=== PATIENT | male | born 1950 | race Caucasian/White ===

== ENCOUNTER → 2019-05-04 | Outpatient (CLI) | payer MEDICARE ==
[2019-05-04 15:09] LABS: ABG BASE EXCESS 3.2 MMOL/L (-2.5-2.5); ABG OXYGEN SATURATION 97 % (94-100); ABG PCO2 47 MMHG (35-45); ABG PH 7.39 (7.37-7.43); ABG PO2 85 MMHG (79-93); ABG TCO2 29.1 MMOL/L (21.0-31.0); ALLENS TEST POSITIVE; INSPIRED O2 2 L; VENTILATOR NO
[2019-05-04 15:10] LABS: PATIENT TEMP 37.3
--- NOTE | 2019-05-04 15:55 | Diagnostic Imaging Report ---
INDICATION: Shortness of breath, bronchitis, rhinitis, and hypoxemia. COMPARISON: Comparison made with prior examination from 01/11/2015. FINDINGS: Heart size is normal. Mediastinum is unremarkable. There is mild venous congestion. There is no pleural effusion or pneumothorax. IMPRESSION: Mild central pulmonary venous congestion. Dictated by: Dictated on workstation # [id number]
== END ==
LOC: RAD 14:28
PROVIDERS: ATTEND Internal Medicine Critical Care Medicine
DX: I87.8 Other specified disorders of veins (principal); J40 Bronchitis, not specified as acute or chronic; J31.0 Chronic rhinitis
CPT/HCPCS: 36600; 71045; 82805

== ENCOUNTER 2019-06-28 20:28 | Inpatient (IN) | payer MEDICARE, OTHER ==
[~2019-06-28] VITALS: Ht 173 cm; Wt 115.5 kg
[2019-06-28] VITALS (11 sets, daily range): BP systolic 110–142; BP diastolic 63–89
--- OUTSIDE RECORDS SUMMARY | 2019-06-28 20:37 | XMS REPORT | Encounter Summary ---
Author Author [facility] Address Unknown Phone Unavailable Care Team Providers Care Photoengraving Photographer Name Role Phone PCP Unavailable Encounter Details Care Team Description Date Type Department Ramo Forbes MD [address] [place] [address] [phone] 12/17/2004 [facility] [address] [place] [address] [id number] Social History Date Tobacco Use Types Packs/Day Years Used Never Assessed Sex Assigned at Date Recorded Not on file Industry Job Start Date Occupation Not on file Not on file Not on file Travel End Travel History Travel Start No recent travel history available. documented as of this encounter Plan of Treatment Not on filedocumented as of this encounter Visit Diagnoses Not on filedocumented in this encounter
--- OUTSIDE RECORDS SUMMARY | 2019-06-28 20:37 | XMS REPORT | Encounter Summary ---
Author Author [facility] Organization [facility] Address Unknown Phone Unavailable Care Team Providers Care Manager Council Name Role Phone PCP Unavailable Encounter Details Care Team Description Date Type Department Jimmie Barriga MD [address] [place] [address] [phone] 03/03/1999 [facility] Social History Date Tobacco Use Types Packs/Day Years Used Never Assessed Sex Assigned at Date Recorded Not on file Industry Job Start Date Occupation Not on file Not on file Not on file Travel End Travel History Travel Start No recent travel history available. documented as of this encounter Plan of Treatment Not on filedocumented as of this encounter Procedures Comments Procedure Name Priority Date/Time Associated Diag nosis CT THORACIC SPINE WO Routine 03/03/1999 CONTRAST 2:30 PM POULTRY PINNER documented in this encounter Results * CT Thoracic Spine wo contrast (03/03/1999 2:30 PM POULTRY PINNER) Specimen Narrative Performed At Report [facility] RAD/[id number] [facility] Name: JO ANN DEL REAL Date of : 1950 Age: 48Y Room-Bed/Loca tion/Type: -//RB Check-In #: [id number] Attending Physician: JIMMIE Coates Procedure: CT SPINE THORACIC W/O Reason for Exam: ;BACK PAIN Requested by: JIMMIE BARRIGA Film Jacket #: [id number] Exam Date: 03/03/1999 14:32 Exam: CT THORACIC SPINE EXAMINATION Reason for Exam: Patient with back p ain. Axial images were obtained from T1 thro ugh L1. No acute fracture abnormality is seen. Pronounced degenerative changes with sclerosis in the posterior element s and some facet arthropathy are present, particularly at the T7-8, T8-9 , and T9-10 levels. Degenerative sclerosis and hypertrophic spurring are noted. IMPRESSION: 1. No evidence of an acute fracture i s seen. Degenerative changes are noted, particularly at the T7-8, T8-9, and T9-10 levels. Degenerative sclerosis and hypertrophic spurring are present. 2. A minimal wedging deformity may no t be well seen on CT examination due to the axial imaging sequences. If t here is clinical concern of an acute fracture, a whole-body bone scan or MRI scan of the thoracic spine would be of benefit to exclude a subtle acute pr ocess. Dalia Clement M.D. T: 000 09:46:43 cc: Name: JO ANN DEL REAL Room-Bed /Loc/Type: -//RB Admit D ate: 03/03/1999 MEDICAL IMAGING CONSULTATION 1 OF Name: JO ANN DEL REAL Room-Bed /Loc/Type: -/ /RB Admit Date: 03/03/1999 MEDICAL IMAGING CONSULTATION OF 1 Procedure Note Interface, Rad Conversion - 04/24/2013 5:31 AM POULTRY PINNER Report RAD/nr/[id number] [facility] Name: JO ANN DEL REAL Date of : 1950 Age: 48Y Room-Bed/Location/Type: -//RB Check-In #: [id number] Attending Physician: JIMMIE BARRIGA MD Procedure: CT SPINE THORACIC W/O Reason for Exam: ;BACK PAIN Requested by: JIMMIE BARRIGA Film Jacket #: [id number] Exam Date: 03/03/1999 14:32 Exam: CT THORACIC SPINE EXAMINATION Reason for Exam: Patient with back pain. Axial images were obtained from T1 through L1. No acute fracture abnormality is seen. Pronounced degenerative changes with sclerosis in the posterior elements and some facet arthropathy are present, particularly at the T7-8, T8-9, and T9-10 levels. Degenerative sclerosis and hypertrophic spurring are noted. IMPRESSION: 1. No evidence of an acute fracture is seen. Degenerative changes are noted, particularly at the T7-8, T8-9, and T9-10 levels. Degenerative sclerosis and hypertrophic spurring are present. 2. A minimal wedging deformity may not be well seen on CT examination due to the axial imaging sequences. If there is clinical concern of an acute fracture, a whole-body bone scan or MRI scan of the thoracic spine would be of benefit to exclude a subtle acute process. Dalia Clement M.D. cc: Name: JO ANN DEL REAL A Room-Bed/Loc/Type: -//RB Admit Date: 03/03/1999 MEDICAL IMAGING CONSULTATION Name: VIKASJO ANN RAWLS [place] Room-Bed/Loc/Type: -/ /RB Admit Date: 03/03/1999 MEDICAL IMAGING CONSULTATION 1 Performing Organization Address City/State/Zipcode Ph one Number [facility] documented in this encounter Visit Diagnoses Not on filedocumented in this encounter
--- OUTSIDE RECORDS SUMMARY | 2019-06-28 20:37 | XMS REPORT | Encounter Summary ---
Author Author [facility] Organization [facility] Address Unknown Phone Unavailable Care Team Providers Care Second Ride Fare Collector Name Role Phone PCP Unavailable Encounter Details Care Team Description Date Type Department Ramo Forbes MD [address] [place] [address] [phone] OBSTRUCTIVE SLEEP APNEA, ADULT & PED 02/10/2005 [facility] [address] [place], [place] [id number] Social History Date Tobacco Use Types Packs/Day [...] Procedure Name Priority Date/Time Associated Diag nosis COOXIMETRY ARTERIAL Routine 02/10/2005 10:35 PM DIVEMASTER ARTERIAL BLOOD GAS Routine 02/10/2005 10:35 PM DIVEMASTER documented in this encounter Results * Arterial Blood Gas (02/10/2005 10:35 PM DIVEMASTER) pH Arterial 7.36 (L) 7.38 - 7.44 UNITS SUNQUEST pCO2 Arterial 48 (H) 35 - 45 MMHG SUNQUEST PO2 Arterial 74 >73 MMHG SUNQUEST Base Excess 1.1 -3.0 - 3.0 MEQ/L SUNQUEST Bicarbonate 26.5 21.0 - 28.0 MEQ/L SUNQUEST Patient Temp 37.0 C SUNQUEST Celsius Sample Site ARTERIAL SUNQUEST Fraction of 21 % SUNQUEST Inspired Oxygen Specimen Performing Organization Address City/State/Zipcode Ph one Number [facility] [address] [place], [place] [address] SUNQUEST * Cooximetry Arterial (02/10/2005 10:35 PM DIVEMASTER) Hemoglobin 12.9 (L) 13.0 - 17.0 G/DL SUNQUEST Whole Blood Oxyhemoglobin 91.9 (L) 95.0 - 100.0 %THB SUNQUEST Carboxyhemoglob 1.2 0.0 - 1.5 %THB SUNQUEST in Methemoglobin 1.0 0.0 - 1.5 %THB SUNQUEST O2 Content 16.7 (L) >17.0 ML/DL SUNQUEST Arterial Specimen Performing Organization Address City/State/Zipcode Ph one Number [facility] [address] [place], [place] [address] SUNQUEST documented in this encounter Visit Diagnoses Diagnosis Obstructive sleep apnea (adult) (pediat niki) documented in this encounter
--- OUTSIDE RECORDS SUMMARY | 2019-06-28 20:37 | XMS REPORT ---
Author Author Whatever. [facility] [place] [facility]. 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 Name Role Phone JESSICA GUILLEN Unavailable Unavailable HUERTER, JESSICA Unavailable HUERTER, JESSICA Unavailable HUERTER, JESSICA Unavailable HUERTER, JESSICA Unavailable MICHI SANTOS Unavailable HUERTER, JESSICA Unavailable HUERTER, JESSICA Unavailable HUERTER, JESSICA Unavailable HUERTER, JESSICA Unavailable HUERTER, JESSICA Unavailable HUERTER, JESSICA Unavailable HUERTER, JESSICA Unavailable HUERTER, JESSICA Unavailable HUERTER, JESSICA Unavailable HUERTER, JESSICA Unavailable HUERTER, JESSICA Unavailable HUERTER, JESSICA Unavailable HUERTER, JESSICA Unavailable HUERTER, JESSICA Unavailable HUERTER, JESSICA Unavailable HUERTER, JESSICA Unavailable HUERTER, JESSICA Unavailable HUERTER, JESSICA Unavailable HUERTER, JESSICA Unavailable HUERTER, JESSICA Unavailable BETSY MCKEON Unavailable HUERTER, JESSICA Unavailable HUERTER, JESSICA Unavailable HUERTER, JESSICA Unavailable HUERTER, JESSICA Unavailable HUERTER, JESSICA Unavailable ANIRUDH CALE Unavailable YUNIORRAVENTA Unavailable HUERTER, JESSICA Unavailable HUERTER, EJSSICA Unavailable HUERTER, JESSICA Unavailable HUERTER, JESSICA Unavailable HUERTER, JESSICA Unavailable LISA DAVILA Unavailable HUERTER, JESSICA Unavailable HUERTER, JESSICA Unavailable HUERTER, JESSICA Unavailable HUERTER, JESSICA Unavailable HUERTER, JESSICA Unavailable HUERTER, JESSICA Unavailable HUERTER, JESSICA F Unavailable Unavailable ELENO REYES Unavailable HUERTER, JESSICA Unavailable HUERTER, JESSICA Unavailable HENRY PEÑA DO Unavailable Unavailable LULA MCLAUGHLIN DO Unavailable Unavailable SIRENA CHAUHAN APRN Unavailable Unavailable HUERTER, JESSICA Unavailable Unavailable Unavailable Unavailable Unavailable Unavailable Unavailable Allergies The data below is from unstructured sourcesNo Known Allergies No Known Allergies No Known Allergies No Known Allergies No Known Allergies Unknown Allergies Unknown Allergies Unknown Allergies Unknown Allergies Unknown Allergies Unknown Allergies No Information No Information No Information No Information No Information No Information No Information No Information No Information No Information No Information No Information No Information No Information No Information No Information No Information No Information No Information No Information No Information No Information No Information No Information No Information No Information No Information No Information No Information No Information No Information No Information No Information No Information No Information No Information No Information No Information No Information No Information No Information No Information No Information No Information No Information No Information No Information No Information No Information No Information No Information No Information No Information No Information No Information No Information No Information No Information No Information No Information No Information No Information No Information No Information No Information No Information No Information No Information No Information No Information No Information No Information Medications Medication Ingredient Drug Dose Dates Status Sig Sig Care Class(es) (Normalized) (Original) Provid er doxycycline Doxycycline Tetracyclin 100 mg 05-20-19 Active take 1 Doxycycline no hyclate 100 Translation e-class 19 capsule by Hyclate 100 name mg oral s: [ Drug mouth twice MG Orally 2 capsule (1 Doxycycline daily times a day source.) Hyclate 100 1 capsule MG] 12h 28 Apr, 2018 10 day(s) Active hydroCHLORO hydroCHLORO Thiazide 12.5 Active no Hydrochloro t no thiazide thiazide Diuretic mg information hiazide 12.5 na me 12.5 mg Translation MG Orally oral s: [ Once a day 1 capsule (5 Hydrochloro capsule in sources.) thiazide the morning 12.5 MG, 24h Active Hydrochloro thiazide 12.5 MG] predniSONE predniSONE no 40 mg 05-04-19 Active take 2 Predn iSONE no 20 mg oral Translation information 19 tablets by 20 MG Or ally name tablet (1 s: [ mouth once Once a day 2 source.) PredniSONE daily tablet 24h 20 MG] Apr, 5 days Active zolpidem zolpidem gamma-Amino 10 mg 09-07-19 Active take 1 Ambi en 10 mg no tartrate 10 Translation butyric 18 tablet by Orally Once name mg oral s: [ Ambien Acid-ergic mouth once a day 1 tablet (6 10 mg, Agonist daily at tablet at sources.) Ambien 10 bedtime as bedtime as mg] needed needed 24h Aug, 30 days Active Problems Problem Normalized Date Last Normalized Normalized Provider Fa cility Classification Problem(s) Recorded Problem Problem Sta tus Duration Other upper Acute upper Episodic Active [facility] respiratory [facility] infections (4 infection, of [facility] sources.) unspecified [place] ([address]) Translations: [ - Acute URI J06.9] Unclassified Body mass Chronic Active JESSICA contreras (19 sources.) index (BMI) [facility] 45.0-49.9, of [facility] adult [place] ([address]19) Translations: [ - BMI 45.0-49.9, adult Z68.42, - BMI 45.0-49.9, adult Z68.42] Other upper Chronic Chronic Active HENRY PEÑA [facility] Vi a respiratory rhinitis DO Veronica disease (1 Hospital - source.) [place] ([address]) Other lower Cough Episodic Active LULA MCLAUGHLIN [facility] Via respiratory , DO Veronica disease (1 Hospital - source.) [place] ([address]) Congestive Heart failure Chronic Active [facility] [place] [facility] heart failure; Translations: [address] nonhypertensiv [ Heart of [facility] e (6 sources.) failure, [place] ([address]) unspecified HF chronicity, unspecified heart failure type, - Heart failure, unspecified HF chronicity, unspecified heart failure type I50.9] Other Morbid Chronic Active [facility] [place] [facility] nutritional; (severe) [address] endocrine; and obesity due to of [facility] metabolic excess [place] ([address]) disorders (6 calories sources.) Translations: [ - Morbid (severe) obesity due to excess calories E66.01] Other Morbid obesity Chronic Active [facility] [place] [facility] nutritional; Translations: [address] endocrine; and [ Morbid of [facility] metabolic (severe) [place] () disorders (4 obesity due to sources.) excess calories] Residual Obstructive Chronic Active [facility] Via codes; sleep apnea ASH CH[facility]HAN unclassified (adult) Hospital - (1 source.) (pediatric) [place] ([address]) Other diseases Other Episodic Active HENRY PEÑA [facility] Via of veins and specified DO [facility] lymphatics (1 disorders of Hospital - source.) veins [place] ([address]) Other nervous Polyneuropathy Chronic Active [facility] system , unspecified [address] [place] [address] disorders (20 Translations: of [facility] sources.) [ - Neuropathy [place] ([address]) G62.9, - Neuropathy G62.9] Esophageal Stricture of Chronic Active [facility] disorders ([address] [place] [address] sources.) Translations: of [facility] [ Esophageal [place] ([address]) stricture, - Esophageal stricture K22.2] Other lower Wheezing Episodic Active [facility] [place] [facility] respiratory Translations: [address] disease (4 [ - Wheezing of [facility] sources.) R06.2] [place] ([address]) Procedures Procedure Normalized Procedure Procedure Result Performer Facility Date 08-09-2017 Avulsion nail plate no information no name [facility] partial/complete Center [facility] simple 1 [place] ([address]) 08-16-2017 Fall risk assessment no information no name [facility] (79084) 05-19-2018 [facility] visit, estab pt no information no name Co [facility] (99406) 2018 [facility] visit, estab pt no information no name Co [facility] (44057) 12-31-2017 [facility] visit, estab pt no information no name Co [facility] (22661) 09-06-2017 [facility] visit, estab pt no information no name [facility] (76599) 08-09-2017 [facility] visit, estab pt no information no name [facility] (41591) 08-16-2017 [facility] visit, IPPE or no information no name [facility] AWV [facility] (63657) 08-16-2017 Pt tobacco screen rcvd no information no name [facility] tlk [facility] (04553) 08-09-2017 Trimming nondystrophic no information no name [facility] nails any number [facility] (70955) Immunizations Normalized Immunization Date Notes Care Provider Facili ty Immunization influenza, high dose 12-31-2017 - no information JESSICA GUILLEN [address]4786 [facility] seasonal, 12-31-2017 [facility]84105[facility] Translations: [ ADMN FLU VAC NO FEE SCHED SAME DAY, FLUZONE HIGH DOSE (65 & UP) 2018, SINGLE IMMUNIZATION ADMIN] pneumococcal 12-18-2016 no information no name Not Availa ble conjugate vaccine, (38105) 13 valent Results Test Name Value Interpretation Reference Range Date Time Fa cility (Normalized) (Normalized) (Medline Reference) not yet categorized on 2018-10-31 COMMENT no information (no code) [facility] (74484) Prescribed Drug Oxycodone (no code) [facility] (04959) laboratory on 2018-10-31 Amphetamines Ql Negative (N) [facility] (U) [facility] (84649) Barbiturates Ql Negative (N) [facility] (U) [facility] (69010) Benzodiazepines Negative (N) [facility] Ql (U) [facility] (06828) Benzoylecgonine Negative (N) [facility] Ql (U) [facility] (27211) Codeine (U) Negative (N) [facility] [Mass/Vol] [facility] (86711) Creatinine (U) 277.2 mg/dL (N) [facility] [Mass/Vol] [facility] (80415) Drug screen CONSISTENT (N) [facility] comment (U) [facility] [Interp] [facility] (43728) Hydrocodone (U) Negative (N) [facility] [Mass/Vol] [facility] (49875) Hydromorphone Negative (N) [facility] (U) [Mass/Vol] [facility] (70903) Methadone Ql (U) Negative (N) Community [facility] (05559) Morphine (U) Negative (N) [facility] [Mass/Vol] [facility] (16376) Norhydrocodone Negative (N) [facility] Confirm (U) [facility] [Mass/Vol] [facility] (32294) Noroxycodone >85269 (H) [facility] Confirm (U) [facility] [Mass/Vol] [facility] (33432) Opiates Ql (U) Negative (N) [facility] (64104) Oxidants Ql (U) Negative (N) [facility] (08288) Oxycodone (U) >39951 (H) [facility] [Mass/Vol] [facility] (70732) Oxycodone Ql (U) Positive (A) Community [facility] (62102) Oxymorphone (U) 89 (H) [facility] [Mass/Vol] [facility] (29209) pH (U) 5.4 [pH] (N) 4.6 - 8 [pH] [facility] (68010) Phencyclidine Ql Negative (N) [facility]th (U) [facility] (24681) Tetrahydrocannab Negative (N) Community [facility] lt inol Ql (U) [facility] (39758) laboratory on 2018-08-18 Prostate 0.9 ng/mL (N) 0 - 4 ng/mL Community a lt specific Ag [facility] [Mass/Vol] [facility] (13816) urinalysis on 2017-09-06 Benzoylecgonine Negative (no code) [facility] presence [facility] (55616) Urine, Negative (no code) [facility] (97668) Urine, Negative (no code) [facility] benzodiazep[facility] (34625) Urine, 246.0 mg/dL (no code) [facility] creatinine [facility] (65133) Urine, methadone Negative (no code) Community [facility] presence [facility] (26334) Urine, opiates Positive (A) [facility] presence [facility] (51468) Urine, Negative (no code) [facility] phencyclidine [facility] (24202) Urine, Negative (no code) [facility] tetrahydrocannab [facility] (97779) other on 2017-09-06 Alphahydroxyalpr Negative (no code) Community a lt azolam [facility] (37444) Alphahydroxymida Negative (no code) Community a lt zolam [facility] (66187) Alphahydroxytria Negative (no code) Community [facility] zolam [facility] (75552) Aminoclonazepam Negative (no code) [facility] (78972) Codeine Negative (no code) [facility] (28900) Hydrocodone Negative (no code) [facility] (35727) Hydromorphone Negative (no code) [facility] (58524) Hydroxyethylflur Negative (no code) [facility] azepam [facility] (11496) Lorazepam Negative (no code) [facility] (50910) Morphine 248 (H) [facility] (95565) Nordiazepam Negative (no code) [facility] (63350) Norhydrocodone Negative (no code) [facility] (67502) Noroxycodone 8013 (H) [facility] (03661) Oxazepam Negative (no code) [facility] (75135) Oxycodone 05806 (H) [facility] (72399) Oxymorphone 3337 (H) [facility] (93109) Temazepam Negative (no code) [facility] (62179) Albumin/Globulin 1.5 (N) Not Available mass ratio (71173) Barbiturates Negative (no code) [facility] (26727) Cholesterol in 83 (N) Not Available LDL mass conc (58386) Cholesterol non 114 (N) Not Available HDL mass conc (71357) Cholesterol.tota 3.5 (N) Not Available l/Cholesterol in (09780) HDL mass ratio COMMENT no information (no code) [facility] (73650) Globulin 2.6 (N) Not Available Calculated mass (88252) conc (S) medMATCH CONSISTENT (no code) [facility] Aminoclonazepam [facility] (03153) medMATCH CONSISTENT (no code) [facility] Amphetamines [facility] (63531) medMATCH aOH CONSISTENT (no code) [facility] alprazolam [facility] (06724) medMATCH aOH CONSISTENT (no code) [facility] midazolam [facility] (37486) medMATCH aOH CONSISTENT (no code) [facility] triazolam [facility] (90771) medMATCH CONSISTENT (no code) [facility] Barbiturates [facility] (38813) medMATCH Cocaine CONSISTENT (no code) [facility] Metab [facility] (12375) medMATCH Codeine CONSISTENT (no code) [facility] (49831) medMATCH CONSISTENT (no code) [facility] Hydrocodone [facility] (77333) medMATCH CONSISTENT (no code) [facility] Hydromorphone [facility] (47683) medMATCH CONSISTENT (no code) [facility] Lorazepam [facility] (41223) medMATCH CONSISTENT (no code) [facility] Marijuana Metab [facility] (88191) medMATCH CONSISTENT (no code) [facility] Methadone Metab [facility] (07065) medMATCH INCONSISTENT (no code) [facility] Morphine [facility] (27257) medMATCH CONSISTENT (no code) [facility] Nordiazepam [facility] (46737) medMATCH CONSISTENT (no code) [facility] Norhydrocodone [facility] (89415) medMATCH CONSISTENT (no code) [facility] Noroxycodone [facility] (99233) medMATCH [place],Et CONSISTENT (no code) [facility] flurazepam Center [facility] (06531) medMATCH CONSISTENT (no code) [facility] Oxazepam [facility] (21449) medMATCH CONSISTENT (no code) [facility] Oxycodone [facility] (27927) medMATCH CONSISTENT (no code) [facility] Oxymorphone [facility] (58183) medMATCH CONSISTENT (no code) [facility] Phencyclidine [facility] (37666) medMATCH CONSISTENT (no code) [facility] Temazepam [facility] (67500) Oxidant Negative (no code) [facility] (79035) Oxycodone Positive (A) [facility] (95467) Prescribed Drug Oxycodone (no code) [facility] 1 [facility] (19544) metabolic panel on 2017-09-06 Albumin mass 4.0 g/dL (N) 3.4 - 5.4 g/dL Not Avail able conc (11673) ALP enzyme 137 U/L (H) 44 - 147 U/L Not Availabl e act/vol (13674) ALT enzyme 19 U/L (N) 4 - 40 U/L Not Available act/vol (01153) AST enzyme 16 U/L (N) 10 - 34 U/L Not Available act/vol (04449) Bilirubin mass 0.3 mg/dL (N) 0.1 - 1.2 mg/dL Not Av ailable conc (01466) Calcium mass 9.0 mg/dL (N) 8.5 - 10.2 mg/dL Not Marilee ilable conc (48596) Chloride molar 105 mmol/L (N) 95 - 106 mmol/L Not Av ailable conc (71403) CO2 molar conc 27 mmol/L (N) 23 - 29 mmol/L Not Marilee ilable (06718) Creatinine mass 1.04 mg/dL (N) Not Available conc (39428) GFR/1.73 sq M 86 (N) 90 - 120 Not Availabl e predicted among mL/min/{1.73_m2} mL/min/{1.73_m2} (64712) blacks MDRD vol rate/area (S/P/Bld) GFR/1.73 sq 74 (N) 90 - 120 Not Available M.predicted MDRD mL/min/{1.73_m2} mL/min/{1.73_m2} (65175) vol rate/area Glucose mass 99 mg/dL (N) 60 - 125 mg/dL Not Avail able conc (02756) Potassium molar 4.0 mmol/L (N) 3.7 - 5.2 mmol/L Not Available conc (48793) Protein mass 6.6 g/dL (N) 6.4 - 8.3 g/dL Not Avail able conc (87070) Sodium molar 142 mmol/L (N) 135 - 145 mmol/L Not Marilee ilable conc (07417) Urea nitrogen 15 mg/dL (N) 7 - 20 mg/dL Not Availa ble mass conc (20176) Urea NOT APPLICABLE (no code) Not Available nitrogen/Creatin (98535) ine mass ratio hematology on 2017-09-06 pH of blood 5.15 [pH] (no code) 7.38 - 7.42 [pH] [facility] (31506) cardiac on 2017-09-06 Cholesterol in 45 mg/dL (N) Not Available HDL mass conc (05373) Cholesterol mass 159 mg/dL (N) 180 - 200 mg/dL Not Available conc (35083) Triglyceride 224 mg/dL (H) 0 - 150 mg/dL Not Availa ble mass conc (58102) other on 2016-10-02 25-Hydroxyvitami 25.0 (L) 10-02-2016 Not Avail able n 13:27-0400 (96273) D2+25-Hydroxyvit garcía D3 mass conc Albumin/Globulin 1.4 {ratio} (no code) 1 - 2.5 {ratio} 7 Not Available mass ratio 08:57-0400 (94023) Cholesterol in 18 mg/dL (no code) 10-02-2016 Not Availab le VLDL mass conc 10:06-0400 (23760) Globulin 3.0 g/dL (no code) 2 - 3.5 g/dL 10-02-2016 Not Avail able Calculated mass 08:57-0400 (46678) conc (S) metabolic panel on 2016-10-02 Albumin mass 4.3 g/dL (no code) 3.4 - 5.4 g/dL 10-02-2016 Not Available conc 08:57-0400 (89526) ALP enzyme 141 U/L (H) 44 - 147 U/L 10-02-2016 Not Avai lable act/vol 10:06-0400 (56677) ALT enzyme 18 U/L (no code) 4 - 40 U/L 10-02-2016 Not Availa ble act/vol 10:06-0400 (32926) AST enzyme 16 U/L (no code) 10 - 34 U/L 10-02-2016 Not Avail able act/vol 08:57-0400 (12359) Bilirubin mass 0.4 mg/dL (no code) 0.1 - 1.2 mg/dL 10-02-2016 N ot Available conc 08:570400 (29289) Calcium mass 9.5 mg/dL (no code) 8.5 - 10.2 mg/dL 10-02-2016 No t Available conc 08:470400 (09240) Chloride molar 98 mmol/L (no code) 95 - 106 mmol/L 10-02-2016 N ot Available conc 08:470400 (08385) CO2 molar conc 22 mmol/L (no code) 23 - 29 mmol/L 10-02-2016 No t Available 08:570400 (23041) Creatinine mass 1.14 mg/dL (no code) 10-02-2016 Not Availa ble conc 10:060400 (93340) GFR/1.73 sq M 78 (no code) 120 10-02-2016 Not Avai lable predicted among mL/min/{1.73_m2} mL/min/{1.73_m2} 10:060400 (13524) blacks MDRD vol rate/area (S/P/Bld) GFR/1.73 sq M 67 (no code) 120 10-02-2016 Not Avai lable predicted among mL/min/{1.73_m2} mL/min/{1.73_m2} 10:060400 (29599) non-blacks MDRD vol rate/area (S/P/Bld) Glucose mass 97 mg/dL (no code) 60 - 125 mg/dL 10-02-2016 Not Available conc 08:570400 (78398) Potassium molar 4.4 mmol/L (no code) 3.7 - 5.2 mmol/L 10-02-2016 Not Available conc 08:470400 (73125) Protein mass 7.3 g/dL (no code) 6.4 - 8.3 g/dL 10-02-2016 Not Available conc 08:570400 (10231) Sodium molar 139 mmol/L (no code) 135 - 145 mmol/L 10-02-2016 N ot Available conc 08:470400 (22120) Urea nitrogen 15 mg/dL (no code) 7 - 20 mg/dL 10-02-2016 Not A vailable mass conc 08:57-0400 (10830) Urea 13 mg/mg (no code) 6 - 22 mg/mg 10-02-2016 Not Avail able nitrogen/Creatin 10:06-0400 (79982) ine mass ratio imm/path on 2016-10-02 Prostate 4.1 ng/mL (H) 0 - 4 ng/mL 10-02-2016 Not Availa ble specific Ag mass 10:44-0400 (79919) conc cardiac on 2016-10-02 Cholesterol in 52 mg/dL (no code) 10-02-2016 Not Availab le HDL mass conc 10:060400 (86274) Cholesterol in 68 mg/dL (no code) 0 - 100 mg/dL 10-02-2016 Not Available LDL mass conc 10:060400 (88352) Cholesterol mass 138 mg/dL (no code) 180 - 200 mg/dL 10-02-2016 Not Available conc 10:060400 (33654) Triglyceride 89 mg/dL (no code) 0 - 150 mg/dL 10-02-2016 Not A vailable mass conc 10:060400 (30501) Vital Signs Vital Sign Value Interpretation Reference Date Time Care Prov ider Facility (Normalized) (Normalized) Range BMI (Body Mass 34.36 kg/m2 (no code) 15 - 25 kg/m2 2018 [facility] Community Index) 17:45-[address] [place] [address] (85781) BMI (Body Mass 37.99 kg/m2 (no code) 15 - 25 kg/m2 12-31-2017 D AVID [facility] Community Index) 16:20-[address] [place] [address] (59866) BMI (Body Mass 36.5 kg/m2 (no code) 15 - 25 kg/m2 09-06-2017 [facility] Community Index) 16:00-[id number] [place] [address] (21969) BMI (Body Mass 36.59 kg/m2 (no code) 15 - 25 kg/m2 08-16-2017 ANDREWS MOJICA Community Index) 13:20-0400 63737 [facility] (79978) BMI (Body Mass 36.4 kg/m2 (no code) 15 - 25 kg/m2 08-09-2017 LEE OLEARY Community Index) 19:00-0400 76959 [facility] (50553) Body height 172.72 cm (no code) cm 05-19-2018 JESSICA [facility] 16:40-0400 69530 [facility] (37652) Body mass 35.26 kg/m2 (no code) 15 - 25 kg/m2 05-19-2018 JESSICA FINN Community index (BMI) 16:40-0400 46356 [facility] [Ratio] [facility] (78667) Body 97.8 [degF] (no code) 97.8 - 99.0 05-19-2018 JESSICA DUMONT [facility] temperature [degF] 16:40-0400 16285 [facility] (67073) Body 97.5 [degF] (no code) 97.8 - 99.0 2018 [facility] [place] [facility] Temperature [degF] 17:45-0400 [facility] [address] [facility] (94249) Body 98.2 [degF] (no code) 97.8 - 99.0 12-31-2017 JESSICA MOREKIM JULIA [facility] Temperature [degF] 16:20-0500 07743 [facility] (23963) Body 98.1 [degF] (no code) 97.8 - 99.0 09-06-[address] [facility] Temperature [degF] 16:00-0400 07296 [facility] (40455) Body 97.5 [degF] (no code) 97.8 - 99.0 08-16-2017 MAICO KIN G Community Temperature [degF] 13:20-0400 85781 [facility] (42519) Body 98.5 [degF] (no code) 97.8 - 99.0 08-09-2017 CALE MICAH LANDIS [facility] Temperature [degF] 19:00-0400 57699 [facility] (29608) Body weight 105.19 kg (no code) kg 05-19-2018 JESSICA [facility] 16:40-[address] [place] [address] (73085) Body weight 102.51 kg (no code) kg 2018 ELENO Co mmunity 17:45-[address] [place] [address] ([id number]) Height 172.72 cm (no code) cm 2018 ELENO Christiansonu nity 17:45-[address] ([id number]) Height 172.72 cm (no code) cm 12-31-2017 [facility] [id number] [address] [place] [address] ([id number]) Height 172.72 cm (no code) cm 09-06-2017 [facility] 16:00-[address] [place] [address] ([id number]) Height 172.72 cm (no code) cm 08-16-2017 MAICO YUNIOR [facility] [id number]:200400 [address] [place] [address] ([id number]) Height 172.72 cm (no code) cm 08-09-2017 [facility] 19:00-[address] [place] [address] ([id number]) Oxygen 96 % (no code) 95 - 100 % 05-19-2018 [facility] saturation in 16:40-[address] [place] [address] Arterial blood [facility] [place] ([id number]) oximetry Pulse Oximetry 0 % (no code) 95 - 100 % 09-06-2017 [facility] 16:00-[address] [place] [address] ([id number]) Pulse Oximetry 96 % (no code) 95 - 100 % 08-16-2017 [facility] [id number]:200400 [address] [place] [address] ([id number]) Weight 113.35 kg (no code) kg 12-31-2017 [facility] [id number] [address] [place] [address] ([id number]) Weight 108.91 kg (no code) kg 09-06-2017 [facility] 16:000400 [address] [place] [address] ([id number]) Weight 109.18 kg (no code) kg 08-16-2017 MAICO Castro mmunity 13:20-0400 [address] [facility] ([id number]) Weight 108.59 kg (no code) kg 08-09-2017 [facility] 19:00-[address] [place] [address] ([id number]) Interventions No Information Plan of Treatment Normalized Care Care Detail Care Activity Date Care Provider F acility Activity (M) [facility] 12-31-2017 JESSICA GUILLEN [id number] [facility] ([id number]) ([facility]) [facility] 10-04-2018 ELENO HAINES [address] ([id number]) [facility] 10-31-2018 JESSICA GUILLEN [phone] [facility] ([id number]) [facility] 06-20-2019 JESSICA GUILLEN [phone] [facility] ([id number]) Patient encounter [facility] 12-24-2017 JESSICA GUILLEN [phone] [facility] ([id number]) Patient encounter [facility] 12-09-2018 ELENO REYES [address] ([id number]) Patient encounter no information 05-23-2019 SIRENA CHAUHAN VC [facility] ([id number]) no information no information no information [facility] 76 2 [facility] ([id number]) Goals No Information Social History No Information Functional Status No Information Mental Status No Information Encounters Encounter Normalized Encounter Encounter Diagnosis Care Provi genevieve Organization Date Type 05-19-2018 ([facility]) Chronic Health Low back pain JESSICA GUILLEN (n o [facility] - Maintenance phone) (no phone) 05-19-2018 - 05-19-2018 12-31-2017 (M) Chronic Health Low back pain JESSICA GUILLEN (n o [facility] - Maintenance phone) (no phone) 12-31-2017 - 12-31-2017 2018 (WALK-IN) Walk-In Care Acute upper ELENO REYES (no [facility] - respiratory infection, phone) CARE (n o phone) 2018 unspecified - 2018 06-01-2019 [facility] Chronic obstructive JESSICA RICKETTS RTER (no [facility] 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, phone) (no phone) unspecified 03-21-2019 [facility] Chronic obstructive JESSICA MOREChuy RTER (no [facility] 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, phone) (no phone) unspecified 11-02-2018 [facility] no information JESSICA CAITIEKIM (no [facility] phone) (no phone) 10-31-2018 [facility] Low back pain JESSICA CAITIEKIM ( no [facility] phone) (no phone) 09-29-2017 [facility] Low back pain JESSICA BLOODKIM ( no [facility] - phone) (no phone) 09-29-2017 - 09-29-2017 12-24-2017 Patient encounter no information PAULINE RODRÍGUEZ (no ph one) [facility] (no phone) 09-07-2017 Patient encounter no information no name no or ganization name 09-06-2017 Patient encounter no information no name no or ganization name 08-16-2017 Patient encounter no information no name no or ganization name NEGATED Patient encounter no information no name no or ganization name 08-09-2017 05-11-2017 Patient encounter no information no name no or ganization name 05-06-2017 Patient encounter no information no name no or ganization name 03-31-2017 Patient encounter no information no name no or ganization name Patient encounter no information no name no organizat ion name 05-04-2019 Patient encounter no information HENRY PEÑA DO (no [facility] [address] procedure phone) [facility] (no phone) 12-09-2018 Patient encounter no information no name no or ganization name procedure 12-09-2018 Patient encounter Polyneuropathy, PAULINE RODRÍGUEZ (no p steven) [facility] - procedure unspecified (no phone) 12-09-2018 10-31-2018 Patient encounter no information no name no or ganization name procedure 08-18-2018 Patient encounter Encounter for general [facility]ESSICA ALVAREZ [facility] phone) (no phone) 08-18-2018 examination without - abnormal findings 08-18-2018 2018 Patient encounter no information no name no or ganization name procedure 01-11-2015 Patient encounter no information LULA MCLAUGHLIN DO (no [facility] [address] procedure phone) [facility] (no phone) 08-16-2017 [facility], initial visit no information no name no organization name 08-16-2017 [facility], subseq visit no information no name no o rganization name 05-25-2019 Telephone encounter no information [facility]ESS[facility] GUILLEN [facility] phone) (no phone) 05-22-2019 Telephone encounter Low back pain JESSICA GUILLEN (no [facility] [place] phone) (no phone) 05-16-2019 Telephone encounter no information [facility]ESS[facility] GUILLEN [facility] phone[facility] (no phone) 05-15-2019 Telephone encounter no information [facility] GUILLEN [facility] phone) (no phone) 04-28-2019 Telephone encounter no information JESSICA GUILLEN (n o [facility] phone) (no phone) 04-27-2019 Telephone encounter no information JESSICA GUILLEN (n o [facility] phone) (no phone) 04-21-2019 Telephone encounter Low back pain JESSICA GUILLEN (no [facility] [facility] phone) (no phone) 03-28-2019 Telephone encounter Low back pain JESSICA GUILLEN (no [facility]) (no phone) 03-21-2019 Telephone encounter no information JESSICA GUILLEN ([facility] phone) (no phone) 03-09-2019 Telephone encounter no information JESSICA GUILLEN ([facility] [place] phone) (no phone) 03-06-2019 Telephone encounter no information JESSICA GUILLEN (n [facility]) (no phone) 02-24-2019 Telephone encounter Low back pain JESSICA GUILLEN (no [facility]) (no phone) 02-02-2019 Telephone encounter Low back pain JESSICA GUILLEN (no [facility] phone) (no phone) 01-27-2019 Telephone encounter no information JESSICA GUILLEN (n o [facility] phone) (no phone) 01-06-2019 Telephone encounter Low back pain JESSICA GUILLEN (no [facility] [place] phone) (no phone) 01-04-2019 Telephone encounter Polyneuropathy, JESSICA GUILLEN ( no [facility] unspecified phone) (no phone) 12-29-2018 Telephone encounter Polyneuropathy, JESSICA GUILLEN ( no [facility] [place] unspecified phone) (no phone) 12-07-2018 Telephone encounter Low back pain JESSICA GUILLEN (no [facility] phone) (no phone) 11-09-2018 Telephone encounter Low back pain JESSICA GUILLEN (no [facility] phone) (no phone) 10-07-2018 Telephone encounter Low back pain JESSICA GUILLEN ([facility] - phone) (no phone) 10-07-2018 - 10-07-2018 09-10-2018 Telephone encounter no information JESSICA GUILLEN (n o [facility] - phone) (no phone) 09-10-2018 - 09-10-2018 09-06-2018 Telephone encounter Low back pain JESSICA GUILLEN (no [facility] - phone) (no phone) 09-06-2018 - 09-06-2018 08-18-2018 Telephone encounter Corns and callosities JESSICA REYNA (no [facility] - phone) (no phone) 08-18-2018 - 08-18-2018 08-10-2018 Telephone encounter Low back pain JESSICA GUILLEN (no [facility] - phone) (no phone) 08-10-2018 - 08-10-2018 07-13-2018 Telephone encounter Low back pain JESSICA GUILLEN (no [facility] - phone) (no phone) 07-13-2018 - 07-13-2018 06-15-2018 Telephone encounter Low back pain BETSY MCKEON (no [facility] - phone) (no phone) 06-15-2018 - 06-15-2018 05-23-2018 Telephone encounter no information JESSICA GUILLEN (n o [facility] - phone) (no phone) 05-23-2018 - 05-23-2018 05-18-2018 Telephone encounter Low back pain JESSICA GUILLEN (no [facility] - phone) (no phone) 05-18-2018 - 05-18-2018 05-11-2018 Telephone encounter no information JESSICA GUILLEN (n o [facility] - phone) (no phone) 05-11-2018 - 05-11-2018 04-21-2018 Telephone encounter Low back pain JESSICA GUILLEN (no [facility] - phone) (no phone) 04-21-2018 - 04-21-2018 03-29-2018 Telephone encounter no information JESS[facility] GUILLEN [facility] ([facility]) 03-29-2018 - 03-29-2018 03-24-2018 Telephone encounter Low back pain JESSICA GUILLEN ([facility] (no phone) 03-24-2018 - 03-24-2018 03-10-2018 Telephone encounter no information JESSICA GUILLEN (n o [facility] - phone) (no phone) 03-10-2018 - 03-10-2018 02-23-2018 Telephone encounter Low back pain JESSICA GUILLEN (no [facility] - phone) (no phone) 02-23-2018 - 02-23-2018 01-31-2018 Telephone encounter no information JESSICA GUILLNE [facility] (no phone) 01-31-2018 - 01-31-2018 01-25-2018 Telephone encounter Low back pain JESSICA GUILLEN (no [facility] - phone) (no phone) 01-25-2018 - 01-25-2018 01-18-2018 Telephone encounter Major depressive JESSICA GUILLEN (no [facility] disorder, single phone) (no phone) 01-18-2018 episode, unspecified - 01-18-2018 12-30-2017 Telephone encounter no information JESSICA GUILLEN ([facility] (no phone) 12-30-2017 - 12-30-2017 12-22-2017 Telephone encounter Low back pain JESSICA GUILLEN (no [facility] [place] - phone) (no phone) 12-22-2017 - 12-22-2017 11-29-2017 Telephone encounter Low back pain LISA DAVILA (n o [facility] [place] - phone) LISA (no phone) 11-29-2017 PAUL (no phone) - 11-29-2017 11-25-2017 Telephone encounter Low back pain JESSICA GUILLEN (no [facility] [place] - phone) (no phone) 11-25-2017 - 11-25-2017 10-27-2017 Telephone encounter Low back pain JESSICA GUILLEN (no [facility] [place] - phone) (no phone) 10-27-2017 - 10-27-2017 no information Encounter for general no name no organ ization name adult medical examination without abnormal findings Medical Equipment No Information Payers No Information History general Narrative - Reported Note Type Note Facility History general Narrative - Reported Type Medical hyperlipidemia History Medical hypertension History Medical carpal tunnel both hands History Medical Barretts esophagus History Medical cerebral palsy, premature b irth. tilted pelvis, one leg shorter than the other History Medical spinal stenosis History Medical curvature of spine History Medical COPD History Surgical cholecystectomy 2006 History Surgical duodenal ulcer surg 1973 History Surgical retina detatchment, lens im plant History [facility] ([id number]) Summary Purpose eClinicalWorks SubmissioneClinicalWorks SubmissioneClinicalWorks SubmissioneClinicalWorks Submission Additional Source Comments This clinical document has been generated using [employer] software that has been certified by the Office of the National Coordinator for Health Information Technology (ONC 15.99.04.3023.Diam.31.00.0.619716) and the National Committee for Teleservices Representative (NCQA, as an eMeasure certified technology). FOR RECORDS PERTAINING TO PATIENTS WHO ARE OR HAVE BEEN ENROLLED IN A CHEMICAL D EPENDENCY/SUBSTANCE ABUSE PROGRAM, SOME INFORMATION MAY BE OMITTED. This clinica l summary was aggregated from multiple sources. Caution should be exercised in using it in the provision of clinical care. This summary normalizes information from multiple sources, and as a consequence, information in this document may ma terially change the coding, format and clinical context of patient data. In prieto tion, data may be omitted in some cases. CLINICAL DECISIONS SHOULD BE BASED ON T HE PRIMARY CLINICAL RECORDS. [employer]. provides no warranty or guara ntee of the accuracy or completeness of information in this document.The followi ng information is based on time limited clinical information UNRECOGNIZED CONTENT PROVIDED BELOW FOR UNRECOGNIZED SECTION MEDICAL (GENERAL) HISTORY Type Description Date Medical History hyperlipidemia Medical History hypertension Medical History carpal tunnel both hands Medical History Barretts esophagus Medical History cerebral palsy, kerrie ature . tilted pelvis, one leg shorter than the other Medical History spinal stenosis Medical History curvature of spine Medical History COPD Surgical History cholecystectomy 2005 Surgical History duodenal ulcer surg 1973 Surgical History retina detatchment, lens implant UNRECOGNIZED CONTENT PROVIDED BELOW FOR UNRECOGNIZED SECTION REASON FOR VISIT Medicare AWV-AHarrymanRNOxycodone ain management (chronic)-Jonathan GONZALES, PDM, Updated contractmedication questionControlled Med Refill 09/30Controlled Med Re fill 10/28Medication questionControlled Med RefillControlled Med Refill 12/23payesi elkins management JjournotRN, pt states that since taking cymbalta when he wakes his arm will flail wildly and is uncontrollable., Needs to have his throat dilated, he is aspirating and having difficulty swallowing. , Wants a flu shotMedication QuestionControlled Med Refill 01/27medication correctionCongestion, cough, and a low grade fever. Started about three days. Pt has been taking Musinex to help w ith congestion. -Anatoliy Sharmaefillcontrolled 05/19Pain management (chronic)- sisi calle ma, having hip problems and has custom shoes and needs new shoes- gave names of podiatrists but would like ref if poss - dawood gonzales, has upper resp trouble- co ngestion/ dry cough/ ears hurt /shortness of breath - dawood gonzales
--- OUTSIDE RECORDS SUMMARY | 2019-06-28 20:37 | XMS REPORT | Encounter Summary ---
Author Author [facility] Address Unknown Phone Unavailable Care Team Providers Care Food Inspector Name Role Phone PCP Unavailable Encounter Details Care Team Description Date Type Department Ramo Forbes MD [address] [place] [address] [phone] 12/06/2004 [facility] [address] [place] [address] [id number] Social History Date Tobacco Use Types Packs/Day [...]
--- OUTSIDE RECORDS SUMMARY | 2019-06-28 20:37 | XMS REPORT | Encounter Summary ---
Author Author [facility] Organization [facility] Address Unknown Phone Unavailable Care Team Providers Care Instrument Repairer Name Role Phone PCP Unavailable Encounter Details Care Team Description Date Type Department Ramo Celis MD [address] [place] [address] [phone] 11/15/1997 [facility] Encounter [address] [place] [address] Social History Date Tobacco Use Types Packs/Day [...] Procedure Name Priority Date/Time Associated Diag nosis PSA DIAGNOSTIC Routine 11/15/1997 10:04 PM CDT DIFFERENTIAL Routine 11/15/1997 10:04 PM CDT URIC ACID Routine 11/15/1997 10:04 PM CDT THYROID CASCADE Routine 11/15/1997 10:04 PM CDT PROTEIN TOTAL SERUM Routine 11/15/1997 10:04 PM CDT PHOSPHORUS Routine 11/15/1997 10:04 PM CDT LIPID PANEL Routine 11/15/1997 10:04 PM CDT LACTATE DEHYDROGENASE Routine 11/15/1997 10:04 PM CDT CBC AND DIFF (MANUAL DIFF Routine 11/15/1997 IF NECESSARY) 10:04 PM CDT CHOLESTEROL Routine 11/15/1997 10:04 PM CDT CALCIUM Routine 11/15/1997 10:04 PM CDT BILIRUBIN TOTAL Routine 11/15/1997 10:04 PM CDT BASIC METABOLIC PANEL Routine 11/15/1997 10:04 PM CDT ASPARTATE Routine 11/15/1997 AMINOTRANSFERASE 10:04 PM CDT ALKALINE PHOSPHATASE Routine 11/15/1997 10:04 PM CDT ALBUMIN Routine 11/15/1997 10:04 PM CDT documented in this encounter Results * Basic Metabolic Panel (11/15/1997 10:04 PM CDT) Sodium 140 134 - 144 MEQ/L SUNQUEST Potassium 4.0 3.6 - 5.0 MEQ/L SUNQUEST Chloride 102 98 - 107 MEQ/L SUNQUEST Carbon Dioxide 25 23 - 32 MEQ/L SUNQUEST Anion Gap 13 3 - 15 SUNQUEST Creatinine 0.9 0.5 - 1.5 MG/DL SUNQUEST Blood Urea 18 5 - 20 MG/DL SUNQUEST Nitrogen Glucose 94 65 - 110 MG/DL SUNQUEST Specimen Blood Performing Organization Address [facility] Ph one Number [id number] [place] [phone] 11 SUNQUEST * Alkaline Phosphatase (11/15/1997 10:04 PM CDT) Alkaline 94 40 - 125 IU/L SUNQUEST Phosphatase Specimen Blood Performing Organization Address [facility] Ph one Number [id number] [place] [phone] 11 SUNQUEST * Calcium (11/15/1997 10:04 PM CDT) Calcium 10.4 8.8 - 10.5 MG/DL SUNQUEST Specimen Blood Performing Organization [facility] Ph one Number [id number] [place] [phone] 11 SUNQUEST * Phosphorus (11/15/1997 10:04 PM CDT) Phosphorus 4.8 (H) 2.5 - 4.5 MG/DL SUNQUEST Specimen Blood Performing Organization Address [facility] one Number [id number] [place], [place] [address] 11 SUNQUEST * Cholesterol (11/15/1997 10:04 PM CDT) Cholesterol 217 (H) <200 MG/DL SUNQUEST Specimen Blood Performing Organization [facility] one Number [id number] [place] [phone] 11 SUNQUEST * Uric Acid (11/15/1997 10:04 PM CDT) Uric Acid 4.0 2.5 - 7.8 MG/DL SUNQUEST Specimen Blood Performing Organization [facility] one Number [id number] [place] [phone] 11 SUNQUEST * Protein Total Serum (11/15/1997 10:04 PM CDT) Protein Total 7.3 6.5 - 8.2 G/DL SUNQUEST Serum Specimen Blood Performing Organization [facility] one Number [id number] [place] [phone] 11 SUNQUEST * Aspartate Aminotransferase (11/15/1997 10:04 PM CDT) Aspartate 26 20 - 50 IU/L SUNQUEST Aminotransferas e Specimen Blood Performing [facility] one Number [id number] [place] [phone] 11 SUNQUEST * Albumin (11/15/1997 10:04 PM CDT) Albumin 4.1 3.6 - 4.6 G/DL SUNQUEST Specimen Blood Performing Organization [facility] one Number [id number] [place] [phone] 11 SUNQUEST * Lipid Panel (11/15/1997 10:04 PM CDT) Cholesterol 217 (H) <200 MG/DL SUNQUEST Triglycerides 94 <200 MG/DL SUNQUEST HDL Cholesterol 53 >35 MG/DL SUNQUEST LDL Cholesterol 145 (H) 0 - 130 MG/DL SUNQUEST Cholesterol/HDL 4.1 <4.5 SUNQUEST Ratio Specimen Blood Performing Organization [facility] one Number [id number] [place] [phone] 11 SUNQUEST * Bilirubin Total (11/15/1997 10:04 PM CDT) Bilirubin Total 0.7 0.2 - 1.2 MG/DL SUNQUEST Specimen Blood Performing Organization Address [facility] one Number RL [id number] [place] [phone] 11 SUNQUEST * Lactate Dehydrogenase (11/15/1997 10:04 PM CDT) Pathologist [facility] Lactate 426 300 - 600 IU/L SUNQUEST Dehydrogenase Specimen Blood Performing Organization Address [facility] one Number RL [id number] [place] [phone] 11 SUNQUEST * Thyroid [place] (11/15/1997 10:04 PM CDT) Pathologist [facility] Thyroid 2.41 0.60 - 6.00 UIU/ML SUNQUEST Stimulating Hormone Specimen Blood Performing Organization Address [facility] one Number RL [id number] [place] [phone] 11 SUNQUEST * DIFFERENTIAL (11/15/1997 10:04 PM CDT) % Neutrophils 65 45 - 78 % SUNQUEST %Lymphocytes 23 15 - 47 % SUNQUEST %Monocytes 8 0 - 12 % SUNQUEST %Eosinophils 3 0 - 7 % SUNQUEST %Basophils 1 0 - 2 % SUNQUEST # Granulocytes 5.3 1.7 - 6.8 TH/UL SUNQUEST # Lymphocytes 1.9 1.0 - 3.3 TH/UL SUNQUEST # Monocytes 0.6 0.2 - 0.9 TH/UL SUNQUEST # Eosinophils 0.2 0.0 - 0.4 TH/UL SUNQUEST # Basophils 0.1 0.0 - 0.2 TH/UL SUNQUEST RBC Morphology NORMAL SUNQUEST Specimen Blood Performing Organization Address [facility] one Number [id number] [place] [phone] 11 SUNQUEST * CBC and Diff (manual diff if necessary) (11/15/1997 10:04 PM CDT) WBC 8.1 4.0 - 11.0 TH/UL SUNQUEST RBC 5.27 4.31 - 5.84 MIL/UL SUNQUEST Hemoglobin 16.2 13.0 - 17.0 G/DL SUNQUEST Hematocrit 47 40 - 50 % SUNQUEST MCV 90 80 - 99 FL SUNQUEST MCH 31 27 - 34 PG SUNQUEST MCHC 34 32 - 36 % SUNQUEST RDW 12.0 <14.5 % SUNQUEST Platelet Count 225 140 - 400 TH/UL SUNQUEST Specimen Blood Performing Organization Address [facility] Ph one Number [id number] [place] [phone] 11 SUNQUEST * PSA DIAGNOSTIC (11/15/1997 10:04 PM CDT) PSA Diagnostic 1.0 0.0 - 4.0 NG/ML SUNQUEST Specimen Blood Performing Organization Address [facility] Ph one Number [id number] [place], [place] [address] SUNQUEST documented in this encounter Visit Diagnoses Not on filedocumented in this encounter
--- OUTSIDE RECORDS SUMMARY | 2019-06-28 20:37 | XMS REPORT | Encounter Summary ---
Author Author [facility] Address Unknown Phone Unavailable Care Team Providers Care Instructional Services Librarian Name Role Phone PCP Unavailable Encounter Details Care Team Description Date Type [facility] [address], [place] [id number] Social History Date Tobacco Use Types Packs/Day [...] Procedure Name Priority Date/Time Associated Diag nosis ARTHRITIS PANEL Routine 07/31/1998 9:04 PM CDT DIFFERENTIAL Routine 07/31/1998 9:04 PM CDT CBC AND DIFF (MANUAL DIFF Routine 07/31/1998 IF NECESSARY) 9:04 PM CDT documented in this encounter Results * Arthritis Panel (07/31/1998 9:04 PM CDT) JORGE Qualitative NEGATIVE NEGATIVE SUNQUEST Rheumatoid <20 0 - 19 IU/ML SUNQUEST Factor Uric Acid 3.2 2.5 - 7.8 MG/DL SUNQUEST Sed Rate 1 0 - 15 MM/HR SUNQUEST Specimen Blood Performing Organization Address City/State/Zipcode Ph one Number SLRL [address] [place], [place] [address] SUN[place] * DIFFERENTIAL (07/31/1998 9:04 PM CDT) % Neutrophils 55 45 - 78 % SUNQUEST %Lymphocytes 35 15 - 47 % SUNQUEST %Monocytes 7 0 - 12 % SUNQUEST %Eosinophils 3 0 - 7 % SUNQUEST %Basophils 0 0 - 2 % SUNQUEST # Granulocytes 4.5 1.7 - 6.8 TH/UL SUNQUEST # Lymphocytes 2.9 1.0 - 3.3 TH/UL SUNQUEST # Monocytes 0.6 0.2 - 0.9 TH/UL SUNQUEST # Eosinophils 0.2 0.0 - 0.4 TH/UL SUNQUEST # Basophils 0.0 0.0 - 0.2 TH/UL SUNQUEST Specimen Blood Performing Organization Address [facility] one Number RL [address] [place], [place] [address] SUN[place] * CBC and Diff (manual diff if necessary) (07/31/1998 9:04 PM CDT) WBC 8.2 4.0 - 11.0 TH/UL SUNQUEST RBC 4.93 4.31 - 5.84 MIL/UL SUNQUEST Hemoglobin 14.8 13.0 - 17.0 G/DL SUNQUEST Hematocrit 43 40 - 50 % SUNQUEST MCV 88 80 - 99 [place] SUNQUEST MCH 30 27 - 34 PG SUNQUEST MCHC 34 32 - 36 % SUNQUEST RDW 11.8 <14.5 % SUNQUEST Platelet Count 227 140 - 400 TH/UL SUNQUEST Specimen Blood Performing Organization Address [facility] one Number [facility] [address] [place], [place] [address] SUNQUEST documented in this encounter Visit Diagnoses Not on filedocumented in this encounter
--- OUTSIDE RECORDS SUMMARY | 2019-06-28 20:37 | XMS REPORT | Encounter Summary ---
Author Author [facility] Address Unknown Phone Unavailable Care Team Providers Care Vocational Counselor Name Role Phone PCP Unavailable Encounter Details Care Team Description Date Type Department Ramo Celis MD [address] [address] [phone] 08/08/1998 [facility] 09/24/1998 Social History Date Tobacco Use Types Packs/Day [...]
--- OUTSIDE RECORDS SUMMARY | 2019-06-28 20:37 | XMS REPORT | Clinical Summary ---
Author Author [facility] Organization [facility] Address Unknown Phone Unavailable Care Team Providers Care Bottle Feeder Name Role Phone PCP Unavailable Allergies Not on File Medications Not on file Active Problems Not on file Social History Date Tobacco Use Types Packs/Day Years Used Never Assessed Sex Assigned at Date Recorded Not on file Industry Job Start Date Occupation Not on file Not on file Not on file Travel End Travel History Travel Start No recent travel history available. Last Filed Vital Signs Not on file Plan of Treatment Not on file Results Not on filefrom Last 3 Months
--- OUTSIDE RECORDS SUMMARY | 2019-06-28 20:38 | XMS REPORT ---
Author Author Mario GUILLEN Organization [facility] Address [address] [place] [address] Care Team Providers Care Photographic Editor Name Role Phone JESSICA GUILLEN Unavailable PROBLEMS Type Condition ICD9-CM Code QOQ14-UE Code Onset Dates Condition S tatus SNOMED Code Problem Chronic obstructive 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, unspecified COPD ty pe J44.9 Active 86273703 Problem Vitamin D deficiency E55.9 Active 63428085 Problem Neuropathy G62.9 Active 533085522 Problem Low back pain M54.5 Active 746724 009 Problem Mixed hyperlipidemia E78.2 Active 303104397 Problem Essential hypertension I10 Active 97610377 Problem Esophageal stricture K22.2 Active 44934014 Problem BMI 45.0-49.9, adult Z68.42 Active 020599217 Problem BPH loc w urin obs/LUTS N40.1 Active 101696352 Problem Prostatism N40.0 Active 46204998 Problem Bronchitis J40 Active 41505115 Problem Reactive depression F32.9 Active 77598540 ALLERGIES No Information ENCOUNTERS Encounter Location Date Diagnosis [place] [address] [facility] [id number] [address] [place] [phone] Jan, [facility] [address] [facility] [id number] [address] [place] [phone] Jan, Low back pain M54.5 [facility] [address] [facility] [id number] [address] [place] [phone] Dec, Reactive depression F32.9 [place] [address] [address] [facility] [id number] [address] [place] [phone] 09 Dec, 2017 Low back pain M54.5 ; Essent ial hypertension I10 ; Reactive depression F32.9 ; Chronic obstructive 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, 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 ; Encounter for immunization Z23 and Esophageal stricture K22.2 [facility] [address] [id number] [address] [place] [address] Dec, [facility] [address] [id number] [address] [place] [phone] Nov, Low back pain M54.5 [facility] [address] [id number] [address] [place] [phone] Nov, Low back pain M54.5 [facility] [address] [id number] [address] [place] [phone] Nov, Low back pain M54.5 [facility] [address] [id number] [address] [place] [phone] Oct, Low back pain M54.5 [facility] [address] [id number] [address] [place] [phone] Sep, Low back pain M54.5 [facility] [address] [id number] [address] [place] [address] Sep, [facility] [address] [id number] [address] [place] [phone] Aug, Essential hypertension I10 ; Low back pain M54.5 ; retirement (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 of opiate analgesic Z79.891 ; Chronic obstructive 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, 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 and Mixed hyperlipidemia E78.2 [facility] [address] [id number] [address] [place] [id number] Aug, Low back pain M54.5 ; 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 ; Essential hypertension I10 ; Chronic obstructive 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, 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 and Mixed hyperlipidemia E78.2 [facility] [address] [id number] [address] [place] [phone] Aug, Low back pain M54.5 [facility] [address] [id number] [address] [place] [address] Jul, Medicare annual wellness vis it, initial Z00.00 ; Mixed hyperlipidemia E78.2 ; Essential hypertension I10 ; Chronic obstructive 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, 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 ; Neuropathy G62.9 ; BPH loc w urin obs/LUTS N40.1 and Reactive depression F32.9 [place] [id number] [place] [id number] [address] [place] [phone] Jul, Onychomycosis B35.1 [place] [address] [phone] Jul, Low back pain M54.5 [place] [address] [place] [id number] [place] [phone] June, Low back pain M54.5 [place] [address] [place] [id number] [place] [phone] May, [place] [address] [address] May, Bronchitis J40 and BMI 45.0- 49.9, adult Z68.42 [place] [address] [phone] May, Low back pain M54.5 [place] [address] [place] [id number] [place] [phone] Apr, [place] [address] [place] [id number] [place] [phone] Apr, Low back pain M54.5 ; Essent ial hypertension I10 ; Chronic obstructive 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, 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 and Dyspnea on exertion R06.09 [place] [address] [place] [id number] [address] [place] [phone] 15 Apr, 2017 Onychomycosis B35.1 and Call us of foot L84 [place] [address] [place] [id number] [address] [place] [address] Apr, Low back pain M54.5 [place] [address] [place] [id number] [place] [phone] Mar, Low back pain M54.5 [facility] [address] [id number] [address] [place] [phone] Mar, [facility] [address] [id number] [address] [place] [phone] Feb, [facility] [address] [id number] [address] [place] [phone] Feb, [facility] [address] [id number] [address] [place] [phone] Feb, [facility] [address] [id number] [address] [place] [phone] Feb, Low back pain M54.5 [facility] [address] [id number] [address] [place] [phone] Jan, [facility] [address] [id number] [address] [place] [address] Jan, Low back pain M54.5 [facility] [address] [id number] [address] [place] [address] Dec, Low back pain M54.5 [facility] [address] [id number] [address] [place] [address] Dec, [facility] [address] [id number] [address] [place] [phone] Nov, Low back pain M54.5 ; Encoun ter for immunization Z23 ; Essential hypertension I10 ; Reactive depression F32.9 ; Neuropathy G62.9 and Chronic obstructive 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, 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 [facility] [address] [id number] [address] [place] [phone] Nov, Low back pain M54.5 [facility] [address] [id number] [address] [place] [phone] Oct, Low back pain M54.5 [facility] [address] [id number] [address] [place] [phone] Oct, Low back pain M54.5 [facility] [address] [facility] [id number] [address] [place] [phone] Oct, [facility] [address] [facility] [id number] [address] [place] [address] Sep, [facility] [address] [facility] [id number] [address] [place] [phone] Sep, Low back pain M54.5 [facility] [address] [facility] [id number] [address] [place] [phone] Sep, BPH loc w urin obs/LUTS N40. 1 [facility] [address] [facility] [id number] [address] [place] [phone] Sep, [facility] [address] [facility] [id number] [address] [place] [address] Sep, Low back pain M54.5 ; Essent ial hypertension I10 ; Mixed hyperlipidemia E78.2 ; Vitamin D deficiency E55.9 ; Prostatism N40.0 and Neuropathy G62.9 [facility] [address] [facility] [id number] [address] [place] [phone] Aug, Neuropathy G62.9 [facility] [address] [facility] [id number] [address] [place] [address] Aug, Low back pain M54.5 [facility] [address] [facility] [id number] [address] [place] [phone] Aug, Low back pain M54.5 [facility] [address] [facility] [id number] [address] [place] [phone] Jul, [facility] [address] [facility] [id number] [address] [place] [phone] Jul, [facility] [address] [facility] [id number] [address] [place] [phone] Jul, [facility] [address] [id number] [address] [place] [phone] Jul, [facility] [address] [id number] [address] [place] [phone] Jul, Neuropathy G62.9 [facility] [address] [id number] [address] [place] [address] Jul, Mixed hyperlipidemia E78.2 [facility] [address] [id number] [address] [place] [phone] Jul, Low back pain M54.5 [facility] [address] [id number] [address] [place] [phone] Jul, [facility] [address] [id number] [address] [place] [address] June, Low back pain M54.5 [facility] [address] [id number] [address] [place] [address] May, Low back pain M54.5 [facility] [address] [id number] [address] [place] [phone] May, Chronic obstructive pulmonar y disease, 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 [facility] [address] [id number] [address] [place] [phone] Apr, [facility] [address] [id number] [address] [place] [address] Apr, [facility] [address] [id number] [address] [place] [phone] Apr, Low back pain M54.5 [facility] [address] [id number] [address] [place] [phone] Apr, Low back pain M54.5 [facility] [address] [id number] [address] [place] [phone] Mar, Low back pain M54.5 [facility] [address] [id number] [address] [place] [phone] Mar, Low back pain M54.5 [facility] [address] [id number] [address] [place] [address] Mar, [facility] [address] [id number] [address] [place] [address] Feb, Low back pain M54.5 [facility] [address] [id number] [address] [place] [phone] Jan, Low back pain M54.5 and 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, 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 [facility] [address] [id number] [address] [place] [phone] Jan, Low back pain M54.5 [facility] [address] [id number] [address] [place] [phone] Jan, [facility] [address] [id number] [address] [place] [phone] Dec, Low back pain M54.5 [facility] [address] [id number] [address] [place] [phone] Dec, [facility] [address] [id number] [address] [place] [phone] Oct, [facility] [address] [id number] [address] [place] [phone] Oct, Low back pain M54.5 ; Essent ial hypertension I10 and Neuropathy G62.9 [facility] [address] [id number] [address] [place] [phone] Oct, [facility] [address] [id number] [address] [place] [phone] Sep, [facility] [address] [id number] [address] [place] [phone] Sep, [facility] [address] [id number] [address] [place] [phone] Aug, Mixed hyperlipidemia E78.2 ; Essential hypertension I10 and Chronic obstructive 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, 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 [facility] [address] [facility] [id number] [address] [place] [phone] Aug, Low back pain M54.5 ; Mixed hyperlipidemia E78.2 ; Essential hypertension I10 and Chronic obstructive 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, 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 [facility] [address] [facility] [id number] [address] [place] [address] Jul, Low back pain M54.5 ; Essent ial hypertension I10 and Mixed hyperlipidemia E78.2 [facility] [address] [facility] [id number] [address] [place] [phone] Jul, IMMUNIZATIONS No Known Immunizations SOCIAL HISTORY Never Assessed REASON FOR VISIT medication correction PLAN OF CARE VITAL SIGNS MEDICATIONS Medication Instructions Dosage Frequency Start Date End Date Duration S tatus Fluoxetine HCl 40 mg Orally 2 times a day 1 capsule 12h 30 Active RESULTS No Results PROCEDURES No Known procedures INSTRUCTIONS MEDICATIONS ADMINISTERED No Known Medications MEDICAL (GENERAL) HISTORY Type Description Date Medical History hyperlipidemia Medical History hypertension Medical History carpal tunnel both hands Medical History Barretts esophagus Medical History cerebral palsy, premature bi rth. tilted pelvis, one leg shorter than the other Medical History spinal stenosis Medical History curvature of spine Medical History COPD Surgical History cholecystectomy 2006 Surgical History duodenal ulcer surg 1973 Surgical History retina detatchment, lens implant
--- OUTSIDE RECORDS SUMMARY | 2019-06-28 20:38 | XMS REPORT ---
Author Author Mario GUILLEN Organization [facility] Address [address] [place] [address] Care Team Providers Care Controller Mechanic Name Role Phone JESSICA GUILLEN Unavailable PROBLEMS Type Condition ICD9-CM Code ESQ67-AR Code Onset Dates Condition S tatus SNOMED Code Problem Low back pain M54.5 Active 597015 009 Problem Essential hypertension I10 Active 67640669 Problem Mixed hyperlipidemia E78.2 Active 313449074 Problem Vitamin D deficiency E55.9 Active 81757191 Problem Prostatism N40.0 Active 92424271 Problem BPH loc w urin obs/LUTS N40.1 Active 815374962 Problem Heart failure, unspecified H F chronicity, unspecified heart failure type I50.9 Active 25380905 Problem Neuropathy G62.9 Active 946618014 Problem Morbid (severe) obesity due to excess calories E66 .01 Active 263357793 Problem Chronic obstructive 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, unspecified COPD ty pe J44.9 Active 78514098 Problem Reactive depression F32.9 Active 30746011 Problem Bronchitis J40 Active 08702098 Problem BMI 45.0-49.9, adult Z68.42 Active 366476062 Problem Esophageal stricture K22.2 Active 45113323 ALLERGIES No Information ENCOUNTERS Encounter Location Date Diagnosis [facility] [address] [facility] [id number] [address] [place] [address] Nov, [facility] [address] [facility] [id number] [address] [place] [address] Oct, [address] [address] Sep, Low back pain M54.5 [facility] [address] [facility] [id number] [address] [place] [address] Aug, [facility] [address] [facility] [id number] [address] [place] [address] Aug, Low back pain M54.5 [facility] [address] [id number] [address] [place] [address] Jul, Pre-ulcerative calluses L84 [facility] [address] [id number] [address] [place] [address] Jul, Encounter for Medicare annua wellness exam Z00.00 ; Chronic obstructive 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, 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 ; Essential hypertension I10 ; Mixed hyperlipidemia E78.2 ; Morbid (severe) obesity due to excess calories E66.01 ; Neuropathy G62.9 ; Vitamin D deficiency E55.9 ; Reactive depression F32.9 and Heart failure, unspecified HF chronicity, unspecified heart failure type I50.9 [facility] [address] [id number] [address] [place] [address] Jul, Low back pain M54.5 [facility] [address] [id number] [address] [place] [address] June, Low back pain M54.5 [facility] [address] [id number] [address] [place] [address] May, Low back pain M54.5 [facility] [address] [id number] [address] [place] [address] May, [facility] [address] [facility] [id number] [address] [place] [address] Apr, Low back pain M54.5 and Bron chitis J40 [facility] [address] [id number] [address] [place] [address] Apr, Low back pain M54.5 [facility] [address] [id number] [address] [place] [address] Apr, [facility] [address] [id number] [address] [place] [address] Apr, Acute URI J06.9 and Wheezing R06.2 [facility] [address] [id number] [address] [place] [address] Mar, Low back pain M54.5 [facility] [address] [id number] [address] [place] [phone] Mar, [facility] [address] [id number] [address] [place] [address] Feb, Low back pain M54.5 [facility] [address] [id number] [address] [place] [address] Feb, [facility] [address] [id number] [address] [place] [phone] Feb, [facility] [address] [facility] [id number] [address] [place] [address] Feb, Low back pain M54.5 [facility] [address] [facility] [id number] [address] [place] [address] Jan, [facility] [address] [id number] [address] [place] [address] Jan, Low back pain M54.5 [facility] [address] [id number] [address] [place] [address] Dec, Reactive depression F32.9 [facility] [address] [facility] [id number] [address] [place] [address] Dec, Low back pain M54.5 ; Essent ial hypertension I10 ; Reactive depression F32.9 ; Chronic obstructive 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, 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 ; Encounter for immunization Z23 and Esophageal stricture K22.2 [facility] [address] [id number] [address] [place] [address] Dec, [facility] [address] [facility] [id number] [address] [place] [address] Nov, Low back pain M54.5 [facility] [address] [facility] [id number] [address] [place] [address] Nov, Low back pain M54.5 [facility] [address] [facility] [id number] [address] [place] [address] Nov, Low back pain M54.5 [facility] [address] [facility] [id number] [address] [place] [address] Oct, Low back pain M54.5 [facility] [address] [facility] [id number] [address] [place] [address] Sep, Low back pain M54.5 [facility] [address] [facility] [id number] [address] [place] [address] Sep, [facility] [address] [facility] [id number] [address] [place] [address] Aug, Essential hypertension I10 ; Low back pain M54.5 ; MCC (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 of opiate analgesic Z79.891 ; Chronic obstructive 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, 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 and Mixed hyperlipidemia E78.2 [place] [id number] [facility] [id number] [address] [place] [address] Aug, Low back pain M54.5 ; 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 ; Essential hypertension I10 ; Chronic obstructive 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, 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 and Mixed hyperlipidemia E78.2 [place] [address] [facility] [id number] [address] [place] [address] Aug, Low back pain M54.5 [place] [address] [facility] [id number] [address] [place] [address] Jul, Medicare annual wellness vis it, initial Z00.00 ; Mixed hyperlipidemia E78.2 ; Essential hypertension I10 ; Chronic obstructive 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, 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 ; Neuropathy G62.9 ; BPH loc w urin obs/LUTS N40.1 and Reactive depression F32.9 [place] [address] [facility] [id number] [address] [place] [address] Jul, Onychomycosis B35.1 [place] [address] [facility] [id number] [address] [place] [address] 14 Jul, 2017 Low back pain M54.5 [facility] [address] [facility] [id number] [address] [place] [address] June, Low back pain M54.5 [facility] [address] [facility] [id number] [address] [place] [address] May, [facility] [address] [facility] [id number] [address] [place] [address] May, Bronchitis J40 and BMI 45.0- 49.9, adult Z68.42 [place] [address] [facility] [id number] [place] [address] May, Low back pain M54.5 [facility] [address] [place] [id number] [address] [place] [address] Apr, [facility] [address] [place] [id number] [place] [address] Apr, Low back pain M54.5 ; Essent ial hypertension I10 ; Chronic obstructive 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, 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 and Dyspnea on exertion R06.09 [facility] [address] [place] [id number] [address] [place] [address] 15 Apr, 2017 Onychomycosis B35.1 and Call us of foot L84 [facility] [address] [facility] [id number] [address] [place] [address] Apr, Low back pain M54.5 [facility] [address] [facility] [id number] [address] [place] [address] Mar, Low back pain M54.5 [facility] [address] [facility] [id number] [address] [place] [address] Mar, [facility] [address] [place] [id number] [address] [place] [address] Feb, [facility] [address] [place] [id number] [address] [place] [phone] Feb, [facility] [address] [id number] [address] [place] [phone] Feb, [facility] [address] [id number] [address] [place] [address] Feb, Low back pain M54.5 [facility] [address] [id number] [address] [place] [address] Jan, [facility] [address] [id number] [address] [place] [address] Jan, Low back pain M54.5 [facility] [address] [id number] [address] [place] [address] Dec, Low back pain M54.5 [facility] [address] [id number] [address] [place] [address] Dec, [facility] [address] [facility] [id number] [address] [place] [address] Nov, Low back pain M54.5 ; Encoun ter for immunization Z23 ; Essential hypertension I10 ; Reactive depression F32.9 ; Neuropathy G62.9 and Chronic obstructive 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, 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 [facility] [address] [id number] [address] [place] [address] Nov, Low back pain M54.5 [facility] [address] [id number] [address] [place] [address] Oct, Low back pain M54.5 [facility] [address] [id number] [address] [place] [address] 21 Oct, 2016 Low back pain M54.5 [facility] [address] [id number] [address] [place] [address] 13 Oct, 2016 [facility] [address] [id number] [address] [place] [address] Sep, [facility] [address] [facility] [id number] [address] [place] [address] Sep, Low back pain M54.5 [facility] [address] [facility] [id number] [address] [place] [address] Sep, BPH loc w urin obs/LUTS N40. 1 [facility] [address] [facility] [id number] [address] [place] [address] Sep, [facility] [address] [facility] [id number] [address] [place] [address] Sep, Low back pain M54.5 ; Essent ial hypertension I10 ; Mixed hyperlipidemia E78.2 ; Vitamin D deficiency E55.9 ; Prostatism N40.0 and Neuropathy G62.9 [facility] [address] [facility] [id number] [address] [place] [address] Aug, Neuropathy G62.9 [facility] [address] [facility] [id number] [address] [place] [address] Aug, Low back pain M54.5 [facility] [address] [facility] [id number] [address] [place] [address] Aug, Low back pain M54.5 [facility] [address] [facility] [id number] [address] [place] [address] Jul, [facility] [address] [facility] [id number] [address] [place] [address] Jul, [facility] [address] [facility] [id number] [address] [place] [address] Jul, [facility] [address] [facility] [id number] [address] [place] [address] Jul, [facility] [address] [facility] [id number] [address] [place] [address] Jul, Neuropathy G62.9 [facility] [address] [facility] [id number] [address] [place] [address] Jul, Mixed hyperlipidemia E78.2 [facility] [address] [id number] [address] [place] [id number] Jul, Low back pain M54.5 [facility] [address] [id number] [address] [place] [address] Jul, [facility] [address] [id number] [address] [place] [address] June, Low back pain M54.5 [facility] [address] [id number] [address] [place] [address] May, Low back pain M54.5 [facility] [address] [id number] [address] [place] [address] May, Chronic obstructive pulmonar y disease, 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 [facility] [address] [id number] [address] [place] [address] Apr, [facility] [address] [id number] [address] [place] [address] Apr, [facility] [address] [id number] [address] [place] [address] Apr, Low back pain M54.5 [facility] [address] [id number] [address] [place] [address] Apr, Low back pain M54.5 [facility] [address] [id number] [address] [place] [address] 16 Mar, 2016 Low back pain M54.5 [facility] [address] [id number] [address] [place] [address] Mar, Low back pain M54.5 [facility] [address] [id number] [address] [place] [phone] 09 Mar, 2016 [facility] [address] [id number] [address] [place] [address] Feb, Low back pain M54.5 [facility] [address] [id number] [address] [place] [address] Jan, Low back pain M54.5 and 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, 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 [facility] [address] [id number] [address] [place] [address] Jan, Low back pain M54.5 [facility] [address] [id number] [address] [place] [address] Jan, [facility] [address] [id number] [address] [place] [address] Dec, Low back pain M54.5 [facility] [address] [id number] [address] [place] [address] Dec, [facility] [address] [id number] [address] [place] [address] Oct, [facility] [address] [facility] [id number] [address] [place] [address] Oct, Low back pain M54.5 ; Essent ial hypertension I10 and Neuropathy G62.9 [facility] [address] [id number] [address] [place] [address] 09 Oct, 2015 [facility] [address] [id number] [address] [place] [address] Sep, [facility] [address] [facility] [id number] [address] [place] [address] Sep, [facility] [address] [id number] [address] [place] [address] Aug, Mixed hyperlipidemia E78.2 ; Essential hypertension I10 and Chronic obstructive 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, 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 [facility] [address] [id number] [address] [place] [phone] 08 Aug, 2015 Low back pain M54.5 ; Mixed hyperlipidemia E78.2 ; Essential hypertension I10 and Chronic obstructive 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, 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 [facility] [address] [facility] [id number] [address] [address] Jul, Low back pain M54.5 ; Essent ial hypertension I10 and Mixed hyperlipidemia E78.2 [facility] [address] [facility] [id number] [address] [place] [address] Jul, IMMUNIZATIONS No Known Immunizations SOCIAL HISTORY Never Assessed REASON FOR VISIT refill PLAN OF CARE VITAL SIGNS MEDICATIONS Unknown Medications RESULTS No Results PROCEDURES No Known procedures [...]
--- OUTSIDE RECORDS SUMMARY | 2019-06-28 20:38 | XMS REPORT ---
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 Name Role Phone JESSICA GUILLEN Unavailable PROBLEMS Type Condition ICD9-CM Code XOX86-FP Code Onset Dates Condition S tatus SNOMED Code Problem Chronic obstructive 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, unspecified COPD ty pe J44.9 Active 19850721 Problem Vitamin D deficiency E55.9 Active 53833049 Problem Neuropathy G62.9 Active 318797971 Problem Low back pain M54.5 Active 063104 009 Problem Mixed hyperlipidemia E78.2 Active 470463906 Problem Essential hypertension I10 Active 30379092 Problem Esophageal stricture K22.2 Active 54395391 Problem BMI 45.0-49.9, adult Z68.42 Active 634759316 Problem BPH loc w urin obs/LUTS N40.1 Active 094474010 Problem Prostatism N40.0 Active 22848751 Problem Bronchitis J40 Active 30167073 Problem Reactive depression F32.9 Active 92388991 ALLERGIES No Information ENCOUNTERS Encounter Location Date Diagnosis [facility] [address] [facility] [id number] [address] [place] [id number] Dec, Reactive depression F32.9 [facility] [address] [facility] [id number] [address] [place] [id number] Dec, Low back pain M54.5 ; Essent ial hypertension I10 ; Reactive depression F32.9 ; Chronic obstructive 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, 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 ; Encounter for immunization Z23 and Esophageal stricture K22.2 [facility] [address] [facility] [id number] [address] [place] [id number] Dec, [facility] [address] [facility] [id number] [address] [place] [id number] Nov, Low back pain M54.5 [facility] [address] [id number] [address] [place] [id number] Nov, Low back pain M54.5 [facility] [address] [facility] [id number] [address] [place] [id number] Nov, Low back pain M54.5 [facility] [address] [facility] [id number] [address] [place] [phone] Oct, Low back pain M54.5 [facility] [address] [facility] [id number] [address] [place] [id number] Sep, Low back pain M54.5 [facility] [address] [facility] [id number] [address] [place] [id number] Sep, [facility] [address] [facility] [id number] [address] [place] [id number] Aug, Essential hypertension I10 ; Low back pain M54.5 ; 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 ; Chronic obstructive 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, 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 and Mixed hyperlipidemia E78.2 [place] [address] [facility] [id number] [address] [place] [id number] Aug, Low back pain M54.5 ; 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 ; Essential hypertension I10 ; Chronic obstructive 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, 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 and Mixed hyperlipidemia E78.2 [facility] [address] [facility] [id number] [address] [place] [id number] Aug, Low back pain M54.5 [place] [address] [facility] [id number] [address] [place] [id number] Jul, Medicare annual wellness vis it, initial Z00.00 ; Mixed hyperlipidemia E78.2 ; Essential hypertension I10 ; Chronic obstructive 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, 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 ; Neuropathy G62.9 ; BPH loc w urin obs/LUTS N40.1 and Reactive depression F32.9 [facility] [address] [facility] [id number] [address] [place] [id number] 18 Jul, 2017 Onychomycosis B35.1 [place] [address] [place] [id number] [place] [phone] 14 Jul, 2017 Low back pain M54.5 [facility] [address] [facility] [id number] [address] [place] [id number] June, Low back pain M54.5 [facility] [address] [place] [id number] [address] [place] [id number] May, [facility] [address] [place] [id number] [place] [phone] May, Bronchitis J40 and BMI 45.0- 49.9, adult Z68.42 [place] [address] [place] [id number] [place] [phone] May, Low back pain M54.5 [place] [address] [place] [id number] [address] [place] [id number] Apr, [place] [address] [id number] Apr, Low back pain M54.5 ; Essent ial hypertension I10 ; Chronic obstructive 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, 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 and Dyspnea on exertion R06.09 [place] [address] [place] [id number] [address] [place] [id number] 15 Apr, 2017 Onychomycosis B35.1 and Call us of foot L84 [facility] [address] [facility] [id number] [address] [place] [id number] 13 Apr, 2017 Low back pain M54.5 [place] [address] [place] [id number] [place] [id number] 12 Mar, 2017 Low back pain M54.5 [facility] [address] [place] [id number] [address] [place] [id number] 07 Mar, 2017 [facility] [address] [place] [id number] [place] [address] [place] [address] Feb, [facility] [address] [id number] [address] [place] [phone] Feb, [facility] [address] [id number] [address] [place] [id number] Feb, [facility] [address] [id number] [address] [place] [id number] Feb, Low back pain M54.5 [facility] [address] [id number] [address] [place] [id number] Jan, [facility] [address] [id number] [address] [place] [id number] Jan, Low back pain M54.5 [facility] [address] [id number] [address] [place] [id number] Dec, Low back pain M54.5 [facility] [address] [id number] [address] [place] [id number] Dec, [facility] [address] [id number] [address] [place] [id number] Nov, Low back pain M54.5 ; Encoun ter for immunization Z23 ; Essential hypertension I10 ; Reactive depression F32.9 ; Neuropathy G62.9 and Chronic obstructive 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, 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 [facility] [address] [id number] [address] [place] [phone] Nov, Low back pain M54.5 [facility] [address] [id number] [address] [place] [id number] 22 Oct, 2016 Low back pain M54.5 [facility] [address] [id number] [address] [place] [id number] 21 Oct, 2016 Low back pain M54.5 [facility] [address] [id number] [address] [place] [id number] 13 Oct, 2016 [facility] [address] [id number] [address] [place] [phone] Sep, [facility] [address] [id number] [address] [place] [phone] Sep, Low back pain M54.5 [facility] [address] [facility] [id number] [address] [place] [phone] Sep, BPH loc w urin obs/LUTS N40. 1 [facility] [address] [facility] [id number] [address] [place] [id number] Sep, [facility] [address] [facility] [id number] [address] [place] [id number] Sep, Low back pain M54.5 ; Essent ial hypertension I10 ; Mixed hyperlipidemia E78.2 ; Vitamin D deficiency E55.9 ; Prostatism N40.0 and Neuropathy G62.9 [facility] [address] [facility] [id number] [address] [place] [id number] Aug, Neuropathy G62.9 [facility] [address] [facility] [id number] [address] [place] [id number] Aug, Low back pain M54.5 [facility] [address] [facility] [id number] [address] [place] [id number] Aug, Low back pain M54.5 [facility] [address] [facility] [id number] [address] [place] [id number] Jul, [facility] [address] [facility] [id number] [address] [place] [id number] Jul, [facility] [address] [facility] [id number] [address] [place] [phone] Jul, [facility] [address] [facility] [id number] [address] [place] [id number] Jul, [facility] [address] [facility] [id number] [address] [place] [phone] Jul, Neuropathy G62.9 [facility] [address] [id number] [address] [place] [id number] 09 Jul, 2016 Mixed hyperlipidemia E78.2 [facility] [address] [id number] [address] [place] [id number] Jul, Low back pain M54.5 [facility] [address] [id number] [address] [place] [phone] Jul, [facility] [address] [id number] [address] [place] [id number] June, Low back pain M54.5 [facility] [address] [id number] [address] [place] [id number] May, Low back pain M54.5 [facility] [address] [id number] [address] [place] [phone] May, Chronic obstructive pulmonar y disease, 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 [facility] [address] [id number] [address] [place] [phone] Apr, [facility] [address] [id number] [address] [place] [id number] Apr, [facility] [address] [id number] [address] [place] [phone] Apr, Low back pain M54.5 [facility] [address] [id number] [address] [place] [id number] Apr, Low back pain M54.5 [facility] [address] [id number] [address] [place] [id number] 16 Mar, 2016 Low back pain M54.5 [facility] [address] [id number] [address] [place] [id number] Mar, Low back pain M54.5 [facility] [address] [id number] [address] [place] [id number] Mar, [facility] [address] [id number] [address] [place] [id number] Feb, Low back pain M54.5 [facility] [address] [id number] [address] [place] [id number] Jan, Low back pain M54.5 and 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, 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 [facility] [address] [id number] [address] [place] [id number] Jan, Low back pain M54.5 [facility] [address] [id number] [address] [place] [id number] Jan, [facility] [address] [id number] [address] [place] [id number] Dec, Low back pain M54.5 [facility] [address] [id number] [address] [place] [id number] Dec, [facility] [address] [id number] [address] [place] [id number] Oct, [facility] [address] [id number] [address] [place] [phone] Oct, Low back pain M54.5 ; Essent ial hypertension I10 and Neuropathy G62.9 [facility] [address] [id number] [address] [place] [id number] 09 Oct, 2015 [facility] [address] [id number] [address] [place] [id number] Sep, [facility] [address] [id number] [address] [place] [id number] Sep, [facility] [address] [id number] [address] [place] [id number] Aug, Mixed hyperlipidemia E78.2 ; Essential hypertension I10 and Chronic obstructive 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, 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 [facility] [address] [id number] [address] [place] [id number] Aug, Low back pain M54.5 ; Mixed hyperlipidemia E78.2 ; Essential hypertension I10 and Chronic obstructive 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, 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 [facility] [address] [facility] [id number] [address] [place] [id number] Jul, Low back pain M54.5 ; Essent ial hypertension I10 and Mixed hyperlipidemia E78.2 [facility] [address] [facility] [id number] [address] [address] Jul, IMMUNIZATIONS No Known Immunizations SOCIAL HISTORY Never Assessed REASON FOR VISIT Medication Question PLAN OF CARE VITAL SIGNS MEDICATIONS Medication Instructions Dosage Frequency Start Date End Date Duration S tatus Fluoxetine HCl 40 mg Orally 2 times a day 1 capsule 12h Dec, 30 day(s) Active RESULTS No Results PROCEDURES No Known [...]
--- OUTSIDE RECORDS SUMMARY | 2019-06-28 20:38 | XMS REPORT ---
Author Author Mario GUILLEN Organization 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 Name Role Phone JESSICA GUILLEN Unavailable PROBLEMS Type Condition ICD9-CM Code PPX26-RE Code Onset Dates Condition S tatus SNOMED Code Problem Low back pain M54.5 Active 160931 009 Problem Mixed hyperlipidemia E78.2 Active 175268340 Problem Chronic obstructive 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, unspecified COPD ty pe J44.9 Active 84023305 Problem Bronchitis J40 Active 99690054 Problem Essential hypertension I10 Active 81664756 Problem Morbid (severe) obesity due to excess calories E66 .01 Active 011609215 Problem Neuropathy G62.9 Active 484464248 Problem Vitamin D deficiency E55.9 Active 27800104 Problem BPH loc w urin obs/LUTS N40.1 Active 287980114 Problem Reactive depression F32.9 Active 79213611 ALLERGIES Substance Reaction Event Type Date Status Lyrica swelling Drug Allergy Apr, Active Lisinopril cough Drug Allergy Apr, Active ENCOUNTERS Encounter Location Date Diagnosis [place] [address] [address] [place] [id number] [address] [place] [phone] May, [facility] [address] [facility] [id number] [address] [place] [phone] May, Chronic obstructive pulmonar y disease, 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 and Low back pain M54.5 [facility] [address] [facility] [id number] [address] [place] [phone] May, [place] [address] [address] [facility] [id number] [address] [place] [phone] Apr, Low back pain M54.5 [address] Ne[address] opathy G62.9 [facility] [address] [facility] [id number] [address] [place] [phone] Apr, [facility] [address] [id number] [address] [place] [phone] Apr, [facility] [address] [id number] [address] [place] [phone] Apr, [facility] [address] [id number] [address] [place] [phone] Apr, [facility] [address] [id number] [address] [place] [phone] Mar, Low back pain M54.5 [facility] [address] [id number] [address] [place] [phone] Mar, 2019 [facility] [address] [id number] [address] [place] [phone] Mar, 2019 [facility] [id number] [place] [id number] Mar, [facility] [address] [id number] [address] [place] [phone] Mar, Low back pain M54.5 [facility] [address] [id number] [address] [place] [phone] Mar, [facility] [address] [id number] [address] [place] [phone] Feb, [facility] [address] [id number] [address] [place] [phone] Feb, Chronic obstructive pulmonar y disease, 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 ; Essential hypertension I10 ; Morbid (severe) obesity due to excess calories E66.01 and Low back pain M54.5 [facility] [address] [id number] [address] [place] [phone] Feb, [facility] [address] [id number] [address] [place] [phone] Feb, [facility] [address] [facility] [id number] [address] [place] [phone] Feb, Low back pain M54.5 [facility] [address] [facility] [id number] [address] [place] [phone] Feb, [facility] [address] [facility] [id number] [address] [place] [phone] Jan, Low back pain M54.5 [facility] [address] [facility] [id number] [address] [place] [phone] Jan, [facility] [address] [facility] [id number] [address] [place] [phone] Dec, Low back pain M54.5 [facility] [address] [facility] [id number] [address] [place] [phone] Dec, Neuropathy G62.9 [facility] [address] [facility] [id number] [address] [place] [phone] Dec, Neuropathy G62.9 [facility] [address] [facility] [id number] [address] [place] [phone] Nov, Neuropathy G62.9 ; Onychomyc osis B35.1 and Callus of foot L84 [facility] [address] [facility] [id number] [address] [place] [phone] Nov, Low back pain M54.5 [facility] [address] [facility] [id number] [address] [place] [phone] 18 Oct, 2018 Low back pain M54.5 [facility] [address] [facility] [id number] [address] [place] [phone] Oct, [facility] [address] [facility] [id number] [address] [place] [phone] 09 Oct, 2018 Low back pain M54.5 ; BPH lo c w urin obs/LUTS N40.1 ; Chronic obstructive 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, 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 and Neuropathy G62.9 [place] [id number] [place] [phone] Sep, Low back pain M54.5 [facility] [address] [id number] [address] [place] [phone] Aug, [facility] [address] [id number] [address] [place] [phone] Aug, Low back pain M54.5 [facility] [address] [facility] [id number] [address] [place] [phone] Jul, Pre-ulcerative calluses L84 [facility] [address] [facility] [id number] [address] [place] [phone] Jul, [facility] ; Chronic obstructive 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, 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 ; Essential hypertension I10 ; Mixed hyperlipidemia E78.2 ; Morbid (severe) obesity due to excess calories E66.01 ; Neuropathy G62.9 ; Vitamin D deficiency E55.9 ; Reactive depression F32.9 and Heart failure, unspecified HF chronicity, unspecified heart failure type I50.9 [facility] [address] [facility] [id number] [address] [place] [phone] Jul, Low back pain M54.5 [facility] [address] [facility] [id number] [address] [place] [phone] June, Low back pain M54.5 [facility] [address] [facility] [id number] [address] [place] [phone] May, Low back pain M54.5 [facility] [address] [id number] [address] [place] [phone] May, [facility] [address] [facility] [id number] [address] [place] [phone] Apr, Low back pain M54.5 and Bron chitis J40 [facility] [address] [id number] [address] [place] [phone] Apr, Low back pain M54.5 [facility] [address] [facility] [id number] [address] [place] [phone] Apr, [facility] [address] [facility] [id number] [address] [place] [phone] Apr, Acute URI J06.[address] [facility] [address] [id number] [address] [place] [phone] Mar, Low back pain M54.5 [facility] [address] [facility] [id number] [address] [place] [address] Mar, [facility] [address] [facility] [id number] [address] [place] [phone] Feb, Low back pain M54.5 [facility] [address] [facility] [id number] [address] [place] [phone] Feb, [facility] [address] [facility] [id number] [address] [place] [phone] Feb, [facility] [address] [facility] [id number] [address] [place] [phone] Feb, Low back pain M54.5 [facility] [address] [facility] [id number] [address] [place] [address] Jan, [facility] [address] [facility] [id number] [address] [place] [phone] Jan, Low back pain M54.5 [facility] [address] [facility] [id number] [address] [place] [phone] Dec, Reactive depression F32.9 [facility] [address] [facility] [id number] [address] [place] [phone] Dec, Low back pain M54.5 ; Essent ial hypertension I10 ; Reactive depression F32.9 ; Chronic obstructive 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, 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 ; Encounter for immunization Z23 and Esophageal stricture K22.2 [facility] [address] [facility] [id number] [address] [place] [phone] Dec, [facility] [address] [id number] [address] [place] [phone] Nov, Low back pain M54.5 [facility] [address] [id number] [address] [place] [phone] Nov, Low back pain M54.5 [facility] [address] [id number] [address] [place] [phone] Nov, Low back pain M54.5 [facility] [address] [id number] [address] [place] [phone] Oct, Low back pain M54.5 [facility] [address] [id number] [address] [place] [address] Sep, Low back pain M54.5 [facility] [address] [id number] [address] [place] [phone] Sep, [facility] [address] [facility] [id number] [address] [place] [phone] Aug, Essential hypertension I10 ; Low back pain M54.5 ; MCFP (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 of opiate analgesic Z79.891 ; Chronic obstructive 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, 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 and Mixed hyperlipidemia E78.2 [facility] [address] [facility] [id number] [address] [place] [address] Aug, Low back pain M54.5 ; 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 ; Essential hypertension I10 ; Chronic obstructive 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, 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 and Mixed hyperlipidemia E78.2 [facility] [address] [id number] [address] [place] [phone] Aug, Low back pain M54.5 [facility] [address] [facility] [id number] [address] [place] [address] Jul, Medicare annual wellness vis it, initial Z00.00 ; Mixed hyperlipidemia E78.2 ; Essential hypertension I10 ; Chronic obstructive 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, 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 ; Neuropathy G62.9 ; BPH loc w urin obs/LUTS N40.1 and Reactive depression F32.9 [place] [address] [address] 18 Jul, 2017 Onychomycosis B35.1 [place] [address] [address] 14 Jul, 2017 Low back pain M54.5 [place] [address] [address] June, Low back pain M54.5 [place] [address] [address] May, [place] [address] [address] May, Bronchitis J40 and BMI 45.0- 49.9, adult Z68.42 [place] [address] [address] May, Low back pain M54.5 [place] [address] [address] Apr, [place] [address] [address] Apr, Low back pain M54.5 ; Essent ial hypertension I10 ; Chronic obstructive 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, 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 and Dyspnea on exertion R06.09 [place] [address] [address] Apr, Onychomycosis B35.1 and Call us of foot L84 [place] [address] [address] Apr, Low back pain M54.5 [place] [address] [address] Mar, Low back pain M54.5 [place] [address] [id number] [address] [place] [phone] Mar, [facility] [address] [id number] [address] [place] [phone] Feb, [facility] [address] [id number] [address] [place] [phone] Feb, [facility] [address] [id number] [address] [place] [phone] Feb, [facility] [address] [id number] [address] [place] [phone] Feb, Low back pain M54.5 [facility] [address] [id number] [address] [place] [phone] Jan, [facility] [address] [id number] [address] [place] [phone] Jan, Low back pain M54.5 [facility] [address] [id number] [address] [place] [phone] Dec, Low back pain M54.5 [facility] [address] [id number] [address] [place] [phone] Dec, [facility] [address] [id number] [address] [place] [phone] Nov, Low back pain M54.5 ; Encoun ter for immunization Z23 ; Essential hypertension I10 ; Reactive depression F32.9 ; Neuropathy G62.9 and Chronic obstructive 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, 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 [facility] [address] [id number] [address] [place] [phone] Nov, Low back pain M54.5 [facility] [address] [id number] [address] [place] [phone] Oct, Low back pain M54.5 [facility] [address] [id number] [address] [place] [phone] Oct, Low back pain M54.5 [facility] [address] [id number] [address] [place] [phone] Oct, [facility] [address] [id number] [address] [place] [phone] Sep, [facility] [address] [facility] [id number] [address] [place] [phone] Sep, Low back pain M54.5 [facility] [address] [facility] [id number] [address] [place] [phone] Sep, BPH loc w urin obs/LUTS N40. [address] [facility] [address] [facility] [id number] [address] [place] [phone] Sep, [facility] [address] [facility] [id number] [address] [place] [phone] Sep, Low back pain M54.5 ; Essent ial hypertension I10 ; Mixed hyperlipidemia E78.2 ; Vitamin D deficiency E55.9 ; Prostatism N40.[address] [facility] [address] [id number] [address] [place] [phone] Aug, Neuropathy G62.9 [facility] [address] [facility] [id number] [address] [place] [phone] Aug, Low back pain M54.5 [facility] [address] [facility] [id number] [address] [place] [phone] Aug, Low back pain M54.5 [facility] [address] [id number] [address] [place] [phone] Jul, [facility] [address] [facility] [id number] [address] [place] [address] Jul, [facility] [address] [facility] [id number] [address] [place] [address] Jul, [facility] [address] [facility] [id number] [address] [place] [address] Jul, [facility] [address] [id number] [address] [place] [id number] Jul, Neuropathy G62.9 [facility] [address] [id number] [address] [place] [phone] Jul, Mixed hyperlipidemia E78.2 [facility] [address] [id number] [address] [place] [id number] Jul, Low back pain M54.5 [facility] [address] [id number] [address] [place] [phone] Jul, [facility] [address] [id number] [address] [place] [phone] June, Low back pain M54.5 [facility] [address] [id number] [address] [place] [phone] May, Low back pain M54.5 [facility] [address] [id number] [address] [place] [id number] May, Chronic obstructive pulmonar y disease, 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 [facility] [address] [id number] [address] [place] [id number] Apr, [facility] [address] [id number] [address] [place] [phone] Apr, [facility] [address] [id number] [address] [place] [id number] Apr, Low back pain M54.5 [facility] [address] [id number] [address] [place] [phone] Apr, Low back pain M54.5 [facility] [address] [id number] [address] [place] [id number] 16 Mar, 2016 Low back pain M54.5 [facility] [address] [id number] [address] [place] [id number] 10 Mar, 2016 Low back pain M54.5 [facility] [address] [id number] [address] [place] [phone] Mar, [facility] [address] [id number] [address] [place] [phone] Feb, Low back pain M54.5 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 [address] [id number] [address] [place] [phone] Jan, Low back pain M54.5 [facility] [address] [id number] [address] [place] [phone] Jan, [facility] [address] [facility] [id number] [address] [place] [phone] Dec, Low back pain M54.5 [facility] [address] [id number] [address] [place] [phone] Dec, [facility] [address] [id number] [address] [place] [id number] Oct, [facility] [address] [id number] [address] [place] [phone] Oct, Low back pain M54.5 ; Essent ial hypertension I10 and Neuropathy G62.9 [facility] [address] [id number] [address] [place] [phone] Oct, [facility] [address] [id number] [address] [place] [id number] Sep, [facility] [address] [id number] [address] [place] [phone] Sep, [facility] [address] [facility] [id number] [address] [place] [phone] Aug, Mixed hyperlipidemia E78.2 ; Essential hypertension I10 and Chronic obstructive 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, 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 [place] [id number] [facility] [id number] [address] [place] [phone] Aug, Low back pain M54.5 ; Mixed hyperlipidemia E78.2 ; Essential hypertension I10 and Chronic obstructive 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, 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 [facility] [address] [facility] [id number] [address] [place] [phone] Jul, Low back pain M54.5 ; Essent ial hypertension I10 and Mixed hyperlipidemia E78.2 [facility] [address] [facility] [id number] [address] [place] [phone] Jul, IMMUNIZATIONS No Known Immunizations SOCIAL HISTORY Never Assessed REASON FOR VISIT Pain management (chronic)- dawood gonzales, having hip problems and has custom shoes an d needs new shoes- gave names of podiatrists but would like ref if poss - priyanka butler ma, has upper resp trouble- congestion/ dry cough/ ears hurt /shortness of bry ath - dawood gonzales PLAN OF CARE Activity Details Follow Up 3 Months Reason: VITAL SIGNS Height 68 in 2018-05-19 Weight 231.9 lbs 2018-05-19 Temperature 97.8 degrees Fahrenheit 2018-05-19 Heart Rate 101 bpm 2018-05-19 Respiratory Rate 20 2018-05-19 Oximetry 96 % 2018-05-19 BMI 35.26 kg/m2 2018-05-19 Blood pressure systolic 138 mmHg 2018-05-19 Blood pressure diastolic 76 mmHg 2018-05-19 MEDICATIONS Medication Instructions Dosage Frequency Start Date End Date Duration S tatus Oxycodone HCl 10 mg Orally every 6 hrs 1 tablet as needed 6h Apr, 28 days Active Ranitidine HCl 300 MG TAKE ONE TABLET BY MOUTH AT BEDTIME 30 Active ProAir HFA 108 (90 Base) MCG/ACT Inhalation every 4 hrs 2 puffs as needed 4h Jan, Active Doxycycline Hyclate 100 MG Orally 2 times a day 1 capsule 12h Apr, 10 day(s) Active Fluoxetine HCl 40 mg Orally 2 times a day 1 capsule 12h 30 Active Amlodipine Besylate 5 MG Orally Once a day 1 tablet 24h Active Ambien 10 mg Orally Once a day 1 tablet at bedtime as needed 24h 16 Aug, 2017 30 days Active Flomax 0.4 MG Orally Once a day 2 capsules 24h Active Cymbalta 30 MG Orally Once a day 2 capsules 24h Nov, Active Crestor 20 MG TAKE ONE TABLET BY MOUTH ONCE DAILY 90 Active Nexium 40 MG TAKE ONE CAPSULE BY MOUTH ONCE DAILY 30 Active Amlodipine Besylate 10 MG TAKE ONE TABLET BY MOUTH ONCE DAILY 30 Active Finasteride 5 MG TAKE ONE TABLET BY MOUTH ONCE DAILY IN THE MORN ING 30 Active RESULTS No Results PROCEDURES Procedure Date Ordered Result Body Site [facility] VISIT ESTABLISHED PATIENT May 19, 2018 INSTRUCTIONS MEDICATIONS ADMINISTERED No Known Medications MEDICAL [...]
--- OUTSIDE RECORDS SUMMARY | 2019-06-28 20:38 | XMS REPORT ---
Author Author Mario GUILLEN Organization [facility] Address [address] [place] [address] Care Team Providers Care Surgical Consultant Name Role Phone JESSICA GUILLEN Unavailable PROBLEMS Type Condition ICD9-CM Code ZBT95-[id number] Code Onset Dates Condition S tatus SNOMED Code Problem Low back pain M54.5 Active 967327 009 Problem Mixed hyperlipidemia E78.2 Active 561705746 Problem Chronic obstructive 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, unspecified COPD ty pe J44.9 Active 79447392 Problem Bronchitis J40 Active 15928919 Problem Essential hypertension I10 Active 08819796 Problem Morbid (severe) obesity due to excess calories E66 .01 Active 881903831 Problem Neuropathy G62.9 Active 896694931 Problem Vitamin D deficiency E55.9 Active 31821279 Problem BPH loc w urin obs/LUTS N40.1 Active 695059843 Problem Reactive depression F32.9 Active 91013121 ALLERGIES No Information ENCOUNTERS Encounter Location Date Diagnosis [place] [address] [address] Mar, [facility] [address] [address] Mar, [facility] [id number] [place] [id number] Mar, [facility] [address] [address] Mar, Low back pain M54.5 [facility] [address] [address] Mar, [facility] [address] [address] Feb, [facility] [address] [address] Feb, Chronic obstructive 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, u nspecified COPD type J44.9 ; Essential hypertension I10 ; Morbid (severe) obesity due to excess calories E66.01 and Low back pain M54.5 [facility] [address] [address] Feb, [facility] [address] [address] Feb, [facility] [address] [address] Feb, Low back pain M54.5 [facility] [address] [address] Feb, [facility] [address] [address] Jan, Low back pain M54.5 [facility] [address] [address] Jan, [facility] [address] [address] Dec, Low back pain M54.5 [place] [address] [address] Dec, Neuropathy G62.9 [place] [address] [address] Dec, Neuropathy G62.9 [place] [address] [address] Nov, Neuropathy G62.9 ; Onychomycosis B35.1 a nd Callus of foot L84 [place] [address] [address] Nov, Low back pain M54.5 [place] [address] [address] 18 Oct, 2018 Low back pain M54.5 [facility] [address] [address] Oct, [facility] [address] [place] [id number] [place] [address] Oct, Low back pain M54.5 ; BPH loc w urin obs /LUTS N40.1 ; Chronic obstructive 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, 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 and Neuropathy G62.9 [address] [place] [address] Sep, Low back pain M54.5 [facility] [address] [address] Aug, [place] [address] [address] Aug, Low back pain M54.5 [place] [address] [address] Jul, Pre-ulcerative calluses L84 [place] [address] [address] Jul, Encounter for Medicare annual wellness e xam Z00.00 ; Chronic obstructive 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, 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 ; Essential hypertension I10 ; Mixed hyperlipidemia E78.2 ; Morbid (severe) obesity due to excess calories E66.01 ; Neuropathy G62.9 ; Vitamin D deficiency E55.9 ; Reactive depression F32.9 and Heart failure, unspecified HF chronicity, unspecified heart failure type I50.9 [place] [address] [place] [id number] [place] [address] Jul, Low back pain M54.5 [place] [address] [address] June, Low back pain M54.5 [place] [address] [address] May, Low back pain M54.5 [place] [address] [address] May, [place] [address] [address] Apr, Low back pain M54.5 and Bronchitis J40 [facility] [address] [address] Apr, Low back pain M54.5 [facility] [address] [address] Apr, [facility] [address] [facility] [id number] [place] [address] Apr, Acute URI J06.9 and Wheezing R06.2 [facility] [address] [address] Mar, Low back pain M54.5 [facility] [address] [address] Mar, [facility] [address] [address] Feb, Low back pain M54.5 [facility] [address] [address] Feb, [facility] [address] [address] Feb, [facility] [address] [address] Feb, Low back pain M54.5 [facility] [address] [address] Jan, [facility] [address] [address] Jan, Low back pain M54.5 [facility] [address] [address] Dec, Reactive depression F32.9 [facility] [address] [address] Dec, Low back pain M54.5 ; Essential hyperten radha I10 ; Reactive depression F32.9 ; Chronic obstructive 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, 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 ; Encounter for immunization Z23 and Esophageal stricture K22.2 [facility] [address] [address] Dec, [facility] [address] [address] Nov, Low back pain M54.5 [facility] [address] [address] Nov, Low back pain M54.5 [facility] [address] [address] Nov, Low back pain M54.5 [place] [address] [address] Oct, Low back pain M54.5 [facility] [address] [address] Sep, Low back pain M54.5 [facility] [address] [address] Sep, [facility] [address] [address] Aug, Essential hypertension I10 ; Low back pa in M54.5 ; 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 ; Chronic obstructive 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, 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 and Mixed hyperlipidemia E78.2 [facility] [address] [address] Aug, Low back pain M54.5 ; 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 ; Essential hypertension I10 ; Chronic obstructive 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, 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 and Mixed hyperlipidemia E78.2 [facility] [address] [address] Aug, Low back pain M54.5 [facility] [address] [address] Jul, Medicare annual wellness visit, initial Z00.00 ; Mixed hyperlipidemia E78.2 ; Essential hypertension I10 ; Chronic obstructive 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, 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 ; Neuropathy G62.9 ; BPH loc w urin obs/LUTS N40.1 and Reactive depression F32.9 [place] [address] [address] 18 Jul, 2017 Onychomycosis B35.1 [place] [address] [address] 14 Jul, 2017 Low back pain M54.5 [place] [address] [address] June, Low back pain M54.5 [place] [address] [address] May, [address] [address] May, Bronchitis J40 and BMI 45.0-49.9, adult Z68.[address] [address] May, Low back pain M54.[address] [address] Apr, [address] [address] Apr, Low back pain M54.5 ; Essential hyperten radha I10 ; Chronic obstructive 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, 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 and Dyspnea on exertion R06.09 [place] [address] [address] 15 Apr, 2017 Onychomycosis B35.1 and Callus of foot L [address] [address] Apr, Low back pain M54.5 [place] [address] [address] Mar, Low back pain M54.5 [facility] [address] [place] [id number] [place] [address] Mar, [facility] [address] [address] Feb, [facility] [address] [address] Feb, [facility] [address] [address] Feb, [facility] [address] [address] Feb, Low back pain M54.5 [facility] [address] [address] Jan, [facility] [address] [address] Jan, Low back pain M54.5 [facility] [address] [address] Dec, Low back pain M54.5 [facility] [address] [address] Dec, [facility] [address] [address] Nov, Low back pain M54.5 ; Encounter for immu nization Z23 ; Essential hypertension I10 ; Reactive depression F32.9 ; Neuropathy G62.9 and Chronic obstructive 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, 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 [facility] [address] [address] Nov, Low back pain M54.5 [facility] [address] [address] Oct, Low back pain M54.5 [facility] [address] [address] Oct, Low back pain M54.5 [facility] [address] [address] Oct, [facility] [address] [address] Sep, [facility] [address] [address] Sep, Low back pain M54.5 [facility] [address] [address] Sep, BPH loc w urin obs/LUTS N40.1 [facility] [address] [address] Sep, [facility] [address] [address] Sep, Low back pain M54.5 ; Essential hyperten radha I10 ; Mixed hyperlipidemia E78.2 ; Vitamin D deficiency E55.9 ; Prostatism N40.0 and Neuropathy G62.9 [facility] [address] [address] Aug, Neuropathy G62.9 [facility] [address] [address] Aug, Low back pain M54.5 [facility] [address] [address] Aug, Low back pain M54.5 [facility] [address] [address] Jul, [facility] [address] [address] Jul, [facility] [address] [address] Jul, [facility] [address] [address] Jul, [facility] [address] [address] Jul, Neuropathy G62.9 [facility] [address] [place] [address] 09 Jul, 2016 Mixed hyperlipidemia E78.2 [facility] [address] [address] Jul, Low back pain M54.5 [facility] [address] [place] [id number] [place] [address] Jul, [facility] [address] [address] June, Low back pain M54.5 [facility] [address] [address] May, Low back pain M54.5 [facility] [address] [address] May, Chronic obstructive 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, u nspecified COPD type J44.9 [facility] [address] [address] Apr, [facility] [address] [address] Apr, [facility] [address] [address] Apr, Low back pain M54.5 [facility] [address] [address] Apr, Low back pain M54.5 [facility] [address] [address] 16 Mar, 2016 Low back pain M54.5 [facility] [address] [address] Mar, Low back pain M54.5 [facility] [address] [address] 09 Mar, 2016 [facility] [address] [address] Feb, Low back pain M54.5 [facility] [address] [address] Jan, Low back pain M54.5 and Chronic obstruct chon 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, 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 [facility] [address] [address] Jan, Low back pain M54.5 [facility] [address] [address] Jan, [facility] [address] [address] Dec, Low back pain M54.5 [facility] [address] [address] Dec, [facility] [address] [address] Oct, [facility] [address] [address] Oct, Low back pain M54.5 ; Essential hyperten radha I10 and Neuropathy G62.9 [facility] [address] [address] Oct, [facility] [address] [address] Sep, [facility] [address] [address] Sep, [facility] [address] [address] Aug, Mixed hyperlipidemia E78.2 ; Essential h ypertension I10 and Chronic obstructive 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, 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 [facility] [address] [address] Aug, Low back pain M54.5 ; Mixed hyperlipidem ia E78.2 ; Essential hypertension I10 and Chronic obstructive 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, 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 [facility] [address] [address] Jul, Low back pain M54.5 ; Essential hyperten radha I10 and Mixed hyperlipidemia E78.2 [facility] [address] [facility] [id number] [place] [address] Jul, IMMUNIZATIONS No Known Immunizations SOCIAL HISTORY Never Assessed REASON FOR VISIT controlled 05/19 PLAN OF CARE VITAL SIGNS MEDICATIONS Medication Instructions Dosage Frequency Start Date End Date Duration S tatus Oxycodone HCl 10 mg Orally every 6 hrs 1 tablet as needed 6h Apr, 28 days Active RESULTS No Results PROCEDURES No Known [...]
--- OUTSIDE RECORDS SUMMARY | 2019-06-28 20:38 | XMS REPORT ---
Author Author Mario GUILLEN Organization [facility] Address [address] [place] [address] Care Team Providers Care Information Services Consultant Name Role Phone JESSICA GUILLEN Unavailable PROBLEMS Type Condition ICD9-CM Code [id number] Code Onset Dates Condition S tatus SNOMED Code Problem Chronic obstructive 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, unspecified COPD ty pe J44.9 Active 13845695 Problem Vitamin D deficiency E55.9 Active 24118488 Problem Neuropathy G62.9 Active 397174605 Problem Low back pain M54.5 Active 352031 009 Problem Mixed hyperlipidemia E78.2 Active 906721950 Problem Essential hypertension I10 Active 00995413 Problem Esophageal stricture K22.2 Active 64894142 Problem BMI 45.0-49.9, adult Z68.42 Active 729603566 Problem BPH loc w urin obs/LUTS N40.1 Active 530709361 Problem Prostatism N40.0 Active 75762997 Problem Bronchitis J40 Active 63895817 Problem Reactive depression F32.9 Active 57417340 ALLERGIES No Information ENCOUNTERS Encounter Location Date Diagnosis [place] [id number] [facility] [place] [id number] [address] [place] [phone] Jan, Low back pain M54.5 [facility] [address] [facility] [place] [id number] [address] [place] [phone] Dec, Reactive depression F32.9 [facility] [address] [facility] [place] [id number] [address] [place] [phone] Dec, Low back pain M54.5 ; Essent ial hypertension I10 ; Reactive depression F32.9 ; Chronic obstructive 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, 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 ; Encounter for immunization Z23 and Esophageal stricture K22.2 [facility] [address] [facility] [place] [id number] [address] [place] [phone] Dec, [facility] [address] [id number] [address] [place] [phone] Nov, Low back pain M54.5 [facility] [address] [id number] [address] [place] [phone] Nov, Low back pain M54.5 [facility] [address] [id number] [address] [place] [phone] Nov, Low back pain M54.5 [facility] [address] [id number] [address] [place] [phone] Oct, Low back pain M54.5 [facility] [address] [id number] [address] [place] [phone] Sep, Low back pain M54.5 [facility] [address] [facility] [place] [id number] [address] [place] [phone] Sep, [facility] [address] [facility] [place] [id number] [address] [place] [phone] Aug, Essential hypertension I10 ; Low back pain M54.5 ; 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 ; Chronic obstructive 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, 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 and Mixed hyperlipidemia E78.2 [facility] [address] [facility] [place] [id number] [address] [place] [phone] Aug, Low back pain M54.5 ; 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 ; Essential hypertension I10 ; Chronic obstructive 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, 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 and Mixed hyperlipidemia E78.2 [facility] [address] [facility] [place] [id number] [address] [place] [phone] Aug, Low back pain M54.5 [facility] [address] [facility] [place] [id number] [address] [place] [id number] Jul, Medicare annual wellness vis it, initial Z00.00 ; Mixed hyperlipidemia E78.2 ; Essential hypertension I10 ; Chronic obstructive 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, 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 ; Neuropathy G62.9 ; BPH loc w urin obs/LUTS N40.1 and Reactive depression F32.9 [place] [address] [phone] 18 Jul, 2017 Onychomycosis B35.1 [place] [address] [id number] 14 Jul, 2017 Low back pain M54.5 [place] [address] [id number] June, Low back pain M54.5 [place] [address] [address] May, [place] [address] [id number] May, Bronchitis J40 and BMI 45.0- 49.9, adult Z68.42 [place] [address] [id number] May, Low back pain M54.5 [place] [address] [address] Apr, [place] [address] [address] Apr, Low back pain M54.5 ; Essent ial hypertension I10 ; Chronic obstructive 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, 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 and Dyspnea on exertion R06.09 [place] [address] [id number] 15 Apr, 2017 Onychomycosis B35.1 and Call us of foot L84 [place] [address] [id number] Apr, Low back pain M54.5 [place] [address] [id number] Mar, Low back pain M54.5 [place] [address] [place] [id number] [address] [place] [phone] Mar, [facility] [address] [id number] [address] [place] [phone] Feb, [facility] [address] [id number] [address] [place] [id number] Feb, [facility] [address] [id number] [address] [place] [phone] Feb, [facility] [address] [id number] [address] [place] [phone] Feb, Low back pain M54.5 [facility] [address] [id number] [address] [place] [phone] Jan, [facility] [address] [id number] [address] [place] [phone] Jan, Low back pain M54.5 [facility] [address] [id number] [address] [place] [phone] Dec, Low back pain M54.5 [facility] [address] [id number] [address] [place] [phone] Dec, [facility] [address] [id number] [address] [place] [phone] Nov, Low back pain M54.5 ; Encoun ter for immunization Z23 ; Essential hypertension I10 ; Reactive depression F32.9 ; Neuropathy G62.9 and Chronic obstructive 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, 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 [facility] [address] [id number] [address] [place] [phone] Nov, Low back pain M54.5 [facility] [address] [id number] [address] [place] [phone] Oct, Low back pain M54.5 [facility] [address] [facility] [place] [id number] [address] [place] [phone] Oct, Low back pain M54.5 [facility] [address] [id number] [address] [place] [phone] Oct, [facility] [address] [facility] [place] [id number] [address] [place] [phone] Sep, [facility] [address] [facility] [place] [id number] [address] [place] [phone] Sep, Low back pain M54.5 [facility] [address] [facility] [place] [id number] [address] [place] [phone] Sep, BPH loc w urin obs/LUTS N40. 1 [facility] [address] [facility] [place] [id number] [address] [place] [phone] Sep, [facility] [address] [facility] [place] [id number] [address] [place] [phone] Sep, Low back pain M54.5 ; Essent ial hypertension I10 ; Mixed hyperlipidemia E78.2 ; Vitamin D deficiency E55.9 ; Prostatism N40.0 and Neuropathy G62.9 [facility] [address] [facility] [place] [id number] [address] [place] [phone] Aug, Neuropathy G62.9 [facility] [address] [facility] [place] [id number] [address] [place] [phone] Aug, Low back pain M54.5 [facility] [address] [facility] [place] [id number] [address] [place] [id number] Aug, Low back pain M54.5 [facility] [address] [facility] [place] [id number] [address] [place] [phone] Jul, [facility] [address] [facility] [place] [id number] [address] [place] [phone] Jul, [facility] [address] [facility] [place] [id number] [address] [place] [id number] Jul, [facility] [address] [facility] [place] [id number] [address] [place] [phone] Jul, [facility] [address] [id number] [address] [place] [phone] 12 Jul, 2016 Neuropathy G62.9 [facility] [address] [id number] [address] [place] [phone] Jul, Mixed hyperlipidemia E78.2 [facility] [address] [id number] [address] [place] [phone] Jul, Low back pain M54.5 [facility] [address] [id number] [address] [place] [phone] Jul, [facility] [address] [id number] [address] [place] [phone] June, Low back pain M54.5 [facility] [address] [id number] [address] [place] [phone] May, Low back pain M54.5 [facility] [address] [id number] [address] [place] [phone] May, Chronic obstructive pulmonar y disease, 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 [facility] [address] [id number] [address] [place] [phone] Apr, [facility] [address] [id number] [address] [place] [phone] Apr, [facility] [address] [id number] [address] [place] [phone] Apr, Low back pain M54.5 [facility] [address] [id number] [address] [place] [phone] Apr, Low back pain M54.5 [facility] [address] [id number] [address] [place] [id number] 16 Mar, 2016 Low back pain M54.5 [facility] [address] [id number] [address] [place] [phone] Mar, Low back pain M54.5 [facility] [address] [id number] [address] [place] [phone] Mar, [facility] [address] [id number] [address] [place] [phone] Feb, Low back pain M54.5 [facility] [address] [id number] [address] [place] [phone] Jan, Low back pain M54.5 and 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, 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 [facility] [address] [id number] [address] [place] [phone] Jan, Low back pain M54.5 [facility] [address] [id number] [address] [place] [phone] Jan, [facility] [address] [facility] [place] [id number] [address] [place] [phone] Dec, Low back pain M54.5 [facility] [address] [id number] [address] [place] [id number] Dec, [facility] [address] [id number] [address] [place] [phone] Oct, [facility] [address] [facility] [place] [id number] [address] [place] [phone] Oct, Low back pain M54.5 ; Essent ial hypertension I10 and Neuropathy G62.9 [facility] [address] [facility] [place] [id number] [address] [place] [phone] Oct, [facility] [address] [id number] [address] [place] [phone] Sep, [facility] [address] [facility] [place] [id number] [address] [place] [phone] Sep, [facility] [address] [facility] [place] [id number] [address] [place] [phone] Aug, Mixed hyperlipidemia E78.2 ; Essential hypertension I10 and Chronic obstructive 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, 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 [facility] [address] [facility] [place] [id number] [address] [address] Aug, Low back pain M54.5 ; Mixed hyperlipidemia E78.2 ; Essential hypertension I10 and Chronic obstructive 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, 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 [facility] [address] [facility] [place] [id number] [address] [place] [phone] Jul, Low back pain M54.5 ; Essent ial hypertension I10 and Mixed hyperlipidemia E78.2 [facility] [address] [facility] [place] [id number] [address] [place] [phone] Jul, IMMUNIZATIONS No Known Immunizations SOCIAL HISTORY Never Assessed REASON FOR VISIT Controlled Med Refill 01/27 PLAN OF CARE VITAL SIGNS MEDICATIONS Medication Instructions Dosage Frequency Start Date End Date Duration S tatus Ambien 10 mg Orally Once a day 1 tablet at bedtime as needed 24h Aug, 30 days Active Oxycodone HCl 10 mg Orally every 6 hrs 1 tablet as needed 6h Jan, 28 days Active RESULTS No Results PROCEDURES [...]
--- OUTSIDE RECORDS SUMMARY | 2019-06-28 20:38 | XMS REPORT ---
Author Author Mario REYES [facility] IN [facility] Address [address] [place] [address] Care Team Providers Care Knuckler Name Role Phone ERIC ELENO Unavailable PROBLEMS Type Condition ICD9-CM Code [id number] Code Onset Dates Condition S tatus SNOMED Code Problem Low back pain M54.5 Active 276647 009 Problem Essential hypertension I10 Active 49201404 Problem Mixed hyperlipidemia E78.2 Active 391894983 Problem Vitamin D deficiency E55.9 Active 46930325 Problem Prostatism N40.0 Active 27203253 Problem BPH loc w urin obs/LUTS N40.1 Active 114138752 Problem Heart failure, unspecified H F chronicity, unspecified heart failure type I50.9 Active 76489254 Problem Neuropathy G62.9 Active 262090032 Problem Morbid (severe) obesity due to excess calories E66 .01 Active 175057385 Problem Chronic obstructive 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, unspecified COPD ty pe J44.9 Active 25659429 Problem Reactive depression F32.9 Active 55275386 Problem Bronchitis J40 Active 34983317 Problem BMI 45.0-49.9, adult Z68.42 Active 796718892 Problem Esophageal stricture K22.2 Active 84558459 ALLERGIES Substance Reaction Event Type Date Status Lyrica swelling Drug Allergy Apr, Active Lisinopril cough Drug Allergy Apr, Active ENCOUNTERS Encounter Location Date Diagnosis [facility] [address] [facility] [id number] [address] [place] [phone] Nov, [facility] [address] [facility] [id number] [address] [place] [phone] Sep, [facility] [address] [facility] [id number] [address] [place] [phone] Aug, [facility] [address] [facility] [id number] [address] [place] [phone] Aug, Low back pain M54.5 [facility] [address] [id number] [address] [place] [phone] Jul, Pre-ulcerative calluses L84 [facility] [address] [id number] [address] [place] [phone] Jul, Encounter for Medicare annua l wellness exam Z00.00 ; Chronic obstructive 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, 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 ; Essential hypertension I10 ; Mixed hyperlipidemia E78.2 ; Morbid (severe) obesity due to excess calories E66.01 ; Neuropathy G62.9 ; Vitamin D deficiency E55.9 ; Reactive depression F32.9 and Heart failure, unspecified HF chronicity, unspecified heart failure type I50.9 [facility] [address] [id number] [address] [place] [phone] Jul, Low back pain M54.5 [facility] [address] [facility] [id number] [address] [place] [phone] June, Low back pain M54.5 [facility] [address] [facility] [id number] [address] [place] [phone] May, Low back pain M54.5 [facility] [address] [id number] [address] [place] [phone] May, [facility] [address] [facility] [id number] [address] [place] [phone] Apr, Low back pain M54.5 and Bron chitis J40 [facility] [address] [id number] [address] [place] [phone] Apr, Low back pain M54.5 [facility] [address] [facility] [id number] [address] [place] [phone] Apr, [facility] [address] [facility] [id number] [address] [place] [phone] Apr, Acute URI J06.9 and Wheezing R06.2 [facility] [address] [id number] [address] [place] [phone] Mar, Low back pain M54.5 [facility] [address] [id number] [address] [place] [phone] Mar, [facility] [address] [id number] [address] [place] [phone] Feb, Low back pain M54.5 [facility] [address] [id number] [address] [place] [phone] Feb, [facility] [address] [id number] [address] [place] [phone] Feb, [facility] [address] [id number] [address] [place] [phone] Feb, Low back pain M54.5 [facility] [address] [id number] [address] [place] [phone] Jan, [facility] [address] [id number] [address] [place] [phone] Jan, Low back pain M54.5 [facility] [address] [id number] [address] [place] [phone] Dec, Reactive depression F32.9 [facility] [address] [facility] [id number] [address] [place] [phone] Dec, Low back pain M54.5 ; Essent ial hypertension I10 ; Reactive depression F32.9 ; Chronic obstructive 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, 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 ; Encounter for immunization Z23 and Esophageal stricture K22.2 [facility] [address] [id number] [address] [place] [phone] Dec, [facility] [address] [facility] [id number] [address] [place] [phone] Nov, Low back pain M54.5 [facility] [address] [facility] [id number] [address] [place] [phone] Nov, Low back pain M54.5 [facility] [address] [facility] [id number] [address] [place] [phone] Nov, Low back pain M54.5 [facility] [address] [facility] [id number] [address] [place] [phone] Oct, Low back pain M54.5 [facility] [address] [facility] [id number] [address] [place] [phone] Sep, Low back pain M54.5 [facility] [address] [facility] [id number] [address] [place] [phone] Sep, [place] [address] [facility] [id number] [place] [phone] Aug, Essential hypertension I10 ; Low back pain M54.5 ; correction (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 of opiate analgesic Z79.891 ; Chronic obstructive 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, 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 and Mixed hyperlipidemia E78.2 [place] [address] [place] [id number] [address] [place] [phone] Aug, Low back pain M54.5 ; 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 ; Essential hypertension I10 ; Chronic obstructive 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, 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 and Mixed hyperlipidemia E78.2 [place] [address] [place] [id number] [address] [place] [phone] Aug, Low back pain M54.5 [place] [address] [place] [id number] [address] [place] [phone] Jul, Medicare annual wellness vis it, initial Z00.00 ; Mixed hyperlipidemia E78.2 ; Essential hypertension I10 ; Chronic obstructive 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, 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 ; Neuropathy G62.9 ; BPH loc w urin obs/LUTS N40.1 and Reactive depression F32.9 [place] [address] [place] [id number] [address] [place] [phone] Jul, Onychomycosis B35.1 [place] [address] [facility] [id number] [address] [place] [phone] 14 Jul, 2017 Low back pain M54.5 [facility] [address] [facility] [id number] [address] [place] [phone] June, Low back pain M54.5 [facility] [address] [facility] [id number] [address] [place] [phone] May, [facility] [address] [place] [id number] [address] [place] [phone] May, Bronchitis J40 and BMI 45.0- 49.9, adult Z68.42 [place] [address] [place] [id number] [place] [phone] May, Low back pain M54.5 [facility] [address] [place] [id number] [address] [place] [phone] Apr, [facility] [address] [phone] Apr, Low back pain M54.5 ; Essent ial hypertension I10 ; Chronic obstructive 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, 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 and Dyspnea on exertion R06.09 [facility] [address] [place] [id number] [address] [place] [phone] 15 Apr, 2017 Onychomycosis B35.1 and Call us of foot L84 [facility] [address] [place] [id number] [address] [place] [phone] Apr, Low back pain M54.5 [facility] [address] [facility] [id number] [address] [place] [phone] Mar, Low back pain M54.5 [facility] [address] [facility] [id number] [address] [place] [phone] Mar, [facility] [address] [place] [id number] [address] [place] [phone] Feb, [facility] [address] [place] [id number] [address] [place] [phone] Feb, [facility] [address] [id number] [address] [place] [phone] Feb, [facility] [address] [id number] [address] [place] [phone] Feb, Low back pain M54.5 [facility] [address] [id number] [address] [place] [phone] Jan, [facility] [address] [id number] [address] [place] [phone] Jan, Low back pain M54.5 [facility] [address] [id number] [address] [place] [phone] Dec, Low back pain M54.5 [facility] [address] [id number] [address] [place] [phone] Dec, [facility] [address] [id number] [address] [place] [phone] Nov, Low back pain M54.5 ; Encoun ter for immunization Z23 ; Essential hypertension I10 ; Reactive depression F32.9 ; Neuropathy G62.9 and Chronic obstructive 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, 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 [facility] [address] [id number] [address] [place] [phone] Nov, Low back pain M54.5 [facility] [address] [id number] [address] [place] [phone] Oct, Low back pain M54.5 [facility] [address] [id number] [address] [place] [phone] Oct, Low back pain M54.5 [facility] [address] [id number] [address] [place] [phone] Oct, [facility] [address] [id number] [address] [place] [phone] Sep, [facility] [address] [id number] [address] [place] [phone] Sep, Low back pain M54.5 [facility] [address] [facility] [id number] [address] [place] [phone] Sep, BPH loc w urin obs/LUTS N40. 1 [facility] [address] [facility] [id number] [address] [place] [phone] Sep, [facility] [address] [facility] [id number] [address] [place] [phone] Sep, Low back pain M54.5 ; Essent ial hypertension I10 ; Mixed hyperlipidemia E78.2 ; Vitamin D deficiency E55.9 ; Prostatism N40.0 and Neuropathy G62.9 [facility] [address] [facility] [id number] [address] [place] [phone] Aug, Neuropathy G62.9 [facility] [address] [facility] [id number] [address] [place] [phone] Aug, Low back pain M54.5 [facility] [address] [facility] [id number] [address] [place] [phone] Aug, Low back pain M54.5 [facility] [address] [facility] [id number] [address] [place] [phone] Jul, [facility] [address] [facility] [id number] [address] [place] [phone] Jul, [facility] [address] [facility] [id number] [address] [place] [phone] Jul, [facility] [address] [facility] [id number] [address] [place] [phone] Jul, [facility] [address] [facility] [id number] [address] [place] [phone] Jul, Neuropathy G62.9 [facility] [address] [facility] [id number] [address] [place] [phone] Jul, Mixed hyperlipidemia E78.2 [facility] [address] [id number] [address] [place] [phone] Jul, Low back pain M54.5 [facility] [address] [id number] [address] [place] [phone] Jul, [facility] [address] [id number] [address] [place] [phone] June, Low back pain M54.5 [facility] [address] [id number] [address] [place] [phone] May, Low back pain M54.5 [facility] [address] [id number] [address] [place] [phone] May, Chronic obstructive pulmonar y disease, 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 [facility] [address] [id number] [address] [place] [phone] Apr, [facility] [address] [id number] [address] [place] [phone] Apr, [facility] [address] [id number] [address] [place] [phone] Apr, Low back pain M54.5 [facility] [address] [id number] [address] [place] [phone] Apr, Low back pain M54.5 [facility] [address] [id number] [address] [place] [phone] 16 Mar, 2016 Low back pain M54.5 [facility] [address] [id number] [address] [place] [phone] Mar, Low back pain M54.5 [facility] [address] [id number] [address] [place] [phone] 09 Mar, 2016 [facility] [address] [id number] [address] [place] [phone] Feb, Low back pain M54.5 [facility] [address] [id number] [address] [place] [phone] Jan, Low back pain M54.5 and [employer]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, 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 [facility] [address] [id number] [address] [place] [phone] Jan, Low back pain M54.5 [facility] [address] [id number] [address] [place] [phone] Jan, [facility] [address] [id number] [address] [place] [phone] Dec, Low back pain M54.5 [facility] [address] [id number] [address] [place] [phone] Dec, [facility] [address] [id number] [address] [place] [phone] Oct, [facility] [address] [facility] [id number] [address] [place] [phone] Oct, Low back pain M54.5 ; Essent ial hypertension I10 and Neuropathy G62.9 [facility] [address] [facility] [id number] [address] [place] [phone] Oct, [facility] [address] [facility] [id number] [address] [place] [phone] Sep, [facility] [address] [facility] [id number] [address] [place] [phone] Sep, [facility] [address] [facility] [id number] [address] [place] [phone] Aug, Mixed hyperlipidemia E78.2 ; Essential hypertension I10 and Chronic obstructive 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, 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 [facility] [address] [facility] [id number] [address] [place] [phone] Aug, Low back pain M54.5 ; Mixed hyperlipidemia E78.2 ; Essential hypertension I10 and Chronic obstructive 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, 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 [facility] [address] [id number] [address] [address] 07 Jul, 2015 Low back pain M54.5 ; Essent ial hypertension I10 and Mixed hyperlipidemia E78.2 [facility] [address] [facility] [id number] [place] [address] Jul, IMMUNIZATIONS No Known Immunizations SOCIAL HISTORY Never Assessed REASON FOR VISIT Congestion, cough, and a low grade fever. Started about three days. Pt has been taking Musinex to help with congestion. -Anatoliy LANDEROS PLAN OF CARE Activity Details Follow Up as needed or reg fu with pc p Reason: VITAL SIGNS Height 68 in 2018 Weight 226 lbs 2018 Temperature 97.5 degrees Fahrenheit 2018 Heart Rate 88 bpm 2018 Respiratory Rate 20 2018 BMI 34.36 kg/m2 2018 Blood pressure systolic 110 mmHg 2018 Blood pressure diastolic 70 mmHg 2018 MEDICATIONS Medication Instructions Dosage Frequency Start Date End Date Duration S tatus Ranitidine HCl 300 MG TAKE ONE TABLET BY MOUTH AT BEDTIME 30 Active Crestor 20 MG TAKE ONE TABLET BY MOUTH ONCE DAILY 90 Active Fluoxetine HCl 40 mg Orally 2 times a day 1 capsule 12h 30 Active Amlodipine Besylate 5 MG Orally Once a day 1 tablet 24h Active Oxycodone HCl 10 mg Orally every 6 hrs 1 tablet as needed 6h 28 Mar, 2018 28 days Active Amlodipine Besylate 10 MG TAKE ONE TABLET BY MOUTH ONCE DAILY 30 Active Ambien 10 mg Orally Once a day 1 tablet at bedtime as needed 24h Aug, 30 days Active Finasteride 5 MG TAKE ONE TABLET BY MOUTH ONCE DAILY IN THE MORN ING 30 Active Azithromycin 250 MG Orally Once a day 2 tablets on the fi rst day, then 1 tablet daily for 4 days 24h Apr, 5 day(s) Active PredniSONE 20 MG Orally Once a day 2 tablet 24h Apr, 5 days Active ProAir HFA 108 (90 Base) MCG/ACT Inhalation every 4 hrs 2 puffs as needed 4h Jan, Active Nexium 40 MG TAKE ONE CAPSULE BY MOUTH ONCE DAILY 30 Active Flomax 0.4 MG Orally Once a day 2 capsules 24h Active Cymbalta 30 MG Orally Once a day 2 capsules 24h Nov, Active RESULTS No Results PROCEDURES Procedure Date Ordered Result Body Site REPLACED BY [facility] VISIT ESTABLISHED PATIENT 2018 INSTRUCTIONS MEDICATIONS ADMINISTERED No Known Medications [...]
--- OUTSIDE RECORDS SUMMARY | 2019-06-28 20:39 | XMS REPORT ---
Author Author Mario GUILLEN Organization [facility] Address [address] [place] [address] Care Team Providers Care Wind Site Manager Name Role Phone JESSICA GUILLEN Unavailable PROBLEMS Type Condition ICD9-CM Code QLC03-UV Code Onset Dates Condition S tatus SNOMED Code Problem Mixed hyperlipidemia E78.2 Active 867908399 Problem Neuropathy G62.9 Active 703014995 Problem Chronic obstructive 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, unspecified COPD ty pe J44.9 Active 35862093 Problem Essential hypertension I10 Active 55624213 Problem Low back pain M54.5 Active 881220 009 Problem Bronchitis J40 Active 19309420 Problem BMI 45.0-49.9, adult Z68.42 Active 091823977 Problem Prostatism N40.0 Active 08327671 Problem Vitamin D deficiency E55.9 Active 28172944 Problem Reactive depression F32.9 Active 34434994 Problem BPH loc w urin obs/LUTS N40.1 Active 237036423 ALLERGIES No Information ENCOUNTERS Encounter Location Date Diagnosis [facility] [address] [facility] [id number] [address] [place] [id number] Dec, [facility] [address] [facility] [id number] [address] [place] [phone] Oct, Low back pain M54.5 [facility] [address] [facility] [id number] [address] [place] [phone] Sep, Low back pain M54.5 [facility] [address] [facility] [id number] [address] [place] [phone] Sep, [facility] [address] [facility] [id number] [address] [place] [phone] Aug, Essential hypertension I10 ; Low back pain M54.5 ; 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 ; Chronic obstructive 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, 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 and Mixed hyperlipidemia E78.2 [place] [id number] [facility] [id number] [address] [place] [phone] 16 Aug, 2017 Low back pain M54.5 ; 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 ; Essential hypertension I10 ; Chronic obstructive 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, 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 and Mixed hyperlipidemia E78.2 [place] [address] [facility] [id number] [address] [place] [phone] 12 Aug, 2017 Low back pain M54.5 [place] [address] [facility] [id number] [address] [place] [phone] Jul, Medicare annual wellness vis it, initial Z00.00 ; Mixed hyperlipidemia E78.2 ; Essential hypertension I10 ; Chronic obstructive 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, 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 ; Neuropathy G62.9 ; BPH loc w urin obs/LUTS N40.1 and Reactive depression F32.9 [place] [address] [place] [id number] [address] [place] [phone] Jul, Onychomycosis B35.1 [place] [address] [place] [id number] [place] [phone] Jul, Low back pain M54.5 [place] [address] [place] [id number] [address] [place] [phone] June, Low back pain M54.5 [place] [address] [facility] [id number] [address] [place] [phone] May, [place] [address] [facility] [id number] [address] [place] [phone] May, Bronchitis J40 and BMI 45.0- 49.9, adult Z68.42 [place] [address] [facility] [id number] [address] [place] [phone] May, Low back pain M54.5 [place] [address] [place] [id number] [address] [place] [phone] Apr, [facility] [address] [id number] [address] [place] [phone] Apr, Low back pain M54.5 ; Essent ial hypertension I10 ; Chronic obstructive 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, 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 and Dyspnea on exertion R06.09 [facility] [address] [id number] [address] [place] [phone] 15 Apr, 2017 Onychomycosis B35.1 and Call us of foot L84 [facility] [address] [id number] [address] [place] [phone] 13 Apr, 2017 Low back pain M54.5 [facility] [address] [id number] [address] [place] [phone] 12 Mar, 2017 Low back pain M54.5 [facility] [address] [id number] [address] [place] [phone] Mar, [facility] [address] [id number] [address] [place] [phone] Feb, [facility] [address] [id number] [address] [place] [phone] Feb, [facility] [address] [id number] [address] [place] [phone] Feb, [facility] [address] [id number] [address] [place] [phone] Feb, Low back pain M54.5 [facility] [address] [id number] [address] [place] [phone] 18 Jan, 2017 [facility] [address] [id number] [address] [place] [phone] 14 Jan, 2017 Low back pain M54.5 [facility] [address] [id number] [address] [place] [phone] Dec, Low back pain M54.5 [facility] [address] [id number] [address] [place] [phone] Dec, [facility] [address] [place] [id number] [address] [place] [phone] Nov, Low back pain M54.5 ; Encoun ter for immunization Z23 ; Essential hypertension I10 ; Reactive depression F32.9 ; Neuropathy G62.9 and Chronic obstructive 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, 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 [facility] [address] [place] [id number] [address] [place] [phone] Nov, Low back pain M54.5 [facility] [address] [place] [id number] [address] [place] [phone] Oct, Low back pain M54.5 [facility] [address] [place] [id number] [place] [phone] Oct, Low back pain M54.5 [facility] [address] [phone] Oct, [facility] [address] [place] [id number] [address] [place] [phone] Sep, [facility] [address] [address] Sep, Low back pain M54.5 [facility] [address] [place] [id number] [address] [place] [phone] Sep, BPH loc w urin obs/LUTS N40. 1 [facility] [address] [place] [id number] [address] [place] [phone] Sep, [facility] [address] [place] [id number] [address] [place] [phone] Sep, Low back pain M54.5 ; Essent ial hypertension I10 ; Mixed hyperlipidemia E78.2 ; Vitamin D deficiency E55.9 ; Prostatism N40.0 and Neuropathy G62.9 [facility] [address] [facility] [id number] [address] [place] [phone] Aug, Neuropathy G62.9 [facility] [address] [id number] [address] [place] [phone] Aug, Low back pain M54.5 [facility] [address] [id number] [address] [place] [phone] Aug, Low back pain M54.5 [facility] [address] [id number] [address] [place] [phone] Jul, [facility] [address] [id number] [address] [place] [phone] Jul, [facility] [address] [id number] [address] [place] [phone] Jul, [facility] [address] [id number] [address] [place] [phone] Jul, [facility] [address] [id number] [address] [place] [phone] Jul, Neuropathy G62.9 [facility] [address] [id number] [address] [place] [phone] Jul, Mixed hyperlipidemia E78.2 [facility] [address] [id number] [address] [place] [phone] Jul, Low back pain M54.5 [facility] [address] [id number] [address] [place] [phone] Jul, [facility] [address] [id number] [address] [place] [id number] June, Low back pain M54.5 [facility] [address] [id number] [address] [place] [phone] May, Low back pain M54.5 [facility] [address] [id number] [address] [place] [phone] May, Chronic obstructive pulmonar y disease, 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 [facility] [address] [id number] [address] [place] [phone] Apr, [facility] [address] [id number] [address] [place] [phone] Apr, [facility] [address] [id number] [address] [place] [phone] Apr, Low back pain M54.5 [facility] [address] [id number] [address] [place] [address] Apr, Low back pain M54.5 [facility] [address] [id number] [address] [place] [phone] Mar, Low back pain M54.5 [facility] [address] [id number] [address] [place] [phone] Mar, Low back pain M54.5 [facility] [address] [id number] [address] [place] [phone] Mar, [facility] [address] [id number] [address] [place] [phone] Feb, Low back pain M54.5 [facility] [address] [id number] [address] [place] [phone] Jan, Low back pain M54.5 and 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, 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 [facility] [address] [id number] [address] [place] [phone] Jan, Low back pain M54.5 [facility] [address] [id number] [address] [place] [phone] Jan, [facility] [address] [id number] [address] [place] [phone] Dec, Low back pain M54.5 [facility] [address] [id number] [address] [place] [phone] Dec, [facility] [address] [id number] [address] [place] [phone] Oct, [facility] [address] [facility] [id number] [address] [place] [phone] Oct, Low back pain M54.5 ; Essent ial hypertension I10 and Neuropathy G62.9 [facility] [address] [facility] [id number] [address] [place] [phone] Oct, [facility] [address] [facility] [id number] [address] [place] [phone] Sep, [facility] [address] [facility] [id number] [place] [phone] Sep, [facility] [address] [place] [id number] [place] [phone] Aug, Mixed hyperlipidemia E78.2 ; Essential hypertension I10 and Chronic obstructive 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, 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 [facility] [address] [facility] [id number] [address] [place] [phone] Aug, Low back pain M54.5 ; Mixed hyperlipidemia E78.2 ; Essential hypertension I10 and Chronic obstructive 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, 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 [facility] [address] [place] [id number] [address] [place] [phone] Jul, Low back pain M54.5 ; Essent ial hypertension I10 and Mixed hyperlipidemia E78.2 [place] [address] [place] [id number] [address] [place] [phone] Jul, IMMUNIZATIONS No Known Immunizations SOCIAL HISTORY Never Assessed REASON FOR VISIT Controlled Med Refill 09/30 PLAN OF CARE VITAL SIGNS MEDICATIONS Medication Instructions Dosage Frequency Start Date End Date Duration S vitorus Oxycodone HCl 10 mg Orally every 6 hrs 1 tablet as needed 6h Sep, 28 days Active RESULTS No Results PROCEDURES [...]
--- OUTSIDE RECORDS SUMMARY | 2019-06-28 20:39 | XMS REPORT ---
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 Name Role Phone JESSICA GUILLEN Unavailable PROBLEMS Type Condition ICD9-CM Code [id number] Code Onset Dates Condition S tatus SNOMED Code Problem Mixed hyperlipidemia E78.2 Active 675529279 Problem Neuropathy G62.9 Active 134215792 Problem Chronic obstructive 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, unspecified COPD ty pe J44.9 Active 82869729 Problem Essential hypertension I10 Active 27198479 Problem Low back pain M54.5 Active 727636 009 Problem Bronchitis J40 Active 99267358 Problem BMI 45.0-49.9, adult Z68.42 Active 947684900 Problem Prostatism N40.0 Active 18275298 Problem Vitamin D deficiency E55.9 Active 23636357 Problem Reactive depression F32.9 Active 75456362 Problem BPH loc w urin obs/LUTS N40.1 Active 552058537 ALLERGIES No Information ENCOUNTERS Encounter Location Date Diagnosis [facility] [address] [facility] [id number] [address] [place] [phone] Dec, [facility] [address] [facility] [id number] [address] [place] [phone] Dec, [facility] [address] [facility] [id number] [address] [place] [phone] Nov, Low back pain M54.5 [facility] [address] [facility] [id number] [address] [place] [phone] Nov, Low back pain M54.5 [facility] [address] [facility] [id number] [address] [place] [address] Nov, Low back pain M54.5 [facility] [address] [facility] [id number] [address] [place] [phone] Oct, Low back pain M54.5 [facility] [address] [facility] [id number] [address] [place] [phone] Sep, Low back pain M54.5 [facility] [address] [facility] [id number] [address] [place] [phone] Sep, [facility] [address] [facility] [id number] [address] [place] [phone] Aug, Essential hypertension I10 ; Low back pain M54.5 ; halfway (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 of opiate analgesic Z79.891 ; Chronic obstructive 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, 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 and Mixed hyperlipidemia E78.2 [place] [address] [facility] [id number] [address] [place] [address] Aug, Low back pain M54.5 ; 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 ; Essential hypertension I10 ; Chronic obstructive 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, 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 and Mixed hyperlipidemia E78.2 [place] [id number] [facility] [id number] [address] [place] [phone] Aug, Low back pain M54.5 [place] [address] [facility] [id number] [address] [place] [address] Jul, Medicare annual wellness vis it, initial Z00.00 ; Mixed hyperlipidemia E78.2 ; Essential hypertension I10 ; Chronic obstructive 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, 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 ; Neuropathy G62.9 ; BPH loc w urin obs/LUTS N40.1 and Reactive depression F32.9 [place] [id number] [facility] [id number] [address] [place] [phone] Jul, Onychomycosis B35.1 [place] [address] [facility] [id number] [address] [place] [phone] Jul, Low back pain M54.5 [place] [address] [facility] [id number] [address] [place] [address] June, Low back pain M54.5 [facility] [address] [facility] [id number] [address] [place] [address] May, [facility] [address] [facility] [id number] [address] [place] [address] May, Bronchitis J40 and BMI 45.0- 49.9, adult Z68.42 [place] [address] [place] [id number] [address] [place] [phone] May, Low back pain M54.5 [facility] [address] [facility] [id number] [address] [place] [phone] Apr, [facility] [address] [place] [id number] [address] [place] [phone] Apr, Low back pain M54.5 ; Essent ial hypertension I10 ; Chronic obstructive 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, 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 and Dyspnea on exertion R06.09 [place] [address] [place] [id number] [address] [place] [phone] Apr, Onychomycosis B35.1 and Call us of foot L84 [place] [address] [place] [id number] [address] [place] [phone] Apr, Low back pain M54.5 [facility] [address] [place] [id number] [address] [place] [phone] Mar, Low back pain M54.5 [facility] [address] [facility] [id number] [address] [place] [phone] Mar, [facility] [address] [facility] [id number] [address] [place] [phone] Feb, [facility] [address] [facility] [id number] [address] [place] [phone] Feb, [facility] [address] [place] [id number] [address] [place] [phone] Feb, [facility] [address] [place] [id number] [address] [place] [phone] Feb, Low back pain M54.5 [facility] [address] [id number] [address] [place] [phone] Jan, [facility] [address] [facility] [id number] [address] [place] [phone] Jan, Low back pain M54.5 [facility] [address] [facility] [id number] [address] [place] [address] Dec, Low back pain M54.5 [facility] [address] [id number] [address] [place] [phone] Dec, [facility] [address] [facility] [id number] [address] [place] [address] Nov, Low back pain M54.5 ; Encoun ter for immunization Z23 ; Essential hypertension I10 ; Reactive depression F32.9 ; Neuropathy G62.9 and Chronic obstructive 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, 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 [facility] [address] [id number] [address] [place] [phone] Nov, Low back pain M54.5 [facility] [address] [id number] [address] [place] [phone] 22 Oct, 2016 Low back pain M54.5 [facility] [address] [facility] [id number] [address] [place] [phone] Oct, Low back pain M54.5 [facility] [address] [facility] [id number] [address] [place] [phone] Oct, [facility] [address] [id number] [address] [place] [phone] Sep, [facility] [address] [facility] [id number] [address] [place] [phone] Sep, Low back pain M54.5 [facility] [address] [facility] [id number] [address] [place] [address] Sep, BPH loc w urin obs/LUTS N40. 1 [facility] [address] [id number] [address] [place] [phone] Sep, [facility] [address] [facility] [id number] [address] [place] [address] Sep, Low back pain M54.5 ; Essent ial hypertension I10 ; Mixed hyperlipidemia E78.2 ; Vitamin D deficiency E55.9 ; Prostatism N40.0 and Neuropathy G62.9 [facility] [address] [id number] [address] [place] [phone] Aug, Neuropathy G62.9 [facility] [address] [facility] [id number] [address] [place] [phone] Aug, Low back pain M54.5 [facility] [address] [facility] [id number] [address] [place] [phone] Aug, Low back pain M54.5 [facility] [address] [facility] [id number] [address] [place] [phone] Jul, [facility] [address] [id number] [address] [place] [phone] Jul, [facility] [address] [facility] [id number] [address] [place] [phone] Jul, [facility] [address] [id number] [address] [place] [phone] Jul, [facility] [address] [facility] [id number] [address] [place] [phone] Jul, Neuropathy G62.9 [facility] [address] [id number] [address] [place] [phone] Jul, Mixed hyperlipidemia E78.2 [facility] [address] [facility] [id number] [address] [place] [phone] 08 Jul, 2016 Low back pain M54.5 [facility] [address] [facility] [id number] [address] [place] [phone] Jul, [facility] [address] [id number] [address] [place] [phone] June, Low back pain M54.5 [facility] [address] [id number] [address] [place] [phone] May, Low back pain M54.5 [facility] [address] [id number] [address] [place] [phone] May, Chronic obstructive pulmonar y disease, 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 [facility] [address] [id number] [address] [place] [address] Apr, [facility] [address] [id number] [address] [place] [phone] Apr, [facility] [address] [id number] [address] [place] [phone] Apr, Low back pain M54.5 [facility] [address] [id number] [address] [place] [phone] Apr, Low back pain M54.5 [facility] [address] [id number] [address] [place] [phone] 16 Mar, 2016 Low back pain M54.5 [facility] [address] [id number] [address] [place] [phone] Mar, Low back pain M54.5 [facility] [address] [id number] [address] [place] [phone] Mar, [facility] [address] [id number] [address] [place] [phone] Feb, Low back pain M54.5 [facility] [address] [id number] [address] [place] [phone] Jan, Low back pain M54.5 and [employer]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, 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 [facility] [address] [id number] [address] [place] [phone] Jan, Low back pain M54.5 [facility] [address] [id number] [address] [place] [phone] Jan, [facility] [address] [facility] [id number] [address] [place] [phone] Dec, Low back pain M54.5 [facility] [address] [facility] [id number] [address] [place] [phone] Dec, [facility] [address] [id number] [address] [place] [phone] Oct, [facility] [address] [id number] [address] [place] [phone] Oct, Low back pain M54.5 ; Essent ial hypertension I10 and Neuropathy G62.9 [facility] [address] [facility] [id number] [address] [place] [phone] Oct, [facility] [address] [facility] [id number] [address] [place] [phone] Sep, [facility] [address] [id number] [address] [place] [phone] Sep, [facility] [address] [facility] [id number] [address] [place] [phone] 15 Aug, 2015 Mixed hyperlipidemia E78.2 ; Essential hypertension I10 and Chronic obstructive 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, 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 [facility] [address] [id number] [address] [place] [phone] 08 Aug, 2015 Low back pain M54.5 ; Mixed hyperlipidemia E78.2 ; Essential hypertension I10 and Chronic obstructive 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, 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 [facility] [address] [facility] [id number] [address] [place] [phone] 07 Jul, 2015 Low back pain M54.5 ; Essent ial hypertension I10 and Mixed hyperlipidemia E78.2 [facility] [address] [facility] [id number] [address] [place] [phone] Jul, IMMUNIZATIONS No Known Immunizations SOCIAL HISTORY Never Assessed REASON FOR VISIT Controlled Med Refill 12/23 PLAN OF CARE VITAL SIGNS MEDICATIONS Medication Instructions Dosage Frequency Start Date End Date Duration S link Oxycodone HCl 10 mg Orally every 6 hrs 1 tablet as needed 6h Dec, 28 days Active RESULTS No Results PROCEDURES [...]
--- OUTSIDE RECORDS SUMMARY | 2019-06-28 20:39 | XMS REPORT ---
Author Author Mario DAVILA Organization [facility] Address [address] [place] [address] Care Team Providers Care Marine Equipment Research Engineer Name Role Phone DAVILALISA Unavailable PROBLEMS Type Condition ICD9-CM Code BUA07-NM Code Onset Dates Condition S tatus SNOMED Code Problem Mixed hyperlipidemia E78.2 Active 933001695 Problem Neuropathy G62.9 Active 336462023 Problem Chronic obstructive 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, unspecified COPD ty pe J44.9 Active 63393438 Problem Essential hypertension I10 Active 65567676 Problem Low back pain M54.5 Active 153527 009 Problem Bronchitis J40 Active 15487538 Problem BMI 45.0-49.9, adult Z68.42 Active 822458155 Problem Prostatism N40.0 Active 75476044 Problem Vitamin D deficiency E55.9 Active 70720925 Problem Reactive depression F32.9 Active 56791513 Problem BPH loc w urin obs/LUTS N40.1 Active 990623257 ALLERGIES No Information ENCOUNTERS Encounter Location Date Diagnosis [facility] [address] [facility] [id number] [address] [place] [id number] Dec, [facility] [address] [facility] [id number] [address] [place] [phone] Nov, Low back pain M54.5 [facility] [address] [facility] [id number] [address] [place] [phone] Nov, Low back pain M54.5 [facility] [address] [facility] [id number] [address] [place] [phone] Oct, Low back pain M54.5 [facility] [address] [facility] [id number] [address] [place] [phone] Sep, Low back pain M54.5 [facility] [address] [place] [id number] [address] [place] [address] Sep, [place] [address] [place] [id number] [place] [phone] Aug, Essential hypertension I10 ; Low back pain M54.5 ; 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 ; Chronic obstructive 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, 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 and Mixed hyperlipidemia E78.2 [place] [address] [place] [id number] [place] [address] Aug, Low back pain M54.5 ; 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 ; Essential hypertension I10 ; Chronic obstructive 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, 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 and Mixed hyperlipidemia E78.2 [place] [address] [place] [id number] [place] [phone] Aug, Low back pain M54.5 [place] [address] [address] Jul, Medicare annual wellness vis it, initial Z00.00 ; Mixed hyperlipidemia E78.2 ; Essential hypertension I10 ; Chronic obstructive 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, 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 ; Neuropathy G62.9 ; BPH loc w urin obs/LUTS N40.1 and Reactive depression F32.9 [place] [address] [address] Jul, Onychomycosis B35.1 [place] [address] [address] Jul, Low back pain M54.5 [place] [address] [address] June, Low back pain M54.5 [place] [address] [place] [id number] [place] [phone] May, [place] [address] [phone] 23 Apr, 2018 Bronchitis J40 and BMI 45.0- 49.9, adult Z68.42 [facility] [address] [id number] [address] [place] [phone] May, Low back pain M54.5 [facility] [address] [id number] [address] [place] [phone] Apr, [facility] [address] [id number] [address] [place] [phone] Apr, Low back pain M54.5 ; Essent ial hypertension I10 ; Chronic obstructive 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, 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 and Dyspnea on exertion R06.09 [facility] [address] [id number] [address] [place] [phone] 15 Apr, 2017 Onychomycosis B35.1 and Call us of foot L84 [facility] [address] [id number] [address] [place] [id number] Apr, Low back pain M54.5 [facility] [address] [id number] [address] [place] [phone] Mar, Low back pain M54.5 [facility] [address] [id number] [address] [place] [phone] Mar, [facility] [address] [id number] [address] [place] [phone] Feb, [facility] [address] [id number] [address] [place] [phone] Feb, [facility] [address] [id number] [address] [place] [phone] Feb, [facility] [address] [id number] [address] [place] [phone] Feb, Low back pain M54.5 [facility] [address] [id number] [address] [place] [phone] Jan, [facility] [address] [id number] [address] [place] [address] Jan, Low back pain M54.5 [facility] [address] [id number] [address] [place] [phone] Dec, Low back pain M54.5 [facility] [address] [id number] [address] [place] [phone] Dec, [facility] [address] [facility] [id number] [address] [place] [phone] Nov, Low back pain M54.5 ; Encoun ter for immunization Z23 ; Essential hypertension I10 ; Reactive depression F32.9 ; Neuropathy G62.9 and Chronic obstructive 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, 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 [facility] [address] [id number] [address] [place] [phone] Nov, Low back pain M54.5 [facility] [address] [id number] [address] [place] [phone] Oct, Low back pain M54.5 [facility] [address] [id number] [address] [place] [phone] Oct, Low back pain M54.5 [facility] [address] [id number] [address] [place] [phone] Oct, [facility] [address] [id number] [address] [place] [id number] Sep, [facility] [address] [id number] [address] [place] [phone] Sep, Low back pain M54.5 [facility] [address] [id number] [address] [place] [phone] Sep, BPH loc w urin obs/LUTS N40. 1 [facility] [address] [id number] [address] [place] [phone] Sep, [facility] [address] [id number] [address] [place] [phone] Sep, Low back pain M54.5 ; Essent ial hypertension I10 ; Mixed hyperlipidemia E78.2 ; Vitamin D deficiency E55.9 ; Prostatism N40.0 and Neuropathy G62.9 [facility] [address] [id number] [address] [place] [phone] Aug, Neuropathy G62.9 [facility] [address] [id number] [address] [place] [phone] Aug, Low back pain M54.5 [facility] [address] [id number] [address] [place] [phone] Aug, Low back pain M54.5 [facility] [address] [id number] [address] [place] [phone] Jul, [facility] [address] [id number] [address] [place] [phone] Jul, [facility] [address] [id number] [address] [place] [phone] Jul, [facility] [address] [id number] [address] [place] [phone] Jul, [facility] [address] [id number] [address] [place] [phone] Jul, Neuropathy G62.9 [facility] [address] [id number] [address] [place] [phone] Jul, Mixed hyperlipidemia E78.2 [facility] [address] [id number] [address] [place] [phone] Jul, Low back pain M54.5 [facility] [address] [id number] [address] [place] [id number] Jul, [facility] [address] [id number] [address] [place] [phone] June, Low back pain M54.5 [facility] [address] [id number] [address] [place] [phone] May, Low back pain M54.5 [facility] [address] [id number] [address] [place] [phone] May, Chronic obstructive pulmonar y disease, 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 [facility] [address] [id number] [address] [place] [phone] Apr, [facility] [address] [id number] [address] [place] [phone] Apr, [facility] [address] [id number] [address] [place] [phone] Apr, Low back pain M54.5 [facility] [address] [id number] [address] [place] [phone] Apr, Low back pain M54.5 [facility] [address] [id number] [address] [place] [id number] Mar, Low back pain M54.5 [facility] [address] [id number] [address] [place] [phone] Mar, Low back pain M54.5 [facility] [address] [id number] [address] [place] [phone] Mar, [facility] [address] [id number] [address] [place] [phone] Feb, Low back pain M54.5 [facility] [address] [id number] [address] [place] [phone] Jan, Low back pain M54.5 and 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, 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 [facility] [address] [id number] [address] [place] [phone] Jan, Low back pain M54.5 [facility] [address] [id number] [address] [place] [phone] Jan, [facility] [address] [id number] [address] [place] [phone] Dec, Low back pain M54.5 [facility] [address] [id number] [address] [place] [phone] Dec, [facility] [address] [id number] [address] [place] [phone] Oct, [facility] [address] [id number] [address] [place] [phone] Oct, Low back pain M54.5 ; Essent ial hypertension I10 and Neuropathy G62.9 [facility] [address] [id number] [address] [place] [phone] Oct, [place] [address] [id number] [address] [place] [phone] Sep, [place] [address] [facility] [id number] [address] [place] [phone] Sep, [place] [address] [facility] [id number] [address] [place] [phone] Aug, Mixed hyperlipidemia E78.2 ; Essential hypertension I10 and Chronic obstructive 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, 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 [place] [address] [facility] [id number] [address] [place] [phone] Aug, Low back pain M54.5 ; Mixed hyperlipidemia E78.2 ; Essential hypertension I10 and Chronic obstructive 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, 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 [place] [address] [facility] [id number] [address] [place] [phone] Jul, Low back pain M54.5 ; Essent ial hypertension I10 and Mixed hyperlipidemia E78.2 [place] [address] [facility] [id number] [address] [place] [phone] Jul, IMMUNIZATIONS No Known Immunizations SOCIAL HISTORY Never Assessed REASON FOR VISIT Medication question PLAN OF CARE VITAL SIGNS MEDICATIONS Medication Instructions Dosage Frequency Start Date End Date Duration S link Ambien 10 mg Orally Once a day 1 tablet at bedtime as needed 24h Aug, 30 days Active RESULTS No Results PROCEDURES No [...]
--- OUTSIDE RECORDS SUMMARY | 2019-06-28 20:39 | XMS REPORT ---
Author Author Mario GUILLEN Organization [facility] Address [address] [place] [address] Care Team Providers Care Bindery Assistant Name Role Phone JESSICA GUILLEN Unavailable PROBLEMS Type Condition ICD9-CM Code FMW19-RE Code Onset Dates Condition S tatus SNOMED Code Problem Mixed hyperlipidemia E78.2 Active 773638305 Problem Neuropathy G62.9 Active 380402045 Problem Chronic obstructive 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, unspecified COPD ty pe J44.9 Active 29530784 Problem Essential hypertension I10 Active 13397277 Problem Low back pain M54.5 Active 400029 009 Problem Bronchitis J40 Active 43811870 Problem BMI 45.0-49.9, adult Z68.42 Active 610796293 Problem Prostatism N40.0 Active 24883735 Problem Vitamin D deficiency E55.9 Active 68602821 Problem Reactive depression F32.9 Active 28729257 Problem BPH loc w urin obs/LUTS N40.1 Active 132250613 ALLERGIES No Information ENCOUNTERS Encounter Location Date Diagnosis [facility] [address] [facility] [id number] [address] [place] [phone] Dec, [facility] [address] [facility] [id number] [address] [place] [phone] Dec, [facility] [address] [facility] [id number] [address] [place] [phone] Nov, Low back pain M54.5 [facility] [address] [facility] [id number] [address] [place] [phone] Nov, Low back pain M54.5 [facility] [address] [facility] [id number] [address] [place] [phone] Nov, Low back pain M54.5 [facility] [address] [facility] [id number] [address] [place] [phone] Oct, Low back pain M54.5 [facility] [address] [facility] [id number] [address] [place] [phone] Sep, Low back pain M54.5 [facility] [address] [facility] [id number] [address] [place] [phone] Sep, [facility] [address] [facility] [id number] [address] [place] [phone] Aug, Essential hypertension I10 ; Low back pain M54.5 ; detention (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 of opiate analgesic Z79.891 ; Chronic obstructive 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, 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 and Mixed hyperlipidemia E78.2 [place] [address] [facility] [id number] [address] [place] [phone] Aug, Low back pain M54.5 ; 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 ; Essential hypertension I10 ; Chronic obstructive 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, 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 and Mixed hyperlipidemia E78.2 [place] [address] [facility] [id number] [address] [place] [phone] Aug, Low back pain M54.5 [place] [address] [facility] [id number] [address] [place] [phone] Jul, Medicare annual wellness vis it, initial Z00.00 ; Mixed hyperlipidemia E78.2 ; Essential hypertension I10 ; Chronic obstructive 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, 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 ; Neuropathy G62.9 ; BPH loc w urin obs/LUTS N40.1 and Reactive depression F32.9 [place] [address] [facility] [id number] [address] [place] [phone] Jul, Onychomycosis B35.1 [place] [address] [facility] [id number] [address] [place] [phone] Jul, Low back pain M54.5 [place] [address] [facility] [id number] [address] [place] [phone] June, Low back pain M54.5 [facility] [address] [facility] [id number] [address] [place] [phone] May, [facility] [address] [facility] [id number] [address] [place] [phone] May, Bronchitis J40 and BMI 45.0- 49.9, adult Z68.42 [place] [address] [place] [id number] [address] [place] [phone] May, Low back pain M54.5 [facility] [address] [facility] [id number] [address] [place] [phone] Apr, [facility] [address] [place] [id number] [address] [place] [phone] Apr, Low back pain M54.5 ; Essent ial hypertension I10 ; Chronic obstructive 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, 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 and Dyspnea on exertion R06.09 [place] [address] [place] [id number] [address] [place] [phone] Apr, Onychomycosis B35.1 and Call us of foot L84 [place] [address] [place] [id number] [address] [place] [phone] Apr, Low back pain M54.5 [facility] [address] [place] [id number] [address] [place] [phone] Mar, Low back pain M54.5 [facility] [address] [facility] [id number] [address] [place] [phone] Mar, [facility] [address] [facility] [id number] [address] [place] [phone] Feb, [facility] [address] [facility] [id number] [address] [place] [phone] Feb, [facility] [address] [place] [id number] [address] [place] [phone] Feb, [facility] [address] [place] [id number] [address] [place] [phone] Feb, Low back pain M54.5 [facility] [address] [id number] [address] [place] [phone] Jan, [facility] [address] [facility] [id number] [address] [place] [phone] Jan, Low back pain M54.5 [facility] [address] [facility] [id number] [address] [place] [phone] Dec, Low back pain M54.5 [facility] [address] [id number] [address] [place] [phone] Dec, [facility] [address] [facility] [id number] [address] [place] [phone] Nov, Low back pain M54.5 ; Encoun ter for immunization Z23 ; Essential hypertension I10 ; Reactive depression F32.9 ; Neuropathy G62.9 and Chronic obstructive 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, 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 [facility] [address] [id number] [address] [place] [phone] Nov, Low back pain M54.5 [facility] [address] [id number] [address] [place] [phone] 22 Oct, 2016 Low back pain M54.5 [facility] [address] [facility] [id number] [address] [place] [phone] Oct, Low back pain M54.5 [facility] [address] [facility] [id number] [address] [place] [phone] Oct, [facility] [address] [id number] [address] [place] [phone] Sep, [facility] [address] [facility] [id number] [address] [place] [phone] Sep, Low back pain M54.5 [facility] [address] [facility] [id number] [address] [place] [phone] Sep, BPH loc w urin obs/LUTS N40. [address] [facility] [address] [id number] [address] [place] [phone] Sep, [facility] [address] [facility] [id number] [address] [place] [phone] Sep, Low back pain M54.5 ; Essent ial hypertension I10 ; Mixed hyperlipidemia E78.2 ; Vitamin D deficiency E55.9 ; Prostatism N40.[address] [facility] [address] [id number] [address] [place] [phone] Aug, Neuropathy G62.9 [facility] [address] [facility] [id number] [address] [place] [phone] Aug, Low back pain M54.5 [facility] [address] [facility] [id number] [address] [place] [phone] Aug, Low back pain M54.5 [facility] [address] [facility] [id number] [address] [place] [phone] Jul, [facility] [address] [id number] [address] [place] [phone] Jul, [facility] [address] [facility] [id number] [address] [place] [phone] Jul, [facility] [address] [id number] [address] [place] [phone] Jul, [facility] [address] [facility] [id number] [address] [place] [phone] Jul, Neuropathy G62.9 [facility] [address] [id number] [address] [place] [id number] Jul, Mixed hyperlipidemia E78.2 [facility] [address] [facility] [id number] [address] [place] [phone] 08 Jul, 2016 Low back pain M54.5 [facility] [address] [facility] [id number] [address] [place] [phone] Jul, [facility] [address] [id number] [address] [place] [phone] June, Low back pain M54.5 [facility] [address] [id number] [address] [place] [phone] May, Low back pain M54.5 [facility] [address] [id number] [address] [place] [phone] May, Chronic obstructive pulmonar y disease, 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 [facility] [address] [id number] [address] [place] [phone] Apr, [facility] [address] [id number] [address] [place] [phone] Apr, [facility] [address] [id number] [address] [place] [phone] Apr, Low back pain M54.5 [facility] [address] [id number] [address] [place] [phone] Apr, Low back pain M54.5 [facility] [address] [id number] [address] [place] [id number] 16 Mar, 2016 Low back pain M54.5 [facility] [address] [id number] [address] [place] [phone] Mar, Low back pain M54.5 [facility] [address] [id number] [address] [place] [phone] Mar, [facility] [address] [id number] [address] [place] [phone] Feb, Low back pain M54.5 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 [address] [id number] [address] [place] [phone] Jan, Low back pain M54.5 [facility] [address] [id number] [address] [place] [phone] Jan, [facility] [address] [facility] [id number] [address] [place] [phone] Dec, Low back pain M54.5 [facility] [address] [facility] [id number] [address] [place] [phone] Dec, [facility] [address] [id number] [address] [place] [phone] Oct, [facility] [address] [id number] [address] [place] [phone] Oct, Low back pain M54.5 ; Essent ial hypertension I10 [address] G62[address]9 [facility] [address] [facility] [id number] [address] [place] [phone] Oct, [facility] [address] [facility] [id number] [address] [place] [phone] Sep, [facility] [address] [id number] [address] [place] [phone] Sep, [facility] [address] [facility] [id number] [address] [place] [phone] 15 Aug, 2015 Mixed hyperlipidemia E78.2 ; Essential hypertension I10 and Chronic obstructive 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, 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 [facility] [address] [id number] [address] [place] [phone] 08 Aug, 2015 Low back pain M54.5 ; Mixed hyperlipidemia E78.2 ; Essential hypertension I10 and Chronic obstructive 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, 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 [facility] [address] [facility] [id number] [address] [place] [phone] 07 Jul, 2015 Low back pain M54.5 ; Essent ial hypertension I10 and Mixed hyperlipidemia E78.2 [facility] [address] [facility] [id number] [address] [place] [phone] Jul, IMMUNIZATIONS No Known Immunizations SOCIAL HISTORY Never Assessed REASON FOR VISIT Concerned Medication Schedule PLAN OF CARE VITAL SIGNS MEDICATIONS Unknown [...]
--- OUTSIDE RECORDS SUMMARY | 2019-06-28 20:39 | XMS REPORT ---
Author Author Mario GUILLEN Organization [facility] Address [address] [place] [address] Care Team Providers Care Camera Maker Name Role Phone JESSICA GUILLEN Unavailable PROBLEMS Type Condition ICD9-CM Code UZW62-GV Code Onset Dates Condition S tatus SNOMED Code Problem Mixed hyperlipidemia E78.2 Active 547571037 Problem Neuropathy G62.9 Active 551539841 Problem Chronic obstructive 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, unspecified COPD ty pe J44.9 Active 06286923 Problem Essential hypertension I10 Active 35541891 Problem Low back pain M54.5 Active 607154 009 Problem Bronchitis J40 Active 51649320 Problem BMI 45.0-49.9, adult Z68.42 Active 535220575 Problem Prostatism N40.0 Active 12552980 Problem Vitamin D deficiency E55.9 Active 67290287 Problem Reactive depression F32.9 Active 66088561 Problem BPH loc w urin obs/LUTS N40.1 Active [id number] ALLERGIES No Information ENCOUNTERS Encounter Location Date Diagnosis [facility] [address] [facility] [id number] [address] [place] [phone] Dec, [facility] [address] [facility] [id number] [address] [place] [phone] Nov, Low back pain M54.5 [facility] [address] [id number] [address] [place] [phone] Nov, Low back pain M54.5 [facility] [address] [facility] [id number] [address] [place] [phone] Oct, Low back pain M54.5 [facility] [address] [facility] [id number] [address] [place] [phone] Sep, Low back pain M54.5 [facility] [address] [place] [id number] [address] [place] [phone] Sep, [place] [address] [phone] Aug, Essential hypertension I10 ; Low back pain M54.5 ; correction (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 of opiate analgesic Z79.891 ; Chronic obstructive 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, 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 and Mixed hyperlipidemia E78.2 [place] [address] [place] [id number] [place] [phone] Aug, Low back pain M54.5 ; 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 ; Essential hypertension I10 ; Chronic obstructive 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, 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 and Mixed hyperlipidemia E78.2 [place] [address] [place] [id number] [place] [phone] Aug, Low back pain M54.5 [place] [address] [id number] Jul, Medicare annual wellness vis it, initial Z00.00 ; Mixed hyperlipidemia E78.2 ; Essential hypertension I10 ; Chronic obstructive 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, 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 ; Neuropathy G62.9 ; BPH loc w urin obs/LUTS N40.1 and Reactive depression F32.9 [place] [address] [phone] Jul, Onychomycosis B35.1 [place] [address] [phone] Jul, Low back pain M54.5 [place] [address] [phone] June, Low back pain M54.5 [place] [address] [phone] May, [place] [address] [phone] May, Bronchitis J40 and BMI 45.0- 49.9, adult Z68.42 [facility] [address] [id number] [address] [place] [phone] May, Low back pain M54.5 [facility] [address] [id number] [address] [place] [phone] Apr, [facility] [address] [id number] [address] [place] [phone] Apr, Low back pain M54.5 ; Essent ial hypertension I10 ; Chronic obstructive 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, 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 and Dyspnea on exertion R06.09 [facility] [address] [id number] [address] [place] [phone] 15 Apr, 2017 Onychomycosis B35.1 and Call us of foot L84 [facility] [address] [id number] [address] [place] [phone] Apr, Low back pain M54.5 [facility] [address] [id number] [address] [place] [phone] 12 Mar, 2017 Low back pain M54.5 [facility] [address] [id number] [address] [place] [phone] Mar, [facility] [address] [id number] [address] [place] [phone] Feb, [facility] [address] [id number] [address] [place] [phone] Feb, [facility] [address] [id number] [address] [place] [phone] Feb, [facility] [address] [id number] [address] [place] [phone] Feb, Low back pain M54.5 [facility] [address] [id number] [address] [place] [phone] Jan, [facility] [address] [id number] [address] [place] [phone] Jan, Low back pain M54.5 [facility] [address] [id number] [address] [place] [phone] Dec, Low back pain M54.5 [facility] [address] [id number] [address] [place] [id number] Dec, [facility] [address] [facility] [id number] [address] [place] [phone] Nov, Low back pain M54.5 ; Encoun ter for immunization Z23 ; Essential hypertension I10 ; Reactive depression F32.9 ; Neuropathy G62.9 and Chronic obstructive 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, 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 [facility] [address] [id number] [address] [place] [phone] Nov, Low back pain M54.5 [facility] [address] [id number] [address] [place] [phone] Oct, Low back pain M54.5 [facility] [address] [id number] [address] [place] [phone] Oct, Low back pain M54.5 [facility] [address] [id number] [address] [place] [phone] Oct, [facility] [address] [id number] [address] [place] [phone] Sep, [facility] [address] [id number] [address] [place] [phone] Sep, Low back pain M54.5 [facility] [address] [id number] [address] [place] [phone] Sep, BPH loc w urin obs/LUTS N40. 1 [facility] [address] [id number] [address] [place] [phone] Sep, [facility] [address] [id number] [address] [place] [phone] Sep, Low back pain M54.5 ; Essent ial hypertension I10 ; Mixed hyperlipidemia E78.2 ; Vitamin D deficiency E55.9 ; Prostatism N40.0 and Neuropathy G62.9 [facility] [address] [id number] [address] [place] [phone] Aug, Neuropathy G62.9 [facility] [address] [id number] [address] [place] [phone] Aug, Low back pain M54.5 [facility] [address] [id number] [address] [place] [phone] Aug, Low back pain M54.5 [facility] [address] [id number] [address] [place] [phone] Jul, [facility] [address] [id number] [address] [place] [phone] Jul, [facility] [address] [id number] [address] [place] [phone] Jul, [facility] [address] [id number] [address] [place] [phone] Jul, [facility] [address] [id number] [address] [place] [phone] Jul, Neuropathy G62.9 [facility] [address] [id number] [address] [place] [id number] Jul, Mixed hyperlipidemia E78.2 [facility] [address] [id number] [address] [place] [phone] Jul, Low back pain M54.5 [facility] [address] [id number] [address] [place] [phone] Jul, [facility] [address] [id number] [address] [place] [phone] June, Low back pain M54.5 [facility] [address] [id number] [address] [place] [phone] May, Low back pain M54.5 [facility] [address] [id number] [address] [place] [phone] May, Chronic obstructive pulmonar y disease, 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 [facility] [address] [id number] [address] [place] [phone] Apr, [facility] [address] [id number] [address] [place] [phone] Apr, [facility] [address] [id number] [address] [place] [phone] Apr, Low back pain M54.5 [facility] [address] [id number] [address] [place] [phone] Apr, Low back pain M54.5 [facility] [address] [id number] [address] [place] [phone] Mar, Low back pain M54.5 [facility] [address] [id number] [address] [place] [phone] Mar, Low back pain M54.5 [facility] [address] [id number] [address] [place] [phone] Mar, [facility] [address] [id number] [address] [place] [phone] Feb, Low back pain M54.5 [facility] [address] [id number] [address] [place] [phone] Jan, Low back pain M54.5 and Carpenter Mold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, 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 [facility] [address] [id number] [address] [place] [phone] Jan, Low back pain M54.5 [facility] [address] [id number] [address] [place] [id number] Jan, [facility] [address] [id number] [address] [place] [phone] Dec, Low back pain M54.5 [facility] [address] [facility] [id number] [address] [place] [phone] Dec, [facility] [address] [facility] [id number] [address] [place] [phone] Oct, [facility] [address] [facility] [id number] [address] [place] [phone] Oct, Low back pain M54.5 ; Essent ial hypertension I10 and Neuropathy G62.9 [facility] [address] [facility] [id number] [address] [place] [phone] Oct, [place] [address] [facility] [id number] [address] [place] [phone] Sep, [place] [address] [facility] [id number] [address] [place] [phone] Sep, [facility] [address] [facility] [id number] [address] [place] [phone] Aug, Mixed hyperlipidemia E78.2 ; Essential hypertension I10 and Chronic obstructive 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, 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 [place] [address] [facility] [id number] [address] [place] [phone] Aug, Low back pain M54.5 ; Mixed hyperlipidemia E78.2 ; Essential hypertension I10 and Chronic obstructive 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, 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 [place] [address] [facility] [id number] [address] [place] [phone] Jul, Low back pain M54.5 ; Essent ial hypertension I10 and Mixed hyperlipidemia E78.2 [place] [address] [facility] [id number] [address] [place] [phone] Jul, IMMUNIZATIONS No Known Immunizations SOCIAL HISTORY Never Assessed REASON FOR VISIT Controlled Med Refill PLAN OF CARE VITAL SIGNS MEDICATIONS Medication Instructions Dosage Frequency Start Date End Date Duration S link Oxycodone HCl 10 mg Orally every 6 hrs 1 tablet as needed 6h Nov, 28 days Active RESULTS No Results PROCEDURES [...]
--- OUTSIDE RECORDS SUMMARY | 2019-06-28 20:39 | XMS REPORT ---
Author Author Mario GUILLEN Organization [facility] Address [address] [place] [address] Care Team Providers Care Fan Balancer Name Role Phone JESSICA GUILLEN Unavailable PROBLEMS Type Condition ICD9-CM Code DHG36-KO Code Onset Dates Condition S tatus SNOMED Code Problem Chronic obstructive 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, unspecified COPD ty pe J44.9 Active 23941179 Problem Vitamin D deficiency E55.9 Active 29653158 Problem Neuropathy G62.9 Active 955228837 Problem Low back pain M54.5 Active 326981 009 Problem Mixed hyperlipidemia E78.2 Active 208246994 Problem Essential hypertension I10 Active 25083490 Problem Esophageal stricture K22.2 Active 18099448 Problem BMI 45.0-49.9, adult Z68.42 Active 661143333 Problem BPH loc w urin obs/LUTS N40.1 Active 930602902 Problem Prostatism N40.0 Active 91083295 Problem Bronchitis J40 Active 15335877 Problem Reactive depression F32.9 Active 80691382 ALLERGIES Substance Reaction Event Type Date Status Lyrica swelling Drug Allergy Dec, Active Lisinopril cough Drug Allergy Dec, Active ENCOUNTERS Encounter Location Date Diagnosis [facility] [address] [id number] [address] [place] [id number] Dec, Low back pain M54.5 ; Essent ial hypertension I10 ; Reactive depression F32.9 ; Chronic obstructive 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, 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 ; Encounter for immunization Z23 and Esophageal stricture K22.2 [facility] [address] [id number] [address] [place] [phone] Dec, [facility] [address] [id number] [address] [place] [phone] Nov, Low back pain M54.5 [facility] [id number] [address] [place] [phone] Nov, Low back pain M54.5 [facility] [address] [facility] [id number] [address] [place] [id number] Nov, Low back pain M54.5 [facility] [address] [facility] [id number] [address] [place] [phone] Oct, Low back pain M54.5 [facility] [address] [facility] [id number] [address] [place] [phone] Sep, Low back pain M54.5 [facility] [address] [facility] [id number] [address] [place] [id number] Sep, [facility] [address] [facility] [id number] [address] [place] [phone] Aug, Essential hypertension I10 ; Low back pain M54.5 ; 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 ; Chronic obstructive 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, 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 and Mixed hyperlipidemia E78.2 [facility] [address] [facility] [id number] [address] [place] [phone] Aug, Low back pain M54.5 ; 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 ; Essential hypertension I10 ; Chronic obstructive 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, 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 and Mixed hyperlipidemia E78.2 [facility] [address] [facility] [id number] [address] [place] [phone] Aug, Low back pain M54.5 [facility] [address] [facility] [id number] [address] [place] [phone] Jul, Medicare annual wellness vis it, initial Z00.00 ; Mixed hyperlipidemia E78.2 ; Essential hypertension I10 ; Chronic obstructive 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, 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 ; Neuropathy G62.9 ; BPH loc w urin obs/LUTS N40.1 and Reactive depression F32.9 [facility] [address] [facility] [id number] [address] [place] [phone] Jul, Onychomycosis B35.1 [facility] [address] [facility] [id number] [address] [place] [phone] Jul, Low back pain M54.5 [facility] [address] [facility] [id number] [address] [place] [phone] June, Low back pain M54.5 [facility] [address] [facility] [id number] [address] [place] [phone] May, [facility] [address] [facility] [id number] [address] [place] [phone] May, Bronchitis J40 and BMI 45.0- 49.9, adult Z68.42 [place] [address] [id number] [address] [place] [phone] May, Low back pain M54.5 [place] [address] [id number] [address] [place] [phone] Apr, [place] [address] [facility] [id number] [address] [place] [phone] Apr, Low back pain M54.5 ; Essent ial hypertension I10 ; Chronic obstructive 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, 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 and Dyspnea on exertion R06.09 [place] [address] [id number] [address] [place] [phone] 15 Apr, 2017 Onychomycosis B35.1 and Call us of foot L84 [place] [address] [facility] [id number] [address] [place] [phone] Apr, Low back pain M54.5 [place] [address] [facility] [id number] [address] [place] [phone] Mar, Low back pain M54.5 [place] [address] [facility] [id number] [address] [place] [id number] Mar, [place] [address] [id number] [address] [place] [phone] Feb, [facility] [address] [id number] [address] [place] [phone] Feb, [facility] [address] [id number] [address] [place] [phone] Feb, [facility] [address] [id number] [address] [place] [phone] Feb, Low back pain M54.5 [facility] [address] [id number] [address] [place] [id number] Jan, [facility] [address] [id number] [address] [place] [phone] Jan, Low back pain M54.5 [facility] [address] [id number] [address] [place] [id number] Dec, Low back pain M54.5 [facility] [address] [id number] [address] [place] [phone] Dec, [facility] [address] [id number] [address] [place] [phone] Nov, Low back pain M54.5 ; Encoun ter for immunization Z23 ; Essential hypertension I10 ; Reactive depression F32.9 ; Neuropathy G62.9 and Chronic obstructive 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, 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 [facility] [address] [id number] [address] [place] [phone] Nov, Low back pain M54.5 [facility] [address] [id number] [address] [place] [id number] 22 Oct, 2016 Low back pain M54.5 [facility] [address] [id number] [address] [place] [phone] 21 Oct, 2016 Low back pain M54.5 [facility] [address] [id number] [address] [place] [id number] 13 Oct, 2016 [facility] [address] [id number] [address] [place] [phone] Sep, [facility] [address] [facility] [id number] [address] [place] [phone] Sep, Low back pain M54.5 [facility] [address] [facility] [id number] [address] [place] [phone] Sep, BPH loc w urin obs/LUTS N40. 1 [facility] [address] [facility] [id number] [address] [place] [id number] Sep, [facility] [address] [id number] [address] [place] [id number] Sep, Low back pain M54.5 ; Essent ial hypertension I10 ; Mixed hyperlipidemia E78.2 ; Vitamin D deficiency E55.9 ; Prostatism N40.0 and Neuropathy G62.9 [facility] [address] [id number] [address] [place] [phone] Aug, Neuropathy G62.9 [facility] [address] [id number] [address] [place] [id number] Aug, Low back pain M54.5 [facility] [address] [facility] [id number] [address] [place] [phone] Aug, Low back pain M54.5 [facility] [address] [facility] [id number] [address] [place] [phone] Jul, [facility] [address] [id number] [address] [place] [phone] Jul, [facility] [address] [facility] [id number] [address] [place] [phone] Jul, [facility] [address] [facility] [id number] [address] [place] [id number] Jul, [facility] [address] [facility] [id number] [address] [place] [id number] Jul, Neuropathy G62.9 [facility] [address] [facility] [id number] [address] [place] [phone] Jul, Mixed hyperlipidemia E78.2 [facility] [address] [id number] [address] [place] [phone] Jul, Low back pain M54.5 [facility] [address] [id number] [address] [place] [phone] Jul, [facility] [address] [id number] [address] [place] [phone] June, Low back pain M54.5 [facility] [address] [id number] [address] [place] [phone] May, Low back pain M54.5 [facility] [address] [id number] [address] [place] [phone] May, Chronic obstructive pulmonar y disease, 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 [facility] [address] [id number] [address] [place] [phone] Apr, [facility] [address] [id number] [address] [place] [phone] Apr, [facility] [address] [id number] [address] [place] [phone] Apr, Low back pain M54.5 [facility] [address] [id number] [address] [place] [id number] Apr, Low back pain M54.5 [facility] [address] [id number] [address] [place] [id number] Mar, Low back pain M54.5 [facility] [address] [id number] [address] [place] [phone] Mar, Low back pain M54.5 [facility] [address] [id number] [address] [place] [phone] Mar, [facility] [address] [id number] [address] [place] [id number] Feb, Low back pain M54.5 [facility] [address] [id number] [address] [place] [phone] Jan, Low back pain M54.5 and [employer]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, 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 [facility] [address] [id number] [address] [place] [id number] Jan, Low back pain M54.5 [facility] [address] [id number] [address] [place] [id number] Jan, [facility] [address] [id number] [address] [place] [phone] Dec, Low back pain M54.5 [facility] [address] [id number] [address] [place] [phone] Dec, [facility] [address] [id number] [address] [place] [phone] Oct, [facility] [address] [id number] [address] [place] [id number] Oct, Low back pain M54.5 ; Essent ial hypertension I10 and Neuropathy G62.9 [facility] [address] [id number] [address] [place] [phone] 09 Oct, 2015 [facility] [address] [id number] [address] [place] [phone] Sep, [facility] [address] [id number] [address] [place] [phone] Sep, [facility] [address] [id number] [address] [place] [phone] Aug, Mixed hyperlipidemia E78.2 ; Essential hypertension I10 and Chronic obstructive 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, 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 [facility] [address] [id number] [address] [place] [phone] Aug, Low back pain M54.5 ; Mixed hyperlipidemia E78.2 ; Essential hypertension I10 and Chronic obstructive 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, 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 [facility] [address] [facility] [id number] [address] [place] [address] Jul, Low back pain M54.5 ; Essent ial hypertension I10 and Mixed hyperlipidemia E78.2 [facility] [address] [facility] [id number] [address] [address] Jul, IMMUNIZATIONS Vaccine Route Administration Date Status FLUZONE HIGH DOSE 0.5ML (65 & UP) 2018 IM Intramuscular Dec 31, 2017 Administered SOCIAL HISTORY Never Assessed REASON FOR VISIT pain management [place], pt states that since taking cymbalta when he wakes h is arm will flail wildly and is uncontrollable., Needs to have his throat dilate d, he is aspirating and having difficulty swallowing. , Wants a flu shot PLAN OF CARE Activity Details Follow Up 3 Months Reason: VITAL SIGNS Height 68 in 2017-12-31 Weight 249.9 lbs 2017-12-31 Temperature 98.2 degrees Fahrenheit 2017-12-31 Heart Rate 92 bpm 2017-12-31 Respiratory Rate 20 2017-12-31 BMI 37.99 kg/m2 2017-12-31 Blood pressure systolic 128 mmHg 2017-12-31 Blood pressure diastolic 76 mmHg 2017-12-31 MEDICATIONS Medication Instructions Dosage Frequency Start Date End Date Duration S link Amlodipine Besylate 5 MG Orally Once a day 1 tablet 24h Active Finasteride 5 MG TAKE ONE TABLET BY MOUTH ONCE DAILY IN THE MORN ING 30 Active Crestor 20 MG TAKE ONE TABLET BY MOUTH ONCE DAILY 90 Active Fluoxetine HCl 40 mg Orally Once a day 1 capsule 24h Dec, 30 day(s) Active Oxycodone HCl 10 mg Orally every 6 hrs 1 tablet as needed 6h Dec, 28 days Active Flomax 0.4 MG Orally Once a day 2 capsules 24h Active Hydrochlorothiazide 12.5 MG Orally Once a day 1 capsule in the morning 24h Active Cymbalta 30 MG Orally Once a day 2 capsules 24h Nov, Active Nexium 40 MG TAKE ONE CAPSULE BY MOUTH ONCE DAILY 30 Active ProAir HFA 108 (90 Base) MCG/ACT Inhalation every 4 hrs 2 puffs as needed 4h Jan, Active Ranitidine HCl 300 MG TAKE ONE TABLET BY MOUTH AT BEDTIME 30 Active Ambien 10 mg Orally Once a day 1 tablet at bedtime as needed 24h Aug, 30 days Active RESULTS No Results PROCEDURES Procedure Date Ordered Result Body Site [facility] VISIT ESTABLISHED PATIENT Dec 31, 2017 ADMN FLU VAC NO FEE SCHED SAME DAY Dec 31, 2017 FLUZONE HIGH DOSE (65 & UP) 2017Dec 31, 2017 SINGLE IMMUNIZATION ADMIN Dec 31, 2017 INSTRUCTIONS MEDICATIONS ADMINISTERED No Known Medications MEDICAL [...] cholecystectomy 2005 Surgical History duodenal ulcer surg 1972 Surgical History retina detatchment, lens implant
--- OUTSIDE RECORDS SUMMARY | 2019-06-28 20:39 | XMS REPORT ---
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 Name Role Phone JESSICA GUILLEN Unavailable PROBLEMS Type Condition ICD9-CM Code LWT17-VK Code Onset Dates Condition S tatus SNOMED Code Problem Mixed hyperlipidemia E78.2 Active 930607764 Problem Neuropathy G62.9 Active 042697136 Problem Chronic obstructive 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, unspecified COPD ty pe J44.9 Active 94461960 Problem Essential hypertension I10 Active 54927788 Problem Low back pain M54.5 Active 548747 009 Problem Bronchitis J40 Active 93327228 Problem BMI 45.0-49.9, adult Z68.42 Active 697679560 Problem Prostatism N40.0 Active 70250045 Problem Vitamin D deficiency E55.9 Active 14138187 Problem Reactive depression F32.9 Active 41265632 Problem BPH loc w urin obs/LUTS N40.1 Active 675514880 ALLERGIES No Information ENCOUNTERS Encounter Location Date Diagnosis [facility] [address] [facility] [id number] [address] [place] [id number] Dec, [facility] [address] [facility] [id number] [address] [place] [phone] Oct, Low back pain M54.5 [facility] [address] [facility] [id number] [address] [place] [phone] Sep, Low back pain M54.5 [facility] [address] [facility] [id number] [address] [place] [phone] Sep, [facility] [address] [facility] [id number] [address] [place] [address] Aug, Essential hypertension I10 ; Low back pain M54.5 ; 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 Z79.891 ; Chronic obstructive 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, 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 and Mixed hyperlipidemia E78.2 [place] [id number] [facility] [id number] [address] [place] [id number] 16 Aug, 2017 Low back pain M54.5 ; 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 ; Essential hypertension I10 ; Chronic obstructive 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, 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 and Mixed hyperlipidemia E78.2 [place] [address] [facility] [id number] [address] [place] [phone] 12 Aug, 2017 Low back pain M54.5 [place] [address] [facility] [id number] [address] [place] [id number] Jul, Medicare annual wellness vis it, initial Z00.00 ; Mixed hyperlipidemia E78.2 ; Essential hypertension I10 ; Chronic obstructive 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, 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 ; Neuropathy G62.9 ; BPH loc w urin obs/LUTS N40.1 and Reactive depression F32.9 [place] [address] [place] [id number] [address] [place] [id number] Jul, Onychomycosis B35.1 [place] [address] [place] [id number] [place] [phone] Jul, Low back pain M54.5 [place] [address] [place] [id number] [address] [place] [id number] June, Low back pain M54.5 [place] [address] [facility] [id number] [address] [place] [id number] May, [place] [address] [facility] [id number] [address] [place] [id number] May, Bronchitis J40 and BMI 45.0- 49.9, adult Z68.42 [place] [address] [facility] [id number] [address] [place] [phone] May, Low back pain M54.5 [place] [address] [place] [id number] [address] [place] [phone] Apr, [facility] [address] [id number] [address] [place] [id number] Apr, Low back pain M54.5 ; Essent ial hypertension I10 ; Chronic obstructive 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, 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 and Dyspnea on exertion R06.09 [facility] [address] [id number] [address] [place] [id number] 15 Apr, 2017 Onychomycosis B35.1 and Call us of foot L84 [facility] [address] [id number] [address] [place] [phone] 13 Apr, 2017 Low back pain M54.5 [facility] [address] [id number] [address] [place] [id number] 12 Mar, 2017 Low back pain M54.5 [facility] [address] [id number] [address] [place] [phone] Mar, [facility] [address] [id number] [address] [place] [phone] Feb, [facility] [address] [id number] [address] [place] [phone] Feb, [facility] [address] [id number] [address] [place] [phone] Feb, [facility] [address] [id number] [address] [place] [phone] Feb, Low back pain M54.5 [facility] [address] [id number] [address] [place] [id number] 18 Jan, 2017 [facility] [address] [id number] [address] [place] [id number] 14 Jan, 2017 Low back pain M54.5 [facility] [address] [id number] [address] [place] [id number] Dec, Low back pain M54.5 [facility] [address] [id number] [address] [place] [phone] Dec, [facility] [address] [place] [id number] [address] [place] [id number] Nov, Low back pain M54.5 ; Encoun ter for immunization Z23 ; Essential hypertension I10 ; Reactive depression F32.9 ; Neuropathy G62.9 and Chronic obstructive 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, 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 [facility] [address] [place] [id number] [address] [place] [phone] Nov, Low back pain M54.5 [facility] [address] [place] [id number] [address] [place] [id number] Oct, Low back pain M54.5 [facility] [address] [place] [id number] [place] [phone] Oct, Low back pain M54.5 [facility] [address] [id number] Oct, [facility] [address] [place] [id number] [address] [place] [id number] Sep, [facility] [address] [phone] Sep, Low back pain M54.5 [facility] [address] [place] [id number] [address] [place] [phone] Sep, BPH loc w urin obs/LUTS N40. 1 [facility] [address] [place] [id number] [address] [place] [id number] Sep, [facility] [address] [place] [id number] [address] [place] [id number] Sep, Low back pain M54.5 ; Essent ial hypertension I10 ; Mixed hyperlipidemia E78.2 ; Vitamin D deficiency E55.9 ; Prostatism N40.0 and Neuropathy G62.9 [facility] [address] [facility] [id number] [address] [place] [phone] Aug, Neuropathy G62.9 [facility] [address] [id number] [address] [place] [id number] Aug, Low back pain M54.5 [facility] [address] [id number] [address] [place] [id number] Aug, Low back pain M54.5 [facility] [address] [id number] [address] [place] [phone] Jul, [facility] [address] [id number] [address] [place] [id number] Jul, [facility] [address] [id number] [address] [place] [id number] Jul, [facility] [address] [id number] [address] [place] [id number] Jul, [facility] [address] [id number] [address] [place] [id number] Jul, Neuropathy G62.9 [facility] [address] [id number] [address] [place] [id number] Jul, Mixed hyperlipidemia E78.2 [facility] [address] [id number] [address] [place] [id number] Jul, Low back pain M54.5 [facility] [address] [id number] [address] [place] [phone] Jul, [facility] [address] [id number] [address] [place] [id number] June, Low back pain M54.5 [facility] [address] [id number] [address] [place] [id number] May, Low back pain M54.5 [facility] [address] [id number] [address] [place] [id number] May, Chronic obstructive pulmonar y disease, 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 [facility] [address] [id number] [address] [place] [phone] Apr, [facility] [address] [id number] [address] [place] [phone] Apr, [facility] [address] [id number] [address] [place] [id number] Apr, Low back pain M54.5 [facility] [address] [id number] [address] [place] [id number] Apr, Low back pain M54.5 [facility] [address] [id number] [address] [place] [phone] Mar, Low back pain M54.5 [facility] [address] [id number] [address] [place] [id number] Mar, Low back pain M54.5 [facility] [address] [id number] [address] [place] [phone] Mar, [facility] [address] [id number] [address] [place] [id number] Feb, Low back pain M54.5 [facility] [address] [id number] [address] [place] [id number] Jan, Low back pain M54.5 and 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, 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 [facility] [address] [id number] [address] [place] [id number] Jan, Low back pain M54.5 [facility] [address] [id number] [address] [place] [phone] Jan, [facility] [address] [id number] [address] [place] [id number] Dec, Low back pain M54.5 [facility] [address] [id number] [address] [place] [phone] Dec, [facility] [address] [id number] [address] [place] [phone] Oct, [facility] [address] [facility] [id number] [address] [place] [phone] Oct, Low back pain M54.5 ; Essent ial hypertension I10 and Neuropathy G62.9 [facility] [address] [facility] [id number] [address] [place] [phone] Oct, [facility] [address] [facility] [id number] [address] [place] [id number] Sep, [facility] [address] [facility] [id number] [place] [phone] Sep, [facility] [address] [place] [id number] [place] [phone] Aug, Mixed hyperlipidemia E78.2 ; Essential hypertension I10 and Chronic obstructive 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, 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 [facility] [address] [place] [id number] [place] [phone] Aug, Low back pain M54.5 ; Mixed hyperlipidemia E78.2 ; Essential hypertension I10 and Chronic obstructive 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, 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 [facility] [address] [place] [id number] [place] [phone] Jul, Low back pain M54.5 ; Essent ial hypertension I10 and Mixed hyperlipidemia E78.2 [place] [address] [place] [id number] [address] [place] [phone] Jul, IMMUNIZATIONS No Known Immunizations SOCIAL HISTORY Never Assessed REASON FOR VISIT Controlled Med Refill 10/28 PLAN OF CARE VITAL SIGNS MEDICATIONS Medication Instructions Dosage Frequency Start Date End Date Duration S vitorus Oxycodone HCl 10 mg Orally every 6 hrs 1 tablet as needed 6h Oct, 28 days Active RESULTS No Results PROCEDURES [...]
--- OUTSIDE RECORDS SUMMARY | 2019-06-28 20:40 | XMS REPORT ---
Author Author ANIRUDHMario Organization [facility] Address [address] [place] [address] Care Team Providers Care Appeals Coordinator Name Role Phone [facility] Unavailable PROBLEMS Type Condition ICD9-CM Code DEK72-SL Code Onset Dates Condition S tatus SNOMED Code Problem Mixed hyperlipidemia E78.2 Active 817644642 Problem Neuropathy G62.9 Active 904623951 Problem Chronic obstructive 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, unspecified COPD ty pe J44.9 Active 65917178 Problem Essential hypertension I10 Active 04398581 Problem Low back pain M54.5 Active 733000 009 Problem Bronchitis J40 Active 20223937 Problem BMI 45.0-49.9, adult Z68.42 Active 514273763 Problem Prostatism N40.0 Active 96616828 Problem Vitamin D deficiency E55.9 Active 26050354 Problem Reactive depression F32.9 Active 62952408 Problem BPH loc w urin obs/LUTS N40.1 Active 622104223 ALLERGIES Substance Reaction Event Type Date Status Lyrica swelling Drug Allergy Jul, Active Lisinopril cough Drug Allergy Jul, Active ENCOUNTERS Encounter Location Date Diagnosis [facility] [id number] [place] [phone] Sep, Low back pain M54.5 [facility] [address] [facility] [id number] [address] [place] [address] Sep, [facility] [id number] [address] [place] [address] Aug, Essential hypertension I10 ; Low back pain M54.5 ; senior living (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 of opiate analgesic Z79.891 ; Chronic obstructive 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, 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 and Mixed hyperlipidemia E78.2 [facility] [address] [facility] [id number] [address] [place] [address] Aug, Low back pain M54.5 ; 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 ; Essential hypertension I10 ; Chronic obstructive 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, 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 and Mixed hyperlipidemia E78.2 [place] [address] [id number] [address] [place] [phone] Aug, Low back pain M54.5 [place] [address] [facility] [id number] [address] [place] [address] Jul, Medicare annual wellness vis it, initial Z00.00 ; Mixed hyperlipidemia E78.2 ; Essential hypertension I10 ; Chronic obstructive 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, 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 ; Neuropathy G62.9 ; BPH loc w urin obs/LUTS N40.1 and Reactive depression F32.9 [place] [id number] [place] [address] Jul, Onychomycosis B35.1 [place] [id number] [place] [address] Jul, Low back pain M54.5 [place] [id number] [place] [phone] June, Low back pain M54.5 [place] [id number] [place] [address] May, [place] [id number] [place] [address] May, Bronchitis J40 and BMI 45.0- 49.9, adult Z68.42 [place] [address] [facility] [id number] [address] [place] [phone] May, Low back pain M54.5 [place] [address] [facility] [id number] [address] [place] [phone] Apr, [place] [address] [facility] [id number] [address] [place] [address] Apr, Low back pain M54.5 ; Essent ial hypertension I10 ; Chronic obstructive 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, 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 and Dyspnea on exertion R06.09 [facility] [address] [id number] [address] [place] [phone] 15 Apr, 2017 Onychomycosis B35.1 and Call us of foot L84 [facility] [address] [id number] [address] [place] [phone] 13 Apr, 2017 Low back pain M54.5 [facility] [address] [id number] [address] [place] [phone] 12 Mar, 2017 Low back pain M54.5 [facility] [address] [id number] [address] [place] [id number] Mar, [facility] [address] [id number] [address] [place] [phone] Feb, [facility] [address] [id number] [address] [place] [phone] Feb, [facility] [address] [id number] [address] [place] [phone] Feb, [facility] [address] [id number] [address] [place] [phone] Feb, Low back pain M54.5 [facility] [address] [id number] [address] [place] [phone] 18 Jan, 2017 [facility] [address] [id number] [address] [place] [address] 14 Jan, 2017 Low back pain M54.5 [facility] [address] [id number] [address] [place] [phone] 20 Dec, 2016 Low back pain M54.5 [facility] [address] [id number] [address] [place] [address] Dec, [facility] [address] [id number] [address] [place] [address] Nov, Low back pain M54.5 ; Encoun ter for immunization Z23 ; Essential hypertension I10 ; Reactive depression F32.9 ; Neuropathy G62.9 and Chronic obstructive 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, 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 [facility] [address] [id number] Nov, Low back pain M54.5 [facility] [address] [id number] Oct, Low back pain M54.5 [facility] [address] [address] Oct, Low back pain M54.5 [place] [address] [address] Oct, [place] [address] [address] Sep, [place] [address] [address] Sep, Low back pain M54.5 [place] [address] [id number] Sep, BPH loc w urin obs/LUTS N40. 1 [place] [address] [address] Sep, [facility] [address] [address] Sep, Low back pain M54.5 ; Essent ial hypertension I10 ; Mixed hyperlipidemia E78.2 ; Vitamin D deficiency E55.9 ; Prostatism N40.0 and Neuropathy G62.9 [place] [address] [place] [id number] [place] [address] Aug, Neuropathy G62.9 [facility] [address] [address] Aug, Low back pain M54.5 [place] [address] [id number] [address] [place] [address] Aug, Low back pain M54.5 [facility] [address] [id number] [address] [place] [phone] Jul, [facility] [address] [id number] [address] [place] [phone] Jul, [facility] [address] [id number] [address] [place] [address] Jul, [facility] [address] [id number] [address] [place] [phone] Jul, [facility] [address] [id number] [address] [place] [address] Jul, Neuropathy G62.9 [facility] [address] [id number] [address] [place] [address] Jul, Mixed hyperlipidemia E78.2 [facility] [address] [id number] [address] [place] [address] Jul, Low back pain M54.5 [facility] [address] [id number] [address] [place] [phone] Jul, [facility] [address] [id number] [address] [place] [address] June, Low back pain M54.5 [facility] [address] [id number] [address] [place] [address] May, Low back pain M54.5 [facility] [address] [id number] [address] [place] [address] May, Chronic obstructive pulmonar y disease, 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 [facility] [address] [id number] [address] [place] [address] Apr, [facility] [address] [id number] [address] [place] [address] Apr, [facility] [address] [id number] [address] [place] [phone] Apr, Low back pain M54.5 [facility] [address] [id number] [address] [place] [address] Apr, Low back pain M54.5 [facility] [address] [id number] [address] [place] [address] Mar, Low back pain M54.5 [facility] [address] [id number] [address] [place] [address] Mar, Low back pain M54.5 [facility] [address] [id number] [address] [place] [phone] Mar, [facility] [address] [id number] [address] [place] [address] Feb, Low back pain M54.5 [facility] [address] [id number] [address] [place] [phone] Jan, Low back pain M54.5 and 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, 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 [facility] [address] [id number] [address] [place] [address] Jan, Low back pain M54.5 [facility] [address] [id number] [address] [place] [phone] Jan, [facility] [address] [id number] [address] [place] [phone] 16 Dec, 2015 Low back pain M54.5 [facility] [address] [id number] [address] [place] [phone] Dec, [facility] [address] [id number] [address] [place] [phone] 27 Oct, 2015 [facility] [address] [id number] [address] [place] [phone] 26 Oct, 2015 Low back pain M54.5 ; Essent ial hypertension I10 and Neuropathy G62.9 [place] [address] [place] [id number] [place] [phone] Oct, [facility] [id number] [place] [phone] Sep, [facility] [id number] [place] [phone] Sep, [place] [address] [address] Aug, Mixed hyperlipidemia E78.2 ; Essential hypertension I10 and Chronic obstructive 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, 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 [place] [address] [id number] 08 Aug, 2015 Low back pain M54.5 ; Mixed hyperlipidemia E78.2 ; Essential hypertension I10 and Chronic obstructive 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, 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 [place] [address] [address] Jul, Low back pain M54.5 ; Essent ial hypertension I10 and Mixed hyperlipidemia E78.2 [place] [address] [phone] 02 Jul, 2015 IMMUNIZATIONS No Known Immunizations SOCIAL HISTORY Never Assessed REASON FOR VISIT Toenail and Callus Removal, right great toenail removal and maybe the left great toenail. OLSEYA Phelps, Callus is on outside of great toe bilaterally. PLAN OF CARE Activity Details Follow Up prn Reason: Future/Pending Procedure NAIL REMOVAL SINGLE (COMPLET E OR PARTIAL) Future/Pending Procedure TRIM NAIL(S) VITAL SIGNS Height 68 in 2017-08-09 Weight 239.4 lbs 2017-08-09 Temperature 98.5 degrees Fahrenheit 2017-08-09 Heart Rate 100 bpm 2017-08-09 Respiratory Rate 20 2017-08-09 BMI 36.40 kg/m2 2017-08-09 Blood pressure systolic 120 mmHg 2017-08-09 Blood pressure diastolic 78 mmHg 2017-08-09 MEDICATIONS Medication Instructions Dosage Frequency Start Date End Date Duration S tatus Amlodipine Besylate 5 MG Orally Once a day 1 tablet 24h Active Ranitidine HCl 300 MG Orally Once a day 1 tablet at bedtime 24h 30 Active ProAir HFA 108 (90 Base) MCG/ACT Inhalation every 4 hrs 2 puffs as needed 4h Jan, Active Hydrochlorothiazide 12.5 MG Orally Once a day 1 capsule in the morning 24h Active Flomax 0.4 MG Orally at bedtime 2 capsules Active Nexium 40 MG TAKE ONE CAPSULE BY MOUTH ONCE DAILY 30 Active Finasteride 5 MG TAKE ONE TABLET BY MOUTH ONCE DAILY IN THE MORN ING 30 Active Cymbalta 30 MG Orally Once a day 2 capsules 24h Nov, Active Oxycodone HCl 10 mg Orally every 6 hrs 1 tablet as needed 6h 14 Jul, 2017 28 days Active Crestor 20 MG TAKE ONE TABLET BY MOUTH ONCE DAILY 90 Active RESULTS No Results PROCEDURES Procedure Date Ordered Result Body Site TRIM NAIL(S) August 09, 2017 REMOVAL OF NAIL PLATE August 09, 2017 [facility] VISIT ESTABLISHED PATIENT August 09, 2017 INSTRUCTIONS MEDICATIONS ADMINISTERED No Known Medications [...]
--- OUTSIDE RECORDS SUMMARY | 2019-06-28 20:40 | XMS REPORT ---
Author Author Mario GUILLEN Organization [facility] Address [address] [place] [address] Care Team Providers Care Blind Eyeletter Name Role Phone JESSICA GUILLEN Unavailable PROBLEMS Type Condition ICD9-CM Code UEK37-LX Code Onset Dates Condition S tatus SNOMED Code Problem Mixed hyperlipidemia E78.2 Active 157355438 Problem Neuropathy G62.9 Active 230987087 Problem Chronic obstructive 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, unspecified COPD ty pe J44.9 Active 26025784 Problem Essential hypertension I10 Active 81744006 Problem Low back pain M54.5 Active 379101 009 Problem Bronchitis J40 Active 29952616 Problem BMI 45.0-49.9, adult Z68.42 Active 724879595 Problem Prostatism N40.0 Active 16973872 Problem Vitamin D deficiency E55.9 Active 39560114 Problem Reactive depression F32.9 Active 02328462 Problem BPH loc w urin obs/LUTS N40.1 Active [id number] ALLERGIES No Information ENCOUNTERS Encounter Location Date Diagnosis [place] [id number] [facility] [id number] [address] [place] [phone] Sep, Low back pain M54.5 [place] [address] [facility] [id number] [address] [place] [phone] Sep, [place] [address] [facility] [id number] [address] [place] [phone] Aug, Essential hypertension I10 ; Low back pain M54.5 ; 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 ; Chronic obstructive 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, 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 and Mixed hyperlipidemia E78.2 [place] [address] [facility] [id number] [address] [place] [phone] Aug, Low back pain M54.5 ; 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 ; Essential hypertension I10 ; Chronic obstructive 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, 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 and Mixed hyperlipidemia E78.2 [place] [address] [place] [id number] [place] [phone] Aug, Low back pain M54.5 [place] [address] [place] [id number] [place] [phone] Jul, Medicare annual wellness vis it, initial Z00.00 ; Mixed hyperlipidemia E78.2 ; Essential hypertension I10 ; Chronic obstructive 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, 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 ; Neuropathy G62.9 ; BPH loc w urin obs/LUTS N40.1 and Reactive depression F32.9 [place] [address] [place] [id number] [place] [phone] Jul, Onychomycosis B35.1 [place] [address] [phone] Jul, Low back pain M54.5 [place] [address] [place] [id number] [place] [phone] June, Low back pain M54.5 [place] [address] [place] [id number] [place] [phone] May, [place] [address] [phone] May, Bronchitis J40 and BMI 45.0- 49.9, adult Z68.42 [place] [address] [place] [id number] [address] [place] [phone] May, Low back pain M54.5 [place] [address] [place] [id number] [place] [phone] Apr, [place] [address] [place] [id number] [address] [place] [id number] Apr, Low back pain M54.5 ; Essent ial hypertension I10 ; Chronic obstructive 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, 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 and Dyspnea on exertion R06.09 [facility] [address] [id number] [address] [place] [phone] 15 Apr, 2017 Onychomycosis B35.1 and Call us of foot L84 [facility] [address] [id number] [address] [place] [phone] 13 Apr, 2017 Low back pain M54.5 [facility] [address] [id number] [address] [place] [phone] 12 Mar, 2017 Low back pain M54.5 [facility] [address] [id number] [address] [place] [phone] Mar, [facility] [address] [id number] [address] [place] [phone] Feb, [facility] [address] [id number] [address] [place] [phone] Feb, [facility] [address] [id number] [address] [place] [phone] Feb, [facility] [address] [id number] [address] [place] [phone] Feb, Low back pain M54.5 [facility] [address] [id number] [address] [place] [phone] 18 Jan, 2017 [facility] [address] [id number] [address] [place] [id number] 14 Jan, 2017 Low back pain M54.5 [facility] [address] [id number] [address] [place] [phone] Dec, Low back pain M54.5 [facility] [address] [id number] [address] [place] [id number] 10 Dec, 2016 [facility] [address] [facility] [id number] [address] [place] [id number] 27 Nov, 2016 Low back pain M54.5 ; Encoun ter for immunization Z23 ; Essential hypertension I10 ; Reactive depression F32.9 ; Neuropathy G62.9 and Chronic obstructive 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, 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 [facility] [address] [id number] [address] [place] [id number] Nov, Low back pain M54.5 [facility] [address] [id number] [address] [place] [phone] Oct, Low back pain M54.5 [facility] [address] [facility] [id number] [address] [place] [phone] Oct, Low back pain M54.5 [facility] [address] [id number] [address] [place] [phone] Oct, [facility] [address] [facility] [id number] [address] [place] [phone] Sep, [facility] [address] [facility] [id number] [address] [place] [phone] Sep, Low back pain M54.5 [facility] [address] [facility] [id number] [address] [place] [phone] Sep, BPH loc w urin obs/LUTS N40. 1 [facility] [address] [facility] [id number] [address] [place] [phone] Sep, [facility] [address] [facility] [id number] [address] [place] [phone] Sep, Low back pain M54.5 ; Essent ial hypertension I10 ; Mixed hyperlipidemia E78.2 ; Vitamin D deficiency E55.9 ; Prostatism N40.0 and Neuropathy G62.9 [facility] [address] [id number] [address] [place] [phone] Aug, Neuropathy G62.9 [facility] [address] [facility] [id number] [address] [place] [phone] Aug, Low back pain M54.5 [facility] [address] [facility] [id number] [address] [place] [phone] Aug, Low back pain M54.5 [facility] [address] [id number] [address] [place] [phone] Jul, [facility] [address] [id number] [address] [place] [phone] Jul, [facility] [address] [id number] [address] [place] [phone] Jul, [facility] [address] [id number] [address] [place] [phone] Jul, [facility] [address] [id number] [address] [place] [phone] Jul, Neuropathy G62.9 [facility] [address] [id number] [address] [place] [id number] Jul, Mixed hyperlipidemia E78.2 [facility] [address] [id number] [address] [place] [phone] Jul, Low back pain M54.5 [facility] [address] [id number] [address] [place] [id number] Jul, [facility] [address] [id number] [address] [place] [phone] June, Low back pain M54.5 [facility] [address] [id number] [address] [place] [phone] May, Low back pain M54.5 [facility] [address] [id number] [address] [place] [phone] May, Chronic obstructive pulmonar y disease, 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 [facility] [address] [id number] [address] [place] [phone] Apr, [facility] [address] [id number] [address] [place] [phone] Apr, [facility] [address] [id number] [address] [place] [phone] Apr, Low back pain M54.5 [facility] [address] [id number] [address] [place] [id number] Apr, Low back pain M54.5 [facility] [address] [id number] [address] [place] [phone] Mar, Low back pain M54.5 [facility] [address] [id number] [address] [place] [phone] Mar, Low back pain M54.5 [facility] [address] [id number] [address] [place] [phone] Mar, [facility] [address] [id number] [address] [place] [phone] Feb, Low back pain M54.5 [facility] [address] [id number] [address] [place] [phone] Jan, Low back pain M54.5 and 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, 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 [facility] [address] [id number] [address] [place] [phone] Jan, Low back pain M54.5 [facility] [address] [id number] [address] [place] [phone] Jan, [facility] [address] [id number] [address] [place] [phone] Dec, Low back pain M54.5 [facility] [address] [id number] [address] [place] [phone] Dec, [facility] [address] [id number] [address] [place] [phone] Oct, [facility] [address] [id number] [address] [place] [id number] Oct, Low back pain M54.5 ; Essent ial hypertension I10 and Neuropathy G62.9 [facility] [address] [id number] [address] [place] [phone] 09 Oct, 2015 [facility] [address] [facility] [id number] [address] [place] [phone] Sep, [facility] [address] [facility] [id number] [address] [place] [phone] Sep, [facility] [address] [facility] [id number] [address] [place] [id number] Aug, Mixed hyperlipidemia E78.2 ; Essential hypertension I10 and Chronic obstructive 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, 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 [facility] [address] [facility] [id number] [address] [place] [phone] Aug, Low back pain M54.5 ; Mixed hyperlipidemia E78.2 ; Essential hypertension I10 and Chronic obstructive 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, 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 [facility] [address] [facility] [id number] [address] [place] [phone] Jul, Low back pain M54.5 ; Essent ial hypertension I10 and Mixed hyperlipidemia E78.2 [facility] [address] [facility] [id number] [address] [place] [phone] Jul, IMMUNIZATIONS No Known Immunizations SOCIAL HISTORY Never Assessed REASON FOR VISIT Oxycodone 08/05 PLAN OF CARE VITAL SIGNS MEDICATIONS Medication Instructions Dosage Frequency Start Date End Date Duration S tatus Oxycodone HCl 10 mg Orally every 6 hrs 1 tablet as needed 6h Jul, 28 days Active RESULTS No Results PROCEDURES [...]
--- OUTSIDE RECORDS SUMMARY | 2019-06-28 20:40 | XMS REPORT ---
Author Author Mario GUILLEN Organization [facility] Address [address] [place] [address] Care Team Providers Care Building Specialist Name Role Phone JESSICA GUILLEN Unavailable PROBLEMS Type Condition ICD9-CM Code [id number] Code Onset Dates Condition S tatus SNOMED Code Problem Mixed hyperlipidemia E78.2 Active 358343447 Problem Neuropathy G62.9 Active 384558417 Problem Chronic obstructive 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, unspecified COPD ty pe J44.9 Active 86586295 Problem Essential hypertension I10 Active 49533516 Problem Low back pain M54.5 Active 073051 009 Problem Bronchitis J40 Active 33927919 Problem BMI 45.0-49.9, adult Z68.42 Active 204582198 Problem Prostatism N40.0 Active 54331207 Problem Vitamin D deficiency E55.9 Active 20745423 Problem Reactive depression F32.9 Active 44238962 Problem BPH loc w urin obs/LUTS N40.1 Active 216382471 ALLERGIES Substance Reaction Event Type Date Status Lyrica swelling Drug Allergy Aug, Active Lisinopril cough Drug Allergy Aug, Active ENCOUNTERS Encounter Location Date Diagnosis [facility] [address] [facility] [id number] [address] [place] [phone] Dec, [facility] [address] [facility] [id number] [address] [place] [phone] Oct, Low back pain M54.5 [facility] [address] [facility] [id number] [address] [place] [id number] Sep, Low back pain M54.5 [facility] [address] [facility] [id number] [address] [place] [phone] Sep, [facility] [address] [facility] [id number] [address] [place] [id number] Aug, Essential hypertension I10 ; Low back pain M54.5 ; senior living (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 of opiate analgesic Z79.891 ; Chronic obstructive 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, 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 and Mixed hyperlipidemia E78.2 [facility] [address] [facility] [id number] [address] [place] [phone] Aug, Low back pain M54.5 ; 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 ; Essential hypertension I10 ; Chronic obstructive 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, 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 and Mixed hyperlipidemia E78.2 [place] [address] [facility] [id number] [address] [place] [phone] Aug, Low back pain M54.5 [place] [address] [place] [id number] [address] [place] [phone] Jul, Medicare annual wellness vis it, initial Z00.00 ; Mixed hyperlipidemia E78.2 ; Essential hypertension I10 ; Chronic obstructive 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, 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 ; Neuropathy G62.9 ; BPH loc w urin obs/LUTS N40.1 and Reactive depression F32.9 [place] [address] [facility] [id number] [address] [place] [phone] Jul, Onychomycosis B35.1 [place] [address] [facility] [id number] [address] [place] [phone] Jul, Low back pain M54.5 [place] [address] [place] [id number] [address] [place] [id number] June, Low back pain M54.5 [place] [address] [place] [id number] [address] [place] [phone] May, [place] [address] [place] [id number] [address] [place] [id number] May, Bronchitis J40 and BMI 45.0- 49.9, adult Z68.42 [place] [address] [place] [id number] [address] [place] [id number] May, Low back pain M54.5 [facility] [address] [id number] [address] [place] [phone] Apr, [facility] [address] [id number] [address] [place] [phone] Apr, Low back pain M54.5 ; Essent ial hypertension I10 ; Chronic obstructive 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, 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 and Dyspnea on exertion R06.09 [facility] [address] [id number] [address] [place] [id number] 15 Apr, 2017 Onychomycosis B35.1 and Call us of foot L84 [facility] [address] [id number] [address] [place] [phone] Apr, Low back pain M54.5 [facility] [address] [id number] [address] [place] [id number] 12 Mar, 2017 Low back pain M54.5 [facility] [address] [id number] [address] [place] [phone] Mar, [facility] [address] [id number] [address] [place] [phone] Feb, [facility] [address] [id number] [address] [place] [phone] Feb, [facility] [address] [id number] [address] [place] [phone] Feb, [facility] [address] [id number] [address] [place] [phone] Feb, Low back pain M54.5 [facility] [address] [id number] [address] [place] [phone] 18 Jan, 2017 [facility] [address] [id number] [address] [place] [phone] 14 Jan, 2017 Low back pain M54.5 [facility] [address] [id number] [address] [place] [phone] Dec, Low back pain M54.5 [facility] [address] [place] [id number] [address] [place] [phone] Dec, [facility] [address] [id number] Nov, Low back pain M54.5 ; Encoun ter for immunization Z23 ; Essential hypertension I10 ; Reactive depression F32.9 ; Neuropathy G62.9 and Chronic obstructive 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, 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 [facility] [address] [id number] Nov, Low back pain M54.5 [facility] [address] [phone] Oct, Low back pain M54.5 [place] [address] [id number] Oct, Low back pain M54.5 [facility] [address] [id number] Oct, [facility] [address] [phone] Sep, [facility] [address] [id number] Sep, Low back pain M54.5 [place] [address] [id number] Sep, BPH loc w urin obs/LUTS N40. 1 [facility] [address] [place] [id number] [address] [place] [phone] Sep, [place] [address] [id number] Sep, Low back pain M54.5 ; Essent ial hypertension I10 ; Mixed hyperlipidemia E78.2 ; Vitamin D deficiency E55.9 ; Prostatism N40.0 and Neuropathy G62.9 [facility] [address] [id number] [address] [place] [id number] 18 Aug, 2016 Neuropathy G62.9 [facility] [address] [id number] [address] [place] [phone] 10 Aug, 2016 Low back pain M54.5 [facility] [address] [id number] [address] [place] [phone] 07 Aug, 2016 Low back pain M54.5 [facility] [address] [id number] [address] [place] [phone] Jul, [facility] [address] [id number] [address] [place] [phone] Jul, [facility] [address] [id number] [address] [place] [phone] Jul, [facility] [address] [id number] [address] [place] [phone] Jul, [facility] [address] [id number] [address] [place] [id number] Jul, Neuropathy G62.9 [facility] [address] [id number] [address] [place] [phone] Jul, Mixed hyperlipidemia E78.2 [facility] [address] [id number] [address] [place] [id number] 08 Jul, 2016 Low back pain M54.5 [facility] [address] [id number] [address] [place] [phone] Jul, [facility] [address] [id number] [address] [place] [phone] June, Low back pain M54.5 [facility] [address] [id number] [address] [place] [phone] May, Low back pain M54.5 [facility] [address] [id number] [address] [place] [phone] May, Chronic obstructive pulmonar y disease, 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 [facility] [address] [id number] [address] [place] [id number] Apr, [facility] [address] [id number] [address] [place] [phone] Apr, [facility] [address] [id number] [address] [place] [phone] Apr, Low back pain M54.5 [facility] [address] [id number] [address] [place] [phone] Apr, Low back pain M54.5 [facility] [address] [id number] [address] [place] [phone] Mar, Low back pain M54.5 [facility] [address] [id number] [address] [place] [id number] Mar, Low back pain M54.5 [facility] [address] [id number] [address] [place] [phone] Mar, [facility] [address] [id number] [address] [place] [phone] Feb, Low back pain M54.5 [facility] [address] [id number] [address] [place] [id number] Jan, Low back pain M54.5 and Window [employer]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, 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 [facility] [address] [id number] [address] [place] [phone] 15 Jan, 2016 Low back pain M54.5 [facility] [address] [id number] [address] [place] [phone] Jan, [facility] [address] [id number] [address] [place] [phone] Dec, Low back pain M54.5 [facility] [address] [id number] [address] [place] [phone] Dec, [facility] [address] [facility] [id number] [address] [place] [phone] Oct, [facility] [address] [facility] [id number] [address] [place] [phone] Oct, Low back pain M54.5 ; Essent ial hypertension I10 and Neuropathy G62.9 [facility] [address] [facility] [id number] [address] [place] [phone] Oct, [facility] [address] [facility] [id number] [address] [place] [phone] Sep, [facility] [address] [facility] [id number] [address] [place] [phone] Sep, [facility] [address] [facility] [id number] [address] [place] [phone] Aug, Mixed hyperlipidemia E78.2 ; Essential hypertension I10 and Chronic obstructive 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, 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 [facility] [address] [facility] [id number] [address] [place] [id number] 08 Aug, 2015 Low back pain M54.5 ; Mixed hyperlipidemia E78.2 ; Essential hypertension I10 and Chronic obstructive 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, 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 [facility] [address] [facility] [id number] [address] [place] [phone] 07 Jul, 2015 Low back pain M54.5 ; Essent ial hypertension I10 and Mixed hyperlipidemia E78.2 [place] [address] [facility] [id number] [address] [place] [phone] Jul, IMMUNIZATIONS No Known Immunizations SOCIAL HISTORY Never Assessed REASON FOR VISIT Pain management (chronic)-Jonathan LANDEROS, [place], Updated contract PLAN OF CARE Activity Details Follow Up 3 Months Reason: VITAL SIGNS Height 68 in 2017-09-06 Weight 240.1 lbs 2017-09-06 Temperature 98.1 degrees Fahrenheit 2017-09-06 Heart Rate 106 bpm 2017-09-06 Respiratory Rate 20 2017-09-06 Oximetry on room air:96 % 2017-09-06 BMI 36.50 kg/m2 2017-09-06 Blood pressure systolic 138 mmHg 2017-09-06 Blood pressure diastolic 72 mmHg 2017-09-06 MEDICATIONS Medication Instructions Dosage Frequency Start Date End Date Duration S link Cymbalta 30 MG Orally Once a day 2 capsules 24h Nov, Active Flomax 0.4 MG Orally twice a day 1 capsules 12h Active Finasteride 5 MG TAKE ONE TABLET BY MOUTH ONCE DAILY IN THE MORN ING 30 Active Ambien 10 mg Orally Once a day 1 tablet at bedtime as needed 24h Aug, Active Ranitidine HCl 300 MG Orally Once a day 1 tablet at bedtime 24h 30 Active Nexium 40 MG TAKE ONE CAPSULE BY MOUTH ONCE DAILY 30 Active Amlodipine Besylate 5 MG Orally Once a day 1 tablet 24h Active Crestor 20 MG TAKE ONE TABLET BY MOUTH ONCE DAILY 90 Active Oxycodone HCl 10 mg Orally every 6 hrs 1 tablet as needed 6h Aug, 28 days Active Hydrochlorothiazide 12.5 MG Orally Once a day 1 capsule in the morning 24h Active ProAir HFA 108 (90 Base) MCG/ACT Inhalation every 4 hrs 2 puffs as needed 4h Jan, Active RESULTS No Results PROCEDURES Procedure Date Ordered Result Body Site [facility] VISIT ESTABLISHED PATIENT September 06, 2017 INSTRUCTIONS MEDICATIONS ADMINISTERED No Known Medications [...]
--- OUTSIDE RECORDS SUMMARY | 2019-06-28 20:40 | XMS REPORT ---
Author Author Mario GUILLEN Organization [facility] Address [address] [place] [address] Care Team Providers Care Hot Box Spotter Name Role Phone JESSICA GUILLEN Unavailable PROBLEMS Type Condition ICD9-CM Code ALJ07-GL Code Onset Dates Condition S tatus SNOMED Code Problem Mixed hyperlipidemia E78.2 Active 004122285 Problem Neuropathy G62.9 Active 997019473 Problem Chronic obstructive 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, unspecified COPD ty pe J44.9 Active 99415590 Problem Essential hypertension I10 Active 37783028 Problem Low back pain M54.5 Active 830572 009 Problem Bronchitis J40 Active 79995046 Problem BMI 45.0-49.9, adult Z68.42 Active 697900892 Problem Prostatism N40.0 Active 60167624 Problem Vitamin D deficiency E55.9 Active 84593697 Problem Reactive depression F32.9 Active 09251531 Problem BPH loc w urin obs/LUTS N40.1 Active [id number] ALLERGIES No Information ENCOUNTERS Encounter Location Date Diagnosis [facility] [address] [facility] [id number] [address] [place] [phone] Dec, [facility] [address] [facility] [id number] [address] [place] [phone] Oct, Low back pain M54.5 [facility] [address] [facility] [id number] [address] [place] [id number] Sep, Low back pain M54.5 [facility] [address] [facility] [id number] [address] [place] [phone] Sep, [facility] [address] [facility] [id number] [address] [place] [phone] Aug, Essential hypertension I10 ; Low back pain M54.5 ; USP (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 of opiate analgesic Z79.891 ; Chronic obstructive 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, 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 and Mixed hyperlipidemia E78.2 [place] [address] [facility] [id number] [address] [place] [phone] 16 Aug, 2017 Low back pain M54.5 ; 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 ; Essential hypertension I10 ; Chronic obstructive 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, 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 and Mixed hyperlipidemia E78.2 [place] [address] [facility] [id number] [address] [place] [id number] 12 Aug, 2017 Low back pain M54.5 [place] [address] [facility] [id number] [address] [place] [id number] Jul, Medicare annual wellness vis it, initial Z00.00 ; Mixed hyperlipidemia E78.2 ; Essential hypertension I10 ; Chronic obstructive 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, 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 ; Neuropathy G62.9 ; BPH loc w urin obs/LUTS N40.1 and Reactive depression F32.9 [place] [address] [place] [id number] [address] [place] [id number] Jul, Onychomycosis B35.1 [place] [address] [place] [id number] [place] [phone] Jul, Low back pain M54.5 [place] [address] [place] [id number] [address] [place] [id number] June, Low back pain M54.5 [place] [address] [facility] [id number] [address] [place] [id number] May, [place] [address] [facility] [id number] [address] [place] [id number] May, Bronchitis J40 and BMI 45.0- 49.9, adult Z68.42 [place] [address] [facility] [id number] [address] [place] [phone] May, Low back pain M54.5 [place] [address] [place] [id number] [address] [place] [phone] Apr, [facility] [address] [id number] [address] [place] [phone] Apr, Low back pain M54.5 ; Essent ial hypertension I10 ; Chronic obstructive 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, 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 and Dyspnea on exertion R06.09 [facility] [address] [id number] [address] [place] [id number] 15 Apr, 2017 Onychomycosis B35.1 and Call us of foot L84 [facility] [address] [id number] [address] [place] [id number] 13 Apr, 2017 Low back pain M54.5 [facility] [address] [id number] [address] [place] [id number] 12 Mar, 2017 Low back pain M54.5 [facility] [address] [id number] [address] [place] [phone] Mar, [facility] [address] [id number] [address] [place] [phone] Feb, [facility] [address] [id number] [address] [place] [phone] Feb, [facility] [address] [id number] [address] [place] [phone] Feb, [facility] [address] [id number] [address] [place] [phone] Feb, Low back pain M54.5 [facility] [address] [id number] [address] [place] [phone] 18 Jan, 2017 [facility] [address] [id number] [address] [place] [phone] 14 Jan, 2017 Low back pain M54.5 [facility] [address] [id number] [address] [place] [phone] Dec, Low back pain M54.5 [facility] [address] [id number] [address] [place] [phone] Dec, [facility] [address] [place] [id number] [address] [place] [phone] Nov, Low back pain M54.5 ; Encoun ter for immunization Z23 ; Essential hypertension I10 ; Reactive depression F32.9 ; Neuropathy G62.9 and Chronic obstructive 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, 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 [facility] [address] [place] [id number] [address] [place] [phone] Nov, Low back pain M54.5 [facility] [address] [place] [id number] [address] [place] [phone] Oct, Low back pain M54.5 [facility] [address] [place] [id number] [place] [phone] Oct, Low back pain M54.5 [facility] [address] [id number] Oct, [facility] [address] [place] [id number] [address] [place] [id number] Sep, [facility] [address] [id number] Sep, Low back pain M54.5 [facility] [address] [place] [id number] [address] [place] [id number] Sep, BPH loc w urin obs/LUTS N40. 1 [facility] [address] [place] [id number] [address] [place] [phone] Sep, [facility] [address] [place] [id number] [address] [place] [id number] Sep, Low back pain M54.5 ; Essent ial hypertension I10 ; Mixed hyperlipidemia E78.2 ; Vitamin D deficiency E55.9 ; Prostatism N40.0 and Neuropathy G62.9 [facility] [address] [facility] [id number] [address] [place] [phone] Aug, Neuropathy G62.9 [facility] [address] [id number] [address] [place] [phone] Aug, Low back pain M54.5 [facility] [address] [id number] [address] [place] [phone] Aug, Low back pain M54.5 [facility] [address] [id number] [address] [place] [phone] Jul, [facility] [address] [id number] [address] [place] [phone] Jul, [facility] [address] [id number] [address] [place] [phone] Jul, [facility] [address] [id number] [address] [place] [phone] Jul, [facility] [address] [id number] [address] [place] [phone] Jul, Neuropathy G62.9 [facility] [address] [id number] [address] [place] [id number] Jul, Mixed hyperlipidemia E78.2 [facility] [address] [id number] [address] [place] [id number] Jul, Low back pain M54.5 [facility] [address] [id number] [address] [place] [phone] Jul, [facility] [address] [id number] [address] [place] [phone] June, Low back pain M54.5 [facility] [address] [id number] [address] [place] [id number] May, Low back pain M54.5 [facility] [address] [id number] [address] [place] [phone] May, Chronic obstructive pulmonar y disease, 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 [facility] [address] [id number] [address] [place] [phone] Apr, [facility] [address] [id number] [address] [place] [id number] Apr, [facility] [address] [id number] [address] [place] [phone] Apr, Low back pain M54.5 [facility] [address] [id number] [address] [place] [id number] Apr, Low back pain M54.5 [facility] [address] [id number] [address] [place] [id number] Mar, Low back pain M54.5 [facility] [address] [id number] [address] [place] [id number] Mar, Low back pain M54.5 [facility] [address] [id number] [address] [place] [phone] Mar, [facility] [address] [id number] [address] [place] [phone] Feb, Low back pain M54.5 [facility] [address] [id number] [address] [place] [id number] Jan, Low back pain M54.5 and Riding Double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, 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 [facility] [address] [id number] [address] [place] [phone] Jan, Low back pain M54.5 [facility] [address] [id number] [address] [place] [phone] Jan, [facility] [address] [id number] [address] [place] [phone] Dec, Low back pain M54.5 [facility] [address] [id number] [address] [place] [phone] Dec, [facility] [address] [id number] [address] [place] [phone] Oct, [facility] [address] [facility] [id number] [address] [place] [phone] Oct, Low back pain M54.5 ; Essent ial hypertension I10 and Neuropathy G62.9 [facility] [address] [facility] [id number] [address] [place] [phone] Oct, [facility] [address] [facility] [id number] [address] [place] [phone] Sep, [facility] [address] [facility] [id number] [address] [place] [id number] Sep, [facility] [address] [facility] [id number] [address] [place] [id number] Aug, Mixed hyperlipidemia E78.2 ; Essential hypertension I10 and Chronic obstructive 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, 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 [facility] [address] [facility] [id number] [address] [place] [phone] Aug, 2015 Low back pain M54.5 ; Mixed hyperlipidemia E78.2 ; Essential hypertension I10 and Chronic obstructive 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, 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 [facility] [address] [facility] [id number] [address] [place] [phone] Jul, Low back pain M54.5 ; Essent ial hypertension I10 and Mixed hyperlipidemia E78.2 [place] [address] [facility] [id number] [address] [place] [phone] 02 Jul, 2015 IMMUNIZATIONS No Known Immunizations SOCIAL HISTORY Never Assessed REASON FOR VISIT Lab (walk-in) PLAN OF CARE VITAL SIGNS MEDICATIONS Unknown Medications RESULTS No Results PROCEDURES Procedure Date Ordered Result Body Site LAB NOT BILLED BY [facility] September 07, 2017 VENSLY, ROUTINE* September 07, 2017 INSTRUCTIONS MEDICATIONS ADMINISTERED No Known Medications [...]
--- OUTSIDE RECORDS SUMMARY | 2019-06-28 20:40 | XMS REPORT ---
Author Author Mario GUILLEN Organization [facility] Address [address] [place] [address] Care Team Providers Care Distribution Warehouse Manager Name Role Phone JESSICA GUILLEN Unavailable PROBLEMS Type Condition ICD9-CM Code XBW03-WY Code Onset Dates Condition S tatus SNOMED Code Problem Mixed hyperlipidemia E78.2 Active 203237942 Problem Neuropathy G62.9 Active 515978822 Problem Chronic obstructive 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, unspecified COPD ty pe J44.9 Active 49166595 Problem Essential hypertension I10 Active 25474977 Problem Low back pain M54.5 Active 247564 009 Problem Bronchitis J40 Active 57763293 Problem BMI 45.0-49.9, adult Z68.42 Active 647224035 Problem Prostatism N40.0 Active 65321479 Problem Vitamin D deficiency E55.9 Active 91645264 Problem Reactive depression F32.9 Active 78393610 Problem BPH loc w urin obs/LUTS N40.1 Active [id number] ALLERGIES No Information ENCOUNTERS Encounter Location Date Diagnosis [place] [id number] [place] [id number] [address] [place] [phone] Dec, [facility] [address] [facility] [id number] [address] [place] [address] Sep, Low back pain M54.5 [facility] [address] [facility] [id number] [address] [place] [address] Sep, [facility] [address] [facility] [id number] [address] [place] [address] Aug, Essential hypertension I10 ; Low back pain M54.5 ; 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 ; Chronic obstructive 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, 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 and Mixed hyperlipidemia E78.2 [facility] [address] [facility] [id number] [address] [place] [address] Aug, Low back pain M54.5 ; 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 ; Essential hypertension I10 ; Chronic obstructive 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, 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 and Mixed hyperlipidemia E78.2 [place] [address] [facility] [id number] [address] [place] [address] Aug, Low back pain M54.5 [place] [address] [place] [id number] [address] [place] [address] Jul, Medicare annual wellness vis it, initial Z00.00 ; Mixed hyperlipidemia E78.2 ; Essential hypertension I10 ; Chronic obstructive 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, 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 ; Neuropathy G62.9 ; BPH loc w urin obs/LUTS N40.1 and Reactive depression F32.9 [place] [address] [place] [id number] [address] [place] [address] Jul, Onychomycosis B35.1 [place] [address] [place] [id number] [place] [address] Jul, Low back pain M54.5 [place] [address] [place] [id number] [address] [place] [address] June, Low back pain M54.5 [place] [address] [place] [id number] [address] [place] [address] May, [place] [address] [place] [id number] [address] [place] [address] May, Bronchitis J40 and BMI 45.0- 49.9, adult Z68.42 [place] [address] [facility] [id number] [address] [place] [address] May, Low back pain M54.5 [place] [address] [facility] [id number] [address] [place] [address] Apr, [place] [address] [place] [id number] [address] [place] [address] Apr, Low back pain M54.5 ; Essent ial hypertension I10 ; Chronic obstructive 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, 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 and Dyspnea on exertion R06.09 [facility] [address] [id number] [address] [place] [address] 15 Apr, 2017 Onychomycosis B35.1 and Call us of foot L84 [facility] [address] [id number] [address] [place] [address] 13 Apr, 2017 Low back pain M54.5 [facility] [address] [id number] [address] [place] [address] Mar, Low back pain M54.5 [facility] [address] [id number] [address] [place] [address] Mar, [facility] [address] [id number] [address] [place] [address] Feb, [facility] [address] [id number] [address] [place] [address] Feb, [facility] [address] [id number] [address] [place] [address] Feb, [facility] [address] [id number] [address] [place] [address] Feb, Low back pain M54.5 [facility] [address] [id number] [address] [place] [address] Jan, [facility] [address] [id number] [address] [place] [address] 14 Jan, 2017 Low back pain M54.5 [facility] [address] [id number] [address] [place] [address] Dec, Low back pain M54.5 [facility] [address] [id number] [address] [place] [address] Dec, [facility] [address] [id number] [address] [place] [address] Nov, Low back pain M54.5 ; Encoun ter for immunization Z23 ; Essential hypertension I10 ; Reactive depression F32.9 ; Neuropathy G62.9 and Chronic obstructive 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, 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 [facility] [address] [place] [id number] [address] [place] [address] Nov, Low back pain M54.5 [facility] [address] [address] Oct, Low back pain M54.5 [facility] [address] [address] Oct, Low back pain M54.5 [place] [address] [address] Oct, [place] [address] [address] Sep, [place] [address] [address] Sep, Low back pain M54.5 [place] [address] [address] Sep, BPH loc w urin obs/LUTS N40. 1 [place] [address] [address] Sep, [place] [address] [address] Sep, Low back pain M54.5 ; Essent ial hypertension I10 ; Mixed hyperlipidemia E78.2 ; Vitamin D deficiency E55.9 ; Prostatism N40.0 and Neuropathy G62.9 [facility] [address] [place] [id number] [address] [place] [address] Aug, Neuropathy G62.9 [facility] [address] [place] [id number] [place] [address] Aug, Low back pain M54.5 [facility] [address] [id number] [address] [place] [address] 07 Aug, 2016 Low back pain M54.5 [facility] [address] [id number] [address] [place] [address] Jul, [facility] [address] [id number] [address] [place] [address] Jul, [facility] [address] [id number] [address] [place] [address] Jul, [facility] [address] [id number] [address] [place] [address] Jul, [facility] [address] [id number] [address] [place] [address] Jul, Neuropathy G62.9 [facility] [address] [id number] [address] [place] [address] Jul, Mixed hyperlipidemia E78.2 [facility] [address] [id number] [address] [place] [address] Jul, Low back pain M54.5 [facility] [address] [id number] [address] [place] [address] Jul, [facility] [address] [id number] [address] [place] [address] June, Low back pain M54.5 [facility] [address] [id number] [address] [place] [address] May, Low back pain M54.5 [facility] [address] [id number] [address] [place] [address] May, Chronic obstructive pulmonar y disease, 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 [facility] [address] [id number] [address] [place] [address] Apr, [facility] [address] [id number] [address] [place] [address] Apr, [facility] [address] [id number] [address] [place] [address] Apr, Low back pain M54.5 [facility] [address] [id number] [address] [place] [address] Apr, Low back pain M54.5 [facility] [address] [id number] [address] [place] [address] Mar, Low back pain M54.5 [facility] [address] [id number] [address] [place] [address] Mar, Low back pain M54.5 [facility] [address] [id number] [address] [place] [address] Mar, [facility] [address] [id number] [address] [place] [address] Feb, Low back pain M54.5 [facility] [address] [id number] [address] [place] [address] Jan, Low back pain M54.5 and 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, 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 [facility] [address] [id number] [address] [place] [address] Jan, Low back pain M54.5 [facility] [address] [id number] [address] [place] [address] Jan, [facility] [address] [id number] [address] [place] [address] 16 Dec, 2015 Low back pain M54.5 [facility] [address] [id number] [address] [place] [address] Dec, [facility] [address] [id number] [address] [place] [address] 27 Oct, 2015 [facility] [address] [id number] [address] [place] [address] 26 Oct, 2015 Low back pain M54.5 ; Essent ial hypertension I10 and Neuropathy G62.9 [place] [address] [facility] [id number] [address] [place] [address] Oct, [place] [address] [facility] [id number] [address] [place] [address] Sep, [place] [address] [facility] [id number] [place] [address] Sep, [place] [address] [place] [id number] [place] [address] Aug, Mixed hyperlipidemia E78.2 ; Essential hypertension I10 and Chronic obstructive 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, 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 [place] [address] [facility] [id number] [place] [address] 08 Aug, 2015 Low back pain M54.5 ; Mixed hyperlipidemia E78.2 ; Essential hypertension I10 and Chronic obstructive 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, 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 [place] [address] [place] [id number] [place] [address] Jul, Low back pain M54.5 ; Essent ial hypertension I10 and Mixed hyperlipidemia E78.2 [place] [address] [place] [id number] [address] [place] [address] Jul, IMMUNIZATIONS No Known Immunizations SOCIAL HISTORY Never Assessed REASON FOR VISIT Oxycodone 09/02 PLAN OF CARE VITAL SIGNS MEDICATIONS Medication Instructions Dosage Frequency Start Date End Date Duration S tatus ProAir HFA 108 (90 Base) MCG/ACT Inhalation every 4 hrs 2 puffs as needed 4h Jan, Unknown Flomax 0.4 MG Orally twice a day 1 capsules 12h Unknown Cymbalta 30 MG Orally Once a day 2 capsules 24h Nov, Unknown Oxycodone HCl 10 mg Orally every 6 hrs 1 tablet as needed 6h 12 Aug, 2017 28 days Active Ranitidine HCl 300 MG Orally Once a day 1 tablet at bedtime 24h 30 Unknown Amlodipine Besylate 5 MG Orally Once a day 1 tablet 24h Unknown Crestor 20 MG TAKE ONE TABLET BY MOUTH ONCE DAILY 90 Unknown Hydrochlorothiazide 12.5 MG Orally Once a day 1 capsule in the morning 24h Unknown Nexium 40 MG TAKE ONE CAPSULE BY MOUTH ONCE DAILY 30 Unknown Duloxetine HCl 30 MG TAKE ONE CAPSULE BY MOUTH TWICE DAILY 30 Unknown Finasteride 5 MG TAKE ONE TABLET BY MOUTH ONCE DAILY IN THE MORN ING 30 Unknown RESULTS No Results PROCEDURES No Known procedures [...]
--- OUTSIDE RECORDS SUMMARY | 2019-06-28 20:40 | XMS REPORT ---
Author Author Mario GUILLEN Organization [facility] Address [address] [place] [address] Care Team Providers Care Polysomnographic Technician Name Role Phone JESSICA GUILLEN Unavailable PROBLEMS Type Condition ICD9-CM Code FCB07-BL Code Onset Dates Condition S tatus SNOMED Code Problem Mixed hyperlipidemia E78.2 Active 874814923 Problem Neuropathy G62.9 Active 272084832 Problem Chronic obstructive 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, unspecified COPD ty pe J44.9 Active 42130456 Problem Essential hypertension I10 Active 22930261 Problem Low back pain M54.5 Active 802396 009 Problem Bronchitis J40 Active 02070671 Problem BMI 45.0-49.9, adult Z68.42 Active 836364843 Problem Prostatism N40.0 Active 40319646 Problem Vitamin D deficiency E55.9 Active 35602148 Problem Reactive depression F32.9 Active 61027687 Problem BPH loc w urin obs/LUTS N40.1 Active 926682384 ALLERGIES No Information ENCOUNTERS Encounter Location Date Diagnosis [facility] [address] [facility] [id number] [address] [place] [address] Dec, [facility] [address] [facility] [id number] [address] [place] [address] Oct, Low back pain M54.5 [facility] [address] [facility] [id number] [address] [place] [address] Sep, Low back pain M54.5 [facility] [address] [facility] [id number] [address] [place] [address] Sep, 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 ; Chronic obstructive 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, 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 and Mixed hyperlipidemia E78.2 [place] [address] [facility] [id number] [address] [place] [address] 16 Aug, 2017 Low back pain M54.5 ; 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 ; Essential hypertension I10 ; Chronic obstructive 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, 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 and Mixed hyperlipidemia E78.2 [place] [address] [facility] [id number] [address] [place] [address] 12 Aug, 2017 Low back pain M54.5 [place] [address] [facility] [id number] [address] [place] [address] Jul, Medicare annual wellness vis it, initial Z00.00 ; Mixed hyperlipidemia E78.2 ; Essential hypertension I10 ; Chronic obstructive 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, 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 ; Neuropathy G62.9 ; BPH loc w urin obs/LUTS N40.1 and Reactive depression F32.9 [place] [address] [place] [id number] [address] [place] [address] Jul, Onychomycosis B35.1 [place] [address] [place] [id number] [place] [address] Jul, Low back pain M54.5 [place] [address] [place] [id number] [address] [place] [address] June, Low back pain M54.5 [place] [address] [facility] [id number] [address] [place] [address] May, [place] [address] [facility] [id number] [address] [place] [address] May, Bronchitis J40 and BMI 45.0- 49.9, adult Z68.42 [place] [address] [facility] [id number] [address] [place] [address] May, Low back pain M54.5 [place] [address] [place] [id number] [address] [place] [address] Apr, [facility] [address] [id number] [address] [place] [address] Apr, Low back pain M54.5 ; Essent ial hypertension I10 ; Chronic obstructive 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, 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 and Dyspnea on exertion R06.09 [facility] [address] [id number] [address] [place] [address] 15 Apr, 2017 Onychomycosis B35.1 and Call us of foot L84 [facility] [address] [id number] [address] [place] [address] 13 Apr, 2017 Low back pain M54.5 [facility] [address] [id number] [address] [place] [address] 12 Mar, 2017 Low back pain M54.5 [facility] [address] [id number] [address] [place] [address] Mar, [facility] [address] [id number] [address] [place] [address] Feb, [facility] [address] [id number] [address] [place] [address] Feb, [facility] [address] [id number] [address] [place] [address] Feb, [facility] [address] [id number] [address] [place] [address] Feb, Low back pain M54.5 [facility] [address] [id number] [address] [place] [address] 18 Jan, 2017 [facility] [address] [id number] [address] [place] [address] 14 Jan, 2017 Low back pain M54.5 [facility] [address] [id number] [address] [place] [address] Dec, Low back pain M54.5 [facility] [address] [id number] [address] [place] [address] Dec, [facility] [address] [place] [id number] [address] [place] [address] Nov, Low back pain M54.5 ; Encoun ter for immunization Z23 ; Essential hypertension I10 ; Reactive depression F32.9 ; Neuropathy G62.9 and Chronic obstructive 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, 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 [facility] [address] [place] [id number] [address] [place] [address] Nov, Low back pain M54.5 [facility] [address] [place] [id number] [address] [place] [address] Oct, Low back pain M54.5 [facility] [address] [place] [id number] [place] [address] Oct, Low back pain M54.5 [facility] [address] [address] Oct, [facility] [address] [place] [id number] [address] [place] [address] Sep, [facility] [address] [address] Sep, Low back pain M54.5 [facility] [address] [place] [id number] [address] [place] [address] Sep, BPH loc w urin obs/LUTS N40. [address] [facility] [address] [place] [id number] [address] [place] [address] Sep, [facility] [address] [place] [id number] [address] [place] [address] Sep, Low back pain M54.5 ; Essent ial hypertension I10 ; Mixed hyperlipidemia E78.2 ; Vitamin D deficiency E55.9 ; Prostatism N40.[address] [facility] [address] [facility] [id number] [address] [place] [address] Aug, Neuropathy G62.9 [facility] [address] [id number] [address] [place] [address] Aug, Low back pain M54.5 [facility] [address] [id number] [address] [place] [address] Aug, Low back pain M54.5 [facility] [address] [id number] [address] [place] [address] Jul, [facility] [address] [id number] [address] [place] [address] Jul, [facility] [address] [id number] [address] [place] [address] Jul, [facility] [address] [id number] [address] [place] [address] Jul, [facility] [address] [id number] [address] [place] [address] Jul, Neuropathy G62.9 [facility] [address] [id number] [address] [place] [address] Jul, Mixed hyperlipidemia E78.2 [facility] [address] [id number] [address] [place] [address] Jul, Low back pain M54.5 [facility] [address] [id number] [address] [place] [address] Jul, [facility] [address] [id number] [address] [place] [address] June, Low back pain M54.5 [facility] [address] [id number] [address] [place] [address] May, Low back pain M54.5 [facility] [address] [id number] [address] [place] [address] May, Chronic obstructive pulmonar y disease, 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 [facility] [address] [id number] [address] [place] [address] Apr, [facility] [address] [id number] [address] [place] [address] Apr, [facility] [address] [id number] [address] [place] [address] Apr, Low back pain M54.5 [facility] [address] [id number] [address] [place] [address] Apr, Low back pain M54.5 [facility] [address] [id number] [address] [place] [address] Mar, Low back pain M54.5 [facility] [address] [id number] [address] [place] [address] Mar, Low back pain M54.5 [facility] [address] [id number] [address] [place] [address] Mar, [facility] [address] [id number] [address] [place] [address] Feb, Low back pain M54.5 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 [address] [id number] [address] [place] [address] Jan, Low back pain M54.5 [facility] [address] [id number] [address] [place] [address] Jan, [facility] [address] [id number] [address] [place] [address] Dec, Low back pain M54.5 [facility] [address] [id number] [address] [place] [address] Dec, [facility] [address] [id number] [address] [place] [address] Oct, [facility] [address] [facility] [id number] [address] [place] [address] Oct, Low back pain M54.5 ; Essent ial hypertension I10 and Neuropathy G62.9 [facility] [address] [facility] [id number] [address] [place] [phone] Oct, [facility] [address] [facility] [id number] [address] [place] [phone] Sep, [facility] [address] [facility] [id number] [address] [place] [phone] Sep, [facility] [address] [facility] [id number] [address] [place] [id number] Aug, Mixed hyperlipidemia E78.2 ; Essential hypertension I10 and Chronic obstructive 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, 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 [facility] [address] [facility] [id number] [address] [place] [phone] Aug, Low back pain M54.5 ; Mixed hyperlipidemia E78.2 ; Essential hypertension I10 and Chronic obstructive 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, 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 [facility] [address] [facility] [id number] [address] [place] [phone] Jul, Low back pain M54.5 ; Essent ial hypertension I10 and Mixed hyperlipidemia E78.2 [facility] [address] [facility] [id number] [address] [place] [phone] Jul, IMMUNIZATIONS No Known Immunizations SOCIAL HISTORY Never Assessed REASON FOR VISIT medication question PLAN OF CARE VITAL SIGNS MEDICATIONS Unknown [...]
--- OUTSIDE RECORDS SUMMARY | 2019-06-28 20:40 | XMS REPORT ---
Author Author YUNIORMario MAICO Organization [facility] Address [address] [place] [address] Care Team Providers Care Executive Steward Name Role Phone MAICO MOJICA Unavailable PROBLEMS Type Condition ICD9-CM Code [id number] Code Onset Dates Condition S tatus SNOMED Code Problem Mixed hyperlipidemia E78.2 Active 973675102 Problem Neuropathy G62.9 Active 063417562 Problem Chronic obstructive pulmonary disease, unspecified COPD ty pe J44.9 Active 59169252 Problem Essential hypertension I10 Active 22345371 Problem Low back pain M54.5 Active 715374 009 Problem Bronchitis J40 Active 14808472 Problem BMI 45.0-49.9, adult Z68.42 Active 272143166 Problem Prostatism N40.0 Active 93929699 Problem Vitamin D deficiency E55.9 Active 09241871 Problem Reactive depression F32.9 Active 93799109 Problem BPH loc w urin obs/LUTS N40.1 Active 704220013 ALLERGIES Substance Reaction Event Type Date Status Lyrica swelling Drug Allergy Jul, Active Lisinopril cough Drug Allergy Jul, Active ENCOUNTERS Encounter Location Date Diagnosis [facility] [address] [facility] [id number] [address] [place] [phone] Dec, [facility] [address] [facility] [id number] [address] [place] [phone] Sep, Low back pain M54.5 [facility] [address] [facility] [id number] [address] [place] [phone] Sep, [place] [address] [facility] [id number] [address] [place] [phone] Aug, Essential hypertension I10 ; Low back pain M54.5 ; 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 ; Chronic obstructive pulmonary disease, 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 and Mixed hyperlipidemia E78.2 [facility] [address] [facility] [id number] [address] [place] [phone] Aug, Low back pain M54.5 ; 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 ; Essential hypertension I10 ; Chronic obstructive pulmonary disease, 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 and Mixed hyperlipidemia E78.2 [place] [address] [address] [facility] [id number] [address] [place] [phone] Aug, Low back pain M54.5 [place] [address] [facility] [id number] [address] [place] [phone] Jul, Medicare annual wellness vis it, initial Z00.00 ; Mixed hyperlipidemia E78.2 ; Essential hypertension I10 ; Chronic obstructive pulmonary disease, 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 ; Neuropathy G62.9 ; BPH loc w urin obs/LUTS N40.1 and Reactive depression F32.9 [place] [address] [address] [facility] [id number] [address] [place] [phone] Jul, Onychomycosis B35.1 [place] [address] [facility] [id number] [address] [place] [phone] Jul, Low back pain M54.5 [place] [address] [place] [id number] [address] [place] [phone] June, Low back pain M54.5 [place] [address] [place] [id number] [address] [place] [phone] May, [place] [address] [facility] [id number] [address] [place] [phone] May, Bronchitis J40 and BMI 45.0- 49.9, adult Z68.42 [place] [address] [address] [facility] [id number] [address] [place] [phone] May, Low back pain M54.5 [place] [address] [facility] [id number] [address] [place] [phone] Apr, [place] [address] [id number] [address] [place] [phone] 20 Apr, 2017 Low back pain M54.5 ; Essent ial hypertension I10 ; Chronic obstructive pulmonary disease, 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 and Dyspnea on exertion R06.09 [facility] [address] [id number] [address] [place] [phone] 15 Apr, 2017 Onychomycosis B35.1 and Call us of foot L84 [facility] [address] [id number] [address] [place] [phone] 13 Apr, 2017 Low back pain M54.5 [facility] [address] [id number] [address] [place] [phone] 12 Mar, 2017 Low back pain M54.5 [facility] [address] [id number] [address] [place] [id number] Mar, [facility] [address] [id number] [address] [place] [phone] Feb, [facility] [address] [id number] [address] [place] [phone] Feb, [facility] [address] [id number] [address] [place] [phone] Feb, [facility] [address] [id number] [address] [place] [phone] Feb, Low back pain M54.5 [facility] [address] [id number] [address] [place] [id number] 18 Jan, 2017 [facility] [address] [id number] [address] [place] [phone] 14 Jan, 2017 Low back pain M54.5 [facility] [address] [id number] [address] [place] [phone] 20 Dec, 2016 Low back pain M54.5 [facility] [address] [id number] [address] [place] [phone] Dec, [facility] [address] [facility] [id number] [address] [place] [phone] Nov, Low back pain M54.5 ; Encoun ter for immunization Z23 ; Essential hypertension I10 ; Reactive depression F32.9 ; Neuropathy G62.9 and Chronic obstructive pulmonary disease, 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 [facility] [address] [facility] [id number] [address] [place] [phone] Nov, Low back pain M54.5 [facility] [address] [facility] [id number] [address] [place] [phone] Oct, Low back pain M54.5 [facility] [address] [place] [id number] [place] [phone] Oct, Low back pain M54.5 [facility] [address] [place] [id number] [address] [place] [id number] Oct, [facility] [address] [place] [id number] [address] [place] [id number] Sep, [facility] [address] [facility] [id number] [address] [place] [phone] Sep, Low back pain M54.5 [facility] [address] [facility] [id number] [address] [place] [phone] Sep, BPH loc w urin obs/LUTS N40. 1 [facility] [address] [place] [id number] [address] [place] [phone] Sep, [facility] [address] [facility] [id number] [address] [place] [phone] Sep, Low back pain M54.5 ; Essent ial hypertension I10 ; Mixed hyperlipidemia E78.2 ; Vitamin D deficiency E55.9 ; Prostatism N40.0 and Neuropathy G62.9 [facility] [address] [facility] [id number] [address] [place] [phone] Aug, Neuropathy G62.9 [facility] [address] [id number] [address] [place] [phone] 10 Aug, 2016 Low back pain M54.5 [facility] [address] [id number] [address] [place] [phone] Aug, Low back pain M54.5 [facility] [address] [id number] [address] [place] [phone] Jul, [facility] [address] [id number] [address] [place] [phone] Jul, [facility] [address] [id number] [address] [place] [phone] Jul, [facility] [address] [id number] [address] [place] [phone] Jul, [facility] [address] [id number] [address] [place] [phone] Jul, Neuropathy G62.9 [facility] [address] [id number] [address] [place] [phone] Jul, Mixed hyperlipidemia E78.2 [facility] [address] [id number] [address] [place] [phone] Jul, Low back pain M54.5 [facility] [address] [id number] [address] [place] [phone] Jul, [facility] [address] [id number] [address] [place] [phone] June, Low back pain M54.5 [facility] [address] [id number] [address] [place] [phone] May, Low back pain M54.5 [facility] [address] [id number] [address] [place] [phone] May, Chronic obstructive pulmonar y disease, unspecified COPD type J44.9 [facility] [address] [id number] [address] [place] [phone] Apr, [facility] [address] [id number] [address] [place] [phone] Apr, [facility] [address] [id number] [address] [place] [phone] Apr, Low back pain M54.5 [facility] [address] [id number] [address] [place] [phone] Apr, Low back pain M54.5 [facility] [address] [id number] [address] [place] [phone] Mar, Low back pain M54.5 [facility] [address] [id number] [address] [place] [phone] Mar, Low back pain M54.5 [facility] [address] [id number] [address] [place] [phone] Mar, [facility] [address] [id number] [address] [place] [phone] Feb, Low back pain M54.5 [facility] [address] [id number] [address] [place] [phone] Jan, Low back pain M54.5 and 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, 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 [facility] [address] [id number] [address] [place] [phone] Jan, Low back pain M54.5 [facility] [address] [id number] [address] [place] [phone] Jan, [facility] [address] [id number] [address] [place] [phone] 16 Dec, 2015 Low back pain M54.5 [facility] [address] [id number] [address] [place] [phone] 07 Dec, 2015 [facility] [address] [id number] [address] [place] [phone] 27 Oct, 2015 [facility] [address] [id number] [address] [place] [phone] 26 Oct, 2015 Low back pain M54.5 ; Essent ial hypertension I10 and Neuropathy G62.9 [facility] [address] [id number] [address] [place] [phone] 09 Oct, 2015 [facility] [address] [id number] [address] [place] [phone] Sep, [facility] [address] [id number] [address] [place] [phone] Sep, [facility] [address] [id number] [address] [place] [phone] 15 Aug, 2015 Mixed hyperlipidemia E78.2 ; Essential hypertension I10 and Chronic obstructive pulmonary disease, unspecified COPD type J44.9 [place] [address] [address] [facility] [id number] [address] [place] [phone] 08 Aug, 2015 Low back pain M54.5 ; Mixed hyperlipidemia E78.2 ; Essential hypertension I10 and Chronic obstructive pulmonary disease, unspecified COPD type J44.9 [facility] [address] [id number] [address] [place] [phone] 07 Jul, 2015 Low back pain M54.5 ; Essent ial hypertension I10 and Mixed hyperlipidemia E78.2 [place] [address] [facility] [id number] [address] [place] [phone] 02 Jul, 2015 IMMUNIZATIONS No Known Immunizations SOCIAL HISTORY Never Assessed REASON FOR VISIT Medicare AWV-AHarrymanRN PLAN OF CARE Activity Details Follow Up 1 Year Reason: VITAL SIGNS Height 68 in 2017-08-16 Weight 240.7 lbs 2017-08-16 Temperature 97.5 degrees Fahrenheit 2017-08-16 Heart Rate 82 bpm 2017-08-16 Respiratory Rate 20 2017-08-16 Oximetry 96 % 2017-08-16 BMI 36.59 kg/m2 2017-08-16 Blood pressure systolic 128 mmHg 2017-08-16 Blood pressure diastolic 74 mmHg 2017-08-16 MEDICATIONS Medication Instructions Dosage Frequency Start Date End Date Duration S link Finasteride 5 MG TAKE ONE TABLET BY MOUTH ONCE DAILY IN THE MORN ING 30 Active Ranitidine HCl 300 MG Orally Once a day 1 tablet at bedtime 24h 30 Active Crestor 20 MG TAKE ONE TABLET BY MOUTH ONCE DAILY 90 Active Nexium 40 MG TAKE ONE CAPSULE BY MOUTH ONCE DAILY 30 Active Oxycodone HCl 10 mg Orally every 6 hrs 1 tablet as needed 6h 14 Jul, 2017 28 days Active ProAir HFA 108 (90 Base) MCG/ACT Inhalation every 4 hrs 2 puffs as needed 4h Jan, Active Flomax 0.4 MG Orally twice a day 1 capsules 12h Active Hydrochlorothiazide 12.5 MG Orally Once a day 1 capsule in the morning 24h Active Amlodipine Besylate 5 MG Orally Once a day 1 tablet 24h Active Cymbalta 30 MG Orally Once a day 2 capsules 24h Nov, Active RESULTS No Results PROCEDURES Procedure Date Ordered Result Body Site [facility] VISIT IPPE/AWV August 16, 2017 ANNUAL WELLNES VST; PERSNL PPS INIT August 16, 2017 PT TOBACCO SCREEN RCVD TLK August 16, 2017 FALL RISK ASSESSMENT DOCD August 16, 2017 ANNUAL WELLNESS VST; PPS SUBSQT VST August 16, 2017 INSTRUCTIONS MEDICATIONS ADMINISTERED No Known Medications [...]
--- OUTSIDE RECORDS SUMMARY | 2019-06-28 20:41 | XMS REPORT ---
Author Author Mario GUILLEN Organization [facility] Address [address] [place] [address] Care Team Providers Care Grader Marker Name Role Phone JESSICA GUILLEN Unavailable PROBLEMS Type Condition ICD9-CM Code QZY90-DH Code Onset Dates Condition S tatus SNOMED Code Problem Mixed hyperlipidemia E78.2 Active 612450914 Problem Neuropathy G62.9 Active 187738791 Problem Chronic obstructive pulmonary disease, unspecified COPD ty pe J44.9 Active 35959386 Problem Essential hypertension I10 Active 71468998 Problem Low back pain M54.5 Active 331872 009 Problem Bronchitis J40 Active 78049746 Problem BMI 45.0-49.9, adult Z68.42 Active 282900907 Problem Prostatism N40.0 Active 80041220 Problem Vitamin D deficiency E55.9 Active 51489243 Problem Reactive depression F32.9 Active 33213951 Problem BPH loc w urin obs/LUTS N40.1 Active 420582137 ALLERGIES No Information ENCOUNTERS Encounter Location Date Diagnosis [place] [address] [place] [id number] [address] [place] [phone] Sep, [place] [address] [place] [id number] [place] [phone] Aug, Essential hypertension I10 ; Low back pain M54.5 ; 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 ; Chronic obstructive pulmonary disease, unspecified COPD type J44.9 and Mixed hyperlipidemia E78.2 [place] [address] [place] [id number] [address] [place] [phone] Aug, Low back pain M54.5 ; 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 ; Essential hypertension I10 ; Chronic obstructive pulmonary disease, unspecified COPD type J44.9 and Mixed hyperlipidemia E78.2 [place] [address] [facility] [id number] [address] [place] [phone] Aug, Low back pain M54.5 [place] [id number] [place] [id number] [place] [phone] Jul, Medicare annual wellness vis it, initial Z00.00 ; Mixed hyperlipidemia E78.2 ; Essential hypertension I10 ; Chronic obstructive pulmonary disease, unspecified COPD type J44.9 ; Neuropathy G62.9 ; BPH loc w urin obs/LUTS N40.1 and Reactive depression F32.9 [place] [address] [facility] [id number] [address] [place] [phone] Jul, Onychomycosis B35.1 [place] [address] [place] [id number] [place] [phone] Jul, Low back pain M54.5 [place] [address] [place] [id number] [address] [place] [phone] June, Low back pain M54.5 [place] [address] [facility] [id number] [address] [place] [phone] May, [place] [address] [place] [id number] [place] [phone] May, Bronchitis J40 and BMI 45.0- 49.9, adult Z68.42 [place] [address] [place] [id number] [place] [phone] May, Low back pain M54.5 [place] [address] [facility] [id number] [address] [place] [phone] Apr, [place] [address] [facility] [id number] [address] [place] [phone] Apr, Low back pain M54.5 ; Essent ial hypertension I10 ; Chronic obstructive pulmonary disease, unspecified COPD type J44.9 and Dyspnea on exertion R06.09 [place] [address] [facility] [id number] [address] [place] [phone] Apr, Onychomycosis B35.1 and Call us of foot L84 [facility] [address] [id number] [address] [place] [phone] Apr, Low back pain M54.5 [facility] [address] [id number] [address] [place] [phone] Mar, Low back pain M54.5 [facility] [address] [id number] [address] [place] [phone] Mar, [facility] [address] [id number] [address] [place] [phone] Feb, [facility] [address] [id number] [address] [place] [phone] Feb, [facility] [address] [id number] [address] [place] [phone] Feb, [facility] [address] [id number] [address] [place] [phone] Feb, Low back pain M54.5 [facility] [address] [id number] [address] [place] [phone] Jan, [facility] [address] [facility] [id number] [address] [place] [phone] Jan, Low back pain M54.5 [facility] [address] [id number] [address] [place] [phone] Dec, Low back pain M54.5 [facility] [address] [id number] [address] [place] [phone] Dec, [facility] [address] [facility] [id number] [address] [place] [phone] Nov, Low back pain M54.5 ; Encoun ter for immunization Z23 ; Essential hypertension I10 ; Reactive depression F32.9 ; Neuropathy G62.9 and Chronic obstructive pulmonary disease, unspecified COPD type J44.9 [facility] [address] [id number] [address] [place] [phone] Nov, Low back pain M54.5 [facility] [address] [id number] [address] [place] [phone] Oct, Low back pain M54.5 [facility] [address] [facility] [id number] [address] [place] [phone] Oct, Low back pain M54.5 [facility] [address] [facility] [id number] [address] [place] [phone] Oct, [facility] [address] [facility] [id number] [address] [place] [phone] Sep, [facility] [address] [facility] [id number] [address] [place] [phone] Sep, Low back pain M54.5 [facility] [address] [facility] [id number] [address] [place] [phone] Sep, BPH loc w urin obs/LUTS N40. 1 [facility] [address] [facility] [id number] [address] [place] [phone] Sep, [facility] [address] [facility] [id number] [address] [place] [phone] Sep, Low back pain M54.5 ; Essent ial hypertension I10 ; Mixed hyperlipidemia E78.2 ; Vitamin D deficiency E55.9 ; Prostatism N40.0 and Neuropathy G62.9 [facility] [address] [facility] [id number] [address] [place] [phone] Aug, Neuropathy G62.9 [facility] [address] [facility] [id number] [address] [place] [phone] Aug, Low back pain M54.5 [facility] [address] [facility] [id number] [address] [place] [phone] Aug, Low back pain M54.5 [facility] [address] [facility] [id number] [address] [place] [phone] Jul, [facility] [address] [id number] [address] [place] [phone] Jul, [facility] [address] [id number] [address] [place] [phone] Jul, [facility] [address] [id number] [address] [place] [phone] Jul, [facility] [address] [id number] [address] [place] [phone] Jul, Neuropathy G62.9 [facility] [address] [id number] [address] [place] [phone] Jul, Mixed hyperlipidemia E78.2 [facility] [address] [id number] [address] [place] [phone] Jul, Low back pain M54.5 [facility] [address] [id number] [address] [place] [phone] Jul, [facility] [address] [id number] [address] [place] [phone] June, Low back pain M54.5 [facility] [address] [id number] [address] [place] [phone] May, Low back pain M54.5 [facility] [address] [id number] [address] [place] [phone] May, Chronic obstructive pulmonar y disease, unspecified COPD type J44.9 [facility] [address] [id number] [address] [place] [phone] Apr, [facility] [address] [id number] [address] [place] [phone] Apr, [facility] [address] [id number] [address] [place] [phone] Apr, Low back pain M54.5 [facility] [address] [id number] [address] [place] [phone] Apr, Low back pain M54.5 [facility] [address] [id number] [address] [place] [phone] 16 Mar, 2016 Low back pain M54.5 [facility] [address] [id number] [address] [place] [phone] 10 Mar, 2016 Low back pain M54.5 [facility] [address] [id number] [address] [place] [phone] Mar, [facility] [address] [id number] [address] [place] [phone] Feb, Low back pain M54.5 [facility] [address] [id number] [address] [place] [phone] Jan, Low back pain M54.5 and [employer]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, unspecified COPD type J44.9 [facility] [address] [id number] [address] [place] [phone] 15 Jan, 2016 Low back pain M54.5 [facility] [address] [id number] [address] [place] [phone] Jan, [facility] [address] [id number] [address] [place] [phone] 16 Dec, 2015 Low back pain M54.5 [facility] [address] [id number] [address] [place] [phone] Dec, [facility] [address] [id number] [address] [place] [phone] 27 Oct, 2015 [facility] [address] [id number] [address] [place] [phone] 26 Oct, 2015 Low back pain M54.5 ; Essent ial hypertension I10 and Neuropathy G62.9 [facility] [address] [id number] [address] [place] [phone] 09 Oct, 2015 [facility] [address] [id number] [address] [place] [phone] Sep, [place] [address] [facility] [id number] [address] [place] [phone] Sep, [place] [address] [facility] [id number] [address] [place] [phone] Aug, Mixed hyperlipidemia E78.2 ; Essential hypertension I10 and Chronic obstructive pulmonary disease, unspecified COPD type J44.9 [place] [address] [place] [id number] [address] [place] [phone] Aug, Low back pain M54.5 ; Mixed hyperlipidemia E78.2 ; Essential hypertension I10 and Chronic obstructive pulmonary disease, unspecified COPD type J44.9 [place] [address] [facility] [id number] [address] [place] [phone] Jul, Low back pain M54.5 ; Essent ial hypertension I10 and Mixed hyperlipidemia E78.2 [place] [address] [facility] [id number] [address] [place] [phone] Jul, IMMUNIZATIONS No Known Immunizations SOCIAL HISTORY Never Assessed REASON FOR VISIT Oxycodone 06/10 PLAN OF CARE VITAL SIGNS MEDICATIONS Medication Instructions Dosage Frequency Start Date End Date Duration S link Oxycodone HCl 10 mg Orally every 6 hrs 1 tablet as needed 6h May, 28 days Active RESULTS No Results PROCEDURES [...]
--- OUTSIDE RECORDS SUMMARY | 2019-06-28 20:41 | XMS REPORT ---
Author Author Mario MCKEON Organization [facility] Address [address] [place] [address] Care Team Providers Care Face Man Name Role Phone BETSY MCKEON Unavailable PROBLEMS Type Condition ICD9-CM Code IJI49-NR Code Onset Dates Condition S tatus SNOMED Code Problem Mixed hyperlipidemia E78.2 Active 904397740 Problem Neuropathy G62.9 Active 891973852 Problem Chronic obstructive pulmonary disease, unspecified COPD ty pe J44.9 Active 26483950 Problem Essential hypertension I10 Active 93687758 Problem Low back pain M54.5 Active 778240 009 Problem Bronchitis J40 Active 29711962 Problem BMI 45.0-49.9, adult Z68.42 Active 661920544 Problem Prostatism N40.0 Active 69240926 Problem Vitamin D deficiency E55.9 Active 04989133 Problem Reactive depression F32.9 Active 22941303 Problem BPH loc w urin obs/LUTS N40.1 Active 987122630 ALLERGIES Substance Reaction Event Type Date Status Lyrica swelling Drug Allergy Apr, Active Lisinopril cough Drug Allergy Apr, Active ENCOUNTERS Encounter Location Date Diagnosis [place] [address] [address] [facility] [id number] [address] [place] [phone] Sep, [place] [address] [place] [id number] [address] [place] [id number] Aug, Essential hypertension I10 ; Low back pain M54.5 ; 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 ; Chronic obstructive pulmonary disease, unspecified COPD type J44.9 and Mixed hyperlipidemia E78.2 [facility] [address] [facility] [id number] [address] [place] [phone] Aug, Low back pain M54.5 ; 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 ; Essential hypertension I10 ; Chronic obstructive pulmonary disease, unspecified COPD type J44.9 and Mixed hyperlipidemia E78.2 [facility] [address] [id number] [address] [place] [phone] Aug, Low back pain M54.5 [facility] [address] [facility] [id number] [address] [place] [phone] Jul, Medicare annual wellness vis it, initial Z00.00 ; Mixed hyperlipidemia E78.2 ; Essential hypertension I10 ; Chronic obstructive pulmonary disease, unspecified COPD type J44.9 ; Neuropathy G62.9 ; BPH loc w urin obs/LUTS N40.1 and Reactive depression F32.9 [place] [address] [address] [facility] [id number] [address] [place] [phone] Jul, Onychomycosis B35.1 [place] [address] [address] [place] [id number] [place] [phone] Jul, Low back pain M54.5 [place] [address] [address] [facility] [id number] [address] [place] [id number] June, Low back pain M54.5 [place] [address] [address] [place] [id number] [address] [place] [phone] May, [place] [address] [address] [place] [id number] [place] [phone] May, Bronchitis J40 and BMI 45.0- 49.9, adult Z68.42 [place] [address] [address] [facility] [id number] [address] [place] [phone] May, Low back pain M54.5 [place] [address] [address] [facility] [id number] [address] [place] [phone] Apr, [place] [address] [address] [place] [id number] [place] [phone] Apr, Low back pain M54.5 ; Essent ial hypertension I10 ; Chronic obstructive pulmonary disease, unspecified COPD type J44.9 and Dyspnea on exertion R06.09 [place] [address] [id number] [address] [place] [phone] 15 Apr, 2017 Onychomycosis B35.1 and Call us of foot L84 [facility] [address] [id number] [address] [place] [phone] Apr, Low back pain M54.5 [facility] [address] [id number] [address] [place] [phone] Mar, Low back pain M54.5 [facility] [address] [id number] [address] [place] [phone] Mar, [facility] [address] [id number] [address] [place] [phone] Feb, [facility] [address] [id number] [address] [place] [phone] Feb, [facility] [address] [id number] [address] [place] [phone] Feb, [facility] [address] [id number] [address] [place] [phone] Feb, Low back pain M54.5 [facility] [address] [id number] [address] [place] [phone] Jan, [facility] [address] [facility] [id number] [address] [place] [phone] Jan, Low back pain M54.5 [facility] [address] [id number] [address] [place] [phone] Dec, Low back pain M54.5 [facility] [address] [id number] [address] [place] [phone] Dec, [facility] [address] [facility] [id number] [address] [place] [phone] Nov, Low back pain M54.5 ; Encoun ter for immunization Z23 ; Essential hypertension I10 ; Reactive depression F32.9 ; Neuropathy G62.9 and Chronic obstructive pulmonary disease, unspecified COPD type J44.9 [facility] [address] [id number] [address] [place] [id number] Nov, Low back pain M54.5 [facility] [address] [id number] [address] [place] [phone] Oct, Low back pain M54.5 [facility] [address] [facility] [id number] [address] [place] [phone] Oct, Low back pain M54.5 [facility] [address] [id number] [address] [place] [phone] Oct, [facility] [address] [facility] [id number] [address] [place] [phone] Sep, [facility] [address] [facility] [id number] [address] [place] [phone] Sep, Low back pain M54.5 [facility] [address] [facility] [id number] [address] [place] [id number] Sep, BPH loc w urin obs/LUTS N40. 1 [facility] [address] [facility] [id number] [address] [place] [phone] Sep, [facility] [address] [facility] [id number] [address] [place] [phone] Sep, Low back pain M54.5 ; Essent ial hypertension I10 ; Mixed hyperlipidemia E78.2 ; Vitamin D deficiency E55.9 ; Prostatism N40.0 and Neuropathy G62.9 [facility] [address] [id number] [address] [place] [id number] Aug, Neuropathy G62.9 [facility] [address] [facility] [id number] [address] [place] [phone] Aug, Low back pain M54.5 [facility] [address] [facility] [id number] [address] [place] [phone] Aug, Low back pain M54.5 [facility] [address] [id number] [address] [place] [id number] 30 Jul, 2016 [facility] [address] [id number] [address] [place] [id number] Jul, [facility] [address] [id number] [address] [place] [phone] Jul, [facility] [address] [id number] [address] [place] [id number] Jul, [facility] [address] [id number] [address] [place] [phone] Jul, Neuropathy G62.9 [facility] [address] [id number] [address] [place] [phone] Jul, Mixed hyperlipidemia E78.2 [facility] [address] [id number] [address] [place] [phone] Jul, Low back pain M54.5 [facility] [address] [id number] [address] [place] [phone] Jul, [facility] [address] [id number] [address] [place] [phone] June, Low back pain M54.5 [facility] [address] [id number] [address] [place] [phone] May, Low back pain M54.5 [facility] [address] [id number] [address] [place] [phone] May, Chronic obstructive pulmonar y disease, unspecified COPD type J44.9 [facility] [address] [id number] [address] [place] [phone] Apr, [facility] [address] [id number] [address] [place] [phone] Apr, [facility] [address] [id number] [address] [place] [id number] Apr, Low back pain M54.5 [facility] [address] [id number] [address] [place] [phone] Apr, Low back pain M54.5 [facility] [address] [id number] [address] [place] [id number] 16 Mar, 2016 Low back pain M54.5 [facility] [address] [id number] [address] [place] [id number] Mar, Low back pain M54.5 [facility] [address] [id number] [address] [place] [phone] Mar, [facility] [address] [id number] [address] [place] [phone] Feb, Low back pain M54.5 [facility] [address] [id number] [address] [place] [phone] Jan, Low back pain M54.5 and [employer]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, 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.9 [facility] [address] [id number] [address] [place] [phone] 15 Jan, 2016 Low back pain M54.5 [facility] [address] [id number] [address] [place] [phone] Jan, [facility] [address] [id number] [address] [place] [id number] 16 Dec, 2015 Low back pain M54.5 [facility] [address] [id number] [address] [place] [phone] Dec, [facility] [address] [id number] [address] [place] [phone] 27 Oct, 2015 [facility] [address] [id number] [address] [place] [id number] 26 Oct, 2015 Low back pain M54.5 ; Essent ial hypertension I10 and Neuropathy G62.9 [facility] [address] [id number] [address] [place] [phone] 09 Oct, 2015 [facility] [address] [facility] [id number] [address] [place] [phone] Sep, [place] [address] [address] [place] [id number] [address] [place] [phone] Sep, [place] [address] [address] [place] [id number] [address] [place] [phone] Aug, Mixed hyperlipidemia E78.2 ; Essential hypertension I10 and Chronic obstructive pulmonary disease, unspecified COPD type J44.9 [place] [address] [address] [facility] [id number] [address] [place] [phone] Aug, Low back pain M54.5 ; Mixed hyperlipidemia E78.2 ; Essential hypertension I10 and Chronic obstructive pulmonary disease, unspecified COPD type J44.9 [place] [address] [address] [place] [id number] [address] [place] [phone] Jul, Low back pain M54.5 ; Essent ial hypertension I10 and Mixed hyperlipidemia E78.2 [place] [address] [address] [facility] [id number] [address] [place] [phone] Jul, IMMUNIZATIONS No Known Immunizations SOCIAL HISTORY Never Assessed REASON FOR VISIT Toenail c/o, reports has a toenail fungus and needs some medicine for it. He has been working on his toenails ans the right great toe it has been lifting up off the nailbed. Wants both feet looked. CBrumbackRN PLAN OF CARE VITAL SIGNS Height 68 in 2017-05-06 Weight 240.7 lbs 2017-05-06 Temperature 98.2 degrees Fahrenheit 2017-05-06 Heart Rate 92 bpm 2017-05-06 Respiratory Rate 20 2017-05-06 BMI 36.59 kg/m2 2017-05-06 Blood pressure systolic 134 mmHg 2017-05-06 Blood pressure diastolic 72 mmHg 2017-05-06 MEDICATIONS Medication Instructions Dosage Frequency Start Date End Date Duration S link Cholecalciferol 87732 UNIT Orally once weekly for 8 weeks 1 capsule Oct, Not-Taking Lidoderm 5 % Externally Once a day 1 patch to skin remove after 12 hours 24h Jul, Not-Taking Crestor 20 mg Orally Once a day 1 tablet 24h Active Flomax 0.4 MG Orally at bedtime 2 capsules Active ProAir HFA 108 (90 Base) MCG/ACT Inhalation every 4 hrs 2 puffs as needed 4h Jan, Active Cymbalta 30 MG Orally Once a day 2 capsules 24h Nov, Active Amlodipine Besylate 10 mg Orally Once a day 1 tablet 24h 30 Active Ranitidine HCl 300 MG Orally Once a day 1 tablet at bedtime 24h 30 Active Nexium 40 MG TAKE ONE CAPSULE BY MOUTH ONCE DAILY 30 Active Oxycodone HCl 10 mg Orally every 6 hrs 1 tablet as needed 6h 13 Apr, 2017 28 days Active RESULTS No Results PROCEDURES Procedure Date Ordered Result Body Site [facility] VISIT ESTABLISHED PATIENT May 06, 2017 INSTRUCTIONS MEDICATIONS ADMINISTERED No Known [...]
--- OUTSIDE RECORDS SUMMARY | 2019-06-28 20:41 | XMS REPORT ---
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 Name Role Phone JESSICA GUILLEN Unavailable PROBLEMS Type Condition ICD9-CM Code GKC26-UV Code Onset Dates Condition S tatus SNOMED Code Problem Mixed hyperlipidemia E78.2 Active 132056113 Problem Neuropathy G62.9 Active 801878104 Problem Chronic obstructive pulmonary disease, unspecified COPD ty pe J44.9 Active 16006002 Problem Essential hypertension I10 Active 28948189 Problem Low back pain M54.5 Active 783093 009 Problem Bronchitis J40 Active 17182426 Problem BMI 45.0-49.9, adult Z68.42 Active 555410380 Problem Prostatism N40.0 Active 01754639 Problem Vitamin D deficiency E55.9 Active 86491984 Problem Reactive depression F32.9 Active 47966700 Problem BPH loc w urin obs/LUTS N40.1 Active 989826796 ALLERGIES No Information ENCOUNTERS Encounter Location Date Diagnosis [facility] [address] [facility] [id number] [address] [place] [id number] June, [facility] [address] [facility] [id number] [address] [place] [id number] May, [facility] [address] [facility] [id number] [address] [place] [address] May, Bronchitis J40 and BMI 45.0- 49.9, adult Z68.42 [facility] [address] [facility] [id number] [address] [place] [id number] May, Low back pain M54.5 [facility] [address] [facility] [id number] [address] [place] [phone] Apr, [facility] [address] [id number] [address] [place] [id number] 20 Apr, 2017 Low back pain M54.5 ; Essent ial hypertension I10 ; Chronic obstructive pulmonary disease, unspecified COPD type J44.9 and Dyspnea on exertion R06.09 [facility] [address] [id number] [address] [place] [id number] 15 Apr, 2017 Onychomycosis B35.1 and Call us of foot L84 [facility] [address] [id number] [address] [place] [id number] 13 Apr, 2017 Low back pain M54.5 [facility] [address] [id number] [address] [place] [id number] 12 Mar, 2017 Low back pain M54.5 [facility] [address] [id number] [address] [place] [phone] Mar, [facility] [address] [id number] [address] [place] [phone] Feb, [facility] [address] [id number] [address] [place] [phone] Feb, [facility] [address] [id number] [address] [place] [id number] Feb, [facility] [address] [id number] [address] [place] [phone] Feb, Low back pain M54.5 [facility] [address] [id number] [address] [place] [id number] 18 Jan, 2017 [facility] [address] [id number] [address] [place] [id number] 14 Jan, 2017 Low back pain M54.5 [facility] [address] [id number] [address] [place] [phone] Dec, Low back pain M54.5 [facility] [address] [id number] [address] [place] [phone] Dec, [facility] [address] [address] Nov, Low back pain M54.5 ; Encoun ter for immunization Z23 ; Essential hypertension I10 ; Reactive depression F32.9 ; Neuropathy G62.9 and Chronic obstructive pulmonary disease, unspecified COPD type J44.9 [facility] [address] [place] [id number] [address] [place] [address] Nov, Low back pain M54.5 [facility] [address] [address] Oct, Low back pain M54.5 [facility] [address] [address] Oct, Low back pain M54.5 [facility] [address] [address] Oct, [facility] [address] [address] Sep, [facility] [address] [address] Sep, Low back pain M54.5 [place] [address] [address] Sep, BPH loc w urin obs/LUTS N40. 1 [place] [address] [address] Sep, [facility] [address] [address] Sep, Low back pain M54.5 ; Essent ial hypertension I10 ; Mixed hyperlipidemia E78.2 ; Vitamin D deficiency E55.9 ; Prostatism N40.0 and Neuropathy G62.9 [facility] [address] [place] [id number] [address] [place] [phone] Aug, Neuropathy G62.9 [facility] [address] [place] [id number] [place] [address] Aug, Low back pain M54.5 [facility] [address] [id number] [address] [place] [address] Aug, Low back pain M54.5 [facility] [address] [id number] [address] [place] [phone] Jul, [facility] [address] [id number] [address] [place] [phone] Jul, [facility] [address] [id number] [address] [place] [phone] Jul, [facility] [address] [id number] [address] [place] [id number] Jul, [facility] [address] [id number] [address] [place] [address] Jul, Neuropathy G62.9 [facility] [address] [id number] [address] [place] [phone] Jul, Mixed hyperlipidemia E78.2 [facility] [address] [id number] [address] [place] [id number] Jul, Low back pain M54.5 [facility] [address] [id number] [address] [place] [id number] Jul, [facility] [address] [id number] [address] [place] [address] June, Low back pain M54.5 [facility] [address] [id number] [address] [place] [address] May, Low back pain M54.5 [facility] [address] [id number] [address] [place] [address] May, Chronic obstructive pulmonar y disease, unspecified COPD type J44.9 [facility] [address] [id number] [address] [place] [address] Apr, [facility] [address] [id number] [address] [place] [address] Apr, [facility] [address] [id number] [address] [place] [address] Apr, Low back pain M54.5 [facility] [address] [id number] [address] [place] [address] Apr, Low back pain M54.5 [facility] [address] [id number] [address] [place] [id number] 16 Mar, 2016 Low back pain M54.5 [facility] [address] [id number] [address] [place] [id number] Mar, Low back pain M54.5 [facility] [address] [id number] [address] [place] [address] Mar, [facility] [address] [id number] [address] [place] [phone] Feb, Low back pain M54.5 [facility] [address] [id number] [address] [place] [address] Jan, Low back pain M54.5 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, 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 [facility] [address] [id number] [address] [place] [phone] Jan, Low back pain M54.5 [facility] [address] [id number] [address] [place] [address] Jan, [facility] [address] [id number] [address] [place] [id number] 16 Dec, 2015 Low back pain M54.5 [facility] [address] [id number] [address] [place] [address] Dec, [facility] [address] [id number] [address] [place] [id number] 27 Oct, 2015 [facility] [address] [id number] [address] [place] [id number] 26 Oct, 2015 Low back pain M54.5 ; Essent ial hypertension I10 and Neuropathy G62.9 [facility] [address] [id number] [address] [place] [phone] Oct, [facility] [address] [id number] [address] [place] [phone] Sep, [facility] [address] [id number] [address] [place] [address] Sep, [facility] [address] [id number] [address] [place] [address] Aug, Mixed hyperlipidemia E78.2 ; Essential hypertension I10 and Chronic obstructive pulmonary disease, unspecified COPD type J44.9 [facility] [address] [id number] [address] [place] [id number] 08 Aug, 2015 Low back pain M54.5 ; Mixed hyperlipidemia E78.2 ; Essential hypertension I10 and Chronic obstructive pulmonary disease, unspecified COPD type J44.9 [facility] [address] [id number] [address] [place] [id number] Jul, Low back pain M54.5 ; Essent ial hypertension I10 and Mixed hyperlipidemia E78.2 [facility] [address] [id number] [address] [place] [id number] Jul, IMMUNIZATIONS No Known Immunizations SOCIAL HISTORY Never Assessed REASON FOR VISIT Oxycodone 12/10 PLAN OF CARE VITAL SIGNS MEDICATIONS Medication [...]
--- OUTSIDE RECORDS SUMMARY | 2019-06-28 20:41 | XMS REPORT ---
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 Name Role Phone JESSICA GUILLEN Unavailable PROBLEMS Type Condition ICD9-CM Code FNS75-YB Code Onset Dates Condition S tatus SNOMED Code Problem Mixed hyperlipidemia E78.2 Active 303537938 Problem Neuropathy G62.9 Active 961759531 Problem Chronic obstructive pulmonary disease, unspecified COPD ty pe J44.9 Active 24736376 Problem Essential hypertension I10 Active 05513749 Problem Low back pain M54.5 Active 308757 009 Problem Bronchitis J40 Active 47675419 Problem BMI 45.0-49.9, adult Z68.42 Active 827671933 Problem Prostatism N40.0 Active 78900226 Problem Vitamin D deficiency E55.9 Active 97116236 Problem Reactive depression F32.9 Active 71017868 Problem BPH loc w urin obs/LUTS N40.1 Active 683368432 ALLERGIES Substance Reaction Event Type Date Status Lyrica swelling Drug Allergy Apr, Active Lisinopril cough Drug Allergy Apr, Active ENCOUNTERS Encounter Location Date Diagnosis [place] [address] [facility] [id number] [address] [place] [address] Sep, [place] [address] [place] [id number] [address] [place] [address] Aug, Essential hypertension I10 ; Low back pain M54.5 ; longterm (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 of opiate analgesic Z79.891 ; Chronic obstructive pulmonary disease, unspecified COPD type J44.9 and Mixed hyperlipidemia E78.2 [facility] [address] [facility] [id number] [address] [place] [address] Aug, Low back pain M54.5 ; 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 ; Essential hypertension I10 ; Chronic obstructive pulmonary disease, unspecified COPD type J44.9 and Mixed hyperlipidemia E78.2 [place] [id number] [facility] [id number] [address] [place] [address] Aug, Low back pain M54.5 [place] [address] [facility] [id number] [address] [place] [address] Jul, Medicare annual wellness vis it, initial Z00.00 ; Mixed hyperlipidemia E78.2 ; Essential hypertension I10 ; Chronic obstructive pulmonary disease, unspecified COPD type J44.9 ; Neuropathy G62.9 ; BPH loc w urin obs/LUTS N40.1 and Reactive depression F32.9 [place] [address] [facility] [id number] [address] [place] [address] Jul, Onychomycosis B35.1 [place] [address] [place] [id number] [address] [place] [address] Jul, Low back pain M54.5 [place] [address] [place] [id number] [address] [place] [address] June, Low back pain M54.5 [place] [address] [place] [id number] [address] [place] [id number] May, [place] [address] [place] [id number] [address] [place] [address] May, Bronchitis J40 and BMI 45.0- 49.9, adult Z68.42 [place] [address] [place] [id number] [address] [place] [address] May, Low back pain M54.5 [place] [address] [facility] [id number] [address] [place] [address] Apr, [place] [address] [place] [id number] [address] [place] [address] Apr, Low back pain M54.5 ; Essent ial hypertension I10 ; Chronic obstructive pulmonary disease, unspecified COPD type J44.9 and Dyspnea on exertion R06.09 [place] [address] [id number] [address] [place] [address] 15 Apr, 2017 Onychomycosis B35.1 and Call us of foot L84 [facility] [address] [id number] [address] [place] [address] 13 Apr, 2017 Low back pain M54.5 [facility] [address] [id number] [address] [place] [address] 12 Mar, 2017 Low back pain M54.5 [facility] [address] [id number] [address] [place] [address] Mar, [facility] [address] [id number] [address] [place] [phone] Feb, [facility] [address] [id number] [address] [place] [id number] Feb, [facility] [address] [id number] [address] [place] [address] Feb, [facility] [address] [id number] [address] [place] [address] Feb, Low back pain M54.5 [facility] [address] [id number] [address] [place] [address] Jan, [facility] [address] [id number] [address] [place] [address] Jan, Low back pain M54.5 [facility] [address] [id number] [address] [place] [address] Dec, Low back pain M54.5 [facility] [address] [id number] [address] [place] [address] Dec, [facility] [address] [facility] [id number] [address] [place] [id number] 27 Nov, 2016 Low back pain M54.5 ; Encoun ter for immunization Z23 ; Essential hypertension I10 ; Reactive depression F32.9 ; Neuropathy G62.9 and Chronic obstructive pulmonary disease, unspecified COPD type J44.9 [facility] [address] [id number] [address] [place] [address] Nov, Low back pain M54.5 [facility] [address] [id number] [address] [place] [address] Oct, Low back pain M54.5 [facility] [address] [id number] [address] [place] [address] Oct, Low back pain M54.5 [facility] [address] [id number] [address] [place] [address] Oct, [facility] [address] [id number] [address] [place] [address] Sep, [facility] [address] [facility] [id number] [address] [place] [address] Sep, Low back pain M54.5 [facility] [address] [facility] [id number] [address] [place] [address] Sep, BPH loc w urin obs/LUTS N40. 1 [facility] [address] [facility] [id number] [address] [place] [phone] Sep, [facility] [address] [facility] [id number] [address] [place] [address] Sep, Low back pain M54.5 ; Essent ial hypertension I10 ; Mixed hyperlipidemia E78.2 ; Vitamin D deficiency E55.9 ; Prostatism N40.0 and Neuropathy G62.9 [facility] [address] [id number] [address] [place] [address] Aug, Neuropathy G62.9 [facility] [address] [facility] [id number] [address] [place] [address] Aug, Low back pain M54.5 [facility] [address] [facility] [id number] [address] [place] [address] Aug, Low back pain M54.5 [facility] [address] [id number] [address] [place] [address] Jul, [facility] [address] [id number] [address] [place] [address] Jul, [facility] [address] [id number] [address] [place] [address] Jul, [facility] [address] [id number] [address] [place] [id number] Jul, [facility] [address] [id number] [address] [place] [id number] Jul, Neuropathy G62.9 [facility] [address] [id number] [address] [place] [address] Jul, Mixed hyperlipidemia E78.2 [facility] [address] [id number] [address] [place] [address] Jul, Low back pain M54.5 [facility] [address] [id number] [address] [place] [address] Jul, [facility] [address] [id number] [address] [place] [address] June, Low back pain M54.5 [facility] [address] [id number] [address] [place] [address] May, Low back pain M54.5 [facility] [address] [id number] [address] [place] [address] May, Chronic obstructive pulmonar y disease, unspecified COPD type J44.9 [facility] [address] [id number] [address] [place] [phone] Apr, [facility] [address] [id number] [address] [place] [address] Apr, [facility] [address] [id number] [address] [place] [id number] Apr, Low back pain M54.5 [facility] [address] [id number] [address] [place] [address] Apr, Low back pain M54.5 [facility] [address] [id number] [address] [place] [id number] 16 Mar, 2016 Low back pain M54.5 [facility] [address] [id number] [address] [place] [phone] Mar, Low back pain M54.5 [facility] [address] [id number] [address] [place] [address] Mar, [facility] [address] [id number] [address] [place] [phone] Feb, Low back pain M54.5 [facility] [address] [id number] [address] [place] [address] Jan, Low back pain M54.5 and [employer]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, unspecified COPD 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 J44.9 [facility] [address] [id number] [address] [place] [address] Jan, Low back pain M54.5 [facility] [address] [id number] [address] [place] [address] Jan, [facility] [address] [id number] [address] [place] [address] Dec, Low back pain M54.5 [facility] [address] [id number] [address] [place] [address] Dec, [facility] [address] [id number] [address] [place] [address] 27 Oct, 2015 [facility] [address] [id number] [address] [place] [id number] 26 Oct, 2015 Low back pain M54.5 ; Essent ial hypertension I10 and Neuropathy G62.9 [facility] [address] [id number] [address] [place] [phone] Oct, [place] [address] [facility] [id number] [address] [place] [id number] Sep, [place] [address] [facility] [id number] [address] [place] [phone] Sep, [place] [address] [address] [facility] [id number] [address] [place] [phone] Aug, Mixed hyperlipidemia E78.2 ; Essential hypertension I10 and Chronic obstructive pulmonary disease, unspecified COPD type J44.9 [place] [address] [address] [facility] [id number] [address] [place] [phone] 08 Aug, 2015 Low back pain M54.5 ; Mixed hyperlipidemia E78.2 ; Essential hypertension I10 and Chronic obstructive pulmonary disease, unspecified COPD type J44.9 [place] [address] [address] [facility] [id number] [address] [place] [phone] Jul, Low back pain M54.5 ; Essent ial hypertension I10 and Mixed hyperlipidemia E78.2 [place] [address] [address] [facility] [id number] [address] [place] [phone] Jul, IMMUNIZATIONS No Known Immunizations SOCIAL HISTORY Never Assessed REASON FOR VISIT Pain management (chronic)- Keren Verde RN PLAN OF CARE Activity Details Follow Up 3 Months Reason: VITAL SIGNS Height 68 in 2017-05-11 Weight 246 lbs 2017-05-11 Temperature 97.9 degrees Fahrenheit 2017-05-11 Heart Rate 106 bpm 2017-05-11 Respiratory Rate 2017-05-11 BMI 37.40 kg/m2 2017-05-11 Blood pressure systolic 124 mmHg 2017-05-11 Blood pressure diastolic 76 mmHg 2017-05-11 MEDICATIONS Medication Instructions Dosage Frequency Start Date End Date Duration S tatus Flomax 0.4 MG Orally at bedtime 2 capsules Active Crestor 20 mg Orally Once a day 1 tablet 24h Active Ranitidine HCl 300 MG Orally Once a day 1 tablet at bedtime 24h 30 Active Oxycodone HCl 10 mg Orally every 6 hrs 1 tablet as needed 6h Apr, 28 days Active Cymbalta 30 MG Orally Once a day 2 capsules 24h Nov, Active ProAir HFA 108 (90 Base) MCG/ACT Inhalation every 4 hrs 2 puffs as needed 4h 23 Jan, 2016 Active Amlodipine Besylate 10 mg Orally Once a day 1 tablet 24h 30 Active Nexium 40 MG TAKE ONE CAPSULE BY MOUTH ONCE DAILY 30 Active RESULTS No Results PROCEDURES Procedure Date Ordered Result Body Site [facility] VISIT ESTABLISHED PATIENT May 11, 2017 INSTRUCTIONS MEDICATIONS ADMINISTERED No Known Medications [...]
--- OUTSIDE RECORDS SUMMARY | 2019-06-28 20:41 | XMS REPORT ---
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 Name Role Phone JESSICA GUILLEN Unavailable PROBLEMS Type Condition ICD9-CM Code YXY45-NP Code Onset Dates Condition S tatus SNOMED Code Problem Mixed hyperlipidemia E78.2 Active 316391173 Problem Neuropathy G62.9 Active 419258791 Problem Chronic obstructive pulmonary disease, unspecified COPD ty pe J44.9 Active 52695037 Problem Essential hypertension I10 Active 55821491 Problem Low back pain M54.5 Active 791992 009 Problem Bronchitis J40 Active 73311581 Problem BMI 45.0-49.9, adult Z68.42 Active 570850780 Problem Prostatism N40.0 Active 53458362 Problem Vitamin D deficiency E55.9 Active 43128996 Problem Reactive depression F32.9 Active 98498446 Problem BPH loc w urin obs/LUTS N40.1 Active [id number] ALLERGIES No Information ENCOUNTERS Encounter Location Date Diagnosis [place] [address] [place] [id number] [place] [phone] Sep, [place] [id number] [place] [phone] Aug, [place] [address] [place] [id number] [place] [phone] Aug, Low back pain M54.5 [place] [address] [place] [id number] [place] [phone] Jul, Medicare annual wellness vis it, initial Z00.00 ; Mixed hyperlipidemia E78.2 ; Essential hypertension I10 ; Chronic obstructive pulmonary disease, unspecified COPD type J44.9 ; Neuropathy G62.9 ; BPH loc w urin obs/LUTS N40.1 and Reactive depression F32.9 [facility] [address] [id number] [address] [place] [phone] 18 Jul, 2017 Onychomycosis B35.1 [facility] [address] [id number] [address] [place] [phone] Jul, Low back pain M54.5 [facility] [address] [facility] [id number] [address] [place] [phone] June, Low back pain M54.5 [facility] [address] [facility] [id number] [address] [place] [phone] May, [place] [address] [address] [facility] [id number] [address] [place] [phone] May, Bronchitis J40 and BMI 45.0- 49.9, adult Z68.42 [place] [address] [facility] [id number] [address] [place] [phone] May, Low back pain M54.5 [place] [id number] [facility] [id number] [address] [place] [phone] Apr, [place] [address] [facility] [id number] [address] [place] [phone] Apr, Low back pain M54.5 ; Essent ial hypertension I10 ; Chronic obstructive pulmonary disease, unspecified COPD type J44.9 and Dyspnea on exertion R06.09 [place] [address] [address] [facility] [id number] [address] [place] [phone] 15 Apr, 2017 Onychomycosis B35.1 and Call us of foot L84 [place] [address] [address] [facility] [id number] [address] [place] [phone] Apr, Low back pain M54.5 [facility] [address] [facility] [id number] [address] [place] [phone] 12 Mar, 2017 Low back pain M54.5 [facility] [address] [facility] [id number] [address] [place] [phone] Mar, [facility] [address] [id number] [address] [place] [phone] Feb, [facility] [address] [id number] [address] [place] [phone] Feb, [facility] [address] [id number] [address] [place] [phone] Feb, [facility] [address] [id number] [address] [place] [phone] Feb, Low back pain M54.5 [facility] [address] [id number] [address] [place] [phone] Jan, [facility] [address] [id number] [address] [place] [phone] Jan, Low back pain M54.5 [facility] [address] [id number] [address] [place] [phone] Dec, Low back pain M54.5 [facility] [address] [id number] [address] [place] [phone] Dec, [facility] [address] [facility] [id number] [address] [place] [phone] Nov, Low back pain M54.5 ; Encoun ter for immunization Z23 ; Essential hypertension I10 ; Reactive depression F32.9 ; Neuropathy G62.9 and Chronic obstructive pulmonary disease, unspecified COPD type J44.9 [facility] [address] [id number] [address] [place] [phone] Nov, Low back pain M54.5 [facility] [address] [id number] [address] [place] [phone] Oct, Low back pain M54.5 [facility] [address] [facility] [id number] [address] [place] [phone] 21 Oct, 2016 Low back pain M54.5 [facility] [address] [facility] [id number] [address] [place] [phone] Oct, [facility] [address] [id number] [address] [place] [phone] Sep, [facility] [address] [facility] [id number] [address] [place] [phone] Sep, Low back pain M54.5 [facility] [address] [facility] [id number] [address] [place] [phone] Sep, BPH loc w urin obs/LUTS N40. 1 [facility] [address] [facility] [id number] [address] [place] [phone] Sep, [facility] [address] [facility] [id number] [address] [place] [phone] Sep, Low back pain M54.5 ; Essent ial hypertension I10 ; Mixed hyperlipidemia E78.2 ; Vitamin D deficiency E55.9 ; Prostatism N40.0 and Neuropathy G62.9 [facility] [address] [facility] [id number] [address] [place] [phone] Aug, Neuropathy G62.9 [facility] [address] [facility] [id number] [address] [place] [phone] Aug, Low back pain M54.5 [facility] [address] [facility] [id number] [address] [place] [phone] Aug, Low back pain M54.5 [facility] [address] [facility] [id number] [address] [place] [phone] Jul, [facility] [address] [facility] [id number] [address] [place] [phone] Jul, [facility] [address] [facility] [id number] [address] [place] [phone] Jul, [facility] [address] [facility] [id number] [address] [place] [phone] Jul, [facility] [address] [facility] [id number] [address] [place] [phone] Jul, Neuropathy G62.9 [facility] [address] [id number] [address] [place] [phone] Jul, Mixed hyperlipidemia E78.2 [facility] [address] [id number] [address] [place] [phone] Jul, Low back pain M54.5 [facility] [address] [id number] [address] [place] [phone] Jul, [facility] [address] [id number] [address] [place] [phone] June, Low back pain M54.5 [facility] [address] [id number] [address] [place] [phone] May, Low back pain M54.5 [facility] [address] [id number] [address] [place] [phone] May, Chronic obstructive pulmonar y disease, unspecified COPD type J44.9 [facility] [address] [id number] [address] [place] [phone] Apr, [facility] [address] [id number] [address] [place] [phone] Apr, [facility] [address] [id number] [address] [place] [phone] Apr, Low back pain M54.5 [facility] [address] [id number] [address] [place] [phone] Apr, Low back pain M54.5 [facility] [address] [id number] [address] [place] [phone] Mar, Low back pain M54.5 [facility] [address] [id number] [address] [place] [phone] Mar, Low back pain M54.5 [facility] [address] [id number] [address] [place] [phone] Mar, [facility] [address] [id number] [address] [place] [phone] Feb, Low back pain M54.5 [facility] [address] [id number] [address] [place] [phone] Jan, Low back pain M54.5 and 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, 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 [facility] [address] [id number] [address] [place] [phone] Jan, Low back pain M54.5 [facility] [address] [id number] [address] [place] [phone] Jan, [facility] [address] [id number] [address] [place] [phone] Dec, Low back pain M54.5 [facility] [address] [id number] [address] [place] [phone] Dec, [facility] [address] [id number] [address] [place] [phone] Oct, [facility] [address] [id number] [address] [place] [phone] 26 Oct, 2015 Low back pain M54.5 ; Essent ial hypertension I10 and Neuropathy G62.9 [facility] [address] [id number] [address] [place] [phone] 09 Oct, 2015 [facility] [address] [id number] [address] [place] [phone] Sep, [facility] [address] [id number] [address] [place] [phone] Sep, [facility] [address] [id number] [address] [place] [phone] Aug, Mixed hyperlipidemia E78.2 ; Essential hypertension I10 and Chronic obstructive pulmonary disease, unspecified COPD type J44.9 [facility] [address] [id number] [address] [place] [phone] Aug, Low back pain M54.5 ; Mixed hyperlipidemia E78.2 ; Essential hypertension I10 and Chronic obstructive pulmonary disease, unspecified COPD type J44.9 [facility] [address] [facility] [id number] [address] [place] [phone] Jul, Low back pain M54.5 ; Essent ial hypertension I10 and Mixed hyperlipidemia E78.2 [facility] [address] [facility] [id number] [address] [place] [phone] Jul, IMMUNIZATIONS No Known Immunizations SOCIAL HISTORY Never Assessed REASON FOR VISIT Oxycodone 05/04 PLAN OF CARE VITAL SIGNS MEDICATIONS Medication [...]
--- OUTSIDE RECORDS SUMMARY | 2019-06-28 20:41 | XMS REPORT ---
Author Author Mario GUILLEN Organization 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 Name Role Phone JESSICA GUILLEN Unavailable PROBLEMS Type Condition ICD9-CM Code XTG52-HS Code Onset Dates Condition S tatus SNOMED Code Problem Mixed hyperlipidemia E78.2 Active 781430903 Problem Neuropathy G62.9 Active 937780150 Problem Chronic obstructive pulmonary disease, unspecified COPD ty pe J44.9 Active 14471938 Problem Essential hypertension I10 Active 02061275 Problem Low back pain M54.5 Active 892126 009 Problem Bronchitis J40 Active 70206806 Problem BMI 45.0-49.9, adult Z68.42 Active 500952659 Problem Prostatism N40.0 Active 25894954 Problem Vitamin D deficiency E55.9 Active 86687068 Problem Reactive depression F32.9 Active 63433043 Problem BPH loc w urin obs/LUTS N40.1 Active 219025576 ALLERGIES Substance Reaction Event Type Date Status Lyrica swelling Drug Allergy May, Active Lisinopril cough Drug Allergy May, Active ENCOUNTERS Encounter Location Date Diagnosis [place] [address] [facility] [id number] [address] [place] [phone] Sep, [facility] [address] [facility] [id number] [address] [place] [phone] Sep, [facility] [address] [facility] [id number] [address] [place] [address] Aug, Essential hypertension I10 ; Low back pain M54.5 ; USP (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 of opiate analgesic Z79.891 ; Chronic obstructive pulmonary disease, unspecified COPD type J44.9 and Mixed hyperlipidemia E78.2 [facility] [address] [facility] [id number] [address] [place] [phone] Aug, Low back pain M54.5 ; 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 ; Essential hypertension I10 ; Chronic obstructive pulmonary disease, unspecified COPD type J44.9 and Mixed hyperlipidemia E78.2 [place] [address] [place] [id number] [address] [place] [phone] Aug, Low back pain M54.5 [place] [address] [address] Jul, Medicare annual wellness vis it, initial Z00.00 ; Mixed hyperlipidemia E78.2 ; Essential hypertension I10 ; Chronic obstructive pulmonary disease, unspecified COPD type J44.9 ; Neuropathy G62.9 ; BPH loc w urin obs/LUTS N40.1 and Reactive depression F32.9 [place] [address] [place] [id number] [place] [phone] Jul, Onychomycosis B35.1 [place] [address] [address] Jul, Low back pain M54.5 [place] [address] [address] June, Low back pain M54.5 [place] [address] [place] [id number] [address] [place] [phone] May, [place] [address] [address] May, Bronchitis J40 and BMI 45.0- 49.9, adult Z68.42 [place] [address] [place] [id number] [address] [place] [phone] May, Low back pain M54.5 [place] [address] [place] [id number] [address] [place] [phone] Apr, [place] [address] [place] [id number] [address] [place] [phone] Apr, Low back pain M54.5 ; Essent ial hypertension I10 ; Chronic obstructive pulmonary disease, unspecified COPD type J44.9 and Dyspnea on exertion R06.09 [facility] [address] [id number] [address] [place] [phone] 15 Apr, 2017 Onychomycosis B35.1 and Call us of foot L84 [facility] [address] [id number] [address] [place] [phone] 13 Apr, 2017 Low back pain M54.5 [facility] [address] [id number] [address] [place] [phone] 12 Mar, 2017 Low back pain M54.5 [facility] [address] [id number] [address] [place] [phone] Mar, [facility] [address] [id number] [address] [place] [phone] Feb, [facility] [address] [id number] [address] [place] [phone] Feb, [facility] [address] [id number] [address] [place] [phone] Feb, [facility] [address] [id number] [address] [place] [phone] Feb, Low back pain M54.5 [facility] [address] [id number] [address] [place] [phone] 18 Jan, 2017 [facility] [address] [id number] [address] [place] [phone] 14 Jan, 2017 Low back pain M54.5 [facility] [address] [id number] [address] [place] [phone] Dec, Low back pain M54.5 [facility] [address] [id number] [address] [place] [phone] Dec, [facility] [address] [id number] [address] [place] [phone] Nov, Low back pain M54.5 ; Encoun ter for immunization Z23 ; Essential hypertension I10 ; Reactive depression F32.9 ; Neuropathy G62.9 and Chronic obstructive pulmonary disease, unspecified COPD type J44.9 [facility] [address] [id number] Nov, Low back pain M54.5 [facility] [address] [address] Oct, Low back pain M54.5 [facility] [address] [address] Oct, Low back pain M54.5 [place] [address] [address] Oct, [place] [address] [address] Sep, [place] [address] [address] Sep, Low back pain M54.5 [place] [address] [address] Sep, BPH loc w urin obs/LUTS N40. 1 [place] [address] [address] Sep, [place] [address] [address] Sep, Low back pain M54.5 ; Essent ial hypertension I10 ; Mixed hyperlipidemia E78.2 ; Vitamin D deficiency E55.9 ; Prostatism N40.0 and Neuropathy G62.9 [place] [address] [address] Aug, Neuropathy G62.9 [place] [address] [address] Aug, Low back pain M54.5 [place] [address] [place] [id number] [address] [place] [phone] Aug, Low back pain M54.5 [facility] [address] [id number] [address] [place] [phone] Jul, [facility] [address] [id number] [address] [place] [phone] Jul, [facility] [address] [id number] [address] [place] [phone] Jul, [facility] [address] [id number] [address] [place] [phone] Jul, [facility] [address] [id number] [address] [place] [id number] Jul, Neuropathy G62.9 [facility] [address] [id number] [address] [place] [address] Jul, Mixed hyperlipidemia E78.2 [facility] [address] [id number] [address] [place] [phone] Jul, Low back pain M54.5 [facility] [address] [id number] [address] [place] [phone] Jul, [facility] [address] [id number] [address] [place] [address] June, Low back pain M54.5 [facility] [address] [id number] [address] [place] [phone] May, Low back pain M54.5 [facility] [address] [id number] [address] [place] [phone] May, Chronic obstructive pulmonar y disease, unspecified COPD type J44.9 [facility] [address] [id number] [address] [place] [phone] Apr, [facility] [address] [id number] [address] [place] [phone] Apr, [facility] [address] [id number] [address] [place] [phone] Apr, Low back pain M54.5 [facility] [address] [id number] [address] [place] [phone] Apr, Low back pain M54.5 [facility] [address] [id number] [address] [place] [phone] 16 Mar, 2016 Low back pain M54.5 [facility] [address] [id number] [address] [place] [phone] Mar, Low back pain M54.5 [facility] [address] [id number] [address] [place] [phone] Mar, [facility] [address] [id number] [address] [place] [phone] Feb, Low back pain M54.5 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 [address] [id number] [address] [place] [phone] Jan, Low back pain M54.5 [facility] [address] [id number] [address] [place] [phone] Jan, [facility] [address] [id number] [address] [place] [phone] Dec, Low back pain M54.5 [facility] [address] [id number] [address] [place] [phone] Dec, [facility] [address] [id number] [address] [place] [phone] Oct, [facility] [address] [id number] [address] [place] [phone] 26 Oct, 2015 Low back pain M54.5 ; Essent ial hypertension I10 and Neuropathy G62.9 [place] [address] [facility] [id number] [address] [place] [phone] Oct, [facility] [address] [facility] [id number] [address] [place] [phone] Sep, [facility] [address] [facility] [id number] [address] [place] [phone] Sep, [place] [address] [facility] [id number] [address] [place] [phone] Aug, Mixed hyperlipidemia E78.2 ; Essential hypertension I10 and Chronic obstructive pulmonary disease, unspecified COPD type J44.9 [place] [address] [place] [id number] [place] [phone] 08 Aug, 2015 Low back pain M54.5 ; Mixed hyperlipidemia E78.2 ; Essential hypertension I10 and Chronic obstructive pulmonary disease, unspecified COPD type J44.9 [place] [address] [place] [id number] [address] [place] [phone] 07 Jul, 2015 Low back pain M54.5 ; Essent ial hypertension I10 and Mixed hyperlipidemia E78.2 [place] [address] [place] [id number] [address] [place] [phone] 02 Jul, 2015 IMMUNIZATIONS No Known Immunizations SOCIAL HISTORY Never Assessed REASON FOR VISIT Congestion, cough, green mucous, denies fever x3 days----DBennettRCarolyn PLAN OF CARE Activity Details Follow Up Regular appt Reason: VITAL SIGNS Height 68 in 2017-06-14 Weight 233 lbs 2017-06-14 Temperature 98.1 degrees Fahrenheit 2017-06-14 Heart Rate 68 bpm 2017-06-14 Respiratory Rate 20 2017-06-14 BMI 35.42 kg/m2 2017-06-14 Blood pressure systolic 122 mmHg 2017-06-14 Blood pressure diastolic 78 mmHg 2017-06-14 MEDICATIONS Medication Instructions Dosage Frequency Start Date End Date Duration S link Finasteride 5 MG TAKE ONE TABLET BY MOUTH ONCE DAILY IN THE MORN ING 30 Active Erythromycin Base 500 mg Orally 3 times a day 1 tablet 8h 2 2017 May, 05 days Active Ranitidine HCl 300 MG Orally Once a day 1 tablet at bedtime 24h 30 Active Amlodipine Besylate 10 mg Orally Once a day 1 tablet 24h 30 Active ProAir HFA 108 (90 Base) MCG/ACT Inhalation every 4 hrs 2 puffs as needed 4h Jan, Active Flomax 0.4 MG Orally at bedtime 2 capsules Active Cymbalta 30 MG Orally Once a day 2 capsules 24h 27 Nov, 2016 Active Crestor 20 mg Orally Once a day 1 tablet 24h Active Nexium 40 MG TAKE ONE CAPSULE BY MOUTH ONCE DAILY 30 Active Oxycodone HCl 10 mg Orally every 6 hrs 1 tablet as needed 6h May, 28 days Active RESULTS No Results PROCEDURES Procedure Date Ordered Result Body Site [facility] VISIT ESTABLISHED PATIENT June 14, 2017 INSTRUCTIONS MEDICATIONS ADMINISTERED No Known Medications [...]
--- OUTSIDE RECORDS SUMMARY | 2019-06-28 20:41 | XMS REPORT ---
Author Author Mario GUILLEN Organization 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 Name Role Phone JESSICA GUILLEN Unavailable PROBLEMS Type Condition ICD9-CM Code WUP97-SA Code Onset Dates Condition S tatus SNOMED Code Problem Mixed hyperlipidemia E78.2 Active 676870355 Problem Neuropathy G62.9 Active 230574686 Problem Chronic obstructive pulmonary disease, unspecified COPD ty pe J44.9 Active 15204160 Problem Essential hypertension I10 Active 39902029 Problem Low back pain M54.5 Active 806255 009 Problem Bronchitis J40 Active 25452928 Problem BMI 45.0-49.9, adult Z68.42 Active 659093517 Problem Prostatism N40.0 Active 23342293 Problem Vitamin D deficiency E55.9 Active 71452044 Problem Reactive depression F32.9 Active 72255522 Problem BPH loc w urin obs/LUTS N40.1 Active [id number] ALLERGIES No Information ENCOUNTERS Encounter Location Date Diagnosis [place] [address] [place] [id number] [address] [place] [phone] Sep, [place] [address] [place] [id number] [address] [place] [phone] Aug, Essential hypertension I10 ; Low back pain M54.5 ; FDC (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 of opiate analgesic Z79.891 ; Chronic obstructive pulmonary disease, unspecified COPD type J44.9 and Mixed hyperlipidemia E78.2 [place] [address] [place] [id number] [address] [place] [address] Aug, Low back pain M54.5 ; 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 ; Essential hypertension I10 ; Chronic obstructive pulmonary disease, unspecified COPD type J44.9 and Mixed hyperlipidemia E78.2 [place] [address] [facility] [id number] [address] [place] [phone] Aug, Low back pain M54.5 [place] [address] [place] [id number] [address] [place] [phone] Jul, Medicare annual wellness vis it, initial Z00.00 ; Mixed hyperlipidemia E78.2 ; Essential hypertension I10 ; Chronic obstructive pulmonary disease, unspecified COPD type J44.9 ; Neuropathy G62.9 ; BPH loc w urin obs/LUTS N40.1 and Reactive depression F32.9 [place] [address] [facility] [id number] [address] [place] [phone] Jul, Onychomycosis B35.1 [place] [address] [place] [id number] [place] [phone] Jul, Low back pain M54.5 [place] [address] [place] [id number] [address] [place] [phone] June, Low back pain M54.5 [place] [address] [facility] [id number] [address] [place] [phone] May, [place] [address] [place] [id number] [place] [phone] May, Bronchitis J40 and BMI 45.0- 49.9, adult Z68.42 [place] [address] [place] [id number] [address] [place] [phone] May, Low back pain M54.5 [place] [address] [facility] [id number] [address] [place] [phone] Apr, [place] [address] [facility] [id number] [address] [place] [phone] Apr, Low back pain M54.5 ; Essent ial hypertension I10 ; Chronic obstructive pulmonary disease, unspecified COPD type J44.9 and Dyspnea on exertion R06.09 [place] [address] [facility] [id number] [address] [place] [phone] Apr, Onychomycosis B35.1 and Call us of foot L84 [facility] [address] [id number] [address] [place] [phone] Apr, Low back pain M54.5 [facility] [address] [id number] [address] [place] [phone] Mar, Low back pain M54.5 [facility] [address] [id number] [address] [place] [phone] Mar, [facility] [address] [id number] [address] [place] [phone] Feb, [facility] [address] [id number] [address] [place] [phone] Feb, [facility] [address] [id number] [address] [place] [phone] Feb, [facility] [address] [id number] [address] [place] [phone] Feb, Low back pain M54.5 [facility] [address] [id number] [address] [place] [phone] Jan, [facility] [address] [facility] [id number] [address] [place] [phone] Jan, Low back pain M54.5 [facility] [address] [id number] [address] [place] [phone] Dec, Low back pain M54.5 [facility] [address] [id number] [address] [place] [phone] Dec, [facility] [address] [facility] [id number] [address] [place] [phone] Nov, Low back pain M54.5 ; Encoun ter for immunization Z23 ; Essential hypertension I10 ; Reactive depression F32.9 ; Neuropathy G62.9 and Chronic obstructive pulmonary disease, unspecified COPD type J44.9 [facility] [address] [id number] [address] [place] [phone] Nov, Low back pain M54.5 [facility] [address] [id number] [address] [place] [phone] Oct, Low back pain M54.5 [facility] [address] [facility] [facility] [id number] [address] [place] [phone] Oct, Low back pain M54.5 [facility] [address] [facility] [id number] [address] [place] [phone] Oct, [facility] [address] [facility] [facility] [id number] [address] [place] [phone] Sep, [facility] [address] [facility] [facility] [id number] [address] [place] [phone] Sep, Low back pain M54.5 [facility] [address] [facility] [id number] [address] [place] [phone] Sep, BPH loc w urin obs/LUTS N40. 1 [facility] [address] [facility] [facility] [id number] [address] [place] [phone] Sep, [facility] [address] [facility] [facility] [id number] [address] [place] [phone] Sep, Low back pain M54.5 ; Essent ial hypertension I10 ; Mixed hyperlipidemia E78.2 ; Vitamin D deficiency E55.9 ; Prostatism N40.0 and Neuropathy G62.9 [facility] [address] [facility] [facility] [id number] [address] [place] [phone] Aug, Neuropathy G62.9 [facility] [address] [facility] [facility] [id number] [address] [place] [phone] Aug, Low back pain M54.5 [facility] [address] [facility] [facility] [id number] [address] [place] [phone] Aug, Low back pain M54.5 [facility] [address] [facility] [facility] [id number] [address] [place] [phone] Jul, [facility] [address] [id number] [address] [place] [phone] Jul, [facility] [address] [id number] [address] [place] [phone] Jul, [facility] [address] [id number] [address] [place] [phone] Jul, [facility] [address] [id number] [address] [place] [phone] Jul, Neuropathy G62.9 [facility] [address] [id number] [address] [place] [phone] Jul, Mixed hyperlipidemia E78.2 [facility] [address] [id number] [address] [place] [phone] Jul, Low back pain M54.5 [facility] [address] [id number] [address] [place] [phone] Jul, [facility] [address] [id number] [address] [place] [phone] June, Low back pain M54.5 [facility] [address] [id number] [address] [place] [phone] May, Low back pain M54.5 [facility] [address] [id number] [address] [place] [phone] May, Chronic obstructive pulmonar y disease, unspecified COPD type J44.9 [facility] [address] [id number] [address] [place] [phone] Apr, [facility] [address] [id number] [address] [place] [address] Apr, [facility] [address] [id number] [address] [place] [phone] Apr, Low back pain M54.5 [facility] [address] [id number] [address] [place] [phone] Apr, Low back pain M54.5 [facility] [address] [id number] [address] [place] [phone] 16 Mar, 2016 Low back pain M54.5 [facility] [address] [id number] [address] [place] [phone] 10 Mar, 2016 Low back pain M54.5 [facility] [address] [id number] [address] [place] [phone] Mar, [facility] [address] [id number] [address] [place] [phone] Feb, Low back pain M54.5 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 [address] [id number] [address] [place] [phone] 15 Jan, 2016 Low back pain M54.5 [facility] [address] [id number] [address] [place] [phone] Jan, [facility] [address] [id number] [address] [place] [phone] 16 Dec, 2015 Low back pain M54.5 [facility] [address] [id number] [address] [place] [phone] Dec, [facility] [address] [id number] [address] [place] [phone] 27 Oct, 2015 [facility] [address] [id number] [address] [place] [phone] 26 Oct, 2015 Low back pain M54.5 ; Essent ial hypertension I10 and Neuropathy G62.9 [facility] [address] [id number] [address] [place] [phone] 09 Oct, 2015 [facility] [address] [id number] [address] [place] [phone] Sep, [facility] [address] [facility] [facility] [id number] [address] [place] [phone] Sep, [place] [address] [place] [id number] [address] [place] [phone] Aug, Mixed hyperlipidemia E78.2 ; Essential hypertension I10 and Chronic obstructive pulmonary disease, unspecified COPD type J44.9 [place] [address] [place] [id number] [address] [place] [phone] Aug, Low back pain M54.5 ; Mixed hyperlipidemia E78.2 ; Essential hypertension I10 and Chronic obstructive pulmonary disease, unspecified COPD type J44.9 [place] [address] [place] [id number] [address] [place] [phone] Jul, Low back pain M54.5 ; Essent ial hypertension I10 and Mixed hyperlipidemia E78.2 [place] [address] [facility] [id number] [address] [place] [phone] Jul, IMMUNIZATIONS No Known Immunizations SOCIAL HISTORY Never Assessed REASON FOR VISIT LVM PLAN OF CARE VITAL SIGNS MEDICATIONS Unknown [...]
--- OUTSIDE RECORDS SUMMARY | 2019-06-28 20:41 | XMS REPORT ---
Author Author Mario GUILLEN Organization [facility] Address [address] [place] [address] Care Team Providers Care Pan Washer Hand Name Role Phone JESSICA GUILLEN Unavailable PROBLEMS Type Condition ICD9-CM Code [id number] Code Onset Dates Condition S tatus SNOMED Code Problem Mixed hyperlipidemia E78.2 Active 161531663 Problem Neuropathy G62.9 Active 032702903 Problem Chronic obstructive pulmonary disease, unspecified COPD ty pe J44.9 Active 32556538 Problem Essential hypertension I10 Active 64023652 Problem Low back pain M54.5 Active 217290 009 Problem Bronchitis J40 Active 67714952 Problem BMI 45.0-49.9, adult Z68.42 Active 376140325 Problem Prostatism N40.0 Active 55244858 Problem Vitamin D deficiency E55.9 Active 06444686 Problem Reactive depression F32.9 Active 42585390 Problem BPH loc w urin obs/LUTS N40.1 Active 057877306 ALLERGIES No Information ENCOUNTERS Encounter Location Date Diagnosis [place] [address] [place] [id number] [address] [place] [phone] Sep, [facility] [address] [facility] [id number] [address] [place] [phone] Sep, Low back pain M54.5 [facility] [address] [facility] [id number] [address] [place] [phone] Sep, [facility] [address] [place] [id number] [address] [place] [phone] Aug, Essential hypertension I10 ; Low back pain M54.5 ; 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 ; Chronic obstructive pulmonary disease, unspecified COPD type J44.9 and Mixed hyperlipidemia E78.2 [facility] [address] [facility] [id number] [address] [place] [phone] Aug, Low back pain M54.5 ; 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 ; Essential hypertension I10 ; Chronic obstructive pulmonary disease, unspecified COPD type J44.9 and Mixed hyperlipidemia E78.2 [place] [address] [facility] [id number] [address] [place] [phone] Aug, Low back pain M54.5 [place] [address] [place] [id number] [address] [place] [phone] Jul, Medicare annual wellness vis it, initial Z00.00 ; Mixed hyperlipidemia E78.2 ; Essential hypertension I10 ; Chronic obstructive pulmonary disease, unspecified COPD type J44.9 ; Neuropathy G62.9 ; BPH loc w urin obs/LUTS N40.1 and Reactive depression F32.9 [place] [address] [place] [id number] [address] [place] [phone] Jul, Onychomycosis B35.1 [place] [address] [place] [id number] [place] [id number] Jul, Low back pain M54.5 [place] [address] [place] [id number] [address] [place] [phone] June, Low back pain M54.5 [place] [address] [place] [id number] [address] [place] [phone] May, [place] [address] [place] [id number] [address] [place] [phone] May, Bronchitis J40 and BMI 45.0- 49.9, adult Z68.42 [place] [address] [facility] [id number] [address] [place] [phone] May, Low back pain M54.5 [place] [address] [facility] [id number] [address] [place] [phone] Apr, [place] [address] [place] [id number] [address] [place] [phone] Apr, Low back pain M54.5 ; Essent ial hypertension I10 ; Chronic obstructive pulmonary disease, unspecified COPD type J44.9 and Dyspnea on exertion R06.09 [facility] [address] [id number] [address] [place] [id number] 15 Apr, 2017 Onychomycosis B35.1 and Call us of foot L84 [facility] [address] [id number] [address] [place] [phone] 13 Apr, 2017 Low back pain M54.5 [facility] [address] [id number] [address] [place] [id number] Mar, Low back pain M54.5 [facility] [address] [id number] [address] [place] [phone] Mar, [facility] [address] [id number] [address] [place] [phone] Feb, [facility] [address] [id number] [address] [place] [phone] Feb, [facility] [address] [id number] [address] [place] [phone] Feb, [facility] [address] [id number] [address] [place] [phone] Feb, Low back pain M54.5 [facility] [address] [id number] [address] [place] [phone] Jan, [facility] [address] [id number] [address] [place] [id number] 14 Jan, 2017 Low back pain M54.5 [facility] [address] [id number] [address] [place] [phone] Dec, Low back pain M54.5 [facility] [address] [id number] [address] [place] [phone] Dec, [facility] [address] [id number] [address] [place] [phone] Nov, Low back pain M54.5 ; Encoun ter for immunization Z23 ; Essential hypertension I10 ; Reactive depression F32.9 ; Neuropathy G62.9 and Chronic obstructive pulmonary disease, unspecified COPD type J44.9 [facility] [address] [place] [id number] [address] [place] [phone] Nov, Low back pain M54.5 [facility] [address] [address] Oct, Low back pain M54.5 [facility] [address] [address] Oct, Low back pain M54.5 [place] [address] [address] Oct, [place] [address] [address] Sep, [place] [address] [id number] Sep, Low back pain M54.5 [place] [address] [address] Sep, BPH loc w urin obs/LUTS N40. 1 [place] [address] [address] Sep, [place] [address] [address] Sep, Low back pain M54.5 ; Essent ial hypertension I10 ; Mixed hyperlipidemia E78.2 ; Vitamin D deficiency E55.9 ; Prostatism N40.0 and Neuropathy G62.9 [facility] [address] [place] [id number] [address] [place] [phone] Aug, Neuropathy G62.9 [facility] [address] [place] [id number] [place] [address] Aug, Low back pain M54.5 [facility] [address] [id number] [address] [place] [phone] 07 Aug, 2016 Low back pain M54.5 [facility] [address] [id number] [address] [place] [phone] Jul, [facility] [address] [id number] [address] [place] [phone] Jul, [facility] [address] [id number] [address] [place] [id number] Jul, [facility] [address] [id number] [address] [place] [phone] Jul, [facility] [address] [id number] [address] [place] [phone] Jul, Neuropathy G62.9 [facility] [address] [id number] [address] [place] [id number] Jul, Mixed hyperlipidemia E78.2 [facility] [address] [id number] [address] [place] [phone] Jul, Low back pain M54.5 [facility] [address] [id number] [address] [place] [phone] Jul, [facility] [address] [id number] [address] [place] [phone] June, Low back pain M54.5 [facility] [address] [id number] [address] [place] [id number] May, Low back pain M54.5 [facility] [address] [id number] [address] [place] [phone] May, Chronic obstructive pulmonar y disease, unspecified COPD type J44.9 [facility] [address] [id number] [address] [place] [phone] Apr, [facility] [address] [id number] [address] [place] [phone] Apr, [facility] [address] [id number] [address] [place] [phone] Apr, Low back pain M54.5 [facility] [address] [id number] [address] [place] [phone] Apr, Low back pain M54.5 [facility] [address] [id number] [address] [place] [phone] Mar, Low back pain M54.5 [facility] [address] [id number] [address] [place] [id number] Mar, Low back pain M54.5 [facility] [address] [id number] [address] [place] [phone] Mar, [facility] [address] [id number] [address] [place] [phone] Feb, Low back pain M54.5 [facility] [address] [id number] [address] [place] [id number] Jan, Low back pain M54.5 and 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, 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 [facility] [address] [id number] [address] [place] [id number] Jan, Low back pain M54.5 [facility] [address] [id number] [address] [place] [phone] Jan, [facility] [address] [id number] [address] [place] [id number] 16 Dec, 2015 Low back pain M54.5 [facility] [address] [id number] [address] [place] [phone] Dec, [facility] [address] [id number] [address] [place] [id number] 27 Oct, 2015 [facility] [address] [id number] [address] [place] [id number] 26 Oct, 2015 Low back pain M54.5 ; Essent ial hypertension I10 and Neuropathy G62.9 [facility] [address] [facility] [id number] [address] [place] [phone] Oct, [facility] [address] [facility] [id number] [address] [place] [phone] Sep, [facility] [address] [facility] [id number] [address] [place] [id number] Sep, [place] [address] [id number] Aug, Mixed hyperlipidemia E78.2 ; Essential hypertension I10 and Chronic obstructive pulmonary disease, unspecified COPD type J44.9 [place] [address] [place] [id number] [place] [id number] Aug, Low back pain M54.5 ; Mixed hyperlipidemia E78.2 ; Essential hypertension I10 and Chronic obstructive pulmonary disease, unspecified COPD type J44.9 [place] [address] [place] [id number] [address] [place] [id number] Jul, Low back pain M54.5 ; Essent ial hypertension I10 and Mixed hyperlipidemia E78.2 [place] [id number] [place] [phone] Jul, IMMUNIZATIONS No Known Immunizations SOCIAL HISTORY Never Assessed REASON FOR VISIT Oxycodone 07/08 PLAN OF CARE VITAL SIGNS MEDICATIONS Medication Instructions Dosage Frequency Start Date End Date Duration S tatus Oxycodone HCl 10 mg Orally every 6 hrs 1 tablet as needed 6h June, 28 days Active RESULTS No Results PROCEDURES [...]
--- OUTSIDE RECORDS SUMMARY | 2019-06-28 20:41 | XMS REPORT ---
Author Author Mario GUILLEN Organization [facility] Address [address] [place] [address] Care Team Providers Care Solidworks Designer Name Role Phone JESSICA GUILLEN Unavailable PROBLEMS Type Condition ICD9-CM Code QYE70-XP Code Onset Dates Condition S tatus SNOMED Code Problem Mixed hyperlipidemia E78.2 Active 971301142 Problem Neuropathy G62.9 Active 249136053 Problem Chronic obstructive pulmonary disease, unspecified COPD ty pe J44.9 Active 89800941 Problem Essential hypertension I10 Active 19352445 Problem Low back pain M54.5 Active 499411 009 Problem Bronchitis J40 Active 17235641 Problem BMI 45.0-49.9, adult Z68.42 Active 556196682 Problem Prostatism N40.0 Active 71269176 Problem Vitamin D deficiency E55.9 Active 72999997 Problem Reactive depression F32.9 Active 88135630 Problem BPH loc w urin obs/LUTS N40.1 Active 612983685 ALLERGIES No Information ENCOUNTERS Encounter Location Date Diagnosis [place] [address] [place] [id number] [address] [place] [address] Sep, [place] [address] [place] [address] Sep, [facility] [address] [place] [id number] [address] [place] [id number] Aug, Essential hypertension I10 ; Low back pain M54.5 ; long-term (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 of opiate analgesic Z79.891 ; Chronic obstructive pulmonary disease, unspecified COPD type J44.9 and Mixed hyperlipidemia E78.2 [place] [address] [facility] [id number] [address] [place] [phone] Aug, Low back pain M54.5 ; 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 ; Essential hypertension I10 ; Chronic obstructive pulmonary disease, unspecified COPD type J44.9 and Mixed hyperlipidemia E78.2 [place] [address] [place] [id number] [place] [phone] Aug, Low back pain M54.5 [place] [address] [place] [id number] [address] [place] [address] Jul, Medicare annual wellness vis it, initial Z00.00 ; Mixed hyperlipidemia E78.2 ; Essential hypertension I10 ; Chronic obstructive pulmonary disease, unspecified COPD type J44.9 ; Neuropathy G62.9 ; BPH loc w urin obs/LUTS N40.1 and Reactive depression F32.9 [place] [address] [place] [id number] [place] [phone] Jul, Onychomycosis B35.1 [place] [address] [address] Jul, Low back pain M54.5 [place] [address] [place] [id number] [address] [place] [phone] June, Low back pain M54.5 [place] [address] [address] May, [place] [address] [place] [id number] [place] [phone] May, Bronchitis J40 and BMI 45.0- 49.9, adult Z68.42 [place] [address] [place] [id number] [place] [phone] May, Low back pain M54.5 [place] [address] [place] [id number] [place] [phone] Apr, [place] [address] [place] [id number] [place] [phone] Apr, Low back pain M54.5 ; Essent ial hypertension I10 ; Chronic obstructive pulmonary disease, unspecified COPD type J44.9 and Dyspnea on exertion R06.09 [facility] [address] [id number] [address] [place] [phone] 15 Apr, 2017 Onychomycosis B35.1 and Call us of foot L84 [facility] [address] [id number] [address] [place] [phone] 13 Apr, 2017 Low back pain M54.5 [facility] [address] [id number] [address] [place] [phone] 12 Mar, 2017 Low back pain M54.5 [facility] [address] [id number] [address] [place] [phone] Mar, [facility] [address] [id number] [address] [place] [phone] Feb, [facility] [address] [facility] [id number] [address] [place] [phone] Feb, [facility] [address] [facility] [id number] [address] [place] [phone] Feb, [facility] [address] [id number] [address] [place] [address] Feb, Low back pain M54.5 [facility] [address] [facility] [id number] [address] [place] [phone] 18 Jan, 2017 [facility] [address] [facility] [id number] [address] [place] [phone] 14 Jan, 2017 Low back pain M54.5 [facility] [address] [id number] [address] [place] [address] Dec, Low back pain M54.5 [facility] [address] [facility] [id number] [address] [place] [phone] 10 Dec, 2016 [facility] [address] [facility] [id number] [address] [place] [phone] 27 Nov, 2016 Low back pain M54.5 ; Encoun ter for immunization Z23 ; Essential hypertension I10 ; Reactive depression F32.9 ; Neuropathy G62.9 and Chronic obstructive pulmonary disease, unspecified COPD type J44.9 [facility] [address] [id number] [address] [place] [address] Nov, Low back pain M54.5 [facility] [address] [id number] [address] [place] [address] Oct, Low back pain M54.5 [facility] [address] [id number] [address] [place] [phone] Oct, Low back pain M54.5 [facility] [address] [id number] [address] [place] [phone] Oct, [facility] [address] [id number] [address] [place] [phone] Sep, [facility] [address] [facility] [id number] [address] [place] [phone] Sep, Low back pain M54.5 [facility] [address] [id number] [address] [place] [address] Sep, BPH loc w urin obs/LUTS N40. 1 [facility] [address] [id number] [address] [place] [address] Sep, [facility] [address] [facility] [id number] [address] [place] [phone] Sep, Low back pain M54.5 ; Essent ial hypertension I10 ; Mixed hyperlipidemia E78.2 ; Vitamin D deficiency E55.9 ; Prostatism N40.0 and Neuropathy G62.9 [facility] [address] [id number] [address] [place] [phone] Aug, Neuropathy G62.9 [facility] [address] [facility] [id number] [address] [place] [address] Aug, Low back pain M54.5 [facility] [address] [facility] [id number] [address] [place] [phone] Aug, Low back pain M54.5 [facility] [address] [id number] [address] [place] [phone] Jul, [facility] [address] [id number] [address] [place] [phone] Jul, [facility] [address] [id number] [address] [place] [phone] Jul, [facility] [address] [id number] [address] [place] [id number] Jul, [facility] [address] [id number] [address] [place] [address] Jul, Neuropathy G62.9 [facility] [address] [id number] [address] [place] [address] Jul, Mixed hyperlipidemia E78.2 [facility] [address] [id number] [address] [place] [id number] Jul, Low back pain M54.5 [facility] [address] [id number] [address] [place] [id number] Jul, [facility] [address] [id number] [address] [place] [address] June, Low back pain M54.5 [facility] [address] [id number] [address] [place] [address] May, Low back pain M54.5 [facility] [address] [id number] [address] [place] [id number] May, Chronic obstructive pulmonar y disease, unspecified COPD type J44.9 [facility] [address] [id number] [address] [place] [phone] Apr, [facility] [address] [id number] [address] [place] [address] Apr, [facility] [address] [id number] [address] [place] [address] Apr, Low back pain M54.5 [facility] [address] [id number] [address] [place] [phone] Apr, Low back pain M54.5 [facility] [address] [id number] [address] [place] [address] Mar, Low back pain M54.5 [facility] [address] [id number] [address] [place] [phone] Mar, Low back pain M54.5 [facility] [address] [id number] [address] [place] [address] Mar, [facility] [address] [id number] [address] [place] [address] Feb, Low back pain M54.5 [facility] [address] [id number] [address] [place] [phone] Jan, Low back pain M54.5 and 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, 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.9 [facility] [address] [id number] [address] [place] [phone] Jan, Low back pain M54.5 [facility] [address] [id number] [address] [place] [phone] Jan, [facility] [address] [id number] [address] [place] [phone] Dec, Low back pain M54.5 [facility] [address] [id number] [address] [place] [address] Dec, [facility] [address] [id number] [address] [place] [id number] 27 Oct, 2015 [facility] [address] [id number] [address] [place] [id number] 26 Oct, 2015 Low back pain M54.5 ; Essent ial hypertension I10 and Neuropathy G62.9 [facility] [address] [id number] [address] [place] [phone] Oct, [facility] [address] [facility] [id number] [address] [place] [address] Sep, [facility] [address] [facility] [id number] [address] [place] [phone] Sep, [facility] [address] [facility] [id number] [address] [place] [address] Aug, Mixed hyperlipidemia E78.2 ; Essential hypertension I10 and Chronic obstructive pulmonary disease, unspecified COPD type J44.9 [place] [address] [facility] [id number] [address] [place] [id number] Aug, Low back pain M54.5 ; Mixed hyperlipidemia E78.2 ; Essential hypertension I10 and Chronic obstructive pulmonary disease, unspecified COPD type J44.9 [place] [address] [id number] [address] [place] [id number] Jul, Low back pain M54.5 ; Essent ial hypertension I10 and Mixed hyperlipidemia E78.2 [place] [address] [id number] [address] [place] [id number] Jul, IMMUNIZATIONS No Known Immunizations SOCIAL HISTORY Never Assessed REASON FOR VISIT PLAN OF CARE VITAL SIGNS MEDICATIONS Medication Instructions Dosage Frequency Start Date End Date Duration S tatus Zithromax Z-Livan 250 MG Orally Once a day 2 tablets on the first day, then 1 tablet daily for 4 days 24h May, May, 5 day(s) Acti ve RESULTS No Results PROCEDURES No Known procedures [...]
--- OUTSIDE RECORDS SUMMARY | 2019-06-28 20:42 | XMS REPORT ---
Author Author Mario GUILLEN Organization [employer] Address Unknown Phone Unavailable Care Team Providers Care Care Worker Name Role Phone JESSICA GUILLEN CP Unavailable Allergies No Known Allergies Problems Problem Type Condition Code Onset Dates Condition Statu s Problem Chronic obstructive pulmonary disease, unspecified CREAM GATHERER D type J44.9 Active Problem Low back pain M54.5 Active Problem Neuropathy G62.9 Active Assessment Low back pain M54.5 Active Problem Mixed hyperlipidemia E78.2 Active Problem Essential hypertension I10 Activ e Medications Medication Code System Code Instructions Start Date End Date Status Dosage Oxycodone HCl [facility] [address]-90 10 mg Orally every 6 hrs 1 tablet as needed Results No Known Results Summary Purpose [employer] Submission
--- OUTSIDE RECORDS SUMMARY | 2019-06-28 20:42 | XMS REPORT ---
Author Author Mario GUILLEN Organization [facility] Address [address] [place] [address] Care Team Providers Care Permastone Installer Name Role Phone JESSICA GUILLEN Unavailable PROBLEMS Type Condition ICD9-CM Code [id number] Code Onset Dates Condition S tatus SNOMED Code Problem Mixed hyperlipidemia E78.2 Active 098750571 Problem Neuropathy G62.9 Active 468096120 Problem Chronic obstructive pulmonary disease, unspecified COPD ty pe J44.9 Active 70396022 Problem Essential hypertension I10 Active 81211134 Problem Low back pain M54.5 Active 826319 009 Problem Bronchitis J40 Active 88448021 Problem BMI 45.0-49.9, adult Z68.42 Active 102325009 Problem Prostatism N40.0 Active 00544658 Problem Vitamin D deficiency E55.9 Active 74874401 Problem Reactive depression F32.9 Active 94788859 Problem BPH loc w urin obs/LUTS N40.1 Active 962445121 ALLERGIES No Information ENCOUNTERS Encounter Location Date Diagnosis [place] [address] [place] [id number] [address] [place] [phone] Sep, [place] [address] [place] [id number] [address] [place] [phone] Aug, [place] [address] [place] [id number] [address] [place] [phone] Jul, Medicare annual wellness vis it, initial Z00.00 ; Mixed hyperlipidemia E78.2 ; Essential hypertension I10 ; Chronic obstructive pulmonary disease, unspecified COPD type J44.9 ; Neuropathy G62.9 ; BPH loc w urin obs/LUTS N40.1 and Reactive depression F32.9 [place] [address] [facility] [id number] [address] [place] [phone] Jul, Onychomycosis B35.1 [place] [address] [facility] [id number] [address] [place] [phone] 14 Jul, 2017 Low back pain M54.5 [place] [address] [facility] [id number] [place] [phone] June, Low back pain M54.5 [facility] [address] [place] [id number] [place] [phone] May, [facility] [address] [address] May, Bronchitis J40 and BMI 45.0- 49.9, adult Z68.42 [place] [address] [address] May, Low back pain M54.5 [place] [address] [address] Apr, [place] [address] [address] Apr, Low back pain M54.5 ; Essent ial hypertension I10 ; Chronic obstructive pulmonary disease, unspecified COPD type J44.9 and Dyspnea on exertion R06.09 [place] [address] [place] [id number] [address] [place] [phone] 15 Apr, 2017 Onychomycosis B35.1 and Call us of foot L84 [place] [address] [place] [id number] [address] [place] [phone] 13 Apr, 2017 Low back pain M54.5 [place] [address] [place] [id number] [address] [place] [phone] 12 Mar, 2017 Low back pain M54.5 [place] [address] [place] [id number] [address] [place] [phone] Mar, [facility] [address] [place] [id number] [address] [place] [phone] Feb, [place] [address] [place] [id number] [place] [phone] Feb, [facility] [address] [id number] [address] [place] [phone] Feb, [facility] [address] [id number] [address] [place] [phone] Feb, Low back pain M54.5 [facility] [address] [id number] [address] [place] [phone] Jan, [facility] [address] [id number] [address] [place] [phone] Jan, Low back pain M54.5 [facility] [address] [id number] [address] [place] [phone] Dec, Low back pain M54.5 [facility] [address] [id number] [address] [place] [phone] Dec, [facility] [address] [id number] [address] [place] [phone] Nov, Low back pain M54.5 ; Encoun ter for immunization Z23 ; Essential hypertension I10 ; Reactive depression F32.9 ; Neuropathy G62.9 and Chronic obstructive pulmonary disease, unspecified COPD type J44.9 [facility] [address] [id number] [address] [place] [phone] Nov, Low back pain M54.5 [facility] [address] [id number] [address] [place] [phone] Oct, Low back pain M54.5 [facility] [address] [id number] [address] [place] [phone] Oct, Low back pain M54.5 [facility] [address] [id number] [address] [place] [phone] 13 Oct, 2016 [facility] [address] [id number] [address] [place] [phone] Sep, [facility] [address] [facility] [id number] [address] [place] [phone] Sep, Low back pain M54.5 [facility] [address] [facility] [id number] [address] [place] [phone] Sep, BPH loc w urin obs/LUTS N40. 1 [facility] [address] [facility] [id number] [address] [place] [phone] Sep, [facility] [address] [facility] [id number] [address] [place] [address] Sep, Low back pain M54.5 ; Essent ial hypertension I10 ; Mixed hyperlipidemia E78.2 ; Vitamin D deficiency E55.9 ; Prostatism N40.0 and Neuropathy G62.9 [facility] [address] [facility] [id number] [address] [place] [phone] Aug, Neuropathy G62.9 [facility] [address] [facility] [id number] [address] [place] [address] Aug, Low back pain M54.5 [facility] [address] [facility] [id number] [address] [place] [phone] Aug, Low back pain M54.5 [facility] [address] [facility] [id number] [address] [place] [phone] Jul, [facility] [address] [facility] [id number] [address] [place] [phone] Jul, [facility] [address] [facility] [id number] [address] [place] [phone] Jul, [facility] [address] [facility] [id number] [address] [place] [phone] Jul, [facility] [address] [facility] [id number] [address] [place] [phone] Jul, Neuropathy G62.9 [facility] [address] [facility] [id number] [address] [place] [phone] Jul, Mixed hyperlipidemia E78.2 [facility] [address] [id number] [address] [place] [phone] Jul, Low back pain M54.5 [facility] [address] [id number] [address] [place] [id number] Jul, [facility] [address] [id number] [address] [place] [address] June, Low back pain M54.5 [facility] [address] [id number] [address] [place] [phone] May, Low back pain M54.5 [facility] [address] [id number] [address] [place] [phone] May, Chronic obstructive pulmonar y disease, unspecified COPD type J44.9 [facility] [address] [id number] [address] [place] [phone] Apr, [facility] [address] [id number] [address] [place] [address] Apr, [facility] [address] [id number] [address] [place] [phone] Apr, Low back pain M54.5 [facility] [address] [id number] [address] [place] [phone] Apr, Low back pain M54.5 [facility] [address] [id number] [address] [place] [phone] Mar, Low back pain M54.5 [facility] [address] [id number] [address] [place] [phone] Mar, Low back pain M54.5 [facility] [address] [id number] [address] [place] [phone] Mar, [facility] [address] [id number] [address] [place] [phone] Feb, Low back pain M54.5 [facility] [address] [id number] [address] [place] [phone] Jan, Low back pain M54.5 and 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, 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 [facility] [address] [id number] [address] [place] [phone] Jan, Low back pain M54.5 [facility] [address] [id number] [address] [place] [phone] Jan, [facility] [address] [id number] [address] [place] [phone] Dec, Low back pain M54.5 [facility] [address] [id number] [address] [place] [phone] Dec, [facility] [address] [id number] [address] [place] [phone] Oct, [facility] [address] [id number] [address] [place] [phone] Oct, Low back pain M54.5 ; Essent ial hypertension I10 and Neuropathy G62.9 [facility] [address] [id number] [address] [place] [phone] 09 Oct, 2015 [facility] [address] [id number] [address] [place] [phone] Sep, [facility] [address] [id number] [address] [place] [phone] Sep, [facility] [address] [id number] [address] [place] [phone] Aug, Mixed hyperlipidemia E78.2 ; Essential hypertension I10 and Chronic obstructive pulmonary disease, unspecified COPD type J44.9 [facility] [address] [id number] [address] [place] [phone] 08 Aug, 2015 Low back pain M54.5 ; Mixed hyperlipidemia E78.2 ; Essential hypertension I10 and Chronic obstructive pulmonary disease, unspecified COPD type J44.9 [facility] [address] [facility] [id number] [address] [address] Jul, Low back pain M54.5 ; Essent ial hypertension I10 and Mixed hyperlipidemia E78.2 [facility] [address] [facility] [id number] [address] [address] Jul, IMMUNIZATIONS No Known Immunizations SOCIAL HISTORY Never Assessed REASON FOR VISIT Eye Exam PLAN OF CARE VITAL SIGNS MEDICATIONS Unknown [...]
--- OUTSIDE RECORDS SUMMARY | 2019-06-28 20:42 | XMS REPORT ---
Author Author Mario GUILLEN Organization [facility] Address [address] [place] [address] Care Team Providers Care Emergency Management Coordinator Name Role Phone JESSIAC GUILLEN Unavailable PROBLEMS Type Condition ICD9-CM Code ALT79-AX Code Onset Dates Condition S tatus SNOMED Code Problem Mixed hyperlipidemia E78.2 Active 603764901 Problem Neuropathy G62.9 Active 415238359 Problem Chronic obstructive pulmonary disease, unspecified COPD ty pe J44.9 Active 94250346 Problem Essential hypertension I10 Active 47750047 Problem Low back pain M54.5 Active 835136 009 Problem Bronchitis J40 Active 76349130 Problem BMI 45.0-49.9, adult Z68.42 Active 992327750 Problem Prostatism N40.0 Active 50911166 Problem Vitamin D deficiency E55.9 Active 24080261 Problem Reactive depression F32.9 Active 96929109 Problem BPH loc w urin obs/LUTS N40.1 Active 852414384 ALLERGIES No Information ENCOUNTERS Encounter Location Date Diagnosis [facility] [address] [place] [id number] [address] [place] [phone] Jul, [facility] [address] [place] [id number] [place] [phone] June, Low back pain M54.5 [facility] [address] [facility] [id number] [address] [place] [phone] May, [facility] [address] [place] [id number] [address] [place] [phone] May, Bronchitis J40 and BMI 45.0- 49.9, adult Z68.42 [facility] [address] [facility] [id number] [address] [place] [phone] May, Low back pain M54.5 [facility] [address] [place] [id number] [place] [phone] Apr, [facility] [address] [id number] [address] [place] [phone] Apr, Low back pain M54.5 ; Essent ial hypertension I10 ; Chronic obstructive pulmonary disease, unspecified COPD type J44.9 and Dyspnea on exertion R06.09 [facility] [address] [id number] [address] [place] [phone] 15 Apr, 2017 Onychomycosis B35.1 and Call us of foot L84 [facility] [address] [id number] [address] [place] [phone] Apr, Low back pain M54.5 [facility] [address] [id number] [address] [place] [phone] Mar, Low back pain M54.5 [facility] [address] [id number] [address] [place] [phone] Mar, [facility] [address] [id number] [address] [place] [phone] Feb, [facility] [address] [id number] [address] [place] [phone] Feb, [facility] [address] [id number] [address] [place] [phone] Feb, [facility] [address] [id number] [address] [place] [phone] Feb, Low back pain M54.5 [facility] [address] [id number] [address] [place] [phone] Jan, [facility] [address] [id number] [address] [place] [phone] Jan, Low back pain M54.5 [facility] [address] [id number] [address] [place] [phone] Dec, Low back pain M54.5 [place] [address] [address] Dec, [place] [address] [phone] Nov, Low back pain M54.5 ; Encoun ter for immunization Z23 ; Essential hypertension I10 ; Reactive depression F32.9 ; Neuropathy G62.9 and Chronic obstructive pulmonary disease, unspecified COPD type J44.9 [place] [address] [address] Nov, Low back pain M54.5 [place] [address] [address] Oct, Low back pain M54.5 [place] [address] [address] Oct, Low back pain M54.5 [place] [address] [address] Oct, [place] [address] [address] Sep, [place] [address] [address] Sep, Low back pain M54.5 [place] [address] [address] Sep, BPH loc w urin obs/LUTS N40. 1 [place] [address] [address] Sep, [place] [address] [address] Sep, Low back pain M54.5 ; Essent ial hypertension I10 ; Mixed hyperlipidemia E78.2 ; Vitamin D deficiency E55.9 ; Prostatism N40.0 and Neuropathy G62.9 [place] [address] [address] Aug, Neuropathy G62.9 [facility] [address] [id number] [address] [place] [address] Aug, Low back pain M54.5 [facility] [address] [id number] [address] [place] [phone] Aug, Low back pain M54.5 [facility] [address] [id number] [address] [place] [phone] Jul, [facility] [address] [id number] [address] [place] [phone] Jul, [facility] [address] [id number] [address] [place] [phone] Jul, [facility] [address] [id number] [address] [place] [phone] Jul, [facility] [address] [id number] [address] [place] [phone] Jul, Neuropathy G62.9 [facility] [address] [id number] [address] [place] [phone] Jul, Mixed hyperlipidemia E78.2 [facility] [address] [id number] [address] [place] [phone] Jul, Low back pain M54.5 [facility] [address] [id number] [address] [place] [phone] Jul, [facility] [address] [id number] [address] [place] [phone] June, Low back pain M54.5 [facility] [address] [id number] [address] [place] [phone] May, Low back pain M54.5 [facility] [address] [id number] [address] [place] [phone] May, Chronic obstructive pulmonar y disease, unspecified COPD type J44.9 [facility] [address] [id number] [address] [place] [phone] Apr, [facility] [address] [id number] [address] [place] [phone] Apr, [facility] [address] [id number] [address] [place] [phone] Apr, Low back pain M54.5 [facility] [address] [id number] [address] [place] [phone] Apr, Low back pain M54.5 [facility] [address] [id number] [address] [place] [phone] Mar, Low back pain M54.5 [facility] [address] [id number] [address] [place] [phone] Mar, Low back pain M54.5 [facility] [address] [id number] [address] [place] [id number] Mar, [facility] [address] [id number] [address] [place] [phone] Feb, Low back pain M54.5 [facility] [address] [id number] [address] [place] [phone] Jan, Low back pain M54.5 and 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, 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 [facility] [address] [id number] [address] [place] [phone] Jan, Low back pain M54.5 [facility] [address] [id number] [address] [place] [id number] Jan, [facility] [address] [id number] [address] [place] [phone] Dec, Low back pain M54.5 [facility] [address] [id number] [address] [place] [phone] Dec, [facility] [place] [address] [id number] [address] [place] [phone] Oct, [facility] [place] [address] [facility] [place] 2[place] [id number] [address] [place] [phone] Oct, Low back pain M54.5 ; Essent ial hypertension I10 and Neuropathy G62.9 [facility] [place] [address] [place] [id number] [address] [place] [phone] Oct, [facility] [place] [address] [id number] [address] [place] [phone] Sep, [place] [address] [id number] [place] [phone] Sep, [place] [address] [place] [id number] [place] [phone] Aug, Mixed hyperlipidemia E78.2 ; Essential hypertension I10 and Chronic obstructive pulmonary disease, unspecified COPD type J44.9 [place] [address] [place] [id number] [address] [place] [phone] Aug, Low back pain M54.5 ; Mixed hyperlipidemia E78.2 ; Essential hypertension I10 and Chronic obstructive pulmonary disease, unspecified COPD type J44.9 [place] [address] [place] [id number] [place] [phone] Jul, Low back pain M54.5 ; Essent ial hypertension I10 and Mixed hyperlipidemia E78.2 [place] [address] [place] [id number] [address] [place] [phone] Jul, IMMUNIZATIONS No Known Immunizations SOCIAL HISTORY Never Assessed REASON FOR VISIT Oxycodone 02/09 PLAN OF CARE VITAL SIGNS MEDICATIONS Medication [...]
--- OUTSIDE RECORDS SUMMARY | 2019-06-28 20:42 | XMS REPORT ---
Author Author Mario GUILLEN Organization [facility] Address [address] [place] [address] Care Team Providers Care Coat Check Attendant Name Role Phone JESSICA GUILLEN Unavailable PROBLEMS Type Condition ICD9-CM Code [id number] Code Onset Dates Condition S tatus SNOMED Code Problem Mixed hyperlipidemia E78.2 Active 608353221 Problem Essential hypertension I10 Active 78198749 Problem BPH loc w urin obs/LUTS N40.1 Active 777892378 Problem Vitamin D deficiency E55.9 Active 72407708 Problem Chronic obstructive pulmonary disease, unspecified COPD ty pe J44.9 Active 55140245 Problem Low back pain M54.5 Active 283170 009 Problem Prostatism N40.0 Active 88084199 Problem Neuropathy G62.9 Active 736048321 ALLERGIES Unknown Allergies SOCIAL HISTORY No smoking Hx information available PLAN OF CARE VITAL SIGNS MEDICATIONS Medication Instructions Dosage Frequency Start Date End Date Duration S tatus Oxycodone HCl 10 mg Orally every 6 hrs 1 tablet as needed 6h Jan Active RESULTS No Results PROCEDURES No Known procedures IMMUNIZATIONS No Known Immunizations
--- OUTSIDE RECORDS SUMMARY | 2019-06-28 20:42 | XMS REPORT ---
Author Author Mario GUILLEN Organization [facility] Address [address] [place] [address] Care Team Providers Care Checkout Supervisor Name Role Phone JESSICA GUILLEN Unavailable PROBLEMS Type Condition ICD9-CM Code [id number]-[id number] Code Onset Dates Condition S tatus SNOMED Code Problem Low back pain M54.5 Active 488142 009 Problem Essential hypertension I10 Active 21536286 Problem Mixed hyperlipidemia E78.2 Active 835688396 Problem Reactive depression F32.9 Active 34403054 Problem BPH loc w urin obs/LUTS N40.1 Active 270210813 Problem Neuropathy G62.9 Active 633756891 Problem Chronic obstructive pulmonary disease, unspecified COPD ty pe J44.9 Active 09969244 Problem Prostatism N40.0 Active 75953028 Problem Vitamin D deficiency E55.9 Active 80835631 ALLERGIES No Information SOCIAL HISTORY Never Assessed PLAN OF CARE VITAL SIGNS MEDICATIONS Medication Instructions Dosage Frequency Start Date End Date Duration S tatus Oxycodone HCl 10 mg Orally every 6 hrs 1 tablet as needed 6h June, 28 days Active RESULTS No Results PROCEDURES No Known procedures IMMUNIZATIONS No Known Immunizations MEDICAL (GENERAL) HISTORY Type Description Date Medical [...]
--- OUTSIDE RECORDS SUMMARY | 2019-06-28 20:42 | XMS REPORT ---
Author Author Mario GUILLEN Organization [facility] Address [address] [place] [address] Care Team Providers Care Alteration Inspector Name Role Phone JESSICA GUILLEN Unavailable PROBLEMS Type Condition ICD9-CM Code [id number] Code Onset Dates Condition S tatus SNOMED Code Problem Mixed hyperlipidemia E78.2 Active 676998355 Problem Neuropathy G62.9 Active 407550931 Problem Chronic obstructive pulmonary disease, unspecified COPD ty pe J44.9 Active 20487564 Problem Essential hypertension I10 Active 69959282 Problem Low back pain M54.5 Active 741418 009 Problem Bronchitis J40 Active 53125066 Problem BMI 45.0-49.9, adult Z68.42 Active 878495258 Problem Prostatism N40.0 Active 92508617 Problem Vitamin D deficiency E55.9 Active 41508947 Problem Reactive depression F32.9 Active 90861491 Problem BPH loc w urin obs/LUTS N40.1 Active 563666500 ALLERGIES No Information ENCOUNTERS Encounter Location Date Diagnosis [facility] [address] [facility] [id number] [address] [place] [phone] Sep, [place] [id number] [facility] [id number] [address] [place] [phone] Jul, Onychomycosis B35.1 [facility] [address] [facility] [id number] [address] [place] [phone] 14 Jul, 2017 Low back pain M54.5 [facility] [address] [facility] [id number] [address] [place] [phone] June, Low back pain M54.5 [facility] [address] [facility] [id number] [address] [place] [phone] May, [facility] [address] [facility] [id number] [address] [place] [phone] May, Bronchitis J40 and BMI 45.0- 49.9, adult Z68.42 [facility] [address] [facility] [id number] [address] [place] [phone] May, Low back pain M54.5 [facility] [address] [facility] [id number] [address] [place] [phone] Apr, [facility] [address] [place] [id number] [address] [place] [phone] Apr, Low back pain M54.5 ; Essent ial hypertension I10 ; Chronic obstructive pulmonary disease, unspecified COPD type J44.9 and Dyspnea on exertion R06.09 [facility] [address] [facility] [id number] [address] [place] [phone] 15 Apr, 2017 Onychomycosis B35.1 and Call us of foot L84 [facility] [address] [facility] [id number] [address] [place] [phone] Apr, Low back pain M54.5 [facility] [address] [facility] [id number] [address] [place] [phone] Mar, Low back pain M54.5 [facility] [address] [facility] [id number] [address] [place] [phone] Mar, [facility] [address] [facility] [id number] [address] [place] [phone] Feb, [facility] [address] [facility] [id number] [address] [place] [phone] Feb, [facility] [address] [id number] [address] [place] [phone] Feb, [facility] [address] [facility] [id number] [address] [place] [phone] Feb, Low back pain M54.5 [facility] [address] [facility] [id number] [address] [place] [phone] Jan, [facility] [address] [id number] [address] [place] [phone] Jan, Low back pain M54.5 [facility] [address] [id number] [address] [place] [phone] Dec, Low back pain M54.5 [facility] [address] [facility] [id number] [address] [place] [phone] Dec, [facility] [address] [facility] [id number] [address] [place] [phone] Nov, Low back pain M54.5 ; Encoun ter for immunization Z23 ; Essential hypertension I10 ; Reactive depression F32.9 ; Neuropathy G62.9 and Chronic obstructive pulmonary disease, unspecified COPD type J44.9 [facility] [address] [id number] [address] [place] [phone] Nov, Low back pain M54.5 [facility] [address] [id number] [address] [place] [phone] 22 Oct, 2016 Low back pain M54.5 [facility] [address] [id number] [address] [place] [phone] Oct, Low back pain M54.5 [facility] [address] [facility] [id number] [address] [place] [phone] Oct, [facility] [address] [facility] [id number] [address] [place] [phone] Sep, [facility] [address] [id number] [address] [place] [phone] Sep, Low back pain M54.5 [facility] [address] [facility] [id number] [address] [place] [phone] Sep, BPH loc w urin obs/LUTS N40. 1 [facility] [address] [id number] [address] [place] [phone] Sep, [facility] [address] [facility] [id number] [address] [place] [phone] Sep, Low back pain M54.5 ; Essent ial hypertension I10 ; Mixed hyperlipidemia E78.2 ; Vitamin D deficiency E55.9 ; Prostatism N40.0 and Neuropathy G62.9 [facility] [address] [id number] [address] [place] [phone] Aug, Neuropathy G62.9 [facility] [address] [id number] [address] [place] [phone] Aug, Low back pain M54.5 [facility] [address] [id number] [address] [place] [phone] Aug, Low back pain M54.5 [facility] [address] [id number] [address] [place] [phone] Jul, [facility] [address] [id number] [address] [place] [phone] Jul, [facility] [address] [id number] [address] [place] [phone] Jul, [facility] [address] [id number] [address] [place] [phone] Jul, [facility] [address] [id number] [address] [place] [phone] Jul, Neuropathy G62.9 [facility] [address] [id number] [address] [place] [phone] Jul, Mixed hyperlipidemia E78.2 [facility] [address] [id number] [address] [place] [phone] Jul, Low back pain M54.5 [facility] [address] [id number] [address] [place] [phone] Jul, [facility] [address] [id number] [address] [place] [phone] June, Low back pain M54.5 [facility] [address] [id number] [address] [place] [phone] May, Low back pain M54.5 [facility] [address] [id number] [address] [place] [phone] May, Chronic obstructive pulmonar y disease, unspecified COPD type J44.9 [facility] [address] [id number] [address] [place] [phone] Apr, [facility] [address] [id number] [address] [place] [phone] Apr, [facility] [address] [id number] [address] [place] [phone] Apr, Low back pain M54.5 [facility] [address] [id number] [address] [place] [phone] Apr, Low back pain M54.5 [facility] [address] [id number] [address] [place] [phone] 16 Mar, 2016 Low back pain M54.5 [facility] [address] [id number] [address] [place] [phone] Mar, Low back pain M54.5 [facility] [address] [id number] [address] [place] [phone] Mar, [facility] [address] [id number] [address] [place] [phone] Feb, Low back pain M54.5 [facility] [address] [id number] [address] [place] [phone] Jan, Low back pain M54.5 and [place] Former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, unspecified COPD type J44.9 [facility] [address] [id number] [address] [place] [phone] Jan, Low back pain M54.5 [facility] [address] [id number] [address] [place] [phone] Jan, [facility] [address] [id number] [address] [place] [phone] 16 Dec, 2015 Low back pain M54.5 [facility] [address] [id number] [address] [place] [phone] Dec, [facility] [address] [facility] [id number] [address] [place] [phone] Oct, [facility] [address] [id number] [address] [place] [phone] Oct, Low back pain M54.5 ; Essent ial hypertension I10 and Neuropathy G62.9 [place] [address] [facility] [id number] [address] [place] [phone] 09 Oct, 2015 [facility] [address] [facility] [id number] [address] [place] [phone] Sep, [place] [address] [facility] [id number] [address] [place] [phone] Sep, [facility] [address] [facility] [id number] [address] [place] [phone] Aug, Mixed hyperlipidemia E78.2 ; Essential hypertension I10 and Chronic obstructive pulmonary disease, unspecified COPD type J44.9 [place] [address] [facility] [id number] [address] [place] [phone] 08 Aug, 2015 Low back pain M54.5 ; Mixed hyperlipidemia E78.2 ; Essential hypertension I10 and Chronic obstructive pulmonary disease, unspecified COPD type J44.9 [facility] [address] [facility] [id number] [address] [place] [phone] Jul, Low back pain M54.5 ; Essent ial hypertension I10 and Mixed hyperlipidemia E78.2 [place] [address] [facility] [id number] [address] [place] [phone] 02 Jul, 2015 IMMUNIZATIONS No Known Immunizations SOCIAL HISTORY Never Assessed REASON FOR VISIT Oxycodone 03/09 PLAN OF CARE VITAL SIGNS MEDICATIONS Medication Instructions Dosage Frequency Start Date End Date Duration S vitorus Oxycodone HCl 10 mg Orally every 6 hrs 1 tablet as needed 6h Feb, 28 days Active RESULTS No Results PROCEDURES [...]
--- OUTSIDE RECORDS SUMMARY | 2019-06-28 20:42 | XMS REPORT ---
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
--- OUTSIDE RECORDS SUMMARY | 2019-06-28 20:42 | XMS REPORT ---
Author Author Mario GUILLEN Organization [facility] Address [address] [place] [address] Care Team Providers Care Burning Supervisor Name Role Phone JESSICA GUILLEN Unavailable PROBLEMS Type Condition ICD9-CM Code [id number] Code Onset Dates Condition S tatus SNOMED Code Problem Mixed hyperlipidemia E78.2 Active 639363229 Problem Essential hypertension I10 Active 35210635 Problem BPH loc w urin obs/LUTS N40.1 Active 256427414 Problem Vitamin D deficiency E55.9 Active 23267687 Problem Chronic obstructive pulmonary disease, unspecified COPD ty pe J44.9 Active 34025280 Problem Low back pain M54.5 Active 854075 009 Problem Prostatism N40.0 Active 92664747 Problem Neuropathy G62.9 Active 765989820 ALLERGIES Substance Reaction Event Type Date Status Lyrica swelling Drug Allergy Jan, Active Lisinopril cough Drug Allergy Jan, Active SOCIAL HISTORY No smoking Hx information available PLAN OF CARE Activity Details Follow Up 3 Months Reason: VITAL SIGNS Height 67 in 2016-02-14 Weight 236.6 lbs 2016-02-14 Temperature 98.3 degrees Fahrenheit 2016-02-14 Heart Rate 92 bpm 2016-02-14 Respiratory Rate 24 2016-02-14 BMI 37.05 kg/m2 2016-02-14 Blood pressure systolic 122 mmHg 2016-02-14 Blood pressure diastolic 82 mmHg 2016-02-14 MEDICATIONS Medication Instructions Dosage Frequency Start Date End Date Duration S tatus Flomax 0.4 MG Orally Once a day 1 tablet 24h Active Amlodipine Besylate 10 mg Orally Once a day 1 tablet 24h Active ProAir HFA 108 (90 Base) MCG/ACT Inhalation every 4 hrs 2 puffs as needed 4h Jan, Active Lyrica 50 mg Orally Three times a day 1 capsule 8h Oct, Active Ranitidine HCl 300 MG Orally Once a day 1 tablet at bedtime 24h Active Nexium 40 mg Orally Once a day 1 capsule 24h 30 Active Oxycodone HCl 10 mg Orally every 6 hrs 1 tablet as needed 6h 19 Jan Active Breo Ellipta 100-25 MCG/INH Inhalation Once a day 1 puff 24h Active Crestor 20 mg Orally Once a day 1 tablet 24h Active Fluoxetine HCl 40 mg Orally Once a day 1 capsule 24h 30 Active RESULTS No Results PROCEDURES Procedure Date Ordered Related Diagnosis Body Site [facility] VISIT ESTABLISHED PATIENT Feb 14, 2016 Office Visit, Est Pt., Level 3 Feb 14, 2016 IMMUNIZATIONS No Known Immunizations
--- OUTSIDE RECORDS SUMMARY | 2019-06-28 20:42 | XMS REPORT ---
Author Author Mario GUILLEN Organization [facility] Address [address] [place] [address] Care Team Providers Care Tire Groover Name Role Phone JESSICA GUILLEN Unavailable PROBLEMS Type Condition ICD9-CM Code [id number] Code Onset Dates Condition S tatus SNOMED Code Problem Mixed hyperlipidemia E78.2 Active 361655639 Problem Low back pain M54.5 Active 112053 009 Problem BPH loc w urin obs/LUTS N40.1 Active 925397079 Problem Prostatism N40.0 Active 09116794 Problem Chronic obstructive pulmonary disease, unspecified COPD ty pe J44.9 Active 43606569 Problem Essential hypertension I10 Active 99910549 Problem Vitamin D deficiency E55.9 Active 99992820 Problem Neuropathy G62.9 Active 999880766 ALLERGIES No Information SOCIAL HISTORY Never Assessed PLAN OF CARE VITAL SIGNS MEDICATIONS Medication Instructions Dosage Frequency Start Date End Date Duration S tatus Oxycodone HCl 10 mg Orally every 6 hrs 1 tablet as needed 6h Mar Active RESULTS No Results PROCEDURES No Known [...]
--- OUTSIDE RECORDS SUMMARY | 2019-06-28 20:42 | XMS REPORT ---
Author Author Mario GUILLEN Organization [facility] Address [address] [place] [address] Care Team Providers Care City Supervisor Name Role Phone JESSICA GUILLEN Unavailable PROBLEMS Type Condition ICD9-CM Code WIA35-OF Code Onset Dates Condition S tatus SNOMED Code Problem Low back pain M54.5 Active 556459 009 Problem Essential hypertension I10 Active 12641382 Problem Mixed hyperlipidemia E78.2 Active 867765044 Problem Reactive depression F32.9 Active 57883620 Problem BPH loc w urin obs/LUTS N40.1 Active 922649522 Problem Neuropathy G62.9 Active 253449266 Problem Chronic obstructive pulmonary disease, unspecified COPD ty pe J44.9 Active 79155857 Problem Prostatism N40.0 Active 89419481 Problem Vitamin D deficiency E55.9 Active 45777640 ALLERGIES No Information ENCOUNTERS Encounter Location Date Diagnosis [place] [address] [address] May, [facility] [address] [place] [id number] [address] [place] [address] Apr, [place] [address] [place] [id number] [address] [place] [phone] 20 Apr, 2017 Low back pain M54.5 ; Essent ial hypertension I10 ; Chronic obstructive pulmonary disease, unspecified COPD type J44.9 and Dyspnea on exertion R06.09 [place] [address] [place] [id number] [address] [place] [address] 15 Apr, 2017 Onychomycosis B35.1 and Call us of foot L84 [facility] [address] [place] [id number] [address] [place] [phone] 13 Apr, 2017 Low back pain M54.5 [place] [address] [place] [id number] [address] [place] [phone] Mar, Low back pain M54.5 [facility] [address] [id number] [address] [place] [phone] Mar, [facility] [address] [id number] [address] [place] [address] Feb, [facility] [address] [id number] [address] [place] [phone] Feb, [facility] [address] [id number] [address] [place] [phone] Feb, [facility] [address] [id number] [address] [place] [address] Feb, Low back pain M54.5 [facility] [address] [id number] [address] [place] [phone] Jan, [facility] [address] [id number] [address] [place] [phone] Jan, Low back pain M54.5 [facility] [address] [id number] [address] [place] [phone] Dec, Low back pain M54.5 [facility] [address] [id number] [address] [place] [address] Dec, [facility] [address] [id number] [address] [place] [address] Nov, Low back pain M54.5 ; Encoun ter for immunization Z23 ; Essential hypertension I10 ; Reactive depression F32.9 ; Neuropathy G62.9 and Chronic obstructive pulmonary disease, unspecified COPD type J44.9 [facility] [address] [id number] [address] [place] [address] Nov, Low back pain M54.5 [facility] [address] [id number] [address] [place] [address] Oct, Low back pain M54.5 [facility] [address] [id number] [address] [place] [address] Oct, Low back pain M54.5 [facility] [address] [id number] [address] [place] [phone] Oct, [facility] [address] [facility] [place] [id number] [address] [place] [address] Sep, [facility] [address] [facility] [id number] [address] [place] [phone] Sep, Low back pain M54.5 [facility] [address] [facility] [id number] [address] [place] [address] Sep, BPH loc w urin obs/LUTS N40. 1 [facility] [address] [facility] [id number] [address] [place] [address] Sep, [facility] [address] [facility] [id number] [address] [place] [address] Sep, Low back pain M54.5 ; Essent ial hypertension I10 ; Mixed hyperlipidemia E78.2 ; Vitamin D deficiency E55.9 ; Prostatism N40.[address] [facility] [address] [facility] [id number] [address] [place] [address] Aug, Neuropathy G62.9 [facility] [address] [facility] [id number] [address] [place] [address] Aug, Low back pain M54.5 [facility] [address] [facility] [id number] [address] [place] [address] Aug, Low back pain M54.5 [facility] [address] [facility] [id number] [address] [place] [address] Jul, [facility] [address] [facility] [id number] [address] [place] [address] Jul, [facility] [address] [facility] [id number] [address] [place] [address] Jul, [facility] [address] [id number] [address] [place] [address] Jul, [facility] [address] [id number] [address] [place] [address] Jul, Neuropathy G62.9 [facility] [address] [id number] [address] [place] [address] Jul, Mixed hyperlipidemia E78.2 [facility] [address] [id number] [address] [place] [address] Jul, Low back pain M54.5 [facility] [address] [id number] [address] [place] [address] Jul, [facility] [address] [id number] [address] [place] [address] June, Low back pain M54.5 [facility] [address] [id number] [address] [place] [address] May, Low back pain M54.5 [facility] [address] [id number] [address] [place] [address] May, Chronic obstructive pulmonar y disease, unspecified COPD type J44.9 [facility] [address] [id number] [address] [place] [address] Apr, [facility] [address] [id number] [address] [place] [address] Apr, [facility] [address] [id number] [address] [place] [address] Apr, Low back pain M54.5 [facility] [address] [id number] [address] [place] [address] Apr, Low back pain M54.5 [facility] [address] [id number] [address] [place] [address] Mar, Low back pain M54.5 [facility] [address] [id number] [address] [place] [address] Mar, Low back pain M54.5 [facility] [address] [id number] [address] [place] [phone] 09 Mar, 2016 [facility] [address] [id number] [address] [place] [address] Feb, Low back pain M54.5 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 [address] [id number] [address] [place] [address] Jan, Low back pain M54.5 [facility] [address] [id number] [address] [place] [address] Jan, [facility] [address] [id number] [address] [place] [address] Dec, Low back pain M54.5 [facility] [address] [id number] [address] [place] [address] Dec, [facility] [address] [id number] [address] [place] [address] Oct, [facility] [address] [id number] [address] [place] [address] Oct, Low back pain M54.5 ; Essent ial hypertension I10 [address] G[address]9 [facility] [address] [id number] [address] [place] [address] Oct, [facility] [address] [id number] [address] [place] [address] Sep, [facility] [address] [id number] [address] [place] [phone] Sep, [facility] [address] [id number] [address] [place] [address] Aug, Mixed hyperlipidemia E78.2 ; Essential hypertension I10 and Chronic obstructive pulmonary disease, unspecified COPD type J44.9 [facility] [address] [facility] [id number] [address] [place] [address] Aug, Low back pain M54.5 ; Mixed hyperlipidemia E78.2 ; Essential hypertension I10 and Chronic obstructive pulmonary disease, unspecified COPD type J44.9 [place] [address] [facility] [id number] [address] [place] [address] Jul, Low back pain M54.5 ; Essent ial hypertension I10 and Mixed hyperlipidemia E78.2 [place] [address] [facility] [id number] [address] [place] [phone] Jul, IMMUNIZATIONS No Known Immunizations SOCIAL HISTORY Never Assessed REASON FOR VISIT FYI PLAN OF CARE VITAL SIGNS MEDICATIONS Unknown [...]
--- OUTSIDE RECORDS SUMMARY | 2019-06-28 20:42 | XMS REPORT ---
Author Author Mario GUILLEN Organization [facility] Address [address] [place] [address] Care Team Providers Care Rate Reviewer Name Role Phone JESSICA GUILLEN Unavailable PROBLEMS Type Condition ICD9-CM Code BBC58-AQ Code Onset Dates Condition S tatus SNOMED Code Problem Mixed hyperlipidemia E78.2 Active 763375180 Problem Neuropathy G62.9 Active 363891489 Problem Chronic obstructive pulmonary disease, unspecified COPD ty pe J44.9 Active 34126316 Problem Essential hypertension I10 Active 36255698 Problem Low back pain M54.5 Active 075358 009 Problem Bronchitis J40 Active 51349881 Problem BMI 45.0-49.9, adult Z68.42 Active 326221256 Problem Prostatism N40.0 Active 13757693 Problem Vitamin D deficiency E55.9 Active 78693869 Problem Reactive depression F32.9 Active 91493448 Problem BPH loc w urin obs/LUTS N40.1 Active 342032106 ALLERGIES No Information ENCOUNTERS Encounter Location Date Diagnosis [place] [address] [place] [id number] [address] [place] [phone] Sep, [place] [address] [place] [id number] [address] [place] [address] Aug, [place] [address] [place] [id number] [address] [place] [address] Jul, Medicare annual wellness vis it, initial Z00.00 ; Mixed hyperlipidemia E78.2 ; Essential hypertension I10 ; Chronic obstructive pulmonary disease, unspecified COPD type J44.9 ; Neuropathy G62.9 ; BPH loc w urin obs/LUTS N40.1 and Reactive depression F32.9 [place] [address] N [facility] [id number] [address] [place] [phone] Jul, Onychomycosis B35.1 [place] [address] [address] [facility] [id number] [address] [place] [phone] 14 Jul, 2017 Low back pain M54.5 [place] [address] [address] [facility] [id number] [place] [phone] June, Low back pain M54.5 [facility] [address] [place] [id number] [place] [address] May, [facility] [address] [address] May, Bronchitis J40 and BMI 45.0- 49.9, adult Z68.42 [place] [address] [address] May, Low back pain M54.5 [place] [address] [address] Apr, [place] [address] [address] Apr, Low back pain M54.5 ; Essent ial hypertension I10 ; Chronic obstructive pulmonary disease, unspecified COPD type J44.9 and Dyspnea on exertion R06.09 [place] [address] [place] [id number] [address] [place] [address] 15 Apr, 2017 Onychomycosis B35.1 and Call us of foot L84 [place] [address] [place] [id number] [address] [place] [address] 13 Apr, 2017 Low back pain M54.5 [place] [address] [place] [id number] [address] [place] [phone] 12 Mar, 2017 Low back pain M54.5 [place] [address] [place] [id number] [address] [place] [phone] Mar, [facility] [address] [place] [id number] [address] [place] [phone] Feb, [place] [address] [place] [id number] [address] [place] [phone] Feb, [facility] [address] [id number] [address] [place] [phone] Feb, [facility] [address] [id number] [address] [place] [phone] Feb, Low back pain M54.5 [facility] [address] [id number] [address] [place] [phone] Jan, [facility] [address] [id number] [address] [place] [phone] Jan, Low back pain M54.5 [facility] [address] [id number] [address] [place] [address] Dec, Low back pain M54.5 [facility] [address] [id number] [address] [place] [phone] Dec, [facility] [address] [id number] [address] [place] [phone] Nov, Low back pain M54.5 ; Encoun ter for immunization Z23 ; Essential hypertension I10 ; Reactive depression F32.9 ; Neuropathy G62.9 and Chronic obstructive pulmonary disease, unspecified COPD type J44.9 [facility] [address] [id number] [address] [place] [address] Nov, Low back pain M54.5 [facility] [address] [id number] [address] [place] [phone] Oct, Low back pain M54.5 [facility] [address] [id number] [address] [place] [phone] Oct, Low back pain M54.5 [facility] [address] [id number] [address] [place] [phone] 13 Oct, 2016 [facility] [address] [id number] [address] [place] [address] Sep, [facility] [address] [facility] [id number] [address] [place] [address] Sep, Low back pain M54.5 [facility] [address] [facility] [id number] [address] [place] [phone] Sep, BPH loc w urin obs/LUTS N40. 1 [facility] [address] [facility] [id number] [address] [place] [phone] Sep, [facility] [address] [facility] [id number] [address] [place] [address] Sep, Low back pain M54.5 ; Essent ial hypertension I10 ; Mixed hyperlipidemia E78.2 ; Vitamin D deficiency E55.9 ; Prostatism N40.0 and Neuropathy G62.9 [facility] [address] [facility] [id number] [address] [place] [phone] Aug, Neuropathy G62.9 [facility] [address] [facility] [id number] [address] [place] [phone] Aug, Low back pain M54.5 [facility] [address] [facility] [id number] [address] [place] [phone] Aug, Low back pain M54.5 [facility] [address] [facility] [id number] [address] [place] [phone] Jul, [facility] [address] [facility] [id number] [address] [place] [phone] Jul, [facility] [address] [facility] [id number] [address] [place] [phone] Jul, [facility] [address] [facility] [id number] [address] [place] [phone] Jul, [facility] [address] [facility] [id number] [address] [place] [phone] Jul, Neuropathy G62.9 [facility] [address] [facility] [id number] [address] [place] [phone] Jul, Mixed hyperlipidemia E78.2 [facility] [address] [id number] [address] [place] [phone] Jul, Low back pain M54.5 [facility] [address] [id number] [address] [place] [phone] Jul, [facility] [address] [id number] [address] [place] [phone] June, Low back pain M54.5 [facility] [address] [id number] [address] [place] [id number] May, Low back pain M54.5 [facility] [address] [id number] [address] [place] [phone] May, Chronic obstructive pulmonar y disease, unspecified COPD type J44.9 [facility] [address] [id number] [address] [place] [phone] Apr, [facility] [address] [id number] [address] [place] [phone] Apr, [facility] [address] [id number] [address] [place] [phone] Apr, Low back pain M54.5 [facility] [address] [id number] [address] [place] [phone] Apr, Low back pain M54.5 [facility] [address] [id number] [address] [place] [phone] Mar, Low back pain M54.5 [facility] [address] [id number] [address] [place] [phone] Mar, Low back pain M54.5 [facility] [address] [id number] [address] [place] [phone] Mar, [facility] [address] [id number] [address] [place] [phone] Feb, Low back pain M54.5 [facility] [address] [id number] [address] [place] [phone] Jan, Low back pain M54.5 and 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, 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 [facility] [address] [id number] [address] [place] [phone] Jan, Low back pain M54.5 [facility] [address] [id number] [address] [place] [id number] Jan, [facility] [address] [id number] [address] [place] [phone] Dec, Low back pain M54.5 [facility] [address] [id number] [address] [place] [phone] Dec, [facility] [address] [id number] [address] [place] [phone] Oct, [facility] [address] [id number] [address] [place] [phone] Oct, Low back pain M54.5 ; Essent ial hypertension I10 and Neuropathy G62.9 [facility] [address] [id number] [address] [place] [phone] 09 Oct, 2015 [facility] [address] [id number] [address] [place] [phone] Sep, [facility] [address] [id number] [address] [place] [phone] Sep, [facility] [address] [id number] [address] [place] [phone] Aug, Mixed hyperlipidemia E78.2 ; Essential hypertension I10 and Chronic obstructive pulmonary disease, unspecified COPD type J44.9 [facility] [address] [id number] [address] [place] [phone] 08 Aug, 2015 Low back pain M54.5 ; Mixed hyperlipidemia E78.2 ; Essential hypertension I10 and Chronic obstructive pulmonary disease, unspecified COPD type J44.9 [facility] [address] [facility] [id number] [address] [place] [address] 07 Jul, 2015 Low back pain M54.5 ; Essent ial hypertension I10 and Mixed hyperlipidemia E78.2 [facility] [address] [facility] [id number] [address] [place] [address] Jul, IMMUNIZATIONS No Known Immunizations SOCIAL HISTORY Never Assessed REASON FOR VISIT Oxycodone 04/06 PLAN OF CARE VITAL SIGNS MEDICATIONS Medication Instructions Dosage Frequency Start Date End Date Duration S tatus Oxycodone HCl 10 mg Orally every 6 hrs 1 tablet as needed 6h Mar, 28 days Active RESULTS No Results PROCEDURES [...]
--- OUTSIDE RECORDS SUMMARY | 2019-06-28 20:42 | XMS REPORT ---
Author Author Mario GUILLEN Organization [facility] Address [address] [place] [address] Care Team Providers Care Farm Machine Operator Name Role Phone JESSICA GUILLEN Unavailable PROBLEMS Type Condition ICD9-CM Code WTE64-LK Code Onset Dates Condition S tatus SNOMED Code Problem Mixed hyperlipidemia E78.2 Active 507877783 Problem Neuropathy G62.9 Active 366047021 Problem Chronic obstructive pulmonary disease, unspecified COPD ty pe J44.9 Active 65581425 Problem Essential hypertension I10 Active 22698795 Problem Low back pain M54.5 Active 343898 009 Problem Bronchitis J40 Active 50035280 Problem BMI 45.0-49.9, adult Z68.42 Active 163308214 Problem Prostatism N40.0 Active 33943766 Problem Vitamin D deficiency E55.9 Active 08628291 Problem Reactive depression F32.9 Active 54330359 Problem BPH loc w urin obs/LUTS N40.1 Active [id number] ALLERGIES No Information ENCOUNTERS Encounter Location Date Diagnosis [facility] [address] [id number] [address] [place] [id number] June, [facility] [address] [id number] [address] [place] [id number] May, [facility] [address] [id number] [address] [place] [id number] May, Bronchitis J40 and BMI 45.0- 49.9, adult Z68.42 [facility] [address] [id number] [address] [place] [id number] May, Low back pain M54.5 [facility] [address] [id number] [address] [place] [id number] Apr, [facility] [address] [id number] [address] [place] [id number] 20 Apr, 2017 Low back pain M54.5 ; Essent ial hypertension I10 ; Chronic obstructive pulmonary disease, unspecified COPD type J44.9 and Dyspnea on exertion R06.09 [facility] [address] [id number] [address] [place] [id number] 15 Apr, 2017 Onychomycosis B35.1 and Call us of foot L84 [facility] [address] [id number] [address] [place] [id number] 13 Apr, 2017 Low back pain M54.5 [facility] [address] [id number] [address] [place] [id number] 12 Mar, 2017 Low back pain M54.5 [facility] [address] [id number] [address] [place] [id number] Mar, [facility] [address] [id number] [address] [place] [id number] Feb, [facility] [address] [id number] [address] [place] [id number] Feb, [facility] [address] [id number] [address] [place] [id number] Feb, [facility] [address] [id number] [address] [place] [id number] Feb, Low back pain M54.5 [facility] [address] [id number] [address] [place] [id number] 18 Jan, 2017 [facility] [address] [id number] [address] [place] [id number] 14 Jan, 2017 Low back pain M54.5 [facility] [address] [id number] [address] [place] [id number] Dec, Low back pain M54.5 [facility] [address] [id number] [address] [place] [phone] Dec, [facility] [address] [id number] Nov, Low back pain M54.5 ; Encoun ter for immunization Z23 ; Essential hypertension I10 ; Reactive depression F32.9 ; Neuropathy G62.9 and Chronic obstructive pulmonary disease, unspecified COPD type J44.9 [facility] [address] [place] [id number] [address] [place] [id number] Nov, Low back pain M54.5 [facility] [address] [id number] Oct, Low back pain M54.5 [facility] [address] [id number] Oct, Low back pain M54.5 [facility] [address] [id number] Oct, [facility] [address] [id number] Sep, [facility] [address] [id number] Sep, Low back pain M54.5 [place] [address] [id number] Sep, BPH loc w urin obs/LUTS N40. 1 [place] [address] [id number] Sep, [facility] [address] [id number] Sep, Low back pain M54.5 ; Essent ial hypertension I10 ; Mixed hyperlipidemia E78.2 ; Vitamin D deficiency E55.9 ; Prostatism N40.0 and Neuropathy G62.9 [facility] [address] [place] [id number] [address] [place] [id number] Aug, Neuropathy G62.9 [facility] [address] [place] [id number] [place] [phone] Aug, Low back pain M54.5 [facility] [address] [id number] [address] [place] [phone] Aug, Low back pain M54.5 [facility] [address] [id number] [address] [place] [id number] Jul, [facility] [address] [id number] [address] [place] [id number] Jul, [facility] [address] [id number] [address] [place] [id number] Jul, [facility] [address] [id number] [address] [place] [id number] Jul, [facility] [address] [id number] [address] [place] [id number] Jul, Neuropathy G62.9 [facility] [address] [id number] [address] [place] [id number] Jul, Mixed hyperlipidemia E78.2 [facility] [address] [id number] [address] [place] [id number] Jul, Low back pain M54.5 [facility] [address] [id number] [address] [place] [id number] Jul, [facility] [address] [id number] [address] [place] [id number] June, Low back pain M54.5 [facility] [address] [id number] [address] [place] [id number] May, Low back pain M54.5 [facility] [address] [id number] [address] [place] [id number] May, Chronic obstructive pulmonar y disease, unspecified COPD type J44.9 [facility] [address] [id number] [address] [place] [id number] Apr, [facility] [address] [id number] [address] [place] [id number] Apr, [facility] [address] [id number] [address] [place] [id number] Apr, Low back pain M54.5 [facility] [address] [id number] [address] [place] [id number] Apr, Low back pain M54.5 [facility] [address] [id number] [address] [place] [id number] 16 Mar, 2016 Low back pain M54.5 [facility] [address] [id number] [address] [place] [id number] Mar, Low back pain M54.5 [facility] [address] [id number] [address] [place] [id number] Mar, [facility] [address] [id number] [address] [place] [id number] Feb, Low back pain M54.5 [facility] [address] [id number] [address] [place] [id number] Jan, Low back pain M54.5 and 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, 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 [facility] [address] [id number] [address] [place] [id number] Jan, Low back pain M54.5 [facility] [address] [id number] [address] [place] [id number] Jan, [facility] [address] [id number] [address] [place] [id number] 16 Dec, 2015 Low back pain M54.5 [facility] [address] [id number] [address] [place] [id number] Dec, [facility] [address] [id number] [address] [place] [id number] 27 Oct, 2015 [facility] [address] [id number] [address] [place] [id number] Oct, Low back pain M54.5 ; Essent ial hypertension I10 and Neuropathy G62.9 [facility] [address] [id number] [address] [place] [id number] Oct, [facility] [address] [id number] [address] [place] [phone] Sep, [facility] [address] [id number] [address] [place] [id number] Sep, [facility] [address] [id number] [address] [place] [id number] Aug, Mixed hyperlipidemia E78.2 ; Essential hypertension I10 and Chronic obstructive pulmonary disease, unspecified COPD type J44.9 [facility] [address] [id number] [address] [place] [id number] 08 Aug, 2015 Low back pain M54.5 ; Mixed hyperlipidemia E78.2 ; Essential hypertension I10 and Chronic obstructive pulmonary disease, unspecified COPD type J44.9 [facility] [address] [id number] [address] [place] [id number] Jul, Low back pain M54.5 ; Essent ial hypertension I10 and Mixed hyperlipidemia E78.2 [facility] [address] [id number] [address] [place] [id number] Jul, IMMUNIZATIONS No Known Immunizations SOCIAL HISTORY Never Assessed REASON FOR VISIT Oxycodone- 11/13 PLAN OF CARE VITAL SIGNS MEDICATIONS Medication [...]
--- OUTSIDE RECORDS SUMMARY | 2019-06-28 20:42 | XMS REPORT ---
Author Author Mario GUILLEN Organization [facility] Address [address] [place] [address] Care Team Providers Care Gas Meter Repair Supervisor Name Role Phone JESSICA GUILLEN Unavailable PROBLEMS Type Condition ICD9-CM Code HPX63-VA Code Onset Dates Condition S tatus SNOMED Code Problem Mixed hyperlipidemia E78.2 Active 625725230 Problem Neuropathy G62.9 Active 659196904 Problem Chronic obstructive pulmonary disease, unspecified COPD ty pe J44.9 Active 63311540 Problem Essential hypertension I10 Active 92847814 Problem Low back pain M54.5 Active 739398 009 Problem Bronchitis J40 Active 66108643 Problem BMI 45.0-49.9, adult Z68.42 Active 196418387 Problem Prostatism N40.0 Active 21942772 Problem Vitamin D deficiency E55.9 Active 48694130 Problem Reactive depression F32.9 Active 43082496 Problem BPH loc w urin obs/LUTS N40.1 Active 435088106 ALLERGIES No Information ENCOUNTERS Encounter Location Date Diagnosis [facility] [address] [facility] [id number] [address] [place] [id number] Sep, [place] [id number] [facility] [id number] [address] [place] [phone] Jul, Onychomycosis B35.1 [facility] [address] [facility] [id number] [address] [place] [id number] 14 Jul, 2017 Low back pain M54.5 [facility] [address] [facility] [id number] [address] [place] [id number] June, Low back pain M54.5 [facility] [address] [facility] [id number] [address] [place] [id number] May, [facility] [address] [facility] [id number] [address] [place] [id number] May, Bronchitis J40 and BMI 45.0- 49.9, adult Z68.42 [facility] [address] [facility] [id number] [address] [place] [id number] May, Low back pain M54.5 [facility] [address] [facility] [id number] [address] [place] [id number] Apr, [facility] [address] [place] [id number] [address] [place] [id number] Apr, Low back pain M54.5 ; Essent ial hypertension I10 ; Chronic obstructive pulmonary disease, unspecified COPD type J44.9 and Dyspnea on exertion R06.09 [facility] [address] [facility] [id number] [address] [place] [id number] 15 Apr, 2017 Onychomycosis B35.1 and Call us of foot L84 [facility] [address] [facility] [id number] [address] [place] [id number] Apr, Low back pain M54.5 [facility] [address] [facility] [id number] [address] [place] [phone] Mar, Low back pain M54.5 [facility] [address] [facility] [id number] [address] [place] [id number] Mar, [facility] [address] [facility] [id number] [address] [place] [phone] Feb, [facility] [address] [facility] [id number] [address] [place] [id number] Feb, [facility] [address] [id number] [address] [place] [phone] Feb, [facility] [address] [facility] [id number] [address] [place] [id number] Feb, Low back pain M54.5 [facility] [address] [facility] [id number] [address] [place] [id number] Jan, [facility] [address] [id number] [address] [place] [id number] Jan, Low back pain M54.5 [facility] [address] [id number] [address] [place] [id number] Dec, Low back pain M54.5 [facility] [address] [facility] [id number] [address] [place] [id number] Dec, [facility] [address] [facility] [id number] [address] [place] [id number] Nov, Low back pain M54.5 ; Encoun ter for immunization Z23 ; Essential hypertension I10 ; Reactive depression F32.9 ; Neuropathy G62.9 and Chronic obstructive pulmonary disease, unspecified COPD type J44.9 [facility] [address] [id number] [address] [place] [id number] Nov, Low back pain M54.5 [facility] [address] [id number] [address] [place] [id number] 22 Oct, 2016 Low back pain M54.5 [facility] [address] [id number] [address] [place] [id number] Oct, Low back pain M54.5 [facility] [address] [facility] [id number] [address] [place] [phone] Oct, [facility] [address] [facility] [id number] [address] [place] [id number] Sep, [facility] [address] [id number] [address] [place] [id number] Sep, Low back pain M54.5 [facility] [address] [facility] [id number] [address] [place] [id number] Sep, BPH loc w urin obs/LUTS N40. 1 [facility] [address] [id number] [address] [place] [phone] Sep, [facility] [address] [facility] [id number] [address] [place] [id number] Sep, Low back pain M54.5 ; Essent ial hypertension I10 ; Mixed hyperlipidemia E78.2 ; Vitamin D deficiency E55.9 ; Prostatism N40.0 and Neuropathy G62.9 [facility] [address] [id number] [address] [place] [id number] Aug, Neuropathy G62.9 [facility] [address] [id number] [address] [place] [phone] Aug, Low back pain M54.5 [facility] [address] [id number] [address] [place] [id number] Aug, Low back pain M54.5 [facility] [address] [id number] [address] [place] [id number] Jul, [facility] [address] [id number] [address] [place] [phone] Jul, [facility] [address] [id number] [address] [place] [id number] Jul, [facility] [address] [id number] [address] [place] [id number] Jul, [facility] [address] [id number] [address] [place] [id number] Jul, Neuropathy G62.9 [facility] [address] [id number] [address] [place] [id number] Jul, Mixed hyperlipidemia E78.2 [facility] [address] [id number] [address] [place] [id number] Jul, Low back pain M54.5 [facility] [address] [id number] [address] [place] [id number] Jul, [facility] [address] [id number] [address] [place] [id number] June, Low back pain M54.5 [facility] [address] [id number] [address] [place] [phone] May, Low back pain M54.5 [facility] [address] [id number] [address] [place] [id number] May, Chronic obstructive pulmonar y disease, unspecified COPD type J44.9 [facility] [address] [id number] [address] [place] [id number] Apr, [facility] [address] [id number] [address] [place] [id number] Apr, [facility] [address] [id number] [address] [place] [phone] Apr, Low back pain M54.5 [facility] [address] [id number] [address] [place] [id number] Apr, Low back pain M54.5 [facility] [address] [id number] [address] [place] [id number] 16 Mar, 2016 Low back pain M54.5 [facility] [address] [id number] [address] [place] [id number] Mar, Low back pain M54.5 [facility] [address] [id number] [address] [place] [id number] Mar, [facility] [address] [id number] [address] [place] [id number] Feb, Low back pain M54.5 [facility] [address] [id number] [address] [place] [phone] Jan, Low back pain M54.5 and 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, 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 [facility] [address] [id number] [address] [place] [id number] Jan, Low back pain M54.5 [facility] [address] [id number] [address] [place] [id number] Jan, [facility] [address] [facility] [id number] [address] [place] [id number] 16 Dec, 2015 Low back pain M54.5 [facility] [address] [facility] [id number] [address] [place] [id number] Dec, [facility] [address] [facility] [id number] [address] [place] [id number] Oct, [facility] [address] [facility] [id number] [address] [place] [id number] Oct, Low back pain M54.5 ; Essent ial hypertension I10 and Neuropathy G62.9 [facility] [address] [facility] [id number] [address] [place] [id number] 09 Oct, 2015 [facility] [address] [facility] [id number] [address] [place] [id number] Sep, [place] [address] [facility] [id number] [address] [place] [id number] Sep, [facility] [address] [facility] [id number] [address] [place] [phone] Aug, Mixed hyperlipidemia E78.2 ; Essential hypertension I10 and Chronic obstructive pulmonary disease, unspecified COPD type J44.9 [facility] [address] [facility] [id number] [address] [place] [id number] 08 Aug, 2015 Low back pain M54.5 ; Mixed hyperlipidemia E78.2 ; Essential hypertension I10 and Chronic obstructive pulmonary disease, unspecified COPD type J44.9 [facility] [address] [facility] [id number] [address] [place] [id number] Jul, Low back pain M54.5 ; Essent ial hypertension I10 and Mixed hyperlipidemia E78.2 [place] [address] [facility] [id number] [address] [place] [id number] 02 Jul, 2015 IMMUNIZATIONS No Known Immunizations SOCIAL HISTORY Never Assessed REASON FOR VISIT FY only PLAN OF CARE VITAL SIGNS MEDICATIONS Unknown [...]
--- OUTSIDE RECORDS SUMMARY | 2019-06-28 20:42 | XMS REPORT ---
Author Author Mario GUILLEN Organization [facility] Address [address] [place] [address] Care Team Providers Care Marble Rubber Name Role Phone JESSICA GUILLEN Unavailable PROBLEMS Type Condition ICD9-CM Code PHT70-OB Code Onset Dates Condition S tatus SNOMED Code Problem Mixed hyperlipidemia E78.2 Active 288380965 Problem Low back pain M54.5 Active 341353 009 Problem BPH loc w urin obs/LUTS N40.1 Active 351462569 Problem Prostatism N40.0 Active 27689835 Problem Chronic obstructive pulmonary disease, unspecified COPD ty pe J44.9 Active 68497971 Problem Essential hypertension I10 Active 60443630 Problem Vitamin D deficiency E55.9 Active 88579532 Problem Neuropathy G62.9 Active 436452981 ALLERGIES No Information SOCIAL HISTORY Never Assessed [...]
--- OUTSIDE RECORDS SUMMARY | 2019-06-28 20:43 | XMS REPORT ---
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 [address]-03 100-25 MCG/INH Inhalation Once a day [address] [facility] [address]-19 10 mg Orally every 6 hrs 1 tablet as needed Nexium [facility] [address]-36 40 MG Orally Once a day [address] [facility] [address]-99 0.4 MG Orally Once a day [address] [facility] [address]-13 10 MG Orally Once a day [address] [facility] [address]-67 20 MG Orally Once a day [address] [facility] [address]-86 300 MG Orally Once a day 1 tablet at bedtime Fluoxetine HCl [facility] [address]-13 40 MG Orally Once a day 1 capsule in the morning Procedures Procedure Coding System Code Date VENIPLAURENT, NELLIE* CPT-4 39907 August 29 6 [facility] VISIT ESTABLISHED PATIENT CPT-4 G0467 J 2015 LAB NOT BILLED BY [facility] CPT-4 NOBLL August Office Visit, Est Pt., Level 3 CPT-4 77534 J 2015 Vital Signs Date/Time: August 30, 2015 Cardiac Monitoring Heart Rate 82 bpm Weight 225 lbs Height 67 in Blood Pressure Diastolic 70 mmHg Blood Pressure Systolic 120 mmHg Results No Known Results Summary Purpose [employer] Submission
--- OUTSIDE RECORDS SUMMARY | 2019-06-28 20:43 | XMS REPORT ---
Author Author Mario GUILLEN Organization [facility] Address [address] [place] [address] Care Team Providers Care Channeler Insole Name Role Phone JSESICA GUILLEN Unavailable PROBLEMS Type Condition ICD9-CM Code [id number] Code Onset Dates Condition S tatus SNOMED Code Problem Neuropathy G62.9 Active 784692472 Problem Chronic obstructive pulmonary disease, unspecified COPD ty pe J44.9 Active 14679620 Problem Essential hypertension I10 Active 29514608 Problem Low back pain M54.5 Active 377490 009 Problem Mixed hyperlipidemia E78.2 Active 465887594 ALLERGIES Unknown Allergies SOCIAL HISTORY No smoking Hx information available PLAN OF CARE VITAL SIGNS MEDICATIONS Medication Instructions Dosage Frequency Start Date End Date Duration S tatus Oxycodone HCl 10 mg Orally every 6 hrs 1 tablet as needed 6h Active RESULTS No Results PROCEDURES No Known procedures IMMUNIZATIONS No Known Immunizations
--- OUTSIDE RECORDS SUMMARY | 2019-06-28 20:43 | XMS REPORT ---
Author Author Mario GUILLEN Organization [facility] Address [address] [place] [address] Care Team Providers Care Audio Video Technician Name Role Phone JESSICA GUILLEN Unavailable PROBLEMS Type Condition ICD9-CM Code [id number] Code Onset Dates Condition S tatus SNOMED Code Problem Neuropathy G62.9 Active 905036699 Problem Chronic obstructive pulmonary disease, unspecified COPD ty pe J44.9 Active 96703000 Problem Essential hypertension I10 Active 81233580 Assessment Low back pain M54.5 Oct, Active 27 8809332 Problem Low back pain M54.5 Active 634908 009 Problem Mixed hyperlipidemia E78.2 Active 529801467 ALLERGIES Substance Reaction Event Type Date Status Lyrica swelling Drug Allergy Oct, Active Lisinopril cough Drug Allergy Oct, Active SOCIAL HISTORY No smoking Hx information available PLAN OF CARE VITAL SIGNS Height 67 in 2015-11-18 Weight 229.6 lbs 2015-11-18 Heart Rate 82 bpm 2015-11-18 Respiratory Rate 20 2015-11-18 BMI 35.96 kg/m2 2015-11-18 Blood pressure systolic 138 mmHg 2015-11-18 Blood pressure diastolic 84 mmHg 2015-11-18 MEDICATIONS Medication Instructions Dosage Frequency Start Date End Date Duration S tatus Crestor 20 mg Orally Once a day 1 tablet 24h Active Flomax 0.4 MG Orally Once a day 1 tablet 24h Active Breo Ellipta 100-25 MCG/INH Inhalation Once a day 1 puff 24h Active Nexium 40 mg Orally Once a day 1 capsule 24h Active Amlodipine Besylate 10 mg Orally Once a day 1 tablet 24h Active Oxycodone HCl 10 mg Orally every 6 hrs 1 tablet as needed 6h Active Fluoxetine HCl 40 mg Orally Once a day 1 capsule 24h Active Ranitidine HCl 300 MG Orally Once a day 1 tablet at bedtime 24h Active Lyrica 50 mg Orally Three times a day 1 capsule 8h Oct, Active RESULTS No Results PROCEDURES Procedure Date Ordered Related Diagnosis Body Site [facility] VISIT ESTABLISHED PATIENT Nov 18, 2015 Office Visit, Est Pt., Level 3 Nov 18, 2015 IMMUNIZATIONS No Known Immunizations
--- OUTSIDE RECORDS SUMMARY | 2019-06-28 20:43 | XMS REPORT ---
Author Author Mario GUILLEN Organization [facility] Address [address] [place] [address] Care Team Providers Care Chart Clerk Name Role Phone JESSICA GUILLEN Unavailable PROBLEMS Type Condition ICD9-CM Code MKA85-WM Code Onset Dates Condition S tatus SNOMED Code Problem Mixed hyperlipidemia E78.2 Active 191919711 Problem Neuropathy G62.9 Active 056952201 Problem Chronic obstructive pulmonary disease, unspecified COPD ty pe J44.9 Active 40922022 Problem Essential hypertension I10 Active 15740948 Problem Low back pain M54.5 Active 227733 009 Problem Bronchitis J40 Active 26341528 Problem BMI 45.0-49.9, adult Z68.42 Active 451024926 Problem Prostatism N40.0 Active 92193679 Problem Vitamin D deficiency E55.9 Active 19526442 Problem Reactive depression F32.9 Active 99648761 Problem BPH loc w urin obs/LUTS N40.1 Active 262137788 ALLERGIES No Information ENCOUNTERS Encounter Location Date Diagnosis [facility] [address] [id number] [address] [place] [phone] Jul, [facility] [address] [id number] [address] [place] [phone] June, Low back pain M54.5 [facility] [address] [facility] [id number] [address] [place] [phone] May, [facility] [address] [id number] [address] [place] [phone] May, Bronchitis J40 and BMI 45.0- 49.9, adult Z68.42 [facility] [address] [facility] [id number] [address] [place] [phone] May, Low back pain M54.5 [facility] [address] [id number] [address] [place] [phone] Apr, [facility] [address] [id number] [address] [place] [phone] Apr, Low back pain M54.5 ; Essent ial hypertension I10 ; Chronic obstructive pulmonary disease, unspecified COPD type J44.9 and Dyspnea on exertion R06.09 [facility] [address] [id number] [address] [place] [phone] 15 Apr, 2017 Onychomycosis B35.1 and Call us of foot L84 [facility] [address] [id number] [address] [place] [phone] Apr, Low back pain M54.5 [facility] [address] [id number] [address] [place] [phone] Mar, Low back pain M54.5 [facility] [address] [id number] [address] [place] [phone] Mar, [facility] [address] [id number] [address] [place] [phone] Feb, [facility] [address] [id number] [address] [place] [phone] Feb, [facility] [address] [id number] [address] [place] [phone] Feb, [facility] [address] [id number] [address] [place] [phone] Feb, Low back pain M54.5 [facility] [address] [id number] [address] [place] [phone] Jan, [facility] [address] [id number] [address] [place] [phone] Jan, Low back pain M54.5 [facility] [address] [id number] [address] [place] [phone] Dec, Low back pain M54.5 [place] [id number] [phone] Dec, [place] [address] [phone] Nov, Low back pain M54.5 ; Encoun ter for immunization Z23 ; Essential hypertension I10 ; Reactive depression F32.9 ; Neuropathy G62.9 and Chronic obstructive pulmonary disease, unspecified COPD type J44.9 [place] [address] [phone] Nov, Low back pain M54.5 [place] [address] [phone] Oct, Low back pain M54.5 [place] [address] [phone] Oct, Low back pain M54.5 [place] [address] [phone] Oct, [place] [address] [id number] Sep, [place] [address] [phone] Sep, Low back pain M54.5 [place] [address] [phone] Sep, BPH loc w urin obs/LUTS N40. 1 [place] [address] [phone] Sep, [place] [address] [phone] Sep, Low back pain M54.5 ; Essent ial hypertension I10 ; Mixed hyperlipidemia E78.2 ; Vitamin D deficiency E55.9 ; Prostatism N40.0 and Neuropathy G62.9 [place] [address] [phone] Aug, Neuropathy G62.9 [facility] [address] [id number] [address] [place] [phone] Aug, Low back pain M54.5 [facility] [address] [id number] [address] [place] [phone] Aug, Low back pain M54.5 [facility] [address] [id number] [address] [place] [phone] Jul, [facility] [address] [id number] [address] [place] [phone] Jul, [facility] [address] [id number] [address] [place] [phone] Jul, [facility] [address] [id number] [address] [place] [phone] Jul, [facility] [address] [id number] [address] [place] [phone] Jul, Neuropathy G62.9 [facility] [address] [id number] [address] [place] [id number] Jul, Mixed hyperlipidemia E78.2 [facility] [address] [id number] [address] [place] [phone] Jul, Low back pain M54.5 [facility] [address] [id number] [address] [place] [phone] Jul, [facility] [address] [id number] [address] [place] [phone] June, Low back pain M54.5 [facility] [address] [id number] [address] [place] [phone] May, Low back pain M54.5 [facility] [address] [id number] [address] [place] [phone] May, Chronic obstructive pulmonar y disease, unspecified COPD type J44.9 [facility] [address] [id number] [address] [place] [phone] Apr, [facility] [address] [id number] [address] [place] [phone] Apr, [facility] [address] [id number] [address] [place] [phone] Apr, Low back pain M54.5 [facility] [address] [id number] [address] [place] [phone] Apr, Low back pain M54.5 [facility] [address] [id number] [address] [place] [phone] Mar, Low back pain M54.5 [facility] [address] [id number] [address] [place] [phone] Mar, Low back pain M54.5 [facility] [address] [id number] [address] [place] [phone] Mar, [facility] [address] [id number] [address] [place] [phone] Feb, Low back pain M54.5 [facility] [address] [id number] [address] [place] [phone] Jan, Low back pain M54.5 and 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, 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 COPD type J44.9 [facility] [address] [id number] [address] [place] [phone] Jan, Low back pain M54.5 [facility] [address] [id number] [address] [place] [phone] Jan, [facility] [address] [id number] [address] [place] [phone] Dec, Low back pain M54.5 [facility] [address] [id number] [address] [place] [phone] Dec, [facility] [address] [id number] [address] [place] [phone] Oct, [facility] [address] [facility] [id number] [address] [place] [phone] Oct, Low back pain M54.5 ; Essent ial hypertension I10 and Neuropathy G62.9 [facility] [id number] [address] [place] [phone] Oct, [facility] [id number] [place] [phone] Sep, [place] [id number] [place] [phone] Sep, [place] [address] [phone] Aug, Mixed hyperlipidemia E78.2 ; Essential hypertension I10 and Chronic obstructive pulmonary disease, unspecified COPD type J44.9 [place] [address] [place] [id number] [address] [place] [phone] Aug, Low back pain M54.5 ; Mixed hyperlipidemia E78.2 ; Essential hypertension I10 and Chronic obstructive pulmonary disease, unspecified COPD type J44.9 [place] [address] [phone] Jul, Low back pain M54.5 ; Essent ial hypertension I10 and Mixed hyperlipidemia E78.2 [place] [address] [place] [id number] [address] [place] [phone] Jul, IMMUNIZATIONS No Known Immunizations SOCIAL HISTORY Never Assessed REASON FOR VISIT PLAN OF CARE VITAL SIGNS MEDICATIONS Medication Instructions Dosage Frequency Start Date End Date Duration S link Amlodipine Besylate 10 mg Orally Once a day 1 tablet 24h 30 Active RESULTS No Results PROCEDURES No [...]
--- OUTSIDE RECORDS SUMMARY | 2019-06-28 20:43 | XMS REPORT ---
Author Author Mario GUILLEN Organization [facility] Address [address] [place] [address] Care Team Providers Care Hydrocrane Operator Name Role Phone JESSICA GUILLEN Unavailable PROBLEMS Type Condition ICD9-CM Code FSO70-SG Code Onset Dates Condition S tatus SNOMED Code Problem Mixed hyperlipidemia E78.2 Active 818835281 Problem Neuropathy G62.9 Active 257171110 Problem Chronic obstructive pulmonary disease, unspecified COPD ty pe J44.9 Active 32697526 Problem Essential hypertension I10 Active 88266579 Problem Low back pain M54.5 Active 255673 009 Problem Bronchitis J40 Active 17391301 Problem BMI 45.0-49.9, adult Z68.42 Active 872761180 Problem Prostatism N40.0 Active 64270093 Problem Vitamin D deficiency E55.9 Active 28824536 Problem Reactive depression F32.9 Active 33344731 Problem BPH loc w urin obs/LUTS N40.1 Active 804316127 ALLERGIES No Information ENCOUNTERS Encounter Location Date Diagnosis [facility] [address] [facility] [id number] [address] [place] [phone] June, [facility] [address] [facility] [id number] [address] [place] [id number] May, [facility] [address] [facility] [id number] [address] [place] [phone] May, Bronchitis J40 and BMI 45.0- 49.9, adult Z68.42 [facility] [address] [facility] [id number] [address] [place] [phone] May, Low back pain M54.5 [facility] [address] [facility] [id number] [address] [place] [id number] Apr, [facility] [address] [id number] [address] [place] [id number] 20 Apr, 2017 Low back pain M54.5 ; Essent ial hypertension I10 ; Chronic obstructive pulmonary disease, unspecified COPD type J44.9 and Dyspnea on exertion R06.09 [facility] [address] [id number] [address] [place] [phone] 15 Apr, 2017 Onychomycosis B35.1 and Call us of foot L84 [facility] [address] [id number] [address] [place] [id number] 13 Apr, 2017 Low back pain M54.5 [facility] [address] [id number] [address] [place] [id number] 12 Mar, 2017 Low back pain M54.5 [facility] [address] [id number] [address] [place] [id number] Mar, [facility] [address] [id number] [address] [place] [phone] Feb, [facility] [address] [id number] [address] [place] [phone] Feb, [facility] [address] [id number] [address] [place] [phone] Feb, [facility] [address] [id number] [address] [place] [phone] Feb, Low back pain M54.5 [facility] [address] [id number] [address] [place] [id number] 18 Jan, 2017 [facility] [address] [id number] [address] [place] [id number] 14 Jan, 2017 Low back pain M54.5 [facility] [address] [id number] [address] [place] [phone] Dec, Low back pain M54.5 [facility] [address] [id number] [address] [place] [phone] Dec, [facility] [address] [id number] Nov, Low back pain M54.5 ; Encoun ter for immunization Z23 ; Essential hypertension I10 ; Reactive depression F32.9 ; Neuropathy G62.9 and Chronic obstructive pulmonary disease, unspecified COPD type J44.9 [facility] [address] [place] [id number] [address] [place] [phone] Nov, Low back pain M54.5 [facility] [address] [phone] Oct, Low back pain M54.5 [facility] [address] [id number] Oct, Low back pain M54.5 [facility] [address] [id number] Oct, [facility] [address] [address] Sep, [facility] [address] [id number] Sep, Low back pain M54.5 [place] [address] [id number] Sep, BPH loc w urin obs/LUTS N40. 1 [place] [address] [id number] Sep, [facility] [address] [address] Sep, Low back pain M54.5 ; Essent ial hypertension I10 ; Mixed hyperlipidemia E78.2 ; Vitamin D deficiency E55.9 ; Prostatism N40.0 and Neuropathy G62.9 [facility] [address] [place] [id number] [address] [place] [id number] Aug, Neuropathy G62.9 [facility] [address] [place] [id number] [place] [phone] Aug, Low back pain M54.5 [facility] [address] [id number] [address] [place] [id number] Aug, Low back pain M54.5 [facility] [address] [id number] [address] [place] [phone] Jul, [facility] [address] [id number] [address] [place] [id number] Jul, [facility] [address] [id number] [address] [place] [phone] Jul, [facility] [address] [id number] [address] [place] [phone] Jul, [facility] [address] [id number] [address] [place] [phone] Jul, Neuropathy G62.9 [facility] [address] [id number] [address] [place] [id number] Jul, Mixed hyperlipidemia E78.2 [facility] [address] [id number] [address] [place] [phone] Jul, Low back pain M54.5 [facility] [address] [id number] [address] [place] [phone] Jul, [facility] [address] [id number] [address] [place] [phone] June, Low back pain M54.5 [facility] [address] [id number] [address] [place] [id number] May, Low back pain M54.5 [facility] [address] [id number] [address] [place] [id number] May, Chronic obstructive pulmonar y disease, unspecified COPD type J44.9 [facility] [address] [id number] [address] [place] [phone] Apr, [facility] [address] [id number] [address] [place] [id number] Apr, [facility] [address] [id number] [address] [place] [id number] Apr, Low back pain M54.5 [facility] [address] [id number] [address] [place] [phone] Apr, Low back pain M54.5 [facility] [address] [id number] [address] [place] [phone] 16 Mar, 2016 Low back pain M54.5 [facility] [address] [id number] [address] [place] [phone] Mar, Low back pain M54.5 [facility] [address] [id number] [address] [place] [phone] Mar, [facility] [address] [id number] [address] [place] [id number] Feb, Low back pain M54.5 [facility] [address] [id number] [address] [place] [id number] Jan, Low back pain M54.5 and 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, 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 COPD type J44.9 [facility] [address] [id number] [address] [place] [id number] Jan, Low back pain M54.5 [facility] [address] [id number] [address] [place] [id number] Jan, [facility] [address] [id number] [address] [place] [phone] 16 Dec, 2015 Low back pain M54.5 [facility] [address] [id number] [address] [place] [phone] Dec, [facility] [address] [id number] [address] [place] [id number] 27 Oct, 2015 [facility] [address] [id number] [address] [place] [id number] 26 Oct, 2015 Low back pain M54.5 ; Essent ial hypertension I10 and Neuropathy G62.9 [facility] [address] [id number] [address] [place] [id number] 09 Oct, 2015 [facility] [address] [id number] [address] [place] [phone] Sep, [facility] [address] [id number] [address] [place] [phone] Sep, [facility] [address] [id number] [address] [place] [phone] Aug, Mixed hyperlipidemia E78.2 ; Essential hypertension I10 and Chronic obstructive pulmonary disease, unspecified COPD type J44.9 [facility] [address] [id number] [address] [place] [id number] 08 Aug, 2015 Low back pain M54.5 ; Mixed hyperlipidemia E78.2 ; Essential hypertension I10 and Chronic obstructive pulmonary disease, unspecified COPD type J44.9 [facility] [address] [id number] [address] [place] [id number] 07 Jul, 2015 Low back pain M54.5 ; Essent ial hypertension I10 and Mixed hyperlipidemia E78.2 [facility] [address] [id number] [address] [place] [id number] Jul, IMMUNIZATIONS No Known Immunizations SOCIAL HISTORY [...]
--- OUTSIDE RECORDS SUMMARY | 2019-06-28 20:43 | XMS REPORT ---
Author Author Mario GUILLEN Organization [facility] Address [address] [place] [address] Care Team Providers Care Sampler First Name Role Phone JESSICA GUILLEN Unavailable PROBLEMS Type Condition ICD9-CM Code [id number] Code Onset Dates Condition S tatus SNOMED Code Problem Mixed hyperlipidemia E78.2 Active 328252197 Problem Neuropathy G62.9 Active 718924015 Problem Chronic obstructive pulmonary disease, unspecified COPD ty pe J44.9 Active 21365542 Problem Essential hypertension I10 Active 43030201 Problem Low back pain M54.5 Active 847830 009 Problem Bronchitis J40 Active 38340767 Problem BMI 45.0-49.9, adult Z68.42 Active 150902051 Problem Prostatism N40.0 Active 75016872 Problem Vitamin D deficiency E55.9 Active 15421977 Problem Reactive depression F32.9 Active 81677525 Problem BPH loc w urin obs/LUTS N40.1 Active 365643264 ALLERGIES No Information ENCOUNTERS Encounter Location Date Diagnosis [facility] [address] [facility] [id number] [address] [place] [phone] June, [facility] [address] [facility] [id number] [address] [place] [phone] May, [facility] [address] [facility] [id number] [address] [place] [phone] May, Bronchitis J40 and BMI 45.0- 49.9, adult Z68.42 [facility] [address] [facility] [id number] [address] [place] [phone] May, Low back pain M54.5 [facility] [address] [facility] [id number] [address] [place] [phone] Apr, [facility] [address] [id number] [address] [place] [phone] 20 Apr, 2017 Low back pain M54.5 ; Essent ial hypertension I10 ; Chronic obstructive pulmonary disease, unspecified COPD type J44.9 and Dyspnea on exertion R06.09 [facility] [address] [id number] [address] [place] [phone] 15 Apr, 2017 Onychomycosis B35.1 and Call us of foot L84 [facility] [address] [id number] [address] [place] [id number] 13 Apr, 2017 Low back pain M54.5 [facility] [address] [id number] [address] [place] [id number] 12 Mar, 2017 Low back pain M54.5 [facility] [address] [id number] [address] [place] [phone] Mar, [facility] [address] [id number] [address] [place] [id number] Feb, [facility] [address] [id number] [address] [place] [phone] Feb, [facility] [address] [id number] [address] [place] [id number] Feb, [facility] [address] [id number] [address] [place] [phone] Feb, Low back pain M54.5 [facility] [address] [id number] [address] [place] [id number] 18 Jan, 2017 [facility] [address] [id number] [address] [place] [id number] 14 Jan, 2017 Low back pain M54.5 [facility] [address] [id number] [address] [place] [phone] Dec, Low back pain M54.5 [facility] [address] [id number] [address] [place] [id number] Dec, [facility] [address] [address] Nov, Low back pain M54.5 ; Encoun ter for immunization Z23 ; Essential hypertension I10 ; Reactive depression F32.9 ; Neuropathy G62.9 and Chronic obstructive pulmonary disease, unspecified COPD type J44.9 [facility] [address] [place] [id number] [address] [place] [phone] Nov, Low back pain M54.5 [facility] [address] [id number] Oct, Low back pain M54.5 [facility] [address] [phone] Oct, Low back pain M54.5 [facility] [address] [id number] Oct, [facility] [address] [id number] Sep, [facility] [address] [id number] Sep, Low back pain M54.5 [place] [address] [phone] Sep, BPH loc w urin obs/LUTS N40. 1 [place] [address] [id number] Sep, [facility] [address] [id number] Sep, Low back pain M54.5 ; Essent ial hypertension I10 ; Mixed hyperlipidemia E78.2 ; Vitamin D deficiency E55.9 ; Prostatism N40.0 and Neuropathy G62.9 [facility] [address] [place] [id number] [address] [place] [id number] Aug, Neuropathy G62.9 [facility] [address] [place] [id number] [place] [phone] Aug, Low back pain M54.5 [facility] [address] [id number] [address] [place] [phone] Aug, Low back pain M54.5 [facility] [address] [id number] [address] [place] [phone] Jul, [facility] [address] [id number] [address] [place] [phone] Jul, [facility] [address] [id number] [address] [place] [phone] Jul, [facility] [address] [id number] [address] [place] [id number] Jul, [facility] [address] [id number] [address] [place] [id number] Jul, Neuropathy G62.9 [facility] [address] [id number] [address] [place] [id number] Jul, Mixed hyperlipidemia E78.2 [facility] [address] [id number] [address] [place] [phone] Jul, Low back pain M54.5 [facility] [address] [id number] [address] [place] [id number] Jul, [facility] [address] [id number] [address] [place] [id number] June, Low back pain M54.5 [facility] [address] [id number] [address] [place] [phone] May, Low back pain M54.5 [facility] [address] [id number] [address] [place] [id number] May, Chronic obstructive pulmonar y disease, unspecified COPD type J44.9 [facility] [address] [id number] [address] [place] [phone] Apr, [facility] [address] [id number] [address] [place] [id number] Apr, [facility] [address] [id number] [address] [place] [id number] Apr, Low back pain M54.5 [facility] [address] [id number] [address] [place] [phone] Apr, Low back pain M54.5 [facility] [address] [id number] [address] [place] [id number] 16 Mar, 2016 Low back pain M54.5 [facility] [address] [id number] [address] [place] [phone] Mar, Low back pain M54.5 [facility] [address] [id number] [address] [place] [id number] Mar, [facility] [address] [id number] [address] [place] [phone] Feb, Low back pain M54.5 [facility] [address] [id number] [address] [place] [phone] Jan, Low back pain M54.5 and 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, 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 [facility] [address] [id number] [address] [place] [phone] Jan, Low back pain M54.5 [facility] [address] [id number] [address] [place] [phone] Jan, [facility] [address] [id number] [address] [place] [id number] 16 Dec, 2015 Low back pain M54.5 [facility] [address] [id number] [address] [place] [phone] Dec, [facility] [address] [id number] [address] [place] [phone] 27 Oct, 2015 [facility] [address] [id number] [address] [place] [id number] 26 Oct, 2015 Low back pain M54.5 ; Essent ial hypertension I10 and Neuropathy G62.9 [facility] [address] [id number] [address] [place] [phone] 09 Oct, 2015 [facility] [address] [id number] [address] [place] [id number] Sep, [facility] [address] [id number] [address] [place] [id number] Sep, [facility] [address] [id number] [address] [place] [phone] Aug, Mixed hyperlipidemia E78.2 ; Essential hypertension I10 and Chronic obstructive pulmonary disease, unspecified COPD type J44.9 [place] [address] [id number] [address] [place] [phone] 08 Aug, 2015 Low back pain M54.5 ; Mixed hyperlipidemia E78.2 ; Essential hypertension I10 and Chronic obstructive pulmonary disease, unspecified COPD type J44.9 [place] [id number] [id number] [address] [place] [phone] Jul, Low back pain M54.5 ; Essent ial hypertension I10 and Mixed hyperlipidemia E78.2 [place] [address] [id number] [address] [place] [id number] Jul, IMMUNIZATIONS No Known Immunizations SOCIAL HISTORY Never Assessed REASON FOR VISIT Lab results PLAN OF CARE VITAL SIGNS MEDICATIONS Medication Instructions Dosage Frequency Start Date End Date Duration S tatus Cholecalciferol 31974 UNIT Orally once weekly for 8 weeks 1 capsule Oct, Active Vitamin D 1000 UNIT Orally Once a day- start after finishing 41543 unit rx 1 tablet Oct, Jan, 30 day(s) Active RESULTS No Results PROCEDURES [...]
--- OUTSIDE RECORDS SUMMARY | 2019-06-28 20:43 | XMS REPORT ---
Author Author Mario SANTOS Organization [facility] Address [address] [place] [address] Care Team Providers Care Transfer And Pumphouse Operator Name Role Phone MICHI SANTOS Unavailable PROBLEMS Type Condition ICD9-CM Code [id number] Code Onset Dates Condition S tatus SNOMED Code Problem Mixed hyperlipidemia E78.2 Active 678245726 Problem Low back pain M54.5 Active 860652 009 Problem BPH loc w urin obs/LUTS N40.1 Active 294269400 Problem Prostatism N40.0 Active 18031019 Problem Chronic obstructive pulmonary disease, unspecified COPD ty pe J44.9 Active 19885976 Problem Essential hypertension I10 Active 95756834 Problem Vitamin D deficiency E55.9 Active 21171494 Problem Neuropathy G62.9 Active 296542284 ALLERGIES Unknown Allergies SOCIAL HISTORY No smoking Hx information available PLAN OF CARE VITAL SIGNS MEDICATIONS Medication Instructions Dosage Frequency Start Date End Date Duration S link Oxycodone HCl 10 mg Orally every 6 hrs 1 tablet as needed 6h Feb Active RESULTS No Results PROCEDURES No Known procedures IMMUNIZATIONS No Known Immunizations
--- OUTSIDE RECORDS SUMMARY | 2019-06-28 20:43 | XMS REPORT ---
Author Author Mario GUILLEN Organization [facility] Address [address] [place] [address] Care Team Providers Care Biodiesel Technology Manager Name Role Phone JESSICA GUILLEN Unavailable PROBLEMS Type Condition ICD9-CM Code ZLO82-DK Code Onset Dates Condition S tatus SNOMED Code Problem Mixed hyperlipidemia E78.2 Active 363390633 Problem Neuropathy G62.9 Active 974672140 Problem Chronic obstructive pulmonary disease, unspecified COPD ty pe J44.9 Active 36869945 Problem Essential hypertension I10 Active 36970327 Problem Low back pain M54.5 Active 789931 009 Problem Bronchitis J40 Active 08630185 Problem BMI 45.0-49.9, adult Z68.42 Active 895894766 Problem Prostatism N40.0 Active 84571724 Problem Vitamin D deficiency E55.9 Active 97166735 Problem Reactive depression F32.9 Active 92402183 Problem BPH loc w urin obs/LUTS N40.1 Active [id number] ALLERGIES No Information ENCOUNTERS Encounter Location Date Diagnosis [facility] [address] [facility] [id number] [address] [place] [phone] Sep, [facility] [address] [facility] [id number] [address] [place] [phone] Jul, Onychomycosis B35.1 [facility] [address] [facility] [id number] [address] [place] [phone] Jul, Low back pain M54.5 [facility] [address] [facility] [id number] [address] [place] [phone] June, Low back pain M54.5 [facility] [address] [facility] [id number] [address] [place] [phone] May, [facility] [address] [facility] [id number] [address] [place] [phone] May, Bronchitis J40 and BMI 45.0- 49.9, adult Z68.42 [facility] [address] [facility] [id number] [address] [place] [phone] May, Low back pain M54.5 [facility] [address] [facility] [id number] [address] [place] [phone] Apr, [facility] [address] [place] [id number] [address] [place] [phone] Apr, Low back pain M54.5 ; Essent ial hypertension I10 ; Chronic obstructive pulmonary disease, unspecified COPD type J44.9 and Dyspnea on exertion R06.09 [facility] [address] [facility] [id number] [address] [place] [phone] 15 Apr, 2017 Onychomycosis B35.1 and Call us of foot L84 [facility] [address] [facility] [id number] [address] [place] [phone] Apr, Low back pain M54.5 [facility] [address] [facility] [id number] [address] [place] [phone] Mar, Low back pain M54.5 [facility] [address] [facility] [id number] [address] [place] [phone] Mar, [facility] [address] [facility] [id number] [address] [place] [phone] Feb, [facility] [address] [facility] [id number] [address] [place] [phone] Feb, [facility] [address] [id number] [address] [place] [phone] Feb, [facility] [address] [facility] [id number] [address] [place] [phone] Feb, Low back pain M54.5 [facility] [address] [facility] [id number] [address] [place] [phone] Jan, [facility] [address] [id number] [address] [place] [phone] Jan, Low back pain M54.5 [facility] [address] [id number] [address] [place] [phone] Dec, Low back pain M54.5 [facility] [address] [facility] [id number] [address] [place] [phone] Dec, [facility] [address] [facility] [id number] [address] [place] [phone] Nov, Low back pain M54.5 ; Encoun ter for immunization Z23 ; Essential hypertension I10 ; Reactive depression F32.9 ; Neuropathy G62.9 and Chronic obstructive pulmonary disease, unspecified COPD type J44.9 [facility] [address] [id number] [address] [place] [phone] Nov, Low back pain M54.5 [facility] [address] [id number] [address] [place] [phone] 22 Oct, 2016 Low back pain M54.5 [facility] [address] [id number] [address] [place] [phone] Oct, Low back pain M54.5 [facility] [address] [facility] [id number] [address] [place] [phone] Oct, [facility] [address] [facility] [id number] [address] [place] [phone] Sep, [facility] [address] [id number] [address] [place] [phone] Sep, Low back pain M54.5 [facility] [address] [facility] [id number] [address] [place] [phone] Sep, BPH loc w urin obs/LUTS N40. 1 [facility] [address] [id number] [address] [place] [phone] Sep, [facility] [address] [facility] [id number] [address] [place] [phone] Sep, Low back pain M54.5 ; Essent ial hypertension I10 ; Mixed hyperlipidemia E78.2 ; Vitamin D deficiency E55.9 ; Prostatism N40.0 and Neuropathy G62.9 [facility] [address] [id number] [address] [place] [phone] Aug, Neuropathy G62.9 [facility] [address] [id number] [address] [place] [phone] Aug, Low back pain M54.5 [facility] [address] [id number] [address] [place] [phone] Aug, Low back pain M54.5 [facility] [address] [id number] [address] [place] [phone] Jul, [facility] [address] [id number] [address] [place] [phone] Jul, [facility] [address] [id number] [address] [place] [phone] Jul, [facility] [address] [id number] [address] [place] [phone] Jul, [facility] [address] [id number] [address] [place] [phone] Jul, Neuropathy G62.9 [facility] [address] [id number] [address] [place] [phone] Jul, Mixed hyperlipidemia E78.2 [facility] [address] [id number] [address] [place] [phone] Jul, Low back pain M54.5 [facility] [address] [id number] [address] [place] [phone] Jul, [facility] [address] [id number] [address] [place] [phone] June, Low back pain M54.5 [facility] [address] [id number] [address] [place] [phone] May, Low back pain M54.5 [facility] [address] [id number] [address] [place] [phone] May, Chronic obstructive pulmonar y disease, unspecified COPD type J44.9 [facility] [address] [id number] [address] [place] [phone] Apr, [facility] [address] [id number] [address] [place] [phone] Apr, [facility] [address] [id number] [address] [place] [phone] Apr, Low back pain M54.5 [facility] [address] [id number] [address] [place] [phone] Apr, Low back pain M54.5 [facility] [address] [id number] [address] [place] [phone] 16 Mar, 2016 Low back pain M54.5 [facility] [address] [id number] [address] [place] [phone] Mar, Low back pain M54.5 [facility] [address] [id number] [address] [place] [phone] Mar, [facility] [address] [id number] [address] [place] [phone] Feb, Low back pain M54.5 [facility] [address] [id number] [address] [place] [phone] Jan, Low back pain M54.5 and [employer]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, 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 [facility] [address] [id number] [address] [place] [phone] Jan, Low back pain M54.5 [facility] [address] [id number] [address] [place] [phone] Jan, [facility] [address] [facility] [id number] [address] [place] [phone] 16 Dec, 2015 Low back pain M54.5 [facility] [address] [facility] [id number] [address] [place] [phone] Dec, [facility] [address] [facility] [id number] [address] [place] [phone] Oct, [facility] [address] [id number] [address] [place] [phone] Oct, Low back pain M54.5 ; Essent ial hypertension I10 and Neuropathy G62.9 [place] [address] [facility] [id number] [address] [place] [phone] 09 Oct, 2015 [facility] [address] [facility] [id number] [address] [place] [phone] Sep, [place] [address] [facility] [id number] [address] [place] [phone] Sep, [facility] [address] [facility] [id number] [address] [place] [phone] Aug, Mixed hyperlipidemia E78.2 ; Essential hypertension I10 and Chronic obstructive pulmonary disease, unspecified COPD type J44.9 [facility] [address] [facility] [id number] [address] [place] [phone] 08 Aug, 2015 Low back pain M54.5 ; Mixed hyperlipidemia E78.2 ; Essential hypertension I10 and Chronic obstructive pulmonary disease, unspecified COPD type J44.9 [facility] [address] [facility] [id number] [address] [place] [phone] Jul, Low back pain M54.5 ; Essent ial hypertension I10 and Mixed hyperlipidemia E78.2 [place] [address] [facility] [id number] [address] [place] [phone] 02 Jul, 2015 IMMUNIZATIONS No Known Immunizations SOCIAL HISTORY Never Assessed REASON FOR VISIT Requesting Referral PLAN OF CARE VITAL SIGNS MEDICATIONS Unknown [...]
--- OUTSIDE RECORDS SUMMARY | 2019-06-28 20:43 | XMS REPORT ---
Author Author Mario GUILLEN Organization [employer] Address Unknown Phone Unavailable Care Team Providers Care Chemistry Laboratory Technician Name Role Phone JESSICA GUILLEN CP Unavailable Allergies No Known Allergies Problems Problem Type Condition Code Onset Dates Condition Statu s Problem Low back pain M54.5 Active Problem Mixed hyperlipidemia E78.2 Active Problem Chronic obstructive pulmonary disease, unspecified COLLECTIONS OFFICER D type J44.9 Active Assessment Essential hypertension I10 Activ e Assessment Chronic obstructive pulmonary disease, unspecified COLLECTIONS OFFICER D type J44.9 Active Problem Essential hypertension I10 Activ e Assessment Mixed hyperlipidemia E78.2 Active Medications Medication Code System Code Instructions Start Date End Date Status Dosage Nexium [facility] [address]-63 40 mg Orally Once a day 1 capsule Amlodipine Besylate [facility] [address]-61 10 mg Orally Once a day 1 tablet Flomax [facility] [address]-37 0.4 MG Orally Once a day 1 tablet Ranitidine HCl [facility] [address]-25 300 MG Orally Once a day 1 tablet at bedtime Oxycodone HCl [facility] [address]-79 10 mg Orally every 6 hrs 1 tablet as needed Fluoxetine HCl [facility] [address]-23 40 mg Orally Once a day 1 capsule Crestor [facility] [address]-36 20 mg Orally Once a day 1 tablet Results No Known Results Summary Purpose [employer] Submission
--- OUTSIDE RECORDS SUMMARY | 2019-06-28 20:43 | XMS REPORT ---
Author Mario Bradshaw Organization [employer] Address Unknown Phone Unavailable Care Team Providers Care Pattern Vault Clerk Name Role Phone JESSICA GUILLEN CP Unavailable Allergies No Known Allergies Problems Problem Type Condition Code Onset Dates Condition Statu s Problem Chronic obstructive pulmonary disease, unspecified [employer] D type J44.9 Active Problem Low back pain M54.5 Active Problem Neuropathy G62.9 Active Problem Mixed hyperlipidemia E78.2 Active Problem Essential hypertension I10 Activ e Medications Medication Code System Code Instructions Start Date End Date Status Dosage Indiosor [facility] [place] [address]-99 20 mg Orally Once a day 1 tablet Results No Known Results Summary Purpose [employer] Submission
--- OUTSIDE RECORDS SUMMARY | 2019-06-28 20:43 | XMS REPORT ---
Author Author Mario GUILLEN Organization [facility] Address [address] [place] [address] Care Team Providers Care Offal Trimmer Name Role Phone JESSICA GUILLEN Unavailable PROBLEMS Type Condition ICD9-CM Code OVR73-RU Code Onset Dates Condition S tatus SNOMED Code Problem Low back pain M54.5 Active 607044 009 Problem Essential hypertension I10 Active 85760953 Problem Mixed hyperlipidemia E78.2 Active 348667989 Problem Reactive depression F32.9 Active 23027861 Problem BPH loc w urin obs/LUTS N40.1 Active 460724793 Problem Neuropathy G62.9 Active 229917959 Problem Chronic obstructive pulmonary disease, unspecified COPD ty pe J44.9 Active 96579017 Problem Prostatism N40.0 Active 04188665 Problem Vitamin D deficiency E55.9 Active 84225830 ALLERGIES No Information ENCOUNTERS Encounter Location Date Diagnosis [place] [address] [id number] May, [facility] [address] [place] [id number] [address] [place] [id number] Apr, [place] [address] [place] [id number] [place] [id number] 20 Apr, 2017 Low back pain M54.5 ; Essent ial hypertension I10 ; Chronic obstructive pulmonary disease, unspecified COPD type J44.9 and Dyspnea on exertion R06.09 [place] [address] [place] [id number] [place] [id number] 15 Apr, 2017 Onychomycosis B35.1 and Call us of foot L84 [facility] [address] [place] [id number] [address] [place] [id number] 13 Apr, 2017 Low back pain M54.5 [place] [address] [place] [id number] [address] [place] [id number] Mar, Low back pain M54.5 [facility] [address] [id number] [address] [place] [id number] Mar, [facility] [address] [id number] [address] [place] [id number] Feb, [facility] [address] [id number] [address] [place] [id number] Feb, [facility] [address] [id number] [address] [place] [id number] Feb, [facility] [address] [id number] [address] [place] [id number] Feb, Low back pain M54.5 [facility] [address] [id number] [address] [place] [id number] Jan, [facility] [address] [id number] [address] [place] [id number] Jan, Low back pain M54.5 [facility] [address] [id number] [address] [place] [id number] Dec, Low back pain M54.5 [facility] [address] [id number] [address] [place] [id number] Dec, [facility] [address] [id number] [address] [place] [id number] Nov, Low back pain M54.5 ; Encoun ter for immunization Z23 ; Essential hypertension I10 ; Reactive depression F32.9 ; Neuropathy G62.9 and Chronic obstructive pulmonary disease, unspecified COPD type J44.9 [facility] [address] [id number] [address] [place] [id number] Nov, Low back pain M54.5 [facility] [address] [id number] [address] [place] [id number] Oct, Low back pain M54.5 [facility] [address] [id number] [address] [place] [id number] Oct, Low back pain M54.5 [facility] [address] [id number] [address] [place] [id number] Oct, [facility] [address] [facility] [id number] [address] [place] [id number] Sep, [facility] [address] [facility] [id number] [address] [place] [id number] Sep, Low back pain M54.5 [facility] [address] [facility] [id number] [address] [place] [id number] Sep, BPH loc w urin obs/LUTS N40. 1 [facility] [address] [facility] [id number] [address] [place] [id number] Sep, [facility] [address] [facility] [id number] [address] [place] [id number] Sep, Low back pain M54.5 ; Essent ial hypertension I10 ; Mixed hyperlipidemia E78.2 ; Vitamin D deficiency E55.9 ; Prostatism N40.0 and Neuropathy G62.9 [facility] [address] [facility] [id number] [address] [place] [id number] Aug, Neuropathy G62.9 [facility] [address] [facility] [id number] [address] [place] [id number] Aug, Low back pain M54.5 [facility] [address] [facility] [id number] [address] [place] [id number] Aug, Low back pain M54.5 [facility] [address] [facility] [id number] [address] [place] [id number] Jul, [facility] [address] [facility] [id number] [address] [place] [id number] Jul, [facility] [address] [facility] [id number] [address] [place] [id number] Jul, [facility] [address] [id number] [address] [place] [id number] Jul, [facility] [address] [id number] [address] [place] [id number] Jul, Neuropathy G62.9 [facility] [address] [id number] [address] [place] [id number] Jul, Mixed hyperlipidemia E78.2 [facility] [address] [id number] [address] [place] [id number] Jul, Low back pain M54.5 [facility] [address] [id number] [address] [place] [id number] Jul, [facility] [address] [id number] [address] [place] [id number] June, Low back pain M54.5 [facility] [address] [id number] [address] [place] [id number] May, Low back pain M54.5 [facility] [address] [id number] [address] [place] [id number] May, Chronic obstructive pulmonar y disease, unspecified COPD type J44.9 [facility] [address] [id number] [address] [place] [id number] Apr, [facility] [address] [id number] [address] [place] [id number] Apr, [facility] [address] [id number] [address] [place] [id number] Apr, Low back pain M54.5 [facility] [address] [id number] [address] [place] [id number] Apr, Low back pain M54.5 [facility] [address] [id number] [address] [place] [id number] Mar, Low back pain M54.5 [facility] [address] [id number] [address] [place] [id number] Mar, Low back pain M54.5 [facility] [address] [id number] [address] [place] [id number] 09 Mar, 2016 [facility] [address] [id number] [address] [place] [id number] Feb, Low back pain M54.5 [facility] [address] [id number] [address] [place] [id number] Jan, Low back pain M54.5 and 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, 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 [facility] [address] [id number] [address] [place] [id number] Jan, Low back pain M54.5 [facility] [address] [id number] [address] [place] [id number] Jan, [facility] [address] [id number] [address] [place] [id number] Dec, Low back pain M54.5 [facility] [address] [id number] [address] [place] [id number] Dec, [facility] [address] [id number] [address] [place] [id number] Oct, [facility] [address] [id number] [address] [place] [id number] Oct, Low back pain M54.5 ; Essent ial hypertension I10 and Neuropathy G62.9 [facility] [address] [id number] [address] [place] [id number] Oct, [facility] [address] [id number] [address] [place] [id number] Sep, [facility] [address] [id number] [address] [place] [id number] Sep, [facility] [address] [id number] [address] [place] [id number] Aug, Mixed hyperlipidemia E78.2 ; Essential hypertension I10 and Chronic obstructive pulmonary disease, unspecified COPD type J44.9 [facility] [address] [facility] [id number] [address] [place] [id number] Aug, Low back pain M54.5 ; Mixed hyperlipidemia E78.2 ; Essential hypertension I10 and Chronic obstructive pulmonary disease, unspecified COPD type J44.9 [place] [address] [facility] [id number] [address] [place] [id number] Jul, Low back pain M54.5 ; Essent ial hypertension I10 and Mixed hyperlipidemia E78.2 [place] [address] [facility] [id number] [address] [place] [id number] Jul, IMMUNIZATIONS No Known Immunizations SOCIAL HISTORY Never Assessed REASON FOR VISIT 90 day supply PLAN OF CARE VITAL SIGNS MEDICATIONS Medication Instructions Dosage Frequency Start Date End Date Duration S tatus Cymbalta 30 MG Orally Twice a day 1 capsule 12h Jul, 90 days Active RESULTS No Results PROCEDURES No [...]
--- OUTSIDE RECORDS SUMMARY | 2019-06-28 20:43 | XMS REPORT ---
Author Author Mario GUILLEN Organization [facility] [place] Address [address] [place] [address] Care Team Providers Care Electrocardiograph Repairer Name Role Phone JESSICA GUILLEN Unavailable PROBLEMS Type Condition ICD9-CM Code LXD97-NO Code Onset Dates Condition S tatus SNOMED Code Problem Mixed hyperlipidemia E78.2 Active 245588638 Problem Neuropathy G62.9 Active 625796907 Problem Chronic obstructive pulmonary disease, unspecified COPD ty pe J44.9 Active 81494576 Problem Essential hypertension I10 Active 06584952 Problem Low back pain M54.5 Active 390717 009 Problem Bronchitis J40 Active 11578200 Problem BMI 45.0-49.9, adult Z68.42 Active 793274336 Problem Prostatism N40.0 Active 36882544 Problem Vitamin D deficiency E55.9 Active 87854300 Problem Reactive depression F32.9 Active 71349704 Problem BPH loc w urin obs/LUTS N40.1 Active 006375290 ALLERGIES No Information ENCOUNTERS Encounter Location Date Diagnosis [facility] [place] [address] [facility] [id number] [address] [place] [phone] Sep, [facility] [place] [address] [facility] [id number] [address] [place] [phone] Jul, Onychomycosis B35.1 [facility] [place] [address] [facility] [id number] [address] [place] [phone] Jul, Low back pain M54.5 [facility] [place] [address] [facility] [id number] [address] [place] [phone] June, Low back pain M54.5 [facility] [place] [address] [facility] [id number] [address] [place] [phone] May, [facility] [place] [address] [facility] [id number] [address] [place] [phone] May, Bronchitis J40 and BMI 45.0- 49.9, adult Z68.42 [facility] [place] [address] [facility] [id number] [address] [place] [phone] May, Low back pain M54.5 [facility] [place] [address] [facility] [id number] [address] [place] [phone] Apr, [facility] [place] [address] [place] [id number] [address] [place] [phone] Apr, Low back pain M54.5 ; Essent ial hypertension I10 ; Chronic obstructive pulmonary disease, unspecified COPD type J44.9 and Dyspnea on exertion R06.09 [facility] [place] [address] [facility] [id number] [address] [place] [id number] 15 Apr, 2017 Onychomycosis B35.1 and Call us of foot L84 [facility] [place] [address] [facility] [id number] [address] [place] [phone] Apr, Low back pain M54.5 [facility] [place] [address] [facility] [id number] [address] [place] [phone] Mar, Low back pain M54.5 [facility] [place] [address] [facility] [id number] [address] [place] [id number] Mar, [facility] [place] [address] [facility] [id number] [address] [place] [id number] Feb, [facility] [place] [address] [facility] [id number] [address] [place] [phone] Feb, [facility] [place] [address] [id number] [address] [place] [phone] Feb, [facility] [place] [address] [facility] [id number] [address] [place] [phone] Feb, Low back pain M54.5 [facility] [place] [address] [facility] [id number] [address] [place] [phone] Jan, [facility] [place] [address] [id number] [address] [place] [phone] Jan, Low back pain M54.5 [facility] [place] [address] [id number] [address] [place] [id number] Dec, Low back pain M54.5 [facility] [place] [address] [facility] [id number] [address] [place] [id number] Dec, [facility] [place] [address] [facility] [id number] [address] [place] [phone] Nov, Low back pain M54.5 ; Encoun ter for immunization Z23 ; Essential hypertension I10 ; Reactive depression F32.9 ; Neuropathy G62.9 and Chronic obstructive pulmonary disease, unspecified COPD type J44.9 [facility] [place] [address] [id number] [address] [place] [phone] Nov, Low back pain M54.5 [facility] [place] [address] [id number] [address] [place] [id number] 22 Oct, 2016 Low back pain M54.5 [facility] [place] [address] [id number] [address] [place] [phone] Oct, Low back pain M54.5 [facility] [place] [address] [facility] [id number] [address] [place] [id number] Oct, [facility] [place] [address] [facility] [id number] [address] [place] [id number] Sep, [facility] [place] [address] [id number] [address] [place] [id number] Sep, Low back pain M54.5 [facility] [place] [address] [facility] [id number] [address] [place] [phone] Sep, BPH loc w urin obs/LUTS N40. 1 [facility] [address] [id number] [address] [place] [phone] Sep, [facility] [place] [address] [facility] [id number] [address] [place] [id number] Sep, Low back pain M54.5 ; Essent ial hypertension I10 ; Mixed hyperlipidemia E78.2 ; Vitamin D deficiency E55.9 ; Prostatism N40.0 and Neuropathy G62.9 [facility] [place] [address] [id number] [address] [place] [phone] Aug, Neuropathy G62.9 [facility] [place] [address] [id number] [address] [place] [phone] Aug, Low back pain M54.5 [facility] [place] [address] [id number] [address] [place] [phone] Aug, Low back pain M54.5 [facility] [place] [address] [id number] [address] [place] [phone] Jul, [facility] [place] [address] [id number] [address] [place] [id number] Jul, [facility] [place] [address] [id number] [address] [place] [id number] Jul, [facility] [place] [address] [id number] [address] [place] [phone] Jul, [facility] [address] [id number] [address] [place] [phone] Jul, Neuropathy G62.9 [facility] [place] [address] [id number] [address] [place] [id number] Jul, Mixed hyperlipidemia E78.2 [facility] [place] [address] [id number] [address] [place] [phone] Jul, Low back pain M54.5 [facility] [place] [address] [id number] [address] [place] [phone] Jul, [facility] [place] [address] [id number] [address] [place] [phone] June, Low back pain M54.5 [facility] [place] [address] [id number] [address] [place] [phone] May, Low back pain M54.5 [facility] [place] [address] [id number] [address] [place] [id number] May, Chronic obstructive pulmonar y disease, unspecified COPD type J44.9 [facility] [place] [address] [id number] [address] [place] [phone] Apr, [facility] [place] [address] [id number] [address] [place] [id number] Apr, [facility] [address] [id number] [address] [place] [phone] Apr, Low back pain M54.5 [facility] [address] [id number] [address] [place] [id number] Apr, Low back pain M54.5 [facility] [place] [address] [id number] [address] [place] [id number] 16 Mar, 2016 Low back pain M54.5 [facility] [address] [id number] [address] [place] [id number] Mar, Low back pain M54.5 [facility] [address] [id number] [address] [place] [phone] Mar, [facility] [place] [address] [id number] [address] [place] [id number] Feb, Low back pain M54.5 [facility] [place] [address] [id number] [address] [place] [id number] Jan, Low back pain M54.5 and 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 [id number] [address] [place] [id number] 16 Dec, 2015 Low back pain M54.5 [facility] [place] [address] [facility] [id number] [address] [place] [id number] Dec, [facility] [place] [address] [facility] [id number] [address] [place] [id number] Oct, [facility] [place] [address] [id number] [address] [place] [phone] Oct, Low back pain M54.5 ; Essent ial hypertension I10 and Neuropathy G62.9 [facility] [place] [address] [facility] [id number] [address] [place] [id number] 09 Oct, 2015 [facility] [address] [facility] [id number] [address] [place] [phone] Sep, [place] [address] [facility] [id number] [address] [place] [id number] Sep, [facility] [place] [address] [facility] [id number] [address] [place] [id number] Aug, Mixed hyperlipidemia E78.2 ; Essential hypertension I10 and Chronic obstructive pulmonary disease, unspecified COPD type J44.9 [facility] [address] [facility] [id number] [address] [place] [phone] 08 Aug, 2015 Low back pain M54.5 ; Mixed hyperlipidemia E78.2 ; Essential hypertension I10 and Chronic obstructive pulmonary disease, unspecified COPD type J44.9 [facility] [place] [address] [facility] [id number] [address] [place] [id number] Jul, Low back pain M54.5 ; Essent ial hypertension I10 and Mixed hyperlipidemia E78.2 [place] [address] [facility] [id number] [address] [place] [phone] 02 Jul, 2015 IMMUNIZATIONS No Known Immunizations SOCIAL HISTORY Never Assessed REASON FOR VISIT Requests return call PLAN OF CARE VITAL SIGNS MEDICATIONS Unknown [...]
--- OUTSIDE RECORDS SUMMARY | 2019-06-28 20:43 | XMS REPORT ---
Author Author Mario GUILLEN Organization [facility] Address [address] [place] [address] Care Team Providers Care Teacher Of The Deaf Name Role Phone JESSICA GUILLEN Unavailable PROBLEMS Type Condition ICD9-CM Code WIQ03-AV Code Onset Dates Condition S tatus SNOMED Code Problem Neuropathy G62.9 Active 776223431 Problem Chronic obstructive pulmonary disease, unspecified COPD ty pe J44.9 Active 24362509 Problem Essential hypertension I10 Active 10945096 Problem Low back pain M54.5 Active 600590 009 Problem Mixed hyperlipidemia E78.2 Active 524790980 ALLERGIES Unknown Allergies SOCIAL HISTORY No smoking Hx information available PLAN OF CARE VITAL SIGNS MEDICATIONS Unknown Medications RESULTS No Results PROCEDURES No Known procedures IMMUNIZATIONS No Known Immunizations
--- OUTSIDE RECORDS SUMMARY | 2019-06-28 20:43 | XMS REPORT ---
Author Author Mario GUILLEN Organization [facility] Address [address] [place] [address] Care Team Providers Care Weigher And Crusher Name Role Phone JESSICA GUILLEN Unavailable PROBLEMS Type Condition ICD9-CM Code SLP29-KV Code Onset Dates Condition S tatus SNOMED Code Problem Mixed hyperlipidemia E78.2 Active 999195333 Problem Low back pain M54.5 Active 476838 009 Problem BPH loc w urin obs/LUTS N40.1 Active 261130932 Problem Prostatism N40.0 Active 69033600 Problem Chronic obstructive pulmonary disease, unspecified COPD ty pe J44.9 Active 64413353 Problem Essential hypertension I10 Active 17108891 Problem Vitamin D deficiency E55.9 Active 24414109 Problem Neuropathy G62.9 Active 568554836 ALLERGIES No Information SOCIAL HISTORY Never Assessed PLAN OF CARE VITAL SIGNS MEDICATIONS Unknown [...]
--- OUTSIDE RECORDS SUMMARY | 2019-06-28 20:44 | XMS REPORT ---
Author Author Mario GUILLEN Organization [facility] Address [address] [place] [address] Care Team Providers Care Edger Liner Name Role Phone JESSICA GUILLEN Unavailable PROBLEMS Type Condition ICD9-CM Code [id number] Code Onset Dates Condition S tatus SNOMED Code Problem Low back pain M54.5 Active 624759 009 Problem Essential hypertension I10 Active 33286991 Problem Mixed hyperlipidemia E78.2 Active 666088703 Problem Reactive depression F32.9 Active 48636636 Problem BPH loc w urin obs/LUTS N40.1 Active 552570855 Problem Neuropathy G62.9 Active 553701677 Problem Chronic obstructive pulmonary disease, unspecified COPD ty pe J44.9 Active 86915367 Problem Prostatism N40.0 Active 60408810 Problem Vitamin D deficiency E55.9 Active [id number] ALLERGIES No Information ENCOUNTERS Encounter Location Date Diagnosis [place] [address] [phone] May, [facility] [address] [place] [id number] [address] [place] [phone] Apr, [place] [address] [place] [id number] [address] [place] [phone] 20 Apr, 2017 Low back pain M54.5 ; Essent ial hypertension I10 ; Chronic obstructive pulmonary disease, unspecified COPD type J44.9 and Dyspnea on exertion R06.09 [place] [address] [place] [id number] [address] [place] [phone] 15 Apr, 2017 Onychomycosis B35.1 and Call us of foot L84 [facility] [address] [place] [id number] [address] [place] [phone] 13 Apr, 2017 Low back pain M54.5 [place] [address] [place] [id number] [address] [place] [phone] Mar, Low back pain M54.5 [facility] [address] [id number] [address] [place] [phone] Mar, [facility] [address] [id number] [address] [place] [phone] Feb, [facility] [address] [id number] [address] [place] [phone] Feb, [facility] [address] [id number] [address] [place] [phone] Feb, [facility] [address] [id number] [address] [place] [phone] Feb, Low back pain M54.5 [facility] [address] [id number] [address] [place] [phone] Jan, [facility] [address] [id number] [address] [place] [phone] Jan, Low back pain M54.5 [facility] [address] [id number] [address] [place] [phone] Dec, Low back pain M54.5 [facility] [address] [id number] [address] [place] [phone] Dec, [facility] [address] [id number] [address] [place] [phone] Nov, Low back pain M54.5 ; Encoun ter for immunization Z23 ; Essential hypertension I10 ; Reactive depression F32.9 ; Neuropathy G62.9 and Chronic obstructive pulmonary disease, unspecified COPD type J44.9 [facility] [address] [id number] [address] [place] [phone] Nov, Low back pain M54.5 [facility] [address] [id number] [address] [place] [phone] Oct, Low back pain M54.5 [facility] [address] [id number] [address] [place] [phone] Oct, Low back pain M54.5 [facility] [address] [id number] [address] [place] [phone] Oct, [facility] [address] [facility] [id number] [address] [place] [phone] Sep, [facility] [address] [facility] [id number] [address] [place] [phone] Sep, Low back pain M54.5 [facility] [address] [facility] [id number] [address] [place] [phone] Sep, BPH loc w urin obs/LUTS N40. 1 [facility] [address] [facility] [id number] [address] [place] [phone] Sep, [facility] [address] [facility] [id number] [address] [place] [phone] Sep, Low back pain M54.5 ; Essent ial hypertension I10 ; Mixed hyperlipidemia E78.2 ; Vitamin D deficiency E55.9 ; Prostatism N40.0 and Neuropathy G62.9 [facility] [address] [facility] [id number] [address] [place] [phone] Aug, Neuropathy G62.9 [facility] [address] [facility] [id number] [address] [place] [phone] Aug, Low back pain M54.5 [facility] [address] [facility] [id number] [address] [place] [phone] Aug, Low back pain M54.5 [facility] [address] [facility] [id number] [address] [place] [phone] Jul, [facility] [address] [facility] [id number] [address] [place] [phone] Jul, [facility] [address] [facility] [id number] [address] [place] [phone] Jul, [facility] [address] [id number] [address] [place] [phone] Jul, [facility] [address] [id number] [address] [place] [phone] Jul, Neuropathy G62.9 [facility] [address] [id number] [address] [place] [phone] Jul, Mixed hyperlipidemia E78.2 [facility] [address] [id number] [address] [place] [phone] Jul, Low back pain M54.5 [facility] [address] [id number] [address] [place] [phone] Jul, [facility] [address] [id number] [address] [place] [phone] June, Low back pain M54.5 [facility] [address] [id number] [address] [place] [phone] May, Low back pain M54.5 [facility] [address] [id number] [address] [place] [phone] May, Chronic obstructive pulmonar y disease, unspecified COPD type J44.9 [facility] [address] [id number] [address] [place] [phone] Apr, [facility] [address] [id number] [address] [place] [phone] Apr, [facility] [address] [id number] [address] [place] [phone] Apr, Low back pain M54.5 [facility] [address] [id number] [address] [place] [phone] Apr, Low back pain M54.5 [facility] [address] [id number] [address] [place] [phone] Mar, Low back pain M54.5 [facility] [address] [id number] [address] [place] [phone] Mar, Low back pain M54.5 [facility] [address] [id number] [address] [place] [phone] 09 Mar, 2016 [facility] [address] [id number] [address] [place] [phone] Feb, Low back pain M54.5 [facility] [address] [id number] [address] [place] [phone] Jan, Low back pain M54.5 and 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, 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 COPD 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.9 [facility] [address] [id number] [address] [place] [phone] Jan, Low back pain M54.5 [facility] [address] [id number] [address] [place] [phone] Jan, [facility] [address] [id number] [address] [place] [phone] Dec, Low back pain M54.5 [facility] [address] [id number] [address] [place] [phone] Dec, [facility] [address] [id number] [address] [place] [phone] Oct, [facility] [address] [id number] [address] [place] [phone] Oct, Low back pain M54.5 ; Essent ial hypertension I10 and Neuropathy G62.9 [facility] [address] [id number] [address] [place] [phone] Oct, [facility] [address] [id number] [address] [place] [phone] Sep, [facility] [address] [id number] [address] [place] [phone] Sep, [facility] [address] [id number] [address] [place] [phone] Aug, Mixed hyperlipidemia E78.2 ; Essential hypertension I10 and Chronic obstructive pulmonary disease, unspecified COPD type J44.9 [facility] [address] [facility] [id number] [address] [place] [phone] Aug, Low back pain M54.5 ; Mixed hyperlipidemia E78.2 ; Essential hypertension I10 and Chronic obstructive pulmonary disease, unspecified COPD type J44.9 [place] [address] [address] [facility] [id number] [address] [place] [phone] Jul, Low back pain M54.5 ; Essent ial hypertension I10 and Mixed hyperlipidemia E78.2 [place] [address] [address] [facility] [id number] [address] [place] [phone] Jul, IMMUNIZATIONS No Known Immunizations SOCIAL HISTORY Never Assessed REASON FOR VISIT PA 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
--- OUTSIDE RECORDS SUMMARY | 2019-06-28 20:44 | XMS REPORT ---
Author Author Mario GUILLEN Organization [facility] Address [address] [place] [address] Care Team Providers Care Computer Sciences Professor Name Role Phone JESSICA GUILLEN Unavailable PROBLEMS Type Condition ICD9-CM Code [id number] Code Onset Dates Condition S tatus SNOMED Code Problem Mixed hyperlipidemia E78.2 Active 818664962 Problem Low back pain M54.5 Active 649682 009 Problem BPH loc w urin obs/LUTS N40.1 Active 488197779 Problem Prostatism N40.0 Active 75596291 Problem Chronic obstructive pulmonary disease, unspecified COPD ty pe J44.9 Active 37237530 Problem Essential hypertension I10 Active 42224151 Problem Vitamin D deficiency E55.9 Active 39211694 Problem Neuropathy G62.9 Active [id number] ALLERGIES No Information SOCIAL HISTORY Never Assessed [...]
--- OUTSIDE RECORDS SUMMARY | 2019-06-28 20:44 | XMS REPORT ---
Author Author Mario GUILLEN Organization [facility] Address [address] [place] [address] Care Team Providers Care Boarding Kennel Or Cattery Operator Name Role Phone JESSICA GUILLEN Unavailable PROBLEMS Type Condition ICD9-CM Code ZZB92-HK Code Onset Dates Condition S tatus SNOMED Code Problem Low back pain M54.5 Active 331283 009 Problem Essential hypertension I10 Active 25158460 Problem Mixed hyperlipidemia E78.2 Active 022847589 Problem Reactive depression F32.9 Active 50804990 Problem BPH loc w urin obs/LUTS N40.1 Active 528643199 Problem Neuropathy G62.9 Active 623885502 Problem Chronic obstructive pulmonary disease, unspecified COPD ty pe J44.9 Active 20694603 Problem Prostatism N40.0 Active 12115220 Problem Vitamin D deficiency E55.9 Active 74098912 ALLERGIES No Information ENCOUNTERS Encounter Location Date Diagnosis [place] [address] [phone] May, [facility] [address] [place] [id number] [address] [place] [phone] Apr, [place] [address] [place] [id number] [address] [place] [phone] 20 Apr, 2017 Low back pain M54.5 ; Essent ial hypertension I10 ; Chronic obstructive pulmonary disease, unspecified COPD type J44.9 and Dyspnea on exertion R06.09 [place] [address] [place] [id number] [address] [place] [phone] 15 Apr, 2017 Onychomycosis B35.1 and Call us of foot L84 [facility] [address] [place] [id number] [address] [place] [phone] 13 Apr, 2017 Low back pain M54.5 [place] [address] [place] [id number] [address] [place] [phone] Mar, Low back pain M54.5 [facility] [address] [id number] [address] [place] [phone] Mar, [facility] [address] [id number] [address] [place] [phone] Feb, [facility] [address] [id number] [address] [place] [phone] Feb, [facility] [address] [id number] [address] [place] [phone] Feb, [facility] [address] [id number] [address] [place] [phone] Feb, Low back pain M54.5 [facility] [address] [id number] [address] [place] [phone] Jan, [facility] [address] [id number] [address] [place] [id number] Jan, Low back pain M54.5 [facility] [address] [id number] [address] [place] [phone] Dec, Low back pain M54.5 [facility] [address] [id number] [address] [place] [phone] Dec, [facility] [address] [id number] [address] [place] [phone] Nov, Low back pain M54.5 ; Encoun ter for immunization Z23 ; Essential hypertension I10 ; Reactive depression F32.9 ; Neuropathy G62.9 and Chronic obstructive pulmonary disease, unspecified COPD type J44.9 [facility] [address] [id number] [address] [place] [phone] Nov, Low back pain M54.5 [facility] [address] [id number] [address] [place] [phone] Oct, Low back pain M54.5 [facility] [address] [id number] [address] [place] [phone] Oct, Low back pain M54.5 [facility] [address] [id number] [address] [place] [phone] Oct, [facility] [address] [facility] [id number] [address] [place] [phone] Sep, [facility] [address] [facility] [id number] [address] [place] [phone] Sep, Low back pain M54.5 [facility] [address] [facility] [id number] [address] [place] [phone] Sep, BPH loc w urin obs/LUTS N40. 1 [facility] [address] [facility] [id number] [address] [place] [phone] Sep, [facility] [address] [facility] [id number] [address] [place] [phone] Sep, Low back pain M54.5 ; Essent ial hypertension I10 ; Mixed hyperlipidemia E78.2 ; Vitamin D deficiency E55.9 ; Prostatism N40.0 and Neuropathy G62.9 [facility] [address] [facility] [id number] [address] [place] [phone] Aug, Neuropathy G62.9 [facility] [address] [facility] [id number] [address] [place] [phone] Aug, Low back pain M54.5 [facility] [address] [facility] [id number] [address] [place] [phone] Aug, Low back pain M54.5 [facility] [address] [facility] [id number] [address] [place] [phone] Jul, [facility] [address] [facility] [id number] [address] [place] [phone] Jul, [facility] [address] [facility] [id number] [address] [place] [phone] Jul, [facility] [address] [id number] [address] [place] [phone] Jul, [facility] [address] [id number] [address] [place] [id number] Jul, Neuropathy G62.9 [facility] [address] [id number] [address] [place] [phone] Jul, Mixed hyperlipidemia E78.2 [facility] [address] [id number] [address] [place] [phone] Jul, Low back pain M54.5 [facility] [address] [id number] [address] [place] [phone] Jul, [facility] [address] [id number] [address] [place] [id number] June, Low back pain M54.5 [facility] [address] [id number] [address] [place] [phone] May, Low back pain M54.5 [facility] [address] [id number] [address] [place] [phone] May, Chronic obstructive pulmonar y disease, unspecified COPD type J44.9 [facility] [address] [id number] [address] [place] [phone] Apr, [facility] [address] [id number] [address] [place] [phone] Apr, [facility] [address] [id number] [address] [place] [phone] Apr, Low back pain M54.5 [facility] [address] [id number] [address] [place] [id number] Apr, Low back pain M54.5 [facility] [address] [id number] [address] [place] [phone] Mar, Low back pain M54.5 [facility] [address] [id number] [address] [place] [phone] Mar, Low back pain M54.5 [facility] [address] [id number] [address] [place] [phone] 09 Mar, 2016 [facility] [address] [id number] [address] [place] [phone] Feb, Low back pain M54.5 [facility] [address] [id number] [address] [place] [phone] Jan, Low back pain M54.5 and 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, 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 [facility] [address] [id number] [address] [place] [phone] Jan, Low back pain M54.5 [facility] [address] [id number] [address] [place] [phone] Jan, [facility] [address] [id number] [address] [place] [phone] Dec, Low back pain M54.5 [facility] [address] [id number] [address] [place] [phone] Dec, [facility] [address] [id number] [address] [place] [phone] Oct, [facility] [address] [id number] [address] [place] [phone] Oct, Low back pain M54.5 ; Essent ial hypertension I10 and Neuropathy G62.9 [facility] [address] [id number] [address] [place] [phone] Oct, [facility] [address] [id number] [address] [place] [phone] Sep, [facility] [address] [id number] [address] [place] [phone] Sep, [facility] [address] [id number] [address] [place] [phone] Aug, Mixed hyperlipidemia E78.2 ; Essential hypertension I10 and Chronic obstructive pulmonary disease, unspecified COPD type J44.9 [facility] [address] [facility] [id number] [address] [place] [phone] Aug, Low back pain M54.5 ; Mixed hyperlipidemia E78.2 ; Essential hypertension I10 and Chronic obstructive pulmonary disease, unspecified COPD type J44.9 [facility] [address] [facility] [id number] [address] [place] [phone] Jul, Low back pain M54.5 ; Essent ial hypertension I10 and Mixed hyperlipidemia E78.2 [place] [address] [facility] [id number] [address] [place] [phone] Jul, IMMUNIZATIONS No Known Immunizations SOCIAL HISTORY Never Assessed REASON FOR VISIT Oxycodone 08/31 PLAN OF CARE VITAL SIGNS MEDICATIONS Medication Instructions Dosage Frequency Start Date End Date Duration S tatus Oxycodone HCl 10 mg Orally every 6 hrs 1 tablet as needed 6h Aug, 28 days Active RESULTS No Results PROCEDURES [...]
--- OUTSIDE RECORDS SUMMARY | 2019-06-28 20:44 | XMS REPORT ---
Author Author Mario GUILLEN Organization [facility] Address [address] [place] [address] Care Team Providers Care Machine Printer Hose Name Role Phone JESSICA GUILLEN Unavailable PROBLEMS Type Condition ICD9-CM Code [id number] Code Onset Dates Condition S tatus SNOMED Code Problem Mixed hyperlipidemia E78.2 Active 788121415 Problem Low back pain M54.5 Active 068834 009 Problem BPH loc w urin obs/LUTS N40.1 Active 570671463 Problem Prostatism N40.0 Active 67052849 Problem Chronic obstructive pulmonary disease, unspecified COPD ty pe J44.9 Active 05379873 Problem Essential hypertension I10 Active 53514853 Problem Vitamin D deficiency E55.9 Active 11827544 Problem Neuropathy G62.9 Active 043846462 ALLERGIES No Information SOCIAL HISTORY Never Assessed [...]
--- OUTSIDE RECORDS SUMMARY | 2019-06-28 20:44 | XMS REPORT ---
Author Author Mario GUILLEN Organization [facility] Address [address] [place] [address] Care Team Providers Care Laminator Hand Name Role Phone JESSICA GUILLEN Unavailable PROBLEMS Type Condition ICD9-CM Code [id number] Code Onset Dates Condition S tatus SNOMED Code Problem Low back pain M54.5 Active 007736 009 Problem Essential hypertension I10 Active 56572600 Problem Mixed hyperlipidemia E78.2 Active 710454965 Problem Reactive depression F32.9 Active 24895149 Problem BPH loc w urin obs/LUTS N40.1 Active 555844767 Problem Neuropathy G62.9 Active 713488354 Problem Chronic obstructive pulmonary disease, unspecified COPD ty pe J44.9 Active 25879970 Problem Prostatism N40.0 Active 18462580 Problem Vitamin D deficiency E55.9 Active 13078840 ALLERGIES No Information ENCOUNTERS Encounter Location Date Diagnosis [place] [address] [phone] May, [facility] [address] [place] [id number] [address] [place] [phone] Apr, [place] [address] [place] [id number] [place] [phone] 20 Apr, 2017 Low back pain M54.5 ; Essent ial hypertension I10 ; Chronic obstructive pulmonary disease, unspecified COPD type J44.9 and Dyspnea on exertion R06.09 [place] [address] [place] [id number] [place] [phone] 15 Apr, 2017 Onychomycosis B35.1 and Call us of foot L84 [facility] [address] [place] [id number] [address] [place] [id number] 13 Apr, 2017 Low back pain M54.5 [place] [address] [place] [id number] [address] [place] [id number] Mar, Low back pain M54.5 [facility] [address] [id number] [address] [place] [phone] Mar, [facility] [address] [id number] [address] [place] [phone] Feb, [facility] [address] [id number] [address] [place] [phone] Feb, [facility] [address] [id number] [address] [place] [id number] Feb, [facility] [address] [id number] [address] [place] [phone] Feb, Low back pain M54.5 [facility] [address] [id number] [address] [place] [phone] Jan, [facility] [address] [id number] [address] [place] [phone] Jan, Low back pain M54.5 [facility] [address] [id number] [address] [place] [phone] Dec, Low back pain M54.5 [facility] [address] [id number] [address] [place] [phone] Dec, [facility] [address] [id number] [address] [place] [phone] Nov, Low back pain M54.5 ; Encoun ter for immunization Z23 ; Essential hypertension I10 ; Reactive depression F32.9 ; Neuropathy G62.9 and Chronic obstructive pulmonary disease, unspecified COPD type J44.9 [facility] [address] [id number] [address] [place] [phone] Nov, Low back pain M54.5 [facility] [address] [id number] [address] [place] [phone] Oct, Low back pain M54.5 [facility] [address] [id number] [address] [place] [phone] Oct, Low back pain M54.5 [facility] [address] [id number] [address] [place] [phone] Oct, [facility] [address] [facility] [id number] [address] [place] [phone] Sep, [facility] [address] [facility] [id number] [address] [place] [phone] Sep, Low back pain M54.5 [facility] [address] [facility] [id number] [address] [place] [id number] Sep, BPH loc w urin obs/LUTS N40. 1 [facility] [address] [facility] [id number] [address] [place] [phone] Sep, [facility] [address] [facility] [id number] [address] [place] [phone] Sep, Low back pain M54.5 ; Essent ial hypertension I10 ; Mixed hyperlipidemia E78.2 ; Vitamin D deficiency E55.9 ; Prostatism N40.0 and Neuropathy G62.9 [facility] [address] [facility] [id number] [address] [place] [phone] Aug, Neuropathy G62.9 [facility] [address] [facility] [id number] [address] [place] [phone] Aug, Low back pain M54.5 [facility] [address] [facility] [id number] [address] [place] [phone] Aug, Low back pain M54.5 [facility] [address] [facility] [id number] [address] [place] [phone] Jul, [facility] [address] [facility] [id number] [address] [place] [phone] Jul, [facility] [address] [facility] [id number] [address] [place] [phone] Jul, [facility] [address] [id number] [address] [place] [phone] Jul, [facility] [address] [id number] [address] [place] [phone] Jul, Neuropathy G62.9 [facility] [address] [id number] [address] [place] [phone] Jul, Mixed hyperlipidemia E78.2 [facility] [address] [id number] [address] [place] [phone] Jul, Low back pain M54.5 [facility] [address] [id number] [address] [place] [phone] Jul, [facility] [address] [id number] [address] [place] [phone] June, Low back pain M54.5 [facility] [address] [id number] [address] [place] [phone] May, Low back pain M54.5 [facility] [address] [id number] [address] [place] [phone] May, Chronic obstructive pulmonar y disease, unspecified COPD type J44.9 [facility] [address] [id number] [address] [place] [phone] Apr, [facility] [address] [id number] [address] [place] [phone] Apr, [facility] [address] [id number] [address] [place] [phone] Apr, Low back pain M54.5 [facility] [address] [id number] [address] [place] [phone] Apr, Low back pain M54.5 [facility] [address] [id number] [address] [place] [phone] Mar, Low back pain M54.5 [facility] [address] [id number] [address] [place] [phone] Mar, Low back pain M54.5 [facility] [address] [id number] [address] [place] [id number] 09 Mar, 2016 [facility] [address] [id number] [address] [place] [id number] Feb, Low back pain M54.5 [facility] [address] [id number] [address] [place] [phone] Jan, Low back pain M54.5 and 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, 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 J44.9 [facility] [address] [id number] [address] [place] [phone] Jan, Low back pain M54.5 [facility] [address] [id number] [address] [place] [phone] Jan, [facility] [address] [id number] [address] [place] [phone] Dec, Low back pain M54.5 [facility] [address] [id number] [address] [place] [phone] Dec, [facility] [address] [id number] [address] [place] [phone] Oct, [facility] [address] [id number] [address] [place] [phone] Oct, Low back pain M54.5 ; Essent ial hypertension I10 and Neuropathy G62.9 [facility] [address] [id number] [address] [place] [phone] Oct, [facility] [address] [id number] [address] [place] [phone] Sep, [facility] [address] [id number] [address] [place] [phone] Sep, [facility] [address] [id number] [address] [place] [phone] Aug, Mixed hyperlipidemia E78.2 ; Essential hypertension I10 and Chronic obstructive pulmonary disease, unspecified COPD type J44.9 [facility] [address] [facility] [id number] [address] [place] [phone] Aug, Low back pain M54.5 ; Mixed hyperlipidemia E78.2 ; Essential hypertension I10 and Chronic obstructive pulmonary disease, unspecified COPD type J44.9 [place] [address] [facility] [id number] [address] [place] [phone] Jul, Low back pain M54.5 ; Essent ial hypertension I10 and Mixed hyperlipidemia E78.2 [place] [address] [facility] [id number] [address] [place] [phone] Jul, IMMUNIZATIONS No Known Immunizations SOCIAL HISTORY [...]
--- OUTSIDE RECORDS SUMMARY | 2019-06-28 20:44 | XMS REPORT ---
Author Author Mario GUILLEN Organization [facility] Address [address] [place] [address] Care Team Providers Care Heading And Priming Tool Setter Name Role Phone JESSICA GUILLEN Unavailable PROBLEMS Type Condition ICD9-CM Code [id number] Code Onset Dates Condition S tatus SNOMED Code Problem Low back pain M54.5 Active 802377 009 Problem Essential hypertension I10 Active 12418369 Problem Mixed hyperlipidemia E78.2 Active 869356145 Problem Reactive depression F32.9 Active 35018961 Problem BPH loc w urin obs/LUTS N40.1 Active 045073345 Problem Neuropathy G62.9 Active 455596331 Problem Chronic obstructive pulmonary disease, unspecified COPD ty pe J44.9 Active 96150234 Problem Prostatism N40.0 Active 87940419 Problem Vitamin D deficiency E55.9 Active 23616281 ALLERGIES No Information ENCOUNTERS Encounter Location Date Diagnosis [place] [address] [place] [id number] [place] [phone] May, [place] [address] [facility] [id number] [address] [place] [phone] Apr, [place] [address] [place] [id number] [address] [place] [phone] 15 Apr, 2017 Onychomycosis B35.1 and Call us of foot L84 [facility] [address] [facility] [id number] [address] [place] [phone] 13 Apr, 2017 Low back pain M54.5 [place] [address] [facility] [id number] [address] [place] [phone] 12 Mar, 2017 Low back pain M54.5 [place] [address] [facility] [id number] [address] [place] [phone] 07 Mar, 2017 [place] [address] [id number] [address] [place] [phone] Feb, [facility] [address] [id number] [address] [place] [phone] Feb, [facility] [address] [id number] [address] [place] [phone] Feb, [facility] [address] [id number] [address] [place] [phone] Feb, Low back pain M54.5 [facility] [address] [id number] [address] [place] [phone] Jan, [facility] [address] [id number] [address] [place] [phone] Jan, Low back pain M54.5 [facility] [address] [id number] [address] [place] [phone] Dec, Low back pain M54.5 [facility] [address] [id number] [address] [place] [phone] Dec, [facility] [address] [id number] [address] [place] [phone] Nov, Low back pain M54.5 ; Encoun ter for immunization Z23 ; Essential hypertension I10 ; Reactive depression F32.9 ; Neuropathy G62.9 and Chronic obstructive pulmonary disease, unspecified COPD type J44.9 [facility] [address] [id number] [address] [place] [phone] Nov, Low back pain M54.5 [facility] [address] [id number] [address] [place] [phone] Oct, Low back pain M54.5 [facility] [address] [facility] [id number] [address] [place] [phone] 21 Oct, 2016 Low back pain M54.5 [facility] [address] [id number] [address] [place] [phone] 13 Oct, 2016 [facility] [address] [id number] [address] [place] [phone] Sep, [facility] [address] [facility] [id number] [address] [place] [phone] Sep, Low back pain M54.5 [facility] [address] [facility] [id number] [address] [place] [phone] Sep, BPH loc w urin obs/LUTS N40. 1 [facility] [address] [id number] [address] [place] [phone] Sep, [facility] [address] [facility] [id number] [address] [place] [phone] Sep, Low back pain M54.5 ; Essent ial hypertension I10 ; Mixed hyperlipidemia E78.2 ; Vitamin D deficiency E55.9 ; Prostatism N40.0 and Neuropathy G62.9 [facility] [address] [id number] [address] [place] [phone] Aug, Neuropathy G62.9 [facility] [address] [facility] [id number] [address] [place] [phone] Aug, Low back pain M54.5 [facility] [address] [facility] [id number] [address] [place] [phone] Aug, Low back pain M54.5 [facility] [address] [facility] [id number] [address] [place] [phone] Jul, [facility] [address] [id number] [address] [place] [phone] Jul, [facility] [address] [facility] [id number] [address] [place] [phone] Jul, [facility] [address] [facility] [id number] [address] [place] [phone] Jul, [facility] [address] [facility] [id number] [address] [place] [phone] Jul, Neuropathy G62.9 [facility] [address] [id number] [address] [place] [phone] Jul, Mixed hyperlipidemia E78.2 [facility] [address] [id number] [address] [place] [phone] Jul, Low back pain M54.5 [facility] [address] [id number] [address] [place] [phone] Jul, [facility] [address] [id number] [address] [place] [phone] June, Low back pain M54.5 [facility] [address] [id number] [address] [place] [phone] May, Low back pain M54.5 [facility] [address] [id number] [address] [place] [phone] May, Chronic obstructive pulmonar y disease, unspecified COPD type J44.9 [facility] [address] [id number] [address] [place] [phone] Apr, [facility] [address] [id number] [address] [place] [phone] Apr, [facility] [address] [id number] [address] [place] [phone] Apr, Low back pain M54.5 [facility] [address] [id number] [address] [place] [phone] Apr, Low back pain M54.5 [facility] [address] [id number] [address] [place] [phone] Mar, Low back pain M54.5 [facility] [address] [id number] [address] [place] [phone] Mar, Low back pain M54.5 [facility] [address] [id number] [address] [place] [phone] Mar, [facility] [address] [id number] [address] [place] [phone] Feb, Low back pain M54.5 [facility] [address] [id number] [address] [place] [phone] Jan, Low back pain M54.5 and 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, 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 J44.9 [facility] [address] [id number] [address] [place] [phone] Jan, Low back pain M54.5 [facility] [address] [id number] [address] [place] [phone] Jan, [facility] [address] [id number] [address] [place] [phone] Dec, Low back pain M54.5 [facility] [address] [id number] [address] [place] [phone] Dec, [facility] [address] [id number] [address] [place] [phone] Oct, [facility] [address] [id number] [address] [place] [phone] Oct, Low back pain M54.5 ; Essent ial hypertension I10 and Neuropathy G62.9 [facility] [address] [id number] [address] [place] [phone] Oct, [facility] [address] [id number] [address] [place] [phone] Sep, [facility] [address] [id number] [address] [place] [phone] Sep, [facility] [address] [id number] [address] [place] [phone] Aug, Mixed hyperlipidemia E78.2 ; Essential hypertension I10 and Chronic obstructive pulmonary disease, unspecified COPD type J44.9 [facility] [address] [id number] [address] [place] [phone] Aug, Low back pain M54.5 ; Mixed hyperlipidemia E78.2 ; Essential hypertension I10 and Chronic obstructive pulmonary disease, unspecified COPD type J44.9 [facility] [address] [facility] [id number] [address] [place] [phone] Jul, Low back pain M54.5 ; Essent ial hypertension I10 and Mixed hyperlipidemia E78.2 [facility] [address] [facility] [id number] [address] [place] [phone] Jul, IMMUNIZATIONS No Known Immunizations SOCIAL HISTORY Never Assessed REASON FOR VISIT Medication refill request PLAN OF CARE VITAL SIGNS MEDICATIONS Medication Instructions Dosage Frequency Start Date End Date Duration S tatus Crestor 20 mg Orally Once a day 1 tablet 24h Active RESULTS No Results PROCEDURES No Known [...]
--- OUTSIDE RECORDS SUMMARY | 2019-06-28 20:44 | XMS REPORT | Continuity of Care Document ---
Demographics Preferred Language Unknown Marital Status Unknown Evangelical Affiliation Unknown Race Unknown Ethnic Group Unknown Author Organization Unknown Address Unknown Phone Unavailable Allergies There is no data. Medications There is no data. Problems Date Dx Coded Attending Type Code Diagnosis Diagnosed By 02/01/2015 LULA MCLAUGHLIN DO Ot E78 .5 02/01/2015 ARNOLDO LULA PARRA Ot I10 02/01/2015 [facility] DOLULA Ot R05 02/13/2015 [facility] DOLULA Ot E78 .5 02/13/[facility] 02/13/2015 [facility] DOLULA Ot R05 05/05/2019 [facility] E78 .5 HYPERLIPIDEMIA, UNSPECIFIED 05/05/2019 [facility] LULA PARRA Ot I10 ESSENTIAL (PRIMARY) HYPERTENSION 05/05/2019 [facility] LULA PARRA Ot R05 COUGH 05/26/2019 HNERY PEÑA DO Ot 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 0 CHRONIC RHINITIS 05/26/2019 HENRY PEÑA DO, Ot J40 BRONCHITIS, NOT SPECIFIED ACUTE OR CH Procedures There is no data. Results Test Result Range Comp. Metabolic Panel (14) - 10/01/16 10 :44 Glucose, Serum 97 mg/dL 65-99 BUN 15 mg/dL 8-27 Creatinine, Serum 1.14 mg/dL 0.76-1.27 eGFR If NonAfricn Am 67 mL/min/1.73 >59 eGFR If Africn Am 78 mL/min/1.73 >59 BUN/Creatinine Ratio 13 10-24 Sodium, Serum 139 mmol/L 134-144 Potassium, Serum 4.4 mmol/L 3.5-5.2 Chloride, Serum 98 mmol/L 96-106 Carbon Dioxide, Total 22 mmol/L 18-29 Calcium, Serum 9.5 mg/dL 8.6-10.2 Protein, Total, Serum 7.3 g/dL 6.0-8.5 Albumin, Serum 4.3 g/dL 3.6-4.8 Globulin, Total 3.0 g/dL 1.5-4.5 A/G Ratio 1.4 1.2-2.2 Bilirubin, Total 0.4 mg/dL 0.0-1.2 Alkaline Phosphatase, S 141 IU/L 39-117 AST (SGOT) 16 IU/L 0-40 ALT (SGPT) 18 IU/L 0-44 Lipid Panel - 10/01/16 10:44 Cholesterol, Total 138 mg/dL 100-199 Triglycerides 89 mg/dL 0-149 HDL Cholesterol 52 mg/dL >39 VLDL Cholesterol Matthias 18 mg/dL 5-40 LDL Cholesterol Calc 68 mg/dL 0-99 Prostate-Specific Ag, Serum - 10/01/16 1 0:44 Prostate Specific Ag, Serum 4.1 ng/mL 0. 0-4.0 Vitamin D, 25-Hydroxy - 10/01/16 10:44 Vitamin D, 25-Hydroxy 25.0 ng/mL 30.0-10 0.0 CMP - 10/01/16 10:44 Glucose, Serum 97 mg/dL 65-99 BUN 15 mg/dL 8-27 Creatinine, Serum 1.14 mg/dL 0.76-1.27 eGFR If NonAfricn Am 67 mL/min/1.73 >59 eGFR If Africn Am 78 mL/min/1.73 >59 BUN/Creatinine Ratio 13 10-24 Sodium, Serum 139 mmol/L 134-144 Potassium, Serum 4.4 mmol/L 3.5-5.2 Chloride, Serum 98 mmol/L 96-106 Carbon Dioxide, Total 22 mmol/L 18-29 Calcium, Serum 9.5 mg/dL 8.6-10.2 Protein, Total, Serum 7.3 g/dL 6.0-8.5 Albumin, Serum 4.3 g/dL 3.6-4.8 Globulin, Total 3.0 g/dL 1.5-4.5 A/G Ratio 1.4 1.2-2.2 Bilirubin, Total 0.4 mg/dL 0.0-1.2 Alkaline Phosphatase, S 141 IU/L 39-117 AST (SGOT) 16 IU/L 0-40 ALT (SGPT) 18 IU/L 0-44 LIPID PANEL - 09/06/17 16:18 CHOLESTEROL, TOTAL 159 mg/dL <200 HDL CHOLESTEROL 45 mg/dL >40 TRIGLYCERIDES 224 mg/dL <150 LDL-CHOLESTEROL 83 mg/dL (calc) NRG CHOL/HDLC RATIO 3.5 (calc) <5.0 NON HDL CHOLESTEROL 114 mg/dL (calc) <13 0 PANEL (PROFILE 1) - 09/06/17 16 :18 Prescribed Drug 1 Oxycodone NRG Creatinine 246.0 mg/dL > or = 20.0 pH 5.15 4.5 - 9.0 Oxidant NEGATIVE mcg/mL <200 Amphetamines NEGATIVE ng/mL <500 medMATCH Amphetamines CONSISTENT NRG Benzodiazepines NEGATIVE CONFIRMED ng/mL <100 Marijuana Metabolite NEGATIVE ng/mL <20 medMATCH Marijuana Metab CONSISTENT NRG Cocaine Metabolite NEGATIVE ng/mL <150 medMATCH Cocaine Metab CONSISTENT NRG Opiates POSITIVE ng/mL <100 Oxycodone POSITIVE ng/mL <100 COMMENT NRG Alphahydroxyalprazolam NEGATIVE ng/mL <25 medMATCH aOH alprazolam CONSISTENT NRG Alphahydroxymidazolam NEGATIVE ng/mL < 50 medMATCH aOH midazolam CONSISTENT NRG Alphahydroxytriazolam NEGATIVE ng/mL < 50 medMATCH aOH triazolam CONSISTENT NRG Aminoclonazepam NEGATIVE ng/mL <25 medMATCH Aminoclonazepam CONSISTENT NRG Hydroxyethylflurazepam NEGATIVE ng/mL <50 medMATCH OH,Et flurazepam CONSISTENT NR G Lorazepam NEGATIVE ng/mL <50 medMATCH Lorazepam CONSISTENT NRG Nordiazepam NEGATIVE ng/mL <50 medMATCH Nordiazepam CONSISTENT NRG Oxazepam NEGATIVE ng/mL <50 medMATCH Oxazepam CONSISTENT NRG Temazepam NEGATIVE ng/mL <50 medMATCH Temazepam CONSISTENT NRG Codeine NEGATIVE ng/mL <50 medMATCH Codeine CONSISTENT NRG Hydrocodone NEGATIVE ng/mL <50 medMATCH Hydrocodone CONSISTENT NRG Hydromorphone NEGATIVE ng/mL <50 medMATCH Hydromorphone CONSISTENT NRG Morphine 248 ng/mL <50 medMATCH Morphine INCONSISTENT NRG Norhydrocodone NEGATIVE ng/mL <50 medMATCH Norhydrocodone CONSISTENT NRG Noroxycodone 8013 ng/mL <50 medMATCH Noroxycodone CONSISTENT NRG Oxycodone 64772 ng/mL <50 medMATCH Oxycodone CONSISTENT NRG Oxymorphone 3337 ng/mL <50 medMATCH Oxymorphone CONSISTENT NRG Barbiturates NEGATIVE ng/mL <300 medMATCH Barbiturates CONSISTENT NRG Methadone Metabolite NEGATIVE ng/mL <100 medMATCH Methadone Metab CONSISTENT NRG Phencyclidine NEGATIVE ng/mL <25 medMATCH Phencyclidine CONSISTENT NRG PSA - 08/18/18 09:31 PSA, TOTAL 0.9 ng/mL < OR = 4.0 - PANEL (PROFILE 1) - 10/31/18 16 :43 Prescribed Drug 1 Oxycodone NRG Creatinine 277.2 mg/dL > or = 20.0 pH 5.4 4.5-9.0 Oxidant NEGATIVE mcg/mL <200 Amphetamines NEGATIVE ng/mL <500 medMATCH Amphetamines CONSISTENT NRG Benzodiazepines NEGATIVE ng/mL <100 medMATCH Benzodiazepines CONSISTENT NRG Marijuana Metabolite NEGATIVE ng/mL <20 medMATCH Marijuana Metab CONSISTENT NRG Cocaine Metabolite NEGATIVE ng/mL <150 medMATCH Cocaine Metab CONSISTENT NRG Opiates NEGATIVE CONFIRMED ng/mL <100 Oxycodone POSITIVE ng/mL <100 COMMENT NRG Codeine NEGATIVE ng/mL <50 medMATCH Codeine CONSISTENT NRG Hydrocodone NEGATIVE ng/mL <50 medMATCH Hydrocodone CONSISTENT NRG Hydromorphone NEGATIVE ng/mL <50 medMATCH Hydromorphone CONSISTENT NRG Morphine NEGATIVE ng/mL <50 medMATCH Morphine CONSISTENT NRG Norhydrocodone NEGATIVE ng/mL <50 medMATCH Norhydrocodone CONSISTENT NRG Noroxycodone >89778 ng/mL <50 medMATCH Noroxycodone CONSISTENT NRG Oxycodone >60488 ng/mL <50 medMATCH Oxycodone CONSISTENT NRG Oxymorphone 89 ng/mL <50 medMATCH Oxymorphone CONSISTENT NRG Barbiturates NEGATIVE ng/mL <300 medMATCH Barbiturates CONSISTENT NRG Methadone Metabolite NEGATIVE ng/mL <100 medMATCH Methadone Metab CONSISTENT NRG Phencyclidine NEGATIVE ng/mL <25 medMATCH Phencyclidine CONSISTENT NRG Arterial blood gas measurement - 0 15:00 Blood pCO2 47 mm[Hg] 35-45 Blood pO2 85 mm[Hg] 79-93 Arterial blood bicarbonate measurement (moles/volume) 28 mmol/L 23-27 Arterial blood base excess by calculation 3.2 mmol /L -2.5-2.5 Arterial blood oxygen saturation measurement 97 % 94-100 * Inhaled oxygen flow rate 2 L NRG Arterial blood pH measurement with patient temperature correction 7.39 7.37-7.43 Arterial blood carbon dioxide, total measurement (mole s/volume) 29.1 mmol/L 21.0-31.0 Body site LEFT RADIAL NRG Assessment of wrist artery patency prior to arterial p uncture POSITIVE NRG Setting of ventilation mode NO NR G Measurement of body temperature 37.3 NRG Encounters ACCT No. Visit Date/Time Discharge Status Pt. Type Provider Facility Loc./Unit Complaint [id number] 10/02/2016 12:08:00 Document Registration [id number] 12/09/2018 09:30:00 12/09/2018 23:59:5 9 CLS Outpatient JESSICA GUILLEN MD [facility] [id number] 10/31/2018 15:00:00 Document Registration [id number] 08/18/2018 09:00:00 Document Registration [id number] 09/07/2017 08:20:00 Document Registration [id number] 09/06/2017 15:00:00 Document Registration [id number] 10/01/2016 10:20:00 Document Registration [id number] 06/23/2019 09:20:00 23:59:59 CLS Preadmit JESSICA GUILLEN MD [facility] RT COPD [id number] 05/24/2019 08:10:00 23:59:59 CLS Preadmit SIRENA CHAUHAN APRN [facility] RT DYSPNEA [id number] 05/23/2019 20:00:00 23:59:59 CLS Outpatient SIRENA CHAUHAN APRN [facility] SLEEP OBSTRUCTIVE SLE EP APNEA [id number] 05/04/2019 14:28:00 23:59:59 CLS Outpatient HENRY PEÑA DO [facility] RAD [id number] 01/11/2015 14:56:00 23:59:59 CLS Outpatient LULA MCLAUGHLIN DO [facility] RAD COUGH
--- OUTSIDE RECORDS SUMMARY | 2019-06-28 20:44 | XMS REPORT ---
Author Author Mario GUILLEN Organization [facility] Address [address] [place] [address] Care Team Providers Care Casting Cleaner Name Role Phone JESSICA GUILLEN Unavailable PROBLEMS Type Condition ICD9-CM Code [id number] Code Onset Dates Condition S tatus SNOMED Code Problem Low back pain M54.5 Active 246167 009 Problem Essential hypertension I10 Active 82952438 Problem Mixed hyperlipidemia E78.2 Active 459944816 Problem Reactive depression F32.9 Active 73881132 Problem BPH loc w urin obs/LUTS N40.1 Active 396782915 Problem Neuropathy G62.9 Active 795485735 Problem Chronic obstructive pulmonary disease, unspecified COPD ty pe J44.9 Active 40610453 Problem Prostatism N40.0 Active 36267545 Problem Vitamin D deficiency E55.9 Active 86741436 ALLERGIES No Information ENCOUNTERS Encounter Location Date Diagnosis [place] [address] [place] [id number] [address] [place] [phone] May, [place] [address] [facility] [id number] [address] [place] [phone] Apr, [place] [address] [place] [id number] [address] [place] [phone] 15 Apr, 2017 Onychomycosis B35.1 and Call us of foot L84 [facility] [address] [facility] [id number] [address] [place] [phone] 13 Apr, 2017 Low back pain M54.5 [place] [address] [address] [facility] [id number] [address] [place] [id number] 12 Mar, 2017 Low back pain M54.5 [place] [address] [address] [facility] [id number] [address] [place] [id number] 07 Mar, 2017 [place] [address] [id number] [address] [place] [phone] Feb, [facility] [address] [id number] [address] [place] [id number] Feb, [facility] [address] [id number] [address] [place] [phone] Feb, [facility] [address] [id number] [address] [place] [phone] Feb, Low back pain M54.5 [facility] [address] [id number] [address] [place] [phone] Jan, [facility] [address] [id number] [address] [place] [phone] Jan, Low back pain M54.5 [facility] [address] [id number] [address] [place] [phone] Dec, Low back pain M54.5 [facility] [address] [id number] [address] [place] [phone] Dec, [facility] [address] [id number] [address] [place] [id number] Nov, Low back pain M54.5 ; Encoun ter for immunization Z23 ; Essential hypertension I10 ; Reactive depression F32.9 ; Neuropathy G62.9 and Chronic obstructive pulmonary disease, unspecified COPD type J44.9 [facility] [address] [id number] [address] [place] [phone] Nov, Low back pain M54.5 [facility] [address] [id number] [address] [place] [phone] Oct, Low back pain M54.5 [facility] [address] [facility] [id number] [address] [place] [id number] 21 Oct, 2016 Low back pain M54.5 [facility] [address] [id number] [address] [place] [id number] 13 Oct, 2016 [facility] [address] [id number] [address] [place] [id number] Sep, [facility] [address] [facility] [id number] [address] [place] [phone] Sep, Low back pain M54.5 [facility] [address] [facility] [id number] [address] [place] [phone] Sep, BPH loc w urin obs/LUTS N40. 1 [facility] [address] [id number] [address] [place] [id number] Sep, [facility] [address] [facility] [id number] [address] [place] [id number] Sep, Low back pain M54.5 ; Essent ial hypertension I10 ; Mixed hyperlipidemia E78.2 ; Vitamin D deficiency E55.9 ; Prostatism N40.0 and Neuropathy G62.9 [facility] [address] [id number] [address] [place] [id number] Aug, Neuropathy G62.9 [facility] [address] [facility] [id number] [address] [place] [id number] Aug, Low back pain M54.5 [facility] [address] [facility] [id number] [address] [place] [phone] Aug, Low back pain M54.5 [facility] [address] [facility] [id number] [address] [place] [phone] Jul, [facility] [address] [id number] [address] [place] [phone] Jul, [facility] [address] [facility] [id number] [address] [place] [id number] Jul, [facility] [address] [facility] [id number] [address] [place] [id number] Jul, [facility] [address] [facility] [id number] [address] [place] [address] Jul, Neuropathy G62.9 [facility] [address] [id number] [address] [place] [phone] Jul, Mixed hyperlipidemia E78.2 [facility] [address] [id number] [address] [place] [phone] Jul, Low back pain M54.5 [facility] [address] [id number] [address] [place] [phone] Jul, [facility] [address] [id number] [address] [place] [id number] June, Low back pain M54.5 [facility] [address] [id number] [address] [place] [phone] May, Low back pain M54.5 [facility] [address] [id number] [address] [place] [phone] May, Chronic obstructive pulmonar y disease, unspecified COPD type J44.9 [facility] [address] [id number] [address] [place] [phone] Apr, [facility] [address] [id number] [address] [place] [id number] Apr, [facility] [address] [id number] [address] [place] [id number] Apr, Low back pain M54.5 [facility] [address] [id number] [address] [place] [phone] Apr, Low back pain M54.5 [facility] [address] [id number] [address] [place] [phone] Mar, Low back pain M54.5 [facility] [address] [id number] [address] [place] [phone] Mar, Low back pain M54.5 [facility] [address] [id number] [address] [place] [phone] Mar, [facility] [address] [id number] [address] [place] [phone] Feb, Low back pain M54.5 [facility] [address] [id number] [address] [place] [id number] Jan, Low back pain M54.5 and 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, 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 J44.9 [facility] [address] [id number] [address] [place] [phone] Jan, Low back pain M54.5 [facility] [address] [id number] [address] [place] [phone] Jan, [facility] [address] [id number] [address] [place] [phone] Dec, Low back pain M54.5 [facility] [address] [id number] [address] [place] [phone] Dec, [facility] [address] [id number] [address] [place] [id number] Oct, [facility] [address] [id number] [address] [place] [id number] Oct, Low back pain M54.5 ; Essent ial hypertension I10 and Neuropathy G62.9 [facility] [address] [id number] [address] [place] [id number] Oct, [facility] [address] [id number] [address] [place] [phone] Sep, [facility] [address] [id number] [address] [place] [id number] Sep, [facility] [address] [id number] [address] [place] [phone] Aug, Mixed hyperlipidemia E78.2 ; Essential hypertension I10 and Chronic obstructive pulmonary disease, unspecified COPD type J44.9 [facility] [address] [id number] [address] [place] [id number] Aug, Low back pain M54.5 ; Mixed hyperlipidemia E78.2 ; Essential hypertension I10 and Chronic obstructive pulmonary disease, unspecified COPD type J44.9 [facility] [address] [facility] [id number] [address] [place] [phone] Jul, Low back pain M54.5 ; Essent ial hypertension I10 and Mixed hyperlipidemia E78.2 [facility] [address] [facility] [id number] [address] [place] [address] Jul, IMMUNIZATIONS No Known Immunizations SOCIAL HISTORY Never Assessed REASON FOR VISIT Lidocane PLAN OF CARE VITAL SIGNS MEDICATIONS Unknown [...]
--- OUTSIDE RECORDS SUMMARY | 2019-06-28 20:44 | XMS REPORT ---
Author Author Mario GUILLEN Organization [facility] Address [address] [place] [address] Care Team Providers Care Pit Inspector Name Role Phone JESSICA GUILLEN Unavailable PROBLEMS Type Condition ICD9-CM Code IDZ05-RN Code Onset Dates Condition S tatus SNOMED Code Problem Mixed hyperlipidemia E78.2 Active 107989596 Problem Low back pain M54.5 Active 837167 009 Problem BPH loc w urin obs/LUTS N40.1 Active 549627771 Problem Prostatism N40.0 Active 55918805 Problem Chronic obstructive pulmonary disease, unspecified COPD ty pe J44.9 Active 41232858 Problem Essential hypertension I10 Active 51800557 Problem Vitamin D deficiency E55.9 Active 98316685 Problem Neuropathy G62.9 Active 083481441 ALLERGIES No Information SOCIAL HISTORY Never Assessed [...]
[2019-06-28] MEDS ORDERED: IBUPROFEN 800 MG (MOTRIN) TAB PO ONE (20:45)
[2019-06-28] MEDS ORDERED: RT-ALBUTEROL/IPRATROPIUM 3 ML (DUONEB) VIAL INH ONE (20:45)
[2019-06-28] MEDS ORDERED: ACETAMINOPHEN 500 MG TAB (TYLENOL) PO ONE (20:45)
[2019-06-28] MEDS ORDERED: ONDANSETRON 4 MG/2 ML (SDV) Z0FRAN IVP ONE (20:45)
[2019-06-28] MEDS ORDERED: IBUPROFEN TABLET 200 MG TAB PO ONE (20:51)
--- NOTE | 2019-06-28 20:53 | ED Cough/URI ---
General Chief Complaint: Respiratory Problems Stated Complaint: SOA Source: patient Exam Limitations: no limitations History of Present Illness Date Seen by Provider: June 28, 2019 Time Seen by Provider: 20:50 Initial Comments to ER by [facility] with reports of shortness of breath. He states he's been getting worse in regards to shortness of breath, 30 pound weight gain, intermittent fevers since January. He has a C Pap at home but doesn't have a mask to fit. He wears oxygen at 2 L per nasal cannula, has recently increased his rate to 3 L. EMS arrived and noted significant respiratory distress, started CPAP with significant improvement in respiratory effort by the time he arrived to the hospital. patient agrees he is feeling much better. Temperature 104 according to EMS. 100.4 for us. Timing/Duration: getting worse Severity/Quality: dry cough, productive cough Associated Symptoms: cough, shortness of breath, wheezing Allergies and Home Medications Allergies Coded Allergies: No Known Drug Allergies (Unverified , 06/28/19) Patient Home Medication List Home Medication List Reviewed: Yes Review of Systems Review of Systems Constitutional: see HPI, chills, fever EENTM: see HPI Respiratory: see HPI, cough, dyspnea on exertion, short of breath Cardiovascular: see HPI, chest pain (tightness in his chest earlier today) Genitourinary: no symptoms reported Musculoskeletal: no symptoms reported Skin: no symptoms reported Psychiatric/Neurological: No Symptoms Reported Hematologic/Lymphatic: No Symptoms Reported Immunological/Allergic: no symptoms reported Physical Exam Vital Signs - First Documented 06/28/19 20:30 Temp 38.0 Pulse 113 Resp 26 B/P (MAP) 112/63 (79) Pulse Ox 97 O2 Delivery NIV Bilevel O2 Flow Rate 40.00 Capillary Refill : Height: '" Weight: lbs. oz. kg; BMI Method: General Appearance: WD/WN, mild distress, obese, other (patient was transitioned from EMS C Pap to our BiPAP initial settings 40% FiO2 12/5 which she is tolerating well and states it helps a lot. However he tries to talk nearly nonstop.) Eyes: Bilateral Eye Normal Inspection, Bilateral Eye PERRL, Bilateral Eye EOMI Neck: non-tender, full range of motion Respiratory: no respiratory distress, no accessory muscle use, decreased breath sounds Cardiovascular: no murmur, tachycardia Gastrointestinal: normal bowel sounds, non tender, soft Extremities: no calf tenderness, other (3+ pitting edema bilateral lower extremities) Neurologic/Psychiatric: alert, normal mood/affect, oriented x 3 Skin: normal color, warm/dry Focused Exam Lactate Level 06/28/19 20:40: Lactic Acid Level 3.52*H Lactic Acid Level Laboratory Tests Test 06/28/19 20:40 Lactic Acid Level 3.52 MMOL/L (0.50-2.00) *H Progress/Results/Core Measures Suspected Sepsis SIRS Temperature: Pulse: Respiratory Rate: Laboratory Tests 06/28/19 20:40: White Blood Count 17.3H Blood Pressure / Mean: 06/28/19 20:40: Lactic Acid Level 3.52*H Laboratory Tests 06/28/19 20:40: Creatinine 1.16, INR Comment 1.0, Platelet Count 240, Total Bilirubin 0.4 Results/Orders Lab Results Laboratory Tests Test 06/28/19 20:40 Range/Units White Blood Count 17.3 H 4.3-11.0 10^3/uL Red Blood Count 4.74 4.35-5.85 10^6/uL Hemoglobin 13.3 13.3-17.7 G/DL Hematocrit 41 40-54 % Mean Corpuscular Volume 87 80-99 FL Mean Corpuscular Hemoglobin 28 25-34 PG Mean Corpuscular Hemoglobin Concent 32 32-36 G/DL Red Cell Distribution Width 13.1 10.0-14.5 % Platelet Count 240 130-400 10^3/uL Mean Platelet Volume 10.1 7.4-10.4 FL Neutrophils (%) (Auto) 79 H 42-75 % Lymphocytes (%) (Auto) 14 12-44 % Monocytes (%) (Auto) 6 0-12 % Eosinophils (%) (Auto) 1 0-10 % Basophils (%) (Auto) 0 0-10 % Neutrophils # (Auto) 13.7 H 1.8-7.8 X 10^3 Lymphocytes # (Auto) 2.4 1.0-4.0 X 10^3 Monocytes # (Auto) 1.1 H 0.0-1.0 X 10^3 Eosinophils # (Auto) 0.2 0.0-0.3 10^3/uL Basophils # (Auto) 0.0 0.0-0.1 10^3/uL Neutrophils % (Manual) 81 % Lymphocytes % (Manual) 14 % Monocytes % (Manual) 5 % Blood Morphology Comment NORMAL Prothrombin Time 13.3 12.2-14.7 SEC INR Comment 1.0 0.8-1.4 D-Dimer 0.50 H 0.00-0.49 UG/ML Blood Gas Puncture Site LT RAD Blood Gas Patient Temperature 38 Arterial Blood pH 7.42 7.37-7.43 Arterial Blood Partial Pressure CO2 41 35-45 MMHG Arterial Blood Partial Pressure O2 43 L 79-93 MMHG Arterial Blood HCO3 26 23-27 MMOL/L Arterial Blood Total CO2 26.9 21.0-31.0 MMOL/L Arterial Blood Oxygen Saturation 73 L 94-100 % Arterial Blood Base Excess 1.9 -2.5-2.5 MMOL/L Haseeb Test POS Blood Gas Ventilator Setting NO Blood Gas Inspired Oxygen 40% Sodium Level 140 135-145 MMOL/L Potassium Level 4.0 3.6-5.0 MMOL/L Chloride Level 104 98-107 MMOL/L Carbon Dioxide Level 22 21-32 MMOL/L Anion Gap 14 5-14 MMOL/L Blood Urea Nitrogen 16 7-18 MG/DL Creatinine 1.16 0.60-1.30 MG/DL Estimat Glomerular Filtration Rate > 60 BUN/Creatinine Ratio 14 Glucose Level 144 H 70-105 MG/DL Lactic Acid Level 3.52 *H 0.50-2.00 MMOL/L Calcium Level 8.5 8.5-10.1 MG/DL Corrected Calcium 8.7 8.5-10.1 MG/DL Magnesium Level 1.7 1.6-2.4 MG/DL Total Bilirubin 0.4 0.1-1.0 MG/DL Aspartate Amino Transf (AST/SGOT) 18 5-34 U/L Alanine Aminotransferase (ALT/SGPT) 19 0-55 U/L Alkaline Phosphatase 113 40-136 U/L Troponin I < 0.028 <0.028 NG/ML C-Reactive Protein High Sensitivity 2.74 H 0.00-0.50 MG/DL B-Type Natriuretic Peptide 14.1 <100.0 PG/ML Total Protein 6.9 6.4-8.2 GM/DL Albumin 3.8 3.2-4.5 GM/DL Procalcitonin 0.03 <0.10 NG/ML Micro Results Microbiology 06/28/19 Influenza Types A,B Antigen (GIGI) - Final, Complete My Orders Orders - ALINA ZAYAS P[employer] SUPERVISOR Cbc With Automated Diff (06/28/19 20:45) Comprehensive Metabolic Panel (06/28/19 20:45) Hs C Reactive Protein (06/28/19 20:45) BNP (06/28/19 20:45) Magnesium (06/28/19 20:45) Troponin I (06/28/19 20:45) Protime With Inr (06/28/19 20:45) Procalcitonin (Pct) (06/28/19 20:45) Ondansetron Injection (Zofran Injectio (06/28/19 20:45) Albuterol/Ipra Inhalation Soln (Duoneb I (06/28/19 20:45) Ibuprofen Tablet (Motrin Tablet) (06/28/19 20:45) Acetaminophen Tablet (Tylenol Tablet) (06/28/19 20:45) Svn Small Volume Nebulizer (06/28/19 20:45) Coronavirus Sars-Cov-2 So 2018 (06/28/19 20:45) Influenza A And B Antigens (06/28/19 20:45) Chest 1 View, Ap/Pa Only (06/28/19 20:45) Ekg Tracing (06/28/19 20:48) Arterial Blood Gas (06/28/19 20:49) Blood Culture (06/28/19 20:56) Lactic Acid Analyzer (06/28/19 20:56) Ibuprofen Tablet (Motrin Tablet) (06/28/19 20:51) Manual Differential (06/28/19 20:40) Fibrin Degradation Products (06/28/19 21:15) Medications Given in ED Current Medications Medications Dose Ordered Sig/Jm Route Start Time Stop Time Status Last Admin Dose Admin Acetaminophen 1,000 mg ONCE ONCE PO 06/28/19 20:45 06/28/19 20:49 DC 06/28/19 20:58 1,000 MG Albuterol/ Ipratropium 3 ml ONCE ONCE INH 06/28/19 20:45 06/28/19 20:49 DC 06/28/19 20:45 3 ML Ibuprofen 200 mg STK-MED ONCE PO 06/28/19 20:51 06/28/19 21:00 DC 06/28/19 21:00 800 MG Ondansetron HCl 8 mg ONCE ONCE IVP 06/28/19 20:45 06/28/19 20:49 DC 06/28/19 20:58 8 MG Vital Signs/I&O 06/28/19 06/28/19 06/28/19 06/28/19 20:30 20:45 20:51 20:58 Temp 38.0 38.0 Pulse 113 119 118 Resp 22 17 B/P (MAP) 112/63 (79) 110/79 (89) Pulse Ox 97 96 94 O2 Delivery NIV Bilevel NIV Bilevel O2 Flow Rate 40.00 40.00 06/28/19 06/28/19 06/28/19 06/28/19 21:00 21:00 21:15 21:30 Temp 38.0 Pulse 115 110 107 Resp 22 20 B/P (MAP) 127/78 (94) 129/83 (98) 127/77 (94) Pulse Ox 97 96 97 O2 Delivery NIV Bilevel NIV Bilevel NIV Bilevel Capillary Refill : Diagnostic Imaging Diagonstic Imaging: Xray Comments NAME: JO ANN METCALF MED REC#: [id number] PT STATUS: REG ER : 1950 PHYSICIAN: ALINA ZAYAS APRN ADMIT DATE: 06/28/19/ER Draft Date of Exam:06/28/19 CHEST 1 VIEW, AP/PA ONLY HISTORY: Shortness of air. COMPARISON: 05/04/2019. TECHNIQUE: Frontal view of the chest. FINDINGS: Lung volumes are mildly large. No focal consolidation is seen. There is no pleural effusion or pneumothorax. The cardiac silhouette is mildly large but stable since the prior study. There is retrocardiac density which likely represents a large hiatal hernia. IMPRESSION: 1. No acute pulmonary abnormality is seen. 2. Hiatal hernia. Dictated on workstation # [id number] Dict: 06/28/192108 Trans: 06/28/192113 PJE [id number] Interpreted by: SHAYLEE MONTERO MD Electronically signed by: Departure Communication (Admissions) Time/Spoke to Admitting Phy: 22:[address] Shelby, we'll admit, continue BiPAP, admit to ICU. Cefepime and Solu-Medrol. I'll consult Dr. Gudino and Dr. Proctor tomorrow morning. Because of the tachycardia I'll order a metoprolol tonight. his d-dimer when adjusted for age is negative. Impression Primary Impression: Respiratory distress, acute Disposition: ADMITTED INPATIENT Condition: Critical Admissions Decision to Admit Reason: Admit from ER (General) Decision to Admit/Date: June 28, 2019 Time/Decision to Admit Time: 20:53 Departure-Patient Inst. Referrals: NO,LOCAL PHYSICIAN (PCP) Primary Care Physician JESSICA GUILLEN MD (Family) Primary Care Physician ALINA ZAYAS APRN June 28, 2019 20:53
[2019-06-28 20:59] LABS: BASOPHILS % (AUTO) 0 % (0-10); EOSINOPHILS # (AUTO) 0.2 10^3/uL (0.0-0.3); EOSINOPHILS % (AUTO) 1 % (0-10); HEMATOCRIT 41 % (40-54); HEMOGLOBIN 13.3 G/DL (13.3-17.7); LYMPHOCYTES # (AUTO) 2.4 X 10^3 (1.0-4.0); LYMPHOCYTES % (AUTO) 14 % (12-44); MEAN CORPUSCULAR HEMOGLOBIN 28 PG (25-34); MEAN CORPUSCULAR HGB CONC 32 G/DL (32-36); MEAN CORPUSCULAR VOLUME 87 FL (80-99); MEAN PLATELET VOLUME 10.1 FL (7.4-10.4); MONOCYTES # (AUTO) 1.1 X 10^3 (0.0-1.0); MONOCYTES % (AUTO) 6 % (0-12); NEUTROPHILS # (AUTO) 13.7 X 10^3 (1.8-7.8); NEUTROPHILS % (AUTO) 79 % (42-75); PLATELET COUNT 240 10^3/uL (130-400); RED CELL DISTRIBUTION WIDTH 13.1 % (10.0-14.5); WHITE BLOOD COUNT 17.3 10^3/uL (4.3-11.0)
[2019-06-28 21:04] LABS: ABG BASE EXCESS 1.9 MMOL/L (-2.5-2.5); ABG OXYGEN SATURATION 73 % (94-100); ABG PCO2 41 MMHG (35-45); ABG PH 7.42 (7.37-7.43); ABG PO2 43 MMHG (79-93); ABG TCO2 26.9 MMOL/L (21.0-31.0)
[2019-06-28 21:07] LABS: ALLENS TEST POS; INSPIRED O2 40%; PATIENT TEMP 38; VENTILATOR NO
[2019-06-28 21:09] LABS: PROTHROMBIN TIME PATIENT 13.3 SEC (12.2-14.7)
--- NOTE | 2019-06-28 21:14 | Diagnostic Imaging Report ---
HISTORY: Shortness of air. COMPARISON: 05/04/2019. TECHNIQUE: Frontal view of the chest. FINDINGS: Lung volumes are mildly large. No focal consolidation is seen. There is no pleural effusion or pneumothorax. The cardiac silhouette is mildly large but stable since the prior study. There is retrocardiac density which likely represents a large hiatal hernia. IMPRESSION: 1. No acute pulmonary abnormality is seen. 2. Hiatal hernia. Dictated by: Dictated on workstation # [id number]
[2019-06-28] MEDS ORDERED: FINA5TAB6 PO (21:16)
[2019-06-28] MEDS ORDERED: TMSL.4C PO (21:16)
[2019-06-28] MEDS ORDERED: GABA-490 PO (21:16)
[2019-06-28] MEDS ORDERED: ROSU20TA32 PO (21:16)
[2019-06-28] MEDS ORDERED: AMLO10TA7 (21:16)
[2019-06-28] MEDS ORDERED: UMEC1BLS INH (21:16)
[2019-06-28] MEDS ORDERED: ESOM40CA52 PO (21:16)
[2019-06-28] MEDS ORDERED: FAMO40TA6 PO (21:16)
[2019-06-28] MEDS ORDERED: FLUO40CA PO (21:16)
[2019-06-28] MEDS ORDERED: AMLO5TAB9 PO (21:16)
[2019-06-28 21:17] LABS: ALBUMIN 3.8 GM/DL (3.2-4.5); CHLORIDE 104 MMOL/L (98-107); SODIUM 140 MMOL/L (135-145)
[2019-06-28 21:18] LABS: CALCIUM 8.5 MG/DL (8.5-10.1)
[2019-06-28 21:19] LABS: GLUCOSE 144 MG/DL (70-105); TOTAL PROTEIN 6.9 GM/DL (6.4-8.2)
[2019-06-28 21:20] LABS: CARBON DIOXIDE 22 MMOL/L (21-32)
[2019-06-28 21:21] LABS: BILIRUBIN,TOTAL 0.4 MG/DL (0.1-1.0)
[2019-06-28 21:23] LABS: ALKALINE PHOSPHATASE 113 U/L (40-136); CREATININE SERUM 1.16 MG/DL (0.60-1.30); GFR ESTIMATED > 60
[2019-06-28 21:24] LABS: BUN/CREATININE RATIO 14
[2019-06-28 21:26] LABS: ALANINE AMINOTRANSFERASE 19 U/L (0-55); MAGNESIUM 1.7 MG/DL (1.6-2.4)
[2019-06-28 21:35] LABS: LYMPHOCYTES % (MANUAL) 14 %; MONOCYTES % (MANUAL) 5 %; NEUTROPHILS % (MANUAL) 81 %
[2019-06-28 21:36] LABS: RBC MORPH NORMAL
--- OUTSIDE RECORDS SUMMARY | 2019-06-28 22:21 | XMS REPORT ---
Author Author [email or web address]. [employer] [facility] [place] 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 Role Phone JESSICA GUILLEN Unavailable Unavailable [...] Unavailable YUNIORRAVENTA Unavailable HUERTER, JESSICA Unavailable HUERTER, JESSICA Unavailable [...] Active [facility] y respiratory respiratory ERIC [address] [facility] infections (4 infection, of [facility] sources.) unspecified [place] ([address]80) Translations: [ - Acute URI J06.9] Unclassified Body mass Chronic Active JESSICA contreras (19 sources.) index (BMI) [address]41 [facility] 45.0-49.9, of [facility] adult [place] (40191) Translations: [ - BMI 45.0-49.9, adult Z68.42, - BMI 45.0-49.9, adult Z68.42] Other upper Chronic Chronic Active [facility] Vi a respiratory rhinitis DO Veronica disease (1 Hospital - source.) [place] ([address]67) Other lower Cough Episodic Active LULA MCLAUGHLIN [facility] Via respiratory , DO Veronica disease (1 Hospital - source.) [place] (21759) Congestive Heart failure Chronic Active [facility] heart failure; Translations: [address] nonhypertensiv [ Heart of [facility] e (6 sources.) failure, [place] (38850) unspecified HF chronicity, unspecified heart failure type, - Heart failure, unspecified HF chronicity, unspecified heart failure type I50.9] Other Morbid Chronic Active [facility] nutritional; (severe) [address] endocrine; and obesity due to of [facility] metabolic excess [place] (85581) disorders (6 calories sources.) Translations: [ - Morbid (severe) obesity due to excess calories E66.01] Other Morbid obesity Chronic Active [facility] nutritional; Translations: [address] endocrine; and [ Morbid of [facility] metabolic (severe) [place] () disorders (4 obesity due to sources.) excess calories] Residual Obstructive Chronic Active [facility] Via codes; sleep apnea ASH CHAUHAN unclassified (adult) Hospital - (1 source.) (pediatric) [place] (18792) Other diseases Other Episodic Active [facility] Via of veins and specified DO [facility] lymphatics (1 disorders of Hospital - source.) veins [place] (19898) Other nervous Polyneuropathy Chronic Active [facility] system , unspecified [address] [place] [address] disorders (20 Translations: of [facility] sources.) [ - Neuropathy [place] (02361) G62.9, - Neuropathy G62.9] Esophageal Stricture of Chronic Active [facility] disorders ([address] [place] [address] sources.) Translations: of [facility] [ Esophageal [place] (84162) stricture, - Esophageal stricture K22.2] Other lower Wheezing Episodic Active [facility] respiratory Translations: [address] disease (4 [ - Wheezing of [facility] sources.) R06.2] [place] (77847) Procedures Procedure Normalized Procedure Procedure Result Performer Facility Date 08-09-2017 Avulsion nail plate no information no name [facility] partial/complete Center [facility] simple 1 [place] (40371) 08-16-2017 Fall risk assessment no information no name Co [facility] docd [facility] (56557) 05-19-2018 [facility] visit, estab pt no information no name Co [facility] (52591) 2018 [facility] visit, estab pt no information no name Co [facility] (72544) 12-31-2017 [facility] visit, estab pt no information no name Co [facility] (73056) 09-06-2017 [facility] visit, estab pt no information no name Co [facility] (32180) 08-09-2017 [facility] visit, estab pt no information no name Co [facility] (46362) 08-16-2017 [facility] visit, IPPE or no information no name [facility] AWV [facility] (38969) 08-16-2017 Pt tobacco screen rcvd no information no name [facility] t[facility] (27976) 08-09-2017 Trimming nondystrophic no information no name [facility] nails any number [facility] (70413) Immunizations Normalized Immunization Date Notes Care Provider Facili ty Immunization influenza, high dose 12-31-2017 - no information JESSICA GUILLEN 86540 [facility] seasonal, 12-31-2017 [facility] (51054[facility] Translations: [ ADMN FLU VAC NO FEE SCHED SAME DAY, FLUZONE HIGH DOSE (65 & UP) 2018, SINGLE IMMUNIZATION ADMIN] pneumococcal 12-18-2016 no information no name Not Availa ble conjugate vaccine, (76110) 13 valent Results Test Name Value Interpretation Reference Range Date Time Fa cility (Normalized) (Normalized) (Medline Reference) not yet categorized on 2018-10-31 COMMENT no information (no code) [facility] (99982) Prescribed Drug Oxycodone (no code) [facility] 1 [facility] (71555) laboratory on 2018-10-31 Amphetamines Ql Negative (N) [facility] (U) [facility] (42375) Barbiturates Ql Negative (N) [facility] Heal th (U) [facility] (38228) Benzodiazepines Negative (N) [facility] Ql (U) [facility] (19821) Benzoylecgonine Negative (N) [facility] Ql (U) [facility] (28543) Codeine (U) Negative (N) [facility] [Mass/Vol] [facility] (85999) Creatinine (U) 277.2 mg/dL (N) [facility] [Mass/Vol] [facility] (55156) Drug screen CONSISTENT (N) [facility] comment (U) [facility] [Interp] [facility] (72508) Hydrocodone (U) Negative (N) [facility] [Mass/Vol] [facility] (39669) Hydromorphone Negative (N) [facility] (U) [Mass/Vol] [facility] (43155) Methadone Ql (U) Negative (N) Community [facility] (39909) Morphine (U) Negative (N) [facility] [Mass/Vol] [facility] (63743) Norhydrocodone Negative (N) [facility] Confirm (U) [facility] [Mass/Vol] [facility] (90460) Noroxycodone >67269 (H) [facility] Confirm (U) [facility] [Mass/Vol] [facility] (64443) Opiates Ql (U) Negative (N) [facility] (03210) Oxidants Ql (U) Negative (N) Community [facility]al [facility] (58715) Oxycodone (U) >07971 (H) [facility] [Mass/Vol] [facility] (69895) Oxycodone Ql (U) Positive (A) Community [facility] (80120) Oxymorphone (U) 89 (H) Pending sale to [facility] [Mass/Vol] [facility] (09455) pH (U) 5.4 [pH] (N) 4.6 - 8 [pH] Community He [facility] (44771) Phencyclidine Ql Negative (N) Community Hea lth (U) [facility] (70813) Tetrahydrocannab Negative (N) Community [facility] lt inol Ql (U) [facility] (76535) laboratory on 2018-08-18 Prostate 0.9 ng/mL (N) 0 - 4 ng/mL Community a lt specific Ag [facility] [Mass/Vol] [facility] (16654) urinalysis on 2017-09-06 Benzoylecgonine Negative (no code) Pending sale to [facility] presence [facility] (80823) Urine, Negative (no code) [facility] (83084) Urine, Negative (no code) [facility] (41892) Urine, 246.0 mg/dL (no code) [facility] creatinine [facility] (60232) Urine, methadone Negative (no code) Community [facility] presence [facility] (47876) Urine, opiates Positive (A) [facility] presence [facility] (27803) Urine, Negative (no code) [facility] phencyclidine [facility] (58518) Urine, Negative (no code) [facility] tetrahydrocannab [facility] (60153) other on 2017-09-06 Alphahydroxyalpr Negative (no code) Community a lt azolam [facility] (66131) Alphahydroxymida Negative (no code) Community a lt zolam [facility] (92894) Alphahydroxytria Negative (no code) Community [facility] zolam [facility] (58677) Aminoclonazepam Negative (no code) [facility] (38427) Codeine Negative (no code) [facility] (08996) Hydrocodone Negative (no code) [facility] (89491) Hydromorphone Negative (no code) [facility] (07793) Hydroxyethylflur Negative (no code) [facility] azepam [facility] (68237) Lorazepam Negative (no code) [facility] (74383) Morphine 248 (H) [facility] (71487) Nordiazepam Negative (no code) [facility] (15552) Norhydrocodone Negative (no code) [facility] (99277) Noroxycodone 8013 (H) [facility] (68666) Oxazepam Negative (no code) [facility] (14048) Oxycodone 79312 (H) [facility] (45960) Oxymorphone 3337 (H) [facility] (40740) Temazepam Negative (no code) [facility] (27796) Albumin/Globulin 1.5 (N) Not Available mass ratio (47526) Barbiturates Negative (no code) [facility] (70176) Cholesterol in 83 (N) Not Available LDL mass conc (40038) Cholesterol non 114 (N) Not Available HDL mass conc (67437) Cholesterol.tota 3.5 (N) Not Available l/Cholesterol in (22581) HDL mass ratio COMMENT no information (no code) [facility] (60558) Globulin 2.6 (N) Not Available Calculated mass (14744) conc (S) medMATCH CONSISTENT (no code) [facility] Aminoclonazepam [facility] (48897) medMATCH CONSISTENT (no code) [facility] Amphetamines [facility] (69107) medMATCH aOH CONSISTENT (no code) [facility] alprazolam [facility] (07593) medMATCH aOH CONSISTENT (no code) [facility] midazolam [facility] (47522) medMATCH aOH CONSISTENT (no code) [facility] triazolam [facility] (43202) medMATCH CONSISTENT (no code) [facility] Barbiturates Center [facility] (09294) medMATCH Cocaine CONSISTENT (no code) [facility]th Metab Center [facility] (98794) medMATCH Codeine CONSISTENT (no code) [facility] (30466) medMATCH CONSISTENT (no code) [facility] Hydrocodone Center [facility] (23991) medMATCH CONSISTENT (no code) [facility] Hydromorphone Center [facility] (71240) medMATCH CONSISTENT (no code) [facility] Lorazepam Center [facility] (43196) medMATCH CONSISTENT (no code) [facility] Marijuana Metab Center [facility] (71390) medMATCH CONSISTENT (no code) [facility] Methadone Metab Center [facility] (20370) medMATCH INCONSISTENT (no code) [facility] Morphine Center [facility] (58371) medMATCH CONSISTENT (no code) [facility] Nordiazepam Center [facility] (18438) medMATCH CONSISTENT (no code) [facility] Norhydrocodone Center [facility] (87962) medMATCH CONSISTENT (no code) [facility] Noroxycodone Center [facility] (82615) medMATCH [place],Et CONSISTENT (no code) [facility] flurazepam Center [facility] (72923) medMATCH CONSISTENT (no code) [facility] Oxazepam Center [facility] (91387) medMATCH CONSISTENT (no code) [facility] Oxycodone Center [facility] (87751) medMATCH CONSISTENT (no code) [facility] Oxymorphone Center [facility] (22616) medMATCH CONSISTENT (no code) [facility] Phencyclidine Center [facility] (10807) medMATCH CONSISTENT (no code) [facility] Temazepam Center [facility] (80836) Oxidant Negative (no code) [facility] (73089) Oxycodone Positive (A) [facility] (18138) Prescribed Drug Oxycodone (no code) Pending sale to [facility] 1 [facility] (60430) metabolic panel on 2017-09-06 Albumin mass 4.0 g/dL (N) 3.4 - 5.4 g/dL Not Avail able conc (84270) ALP enzyme 137 U/L (H) 44 - 147 U/L Not Availabl e act/vol (75018) ALT enzyme 19 U/L (N) 4 - 40 U/L Not Available act/vol (34228) AST enzyme 16 U/L (N) 10 - 34 U/L Not Available act/vol (42766) Bilirubin mass 0.3 mg/dL (N) 0.1 - 1.2 mg/dL Not Av ailable conc (86340) Calcium mass 9.0 mg/dL (N) 8.5 - 10.2 mg/dL Not Marilee ilable conc (42928) Chloride molar 105 mmol/L (N) 95 - 106 mmol/L Not Av ailable conc (54438) CO2 molar conc 27 mmol/L (N) 23 - 29 mmol/L Not Marilee ilable (54170) Creatinine mass 1.04 mg/dL (N) Not Available conc (01190) GFR/1.73 sq M 86 (N) 90 - 120 Not Availabl e predicted among mL/min/{1.73_m2} mL/min/{1.73_m2} (03280) blacks MDRD vol rate/area (S/P/Bld) GFR/1.73 sq 74 (N) 90 - 120 Not Available M.predicted MDRD mL/min/{1.73_m2} mL/min/{1.73_m2} (75136) vol rate/area Glucose mass 99 mg/dL (N) 60 - 125 mg/dL Not Avail able conc (04020) Potassium molar 4.0 mmol/L (N) 3.7 - 5.2 mmol/L Not Available conc (79638) Protein mass 6.6 g/dL (N) 6.4 - 8.3 g/dL Not Avail able conc (24046) Sodium molar 142 mmol/L (N) 135 - 145 mmol/L Not Marilee ilable conc (42733) Urea nitrogen 15 mg/dL (N) 7 - 20 mg/dL Not Availa ble mass conc (58609) Urea NOT APPLICABLE (no code) Not Available nitrogen/Creatin (81110) ine mass ratio hematology on 2017-09-06 pH of blood 5.15 [pH] (no code) 7.38 - 7.42 [pH] [facility] (45861) cardiac on 2017-09-06 Cholesterol in 45 mg/dL (N) Not Available HDL mass conc (06686) Cholesterol mass 159 mg/dL (N) 180 - 200 mg/dL Not Available conc (62265) Triglyceride 224 mg/dL (H) 0 - 150 mg/dL Not Availa ble mass conc (41901) other on 2016-10-02 25-Hydroxyvitami 25.0 (L) 10-02-2016 Not Avail able n 13:27-0400 (49293) D2+25-Hydroxyvit garcía D3 mass conc Albumin/Globulin 1.4 {ratio} (no code) 1 - 2.5 {ratio} 7 Not Available mass ratio 08:57-0400 (14439) Cholesterol in 18 mg/dL (no code) 10-02-2016 Not Availab le VLDL mass conc 10:06-0400 (98742) Globulin 3.0 g/dL (no code) 2 - 3.5 g/dL 10-02-2016 Not Avail able Calculated mass 08:57-0400 (46661) conc (S) metabolic panel on 2016-10-02 Albumin mass 4.3 g/dL (no code) 3.4 - 5.4 g/dL 10-02-2016 Not Available conc 08:57-0400 (49869) ALP enzyme 141 U/L (H) 44 - 147 U/L 10-02-2016 Not Avai lable act/vol 10:06-0400 (76650) ALT enzyme 18 U/L (no code) 4 - 40 U/L 10-02-2016 Not Availa ble act/vol 10:06-0400 (69585) AST enzyme 16 U/L (no code) 10 - 34 U/L 10-02-2016 Not Avail able act/vol 08:57-0400 (25248) Bilirubin mass 0.4 mg/dL (no code) 0.1 - 1.2 mg/dL 10-02-2016 N ot Available conc 08:570400 (81974) Calcium mass 9.5 mg/dL (no code) 8.5 - 10.2 mg/dL 10-02-2016 No t Available conc 08:470400 (54814) Chloride molar 98 mmol/L (no code) 95 - 106 mmol/L 10-02-2016 N ot Available conc 08:470400 (82021) CO2 molar conc 22 mmol/L (no code) 23 - 29 mmol/L 10-02-2016 No t Available 08:570400 (90319) Creatinine mass 1.14 mg/dL (no code) 10-02-2016 Not Availa ble conc 10:060400 (07186) GFR/1.73 sq M 78 (no code) 120 10-02-2016 Not Avai lable predicted among mL/min/{1.73_m2} mL/min/{1.73_m2} 10:060400 (35559) blacks MDRD vol rate/area (S/P/Bld) GFR/1.73 sq M 67 (no code) 120 10-02-2016 Not Avai lable predicted among mL/min/{1.73_m2} mL/min/{1.73_m2} 10:060400 (13165) non-blacks MDRD vol rate/area (S/P/Bld) Glucose mass 97 mg/dL (no code) 60 - 125 mg/dL 10-02-2016 Not Available conc 08:570400 (12602) Potassium molar 4.4 mmol/L (no code) 3.7 - 5.2 mmol/L 10-02-2016 Not Available conc 08:470400 (70879) Protein mass 7.3 g/dL (no code) 6.4 - 8.3 g/dL 10-02-2016 Not Available conc 08:570400 (06084) Sodium molar 139 mmol/L (no code) 135 - 145 mmol/L 10-02-2016 N ot Available conc 08:470400 (11182) Urea nitrogen 15 mg/dL (no code) 7 - 20 mg/dL 10-02-2016 Not A vailable mass conc 08:57-0400 (65428) Urea 13 mg/mg (no code) 6 - 22 mg/mg 10-02-2016 Not Avail able nitrogen/Creatin 10:06-0400 (92476) ine mass ratio imm/path on 2016-10-02 Prostate 4.1 ng/mL (H) 0 - 4 ng/mL 10-02-2016 Not Availa ble specific Ag mass 10:44-0400 (78389) conc cardiac on 2016-10-02 Cholesterol in 52 mg/dL (no code) 10-02-2016 Not Availab le HDL mass conc 10:060400 (89100) Cholesterol in 68 mg/dL (no code) 0 - 100 mg/dL 10-02-2016 Not Available LDL mass conc 10:060400 (03670) Cholesterol mass 138 mg/dL (no code) 180 - 200 mg/dL 10-02-2016 Not Available conc 10:060400 (17507) Triglyceride 89 mg/dL (no code) 0 - 150 mg/dL 10-02-2016 Not A vailable mass conc 10:060400 (45086) Vital Signs Vital Sign Value Interpretation Reference Date Time Care Prov ider Facility (Normalized) (Normalized) Range BMI (Body Mass 34.36 kg/m2 (no code) 15 - 25 kg/m2 2018 [facility] Community Index) 17:45-[address] [place] [address] (70954) BMI (Body Mass 37.99 kg/m2 (no code) 15 - 25 kg/m2 12-31-2017 D AVID [facility] Community Index) 16:20-[address] [place] [address] (15398) BMI (Body Mass 36.5 kg/m2 (no code) 15 - 25 kg/m2 09-06-2017 [facility] Community Index) 16:00-[address] [place] [address] (75692) BMI (Body Mass 36.59 kg/m2 (no code) 15 - 25 kg/m2 08-16-2017 ANDREWS MOJICA Community Index) 13:20-0400 87605 [facility] (04164) BMI (Body Mass 36.4 kg/m2 (no code) 15 - 25 kg/m2 08-09-2017 LEE OLEARY Community Index) 19:00-0400 59344 [facility] (90120) Body height 172.72 cm (no code) cm 05-19-2018 JESSICA Sebastian [facility] 16:40-0400 56526 [facility] (98551) Body mass 35.26 kg/m2 (no code) 15 - 25 kg/m2 05-19-2018 JESSICA FINN Community index (BMI) 16:40-0400 71980 [facility] [Ratio] [facility] (50322) Body 97.8 [degF] (no code) 97.8 - 99.0 05-19-2018 JESSICA DUMONT [facility] temperature [degF] 16:40-0400 73683 [facility] (83298) Body 97.5 [degF] (no code) 97.8 - 99.0 2018 [facility] Temperature [degF] 17:45-0400 [facility] 69620 [facility] (42081) Body 98.2 [degF] (no code) 97.8 - 99.0 12-31-2017 JESSICA MOREKIM JULIA [facility] Temperature [degF] 16:20-0500 76461 [facility] (50436) Body 98.1 [degF] (no code) 97.8 - 99.0 09-06-[address] [facility] Temperature [degF] 16:00-0400 55327 [facility] (48859) Body 97.5 [degF] (no code) 97.8 - 99.0 08-16-2017 MAICO KIN G Community Temperature [degF] 13:20-0400 62326 [facility] (98175) Body 98.5 [degF] (no code) 97.8 - 99.0 08-09-2017 CALE MICAH LANDIS [facility] Temperature [degF] 19:00-0400 49251 [facility] (71732) Body weight 105.19 kg (no code) kg 05-19-2018 JESSICA Sebastian Community 16:40-[address] [place] [address] (11285) Body weight 102.51 kg (no code) kg 2018 ELENO Co mmunity 17:45-[address] [place] [address] (28114) Height 172.72 cm (no code) cm 2018 ELENO Christiansonu nity 17:45-[address] (73579) Height 172.72 cm (no code) cm 12-31-2017 [facility] 16:200500 [address] [place] [address] (46001) Height 172.72 cm (no code) cm 09-06-2017 [facility] 16:00-[address] [place] [address] (77050) Height 172.72 cm (no code) cm 08-16-2017 MAICO YUNIOR [facility] 13:200400 [address] [place] [address] (09226) Height 172.72 cm (no code) cm 08-09-2017 CALE OLEARY [facility] 19:00-[address] [place] [address] (38184) Oxygen 96 % (no code) 95 - 100 % 05-19-2018 [facility] saturation in 16:40-[address] [place] [address] Arterial blood [facility] by [facility] [place] (51249) oximetry Pulse Oximetry 0 % (no code) 95 - 100 % 09-06-2017 [facility] 16:00-[address] [place] [address] (08977) Pulse Oximetry 96 % (no code) 95 - 100 % 08-16-2017 MAICO SANTANA [facility] 13:200400 [address] [place] [address] (24025) Weight 113.35 kg (no code) kg 12-31-2017 [facility] 16:200500 [address] [place] [address] (64751) Weight 108.91 kg (no code) kg 09-06-2017 [facility] 16:000400 [address] [place] [address] (63499) Weight 109.18 kg (no code) kg 08-16-2017 MAICO Castro mmunity 13:20-0400 91336 [facility] (62653) Weight 108.59 kg (no code) kg 08-09-2017 CALE OLEARY [facility] 19:00-[address] [place] [address] (35727) Interventions No Information Plan of Treatment Normalized Care Care Detail Care Activity Date Care Provider F acility Activity (M) [facility] 12-31-2017 JESSICA GUILLEN 76475 [facility] (61183) ([facility]) [facility] 10-04-[address] ([address]) [facility] 10-31-2018 JESSICA GUILLEN [phone] [facility] (43069) [facility] 06-20-2019 JESSICA GUILLEN [phone] [facility] (95046) Patient encounter [facility] 12-24-2017 JESSICA GUILLEN [phone] [facility] (88303) Patient encounter [facility] 12-09-2018 ELENO REYES [address] (44643) Patient encounter no information 05-23-2019 SIRENA CHAUHAN [facility] (65938) no information no information no information CALE PEARLY 76 2 [facility] (77054) Goals No Information Social History No Information Functional Status No Information Mental Status No Information Encounters Encounter Normalized Encounter Encounter Diagnosis Care Provi genevieve Organization Date Type 05-19-2018 ([facility]) Chronic Health Low back pain JESSICA GUILLEN (n o [facility] - Maintenance phone) (no phone) 05-19-2018 - 05-19-2018 12-31-2017 (M) Chronic Health Low back pain JESSICA GUILLEN (n o [facility] - Maintenance phone) (no phone) 12-31-2017 - 12-31-2017 2018 (WALK-IN) Walk-In Care Acute upper ELENO REYES (no [facility] - respiratory infection, phone) CARE (n o phone) 2018 unspecified - 2018 06-01-2019 [facility] Chronic obstructive JESSICA RICKETTS RTER (no [facility] pulmonary disease, phone) (no phone) unspecified 03-21-2019 [facility] Chronic obstructive JESSICA MOREChuy RTER (no [facility] pulmonary disease, phone) (no phone) unspecified 11-02-2018 [facility] no information JESSICA CAITIEKIM (no [facility] phone) (no phone) 10-31-2018 [facility] Low back pain JESSICA CAITIEKIM ( no [facility] phone) (no phone) 09-29-2017 [facility] Low back pain JESSICA BLOODKIM ( no [facility] - phone) (no phone) 09-29-2017 - 09-29-2017 12-24-2017 Patient encounter no information PAULINE RODRÍGUEZ (no ph one) [facility] (no phone) 09-07-2017 Patient encounter no information [...] DO (no [facility] procedure phone) [facility] (no phone) 12-09-2018 Patient encounter no information no name no or ganization name procedure 12-09-2018 Patient encounter Polyneuropathy, PAULINE RODRÍGUEZ (no p steven) [facility] - procedure unspecified (no phone) 12-09-2018 10-31-2018 Patient encounter no information no name no or ganization name procedure 08-18-2018 Patient encounter Encounter for general [facility]ESS[facility] ALVAREZ [facility] phone[facility] (no phone) 08-18-2018 examination without - abnormal findings 08-18-2018 2018 Patient encounter no information no name no or ganization name procedure 01-11-2015 Patient encounter no information LULA MCLAUGHLIN DO (no [facility] [address] procedure phone) [facility] (no phone) 08-16-2017 PPPS, initial visit no information no name no organization name 08-16-2017 PPPS, subseq visit no information no name no o rganization name 05-25-2019 Telephone encounter no information [facility]ESS[facility] GUILLEN [facility] (no phone) 05-22-2019 Telephone encounter Low back pain JESSICA GUILLEN (no [facility] phone) (no phone) 05-16-2019 Telephone encounter no information [facility]EN [facility] (no phone) 05-15-2019 Telephone encounter no information [facility]LLEN [facility] (no phone) 04-28-2019 Telephone encounter no information JESSICA GUILLEN ([facility] phone) (no phone) 04-27-2019 Telephone encounter no information JESSICA GUILLEN (n o [facility] phone) (no phone) 04-21-2019 Telephone encounter Low back pain JESSICA GUILLEN (no [facility] phone) (no phone) 03-28-2019 Telephone encounter Low back pain JESSICA GUILLEN (no [facility]) (no phone) 03-21-2019 Telephone encounter no information JESSICA GUILLEN (n o [facility]) (no phone) 03-09-2019 Telephone encounter no information JESSICA GUILLEN ([facility] o [facility] phone) (no phone) 03-06-2019 Telephone encounter no information JESSICA GUILLEN (n o [facility]) (no phone) 02-24-2019 Telephone encounter Low back pain JESSICA GUILLEN (no [facility]) (no phone) 02-02-2019 Telephone encounter Low back pain JESSICA GUILLEN (no [facility] phone) (no phone) 01-27-2019 Telephone encounter no information JESSICA GUILLEN (n o [facility] phone) (no phone) 01-06-2019 Telephone encounter Low back pain JESSICA GUILLEN (no [facility] phone) (no phone) 01-04-2019 Telephone encounter Polyneuropathy, JESSICA GUILLEN ( no [facility] unspecified phone) (no phone) 12-29-2018 Telephone encounter Polyneuropathy, JESSICA GUILLEN ( no [facility] unspecified phone) (no phone) 12-07-2018 Telephone encounter Low back pain JESSICA GUILLEN (no [facility] phone) (no phone) 11-09-2018 Telephone encounter Low back pain JESSICA GUILLEN (no [facility] phone) (no phone) 10-07-2018 Telephone encounter Low back pain JESSICA GUILLEN [facility]no [facility] - phone) (no phone) 10-07-2018 - 10-07-2018 09-10-2018 Telephone encounter no information JESSICA GUILLEN (n o [facility] - phone) (no phone) 09-10-2018 - 09-10-2018 09-06-2018 Telephone encounter Low back pain JESSICA GUILLEN (no [facility] - phone) (no phone) 09-06-2018 - 09-06-2018 08-18-2018 Telephone encounter Corns and callosities JESSICA REYNA (no [facility] - phone) (no phone) 08-18-2018 - 08-18-2018 08-10-2018 Telephone encounter Low back pain JESSICA GUILLEN (no [facility] - phone) (no phone) 08-10-2018 - 08-10-2018 07-13-2018 Telephone encounter Low back pain JESSICA GUILLEN (no [facility] - phone) (no phone) 07-13-2018 - 07-13-2018 06-15-2018 Telephone encounter Low back pain BETSY MCKEON (no [facility] - phone) (no phone) 06-15-2018 - 06-15-2018 05-23-2018 Telephone encounter no information JESSICA GUILLEN (n o [facility] - phone) (no phone) 05-23-2018 - 05-23-2018 05-18-2018 Telephone encounter Low back pain JESSICA GUILLEN (no [facility] - phone) (no phone) 05-18-2018 - 05-18-2018 05-11-2018 Telephone encounter no information JESSICA GUILLEN (n o [facility] - phone) (no phone) 05-11-2018 - 05-11-2018 04-21-2018 Telephone encounter Low back pain JESSICA GUILLEN (no [facility] - phone) (no phone) 04-21-2018 - 04-21-2018 03-29-2018 Telephone encounter no information [facility]EN [facility] 03-29-2018 - 03-29-2018 03-24-2018 Telephone encounter Low back pain [facility]ESS[facility] GUILLEN [facility] (no phone) 03-24-2018 - 03-24-2018 03-10-2018 Telephone encounter no information JESSICA GUILLEN (n o [facility] - phone) (no phone) 03-10-2018 - 03-10-2018 02-23-2018 Telephone encounter Low back pain JESSICA GUILLEN (no [facility] - phone) (no phone) 02-23-2018 - 02-23-2018 01-31-2018 Telephone encounter no information [facility]EN [facility] ([facility] phone) 01-31-2018 - 01-31-2018 01-25-2018 Telephone encounter Low back pain JESSICA GUILLEN (no [facility] - phone) (no phone) 01-25-2018 - 01-25-2018 01-18-2018 Telephone encounter Major depressive JESSICA GUILLEN ([facility] single phone) (no phone) 01-18-2018 episode, unspecified - 01-18-2018 12-30-2017 Telephone encounter no information [facility]LLEN [facility] (no phone) 12-30-2017 - 12-30-2017 12-22-2017 Telephone encounter Low back pain JESSICA GUILLEN (no [facility] - phone) (no phone) 12-22-2017 - 12-22-2017 11-29-2017 Telephone encounter Low back pain LISA DAVILA (n o [facility] - phone) LISA (no phone) 11-29-2017 PAUL (no phone) - 11-29-2017 11-25-2017 Telephone encounter Low back pain JESSICA GUILLEN (no [facility] - phone) (no phone) 11-25-2017 - 11-25-2017 10-27-2017 Telephone encounter Low back pain JESSICA GUILLEN (no [facility] - phone) (no phone) 10-27-2017 - 10-27-2017 [...] Surgical retina detatchment, lens im plant History [facility] ([id number]) Summary Purpose eClinicalWorks SubmissioneClinicalWorks SubmissioneClinicalWorks SubmissioneClinicalWorks Submission Additional Source Comments This clinical document has been generated using [employer] software that has been certified by the Office of the National Coordinator for Health Information Technology (ONC 15.99.04.3023.Diam.31.00.0.049546) and the National Committee for Electric Stop Installer (NCQA, as an eMeasure certified technology). FOR [...] BASED ON T HE PRIMARY CLINICAL RECORDS. [employer]. provides no warranty or guara ntee of [...]
--- OUTSIDE RECORDS SUMMARY | 2019-06-28 22:21 | XMS REPORT | Encounter Summary ---
Author Author [facility] Address Unknown Phone Unavailable Care Team Providers Care Pivot End Polisher Name Role Phone PCP Unavailable Encounter Details Care Team Description Date Type Department Ramo Forbes MD [address] [place] [address] [phone] 12/06/2004 [facility] [address] [place] [id number] Social History Date Tobacco Use Types Packs/Day [...]
--- OUTSIDE RECORDS SUMMARY | 2019-06-28 22:21 | XMS REPORT | Encounter Summary ---
Author Author [facility] Address Unknown Phone Unavailable Care Team Providers Care Agency Director Name Role Phone PCP Unavailable Encounter Details Care Team Description Date Type Department Ramo Celis MD [address] [address] [phone] 08/08/1998 [facility] 09/24/1998 Social History Date Tobacco [...]
--- OUTSIDE RECORDS SUMMARY | 2019-06-28 22:21 | XMS REPORT | Encounter Summary ---
Author Author [facility] Address Unknown Phone Unavailable Care Team Providers Care Audio Visual Design Engineer Name Role Phone PCP Unavailable Encounter Details Care Team Description Date Type Department Ramo Forbes MD [address] [place] [address] [phone] OBSTRUCTIVE SLEEP APNEA, ADULT & PED 02/10/2005 [facility] [address] [place], [place] [id number] Social History Date Tobacco Use Types Packs/Day [...] nosis COOXIMETRY ARTERIAL Routine 02/10/2005 10:35 PM BIOMETRIC SCREENER ARTERIAL BLOOD GAS Routine 02/10/2005 10:35 PM BIOMETRIC SCREENER documented in this encounter Results * Arterial Blood Gas (02/10/2005 10:35 PM BIOMETRIC SCREENER) pH Arterial 7.36 (L) 7.38 - 7.44 [...] Address City/State/Zipcode Ph one Number [facility] [address] [place], [place] [address] [place] * Cooximetry Arterial (02/10/2005 10:35 PM BIOMETRIC SCREENER) Hemoglobin 12.9 (L) 13.0 - 17.0 G/DL [place] Whole Blood Oxyhemoglobin 91.9 (L) 95.0 - 100.0 %THB [place] Carboxyhemoglob 1.2 0.0 - 1.5 %THB [place] in Methemoglobin 1.0 0.0 - 1.5 %THB [place] O2 Content 16.7 (L) >17.0 ML/DL [place] Arterial Specimen Performing Organization Address City/State/Zipcode Ph one Number [facility] [address] [place], [place] [address] [place] documented in this encounter Visit Diagnoses Diagnosis Obstructive sleep apnea (adult) (pediat niki) documented in this encounter
--- OUTSIDE RECORDS SUMMARY | 2019-06-28 22:21 | XMS REPORT | Encounter Summary ---
Author Author Organization Address Unknown Phone Unavailable Care Team Providers Care Local Company Hazmat Driver Name Role Phone PCP Unavailable Encounter Details Care Team Description Date Type Department Jimmie Barriga MD [address] [place] [address] [phone] 03/03/1999 [facility] Social History Date Tobacco Use Types Packs/Day [...] SPINE WO Routine 03/03/1999 CONTRAST 2:30 PM RADIO MECHANIC HELPER documented in this encounter Results * CT Thoracic Spine wo contrast (03/03/1999 2:30 PM RADIO MECHANIC HELPER) Specimen Narrative Performed At Report [facility] RAD/nr/[id number] [facility] Name: JO ANN DEL REAL Date of : 1950 Age: 48Y Room-Bed/Loca tion/Type: -//RB Check-In #: [id number] Attending Physician: JIMMIE Coates Procedure: CT SPINE THORACIC W/O Reason for Exam: ;BACK PAIN Requested by: JIMMIE BARRIGA Film Jacket #: [id number] Exam Date: 03/03/1999 14:32 Exam: CT THORACIC [...] Interface, Rad Conversion - 04/24/2013 5:31 AM RADIO MECHANIC HELPER Report RAD/nr/[id number] [facility] Name: JO ANN DLE REAL Date of : 1950 Age: 48Y Room-Bed/Location/Type: -//RB Check-In #: [id number] Attending Physician: JIMMIE BARRIGA MD Procedure: CT SPINE THORACIC W/O Reason for Exam: ;BACK PAIN Requested by: JIMMIE BARRIGA Film Jacket #: [id number] Exam Date: 03/03/1999 14:32 Exam: CT THORACIC [...]
--- OUTSIDE RECORDS SUMMARY | 2019-06-28 22:21 | XMS REPORT | Encounter Summary ---
Author Author [facility] Address Unknown Phone Unavailable Care Team Providers Care Machine Operator General Name Role Phone PCP Unavailable Encounter Details Care Team Description Date Type Department Ramo Forbes MD [address] [place] [address] [phone] 12/17/2004 [facility] [address] [place] [phone] Social History Date Tobacco Use Types Packs/Day [...]
--- OUTSIDE RECORDS SUMMARY | 2019-06-28 22:21 | XMS REPORT | Encounter Summary ---
Author Author [facility] Address Unknown Phone Unavailable Care Team Providers Care Electronics Processor Name Role Phone PCP Unavailable Encounter Details Care Team Description Date Type Department [facility] [address] [place], [place] [id number] Social History Date Tobacco Use Types Packs/Day [...] Address City/State/Zipcode Ph one Number [facility] [address] [place], [place] [address] [place] * DIFFERENTIAL (07/31/1998 [...] TH/UL [place] Specimen Blood Performing Organization Address [facility] one Number RL [address] [place], [place] [address] [place] * CBC and [...] TH/UL [place] Specimen Blood Performing Organization Address [facility] one Number [facility] [address] [place] [address] [place] documented in this encounter Visit Diagnoses Not on filedocumented in this encounter
--- OUTSIDE RECORDS SUMMARY | 2019-06-28 22:21 | XMS REPORT | Clinical Summary ---
Author Author [facility] Organization [facility] Address Unknown Phone Unavailable Care Team Providers Care Fur Cutting Machine Operator Name Role Phone PCP Unavailable Allergies Not [...]
--- OUTSIDE RECORDS SUMMARY | 2019-06-28 22:22 | XMS REPORT | Encounter Summary ---
Author Author [facility] Address Unknown Phone Unavailable Care Team Providers Care Cafeteria Director Name Role Phone PCP Unavailable Encounter Details Care Team Description Date Type Department Ramo Celis MD [address] [place] [address] [phone] 11/15/1997 [facility] Encounter [address] [place] [address] Social History Date Tobacco Use Types Packs/Day [...] MG/DL [place] Specimen Blood Performing Organization Address [facility] Ph one Number [facility] [address] [place] [address] [place] * Alkaline Phosphatase (11/15/1997 10:04 PM CDT) Alkaline 94 40 - 125 IU/L [place] Phosphatase Specimen Blood Performing Organization Address [facility] Ph one Number [facility] [address] [place] [address] [place] * Calcium (11/15/1997 10:04 PM CDT) Calcium 10.4 8.8 - 10.5 MG/DL [place] Specimen Blood Performing Organization [facility] Ph one Number [facility] [address] [place] [address] [place] * Phosphorus (11/15/1997 10:04 PM CDT) Phosphorus 4.8 (H) 2.5 - 4.5 MG/DL [place] Specimen Blood Performing Organization Address [facility] one Number [facility] [address] [place], [place] [address] [place] * Cholesterol (11/15/1997 10:04 PM CDT) Cholesterol 217 (H) <200 MG/DL [place] Specimen Blood Performing Organization [facility] one Number [facility] [address] [place] [address] [place] * Uric Acid (11/15/1997 10:04 PM CDT) Uric Acid 4.0 2.5 - 7.8 MG/DL [place] Specimen Blood Performing Organization [facility] one Number [facility] [address] [place] [address] [place] * Protein Total Serum (11/15/1997 10:04 PM CDT) Protein Total 7.3 6.5 - 8.2 G/DL [place] Serum Specimen Blood Performing Organization [facility] one Number [facility] [address] [place] [address] [place] * Aspartate Aminotransferase (11/15/1997 10:04 PM CDT) Aspartate 26 20 - 50 IU/L [place] Aminotransferas e Specimen Blood Performing [facility] one Number [facility] [address] [place] [address] [place] * Albumin (11/15/1997 10:04 PM CDT) Albumin 4.1 3.6 - 4.6 G/DL [place] Specimen Blood Performing Organization [facility] one Number [facility] [address] [place] [address] [place] * Lipid Panel (11/15/1997 10:04 PM CDT) Cholesterol 217 (H) <200 MG/DL [place] Triglycerides 94 <200 MG/DL [place] HDL Cholesterol 53 >35 MG/DL [place] LDL Cholesterol 145 (H) 0 - 130 MG/DL [place] Cholesterol/HDL 4.1 <4.5 [place] Ratio Specimen Blood Performing Organization [facility] one Number [facility] [address] [place] [address] [place] * Bilirubin Total (11/15/1997 10:04 PM CDT) Bilirubin Total 0.7 0.2 - 1.2 MG/DL [place] Specimen Blood Performing Organization Address [facility] one Number RL [address] [place] [address] [place] * Lactate Dehydrogenase (11/15/1997 10:04 PM CDT) Pathologist [facility] Lactate 426 300 - 600 IU/L [place] Dehydrogenase Specimen Blood Performing Organization Address [facility] one Number RL [address] [place] [address] [place] * Thyroid Colbert (11/15/1997 10:04 PM CDT) Pathologist [facility] Thyroid 2.41 0.60 - 6.00 UIU/ML [place] Stimulating Hormone Specimen Blood Performing Organization Address [facility] one Number RL [address] [place] [address] [place] * DIFFERENTIAL (11/15/1997 10:04 PM [...] NORMAL [place] Specimen Blood Performing Organization Address [facility] one Number RL [address] [place] [address] [place] * CBC and Diff (manual [...] TH/UL [place] Specimen Blood Performing Organization Address City/[facility] Ph one Number [facility] [address] [place] [address] [place] * PSA DIAGNOSTIC (11/15/1997 10:04 PM CDT) PSA Diagnostic 1.0 0.0 - 4.0 NG/ML [place] Specimen Blood Performing Organization Address [facility] Ph one Number [facility] [address] [place], [place] [address] [place] documented in this encounter Visit Diagnoses Not on filedocumented in this encounter
--- OUTSIDE RECORDS SUMMARY | 2019-06-28 22:25 | XMS REPORT | Continuity of Care Document ---
Demographics Preferred Language Unknown Marital Status Unknown Amish Affiliation Unknown Race Unknown Ethnic Group Unknown Author Organization Unknown Address Unknown Phone Unavailable Allergies There is no data. Medications There is no data. Problems Date Dx Coded Attending Type Code Diagnosis Diagnosed By 02/01/2015 LULA MCLAUGHLIN DO Ot E78 .5 02/01/2015 ARNOLDO LULA PARRA Ot I10 02/01/2015 [facility] DOLULA Ot R05 02/13/2015 [facility] DOLULA Ot E78 .5 [facility]2015 [facility] DOLULA Ot R05 [facility] .5 HYPERLIPIDEMIA, UNSPECIFIED 05/05/2019 [facility] LULA PARRA Ot I10 ESSENTIAL (PRIMARY) HYPERTENSION 05/05/2019 [facility] LULA PARRA Ot R05 COUGH 05/26/2019 HENRY PEÑA DO Ot I87. 8 OTHER SPECIFIED [...] ng/mL <50 medMATCH Noroxycodone CONSISTENT NRG Oxycodone 42117 ng/mL <50 medMATCH Oxycodone CONSISTENT NRG Oxymorphone [...] ng/mL <50 medMATCH Norhydrocodone CONSISTENT NRG Noroxycodone >36267 ng/mL <50 medMATCH Noroxycodone CONSISTENT NRG Oxycodone >37635 ng/mL <50 medMATCH Oxycodone CONSISTENT NRG Oxymorphone [...] Status Pt. Type Provider Facility Loc./Unit Complaint [id number] 10/02/2016 12:08:00 Document Registration [id number] 12/09/2018 09:30:00 12/09/2018 23:59:5 9 CLS Outpatient JESSICA GUILLEN MD [facility] [id number] 10/31/2018 15:00:00 Document Registration [id number] 08/18/2018 09:00:00 Document Registration [id number] 09/07/2017 08:20:00 Document Registration [id number] 09/06/2017 15:00:00 Document Registration [id number] 10/01/2016 10:20:00 Document Registration [id number] 06/23/2019 09:20:00 23:59:59 CLS Preadmit JESSICA GUILLEN MD [facility] RT COPD [id number] 05/24/2019 08:10:00 23:59:59 CLS Preadmit SIRENA CHAUHAN APRN [facility] RT DYSPNEA [id number] 05/23/2019 20:00:00 23:59:59 CLS Outpatient SIRENA CHAUHAN APRN [facility] SLEEP OBSTRUCTIVE SLE EP APNEA [id number] 05/04/2019 14:28:00 23:59:59 CLS Outpatient HENRY PEÑA DO [facility] RAD [id number] 01/11/2015 14:56:00 23:59:59 CLS Outpatient LULA MCLAUGHLIN DO [facility] RAD COUGH [id number] 06/28/2019 21:18:[address] Inpatient LAINE MULLEN DO [facility] ICU RESPIRATORY DISTRESS,COVID P OI
[2019-06-28] MEDS ORDERED: LACTATED RINGERS 1,000 ML IV ONE (22:36)
[2019-06-28] MEDS ORDERED: ONDANSETRON 4 MG/2 ML (SDV) Z0FRAN IV PRN (23:00)
[2019-06-28] MEDS ORDERED: IBUPROFEN 600 MG (MOTRIN) TAB PO PRN (23:00)
[2019-06-28] MEDS ORDERED: ACETAMINOPHEN 325 MG TABLET PO PRN (23:00)
[2019-06-28] MEDS: LACTATED RINGERS 1,000 ML IV SCH (23:07)
[2019-06-28] MEDS: CEFEPIME 2,000 MG/SWFI 20 ML IV PUSH IV SCH ×2 (23:27)
[2019-06-29] VITALS (23 sets, daily range): BP systolic 102–157; BP diastolic 69–127
[2019-06-29] MEDS ORDERED: RT-ALBUTEROL HFA (PROAIR HFA) 8.5 GM IH PRN (00:45)
[2019-06-29 03:04] LABS: BASOPHILS % (AUTO) 0 % (0-10); EOSINOPHILS % (AUTO) 0 % (0-10); HEMATOCRIT 40 % (40-54); LYMPHOCYTES # (AUTO) 1.6 X 10^3 (1.0-4.0); LYMPHOCYTES % (AUTO) 6 % (12-44); MEAN CORPUSCULAR HEMOGLOBIN 28 PG (25-34); MEAN CORPUSCULAR HGB CONC 32 G/DL (32-36); MEAN CORPUSCULAR VOLUME 88 FL (80-99); MEAN PLATELET VOLUME 10.1 FL (7.4-10.4); MONOCYTES # (AUTO) 2.5 X 10^3 (0.0-1.0); MONOCYTES % (AUTO) 11 % (0-12); NEUTROPHILS # (AUTO) 20.1 X 10^3 (1.8-7.8); NEUTROPHILS % (AUTO) 83 % (42-75); PLATELET COUNT 238 10^3/uL (130-400); RED CELL DISTRIBUTION WIDTH 13.1 % (10.0-14.5); WHITE BLOOD COUNT 24.2 10^3/uL (4.3-11.0)
[2019-06-29 03:25] LABS: ALANINE AMINOTRANSFERASE 18 U/L (0-55); ALBUMIN 3.7 GM/DL (3.2-4.5); ALKALINE PHOSPHATASE 108 U/L (40-136); BILIRUBIN,TOTAL 0.3 MG/DL (0.1-1.0); BUN/CREATININE RATIO 14; CALCIUM 8.9 MG/DL (8.5-10.1); CARBON DIOXIDE 25 MMOL/L (21-32); CHLORIDE 105 MMOL/L (98-107); CREATININE SERUM 1.11 MG/DL (0.60-1.30); GFR ESTIMATED > 60; GLUCOSE 114 MG/DL (70-105); MAGNESIUM 2.2 MG/DL (1.6-2.4); PHOSPHORUS 3.5 MG/DL (2.3-4.7); POTASSIUM 4.3 MMOL/L (3.6-5.0); SODIUM 141 MMOL/L (135-145); TOTAL PROTEIN 6.6 GM/DL (6.4-8.2)
[2019-06-29] MEDS: KCL 20 MEQ TAB (K-DUR) PO SCH (03:42)
[2019-06-29] MEDS: MAGNESIUM 1 GM/100 ML IVPB 100 ML IV SCH (03:42)
[2019-06-29] MEDS: POTASSIUM CL 10MEQ/50ML IVPB 50 ML IV SCH (03:42)
--- NOTE | 2019-06-29 05:05 | Pulmonary Consultation ---
History of Present Illness History of Present Illness Date Seen by Provider: June 29, 2019 Time Seen by Provider: 04:58 Date of Admission History of Present Illness 69yo with hx of oxygen dependent COPD uses 2-3 liters YESENIA, and tooth abscess presented to ED secondary to worsening SOB, fevers and 30lb wt gain. He has not been using CPAP secondary to mouth pain/tooth abscess. EMS arrived and noted significant respiratory distress, started CPAP with significant improvement in respiratory effort by the time he arrived to the hospital. patient agrees he is feeling much better. Temperature 104 according to EMS. Allergies and Home Medications Allergies Coded Allergies: No Known Drug Allergies (Unverified , 06/28/19) Past Zbwgofm-Eomxbp-Vspdns Hx Patient Social History Alcohol Use: Denies Use Recreational Drug Use: No Smoking Status: Former Smoker 2nd Hand Smoke Exposure: No Recent Foreign Travel: No Contact w/Someone Who Travel: No Recent Infectious Disease Expo: No Recent Hopitalizations: No Physical Abuse: No Sexual Abuse: No Mistreated: No Fear: No Immunizations Up To Date Tetanus Booster (TDap): Unknown Seasonal Allergies Seasonal Allergies: No Past Medical History Surgeries: No Respiratory: Yes (HOME O2) COPD High Cholesterol, Hypertension Neurological: No Genitourinary: Yes Prostate Problems Gastrointestinal: Yes Gastroesophageal Reflux Musculoskeletal: Yes Arthritis Endocrine: No HEENT: No Cancer: No Psychosocial: Yes Anxiety Integumentary: No Review of Systems Time Seen by Provider: 04:59 Constitutional: Fever, Chills, Sweats, Weakness, Malaise, Other Eyes: No: Pain, Vision change, Conjunctivae inflammation, Eyelid inflammation, Other, Redness ENT: Nose congestion; No: Ear pain, Ear discharge, Nose pain, Nose discharge, Mouth pain, Mouth swelling, Throat pain, Throat swelling, Other Respiratory: Cough, Dry, Shortness of breath, SOB with excertion Sepsis Event Evaluation Height, Weight, BMI Height: '" Weight: lbs. oz. kg; 36.00 BMI Method: Exam Exam Vital Signs Date Time Temp Pulse Resp B/P (MAP) Pulse Ox O2 Delivery O2 Flow Rate FiO2 06/29/19 03:46 Nasal Cannula 3.00 06/29/19 03:05 80 24 98 Nasal Cannula 3.00 06/29/19 03:00 75 22 137/88 (104) 91 NIV Bilevel 25.00 5/7/20 02:57 84 33 136/82 (100) 98 NIV Bilevel 25.00 06/29/19 02:35 75 22 90 NIV Bilevel 25.00 06/29/19 02:32 75 20 97 25.00 06/29/19 02:00 36.8 06/29/19 02:00 78 22 115/77 (90) 97 Nasal Cannula 5.00 06/29/19 01:00 81 22 136/84 (101) 97 Nasal Cannula 5.00 06/29/19 01:00 81 06/29/19 00:30 84 21 108/70 (83) 100 Nasal Cannula 5.00 06/29/19 00:17 Nasal Cannula 5.00 06/29/19 00:00 85 22 108/79 (89) 97 Nasal Cannula 5.00 06/29/19 00:00 Nasal Cannula 5.00 06/28/19 23:45 96 24 114/77 (89) 97 Nasal Cannula 5.00 06/28/19 23:30 98 29 142/80 (100) 95 Nasal Cannula 5.00 06/28/19 23:15 99 24 129/89 (102) 96 Nasal Cannula 5.00 06/28/19 23:00 96 Nasal Cannula 3.00 06/28/19 23:00 37.8 103 96 32 06/28/19 23:00 99 18 110/84 (93) 96 Nasal Cannula 5.00 06/28/19 22:52 101 06/28/19 22:46 38.8 100 30 133/82 (99) 94 Nasal Cannula 5.00 06/28/19 22:15 37.8 103 18 121/64 98 NIV Bilevel 06/28/19 21:45 107 18 126/71 (89) 98 NIV Bilevel 20 21:30 107 20 127/77 (94) 97 NIV Bilevel 20 21:15 110 22 129/83 (98) 96 NIV Bilevel 06/28/19 21:00 115 22 127/78 (94) 97 NIV Bilevel 20 21:00 38.0 06/28/19 20:58 38.0 06/28/19 20:51 118 17 94 40.00 06/28/19 20:45 119 22 110/79 (89) 96 NIV Bilevel 06/28/19 20:30 38.0 113 26 112/63 (79) 97 NIV Bilevel 40.00 I & O 06/29/19 07:00 Intake Total 300 ml Balance 300 ml Height & Weight Height: '" Weight: lbs. oz. kg; 36.00 BMI Method: General Appearance: Anxious, Mild Distress HEENT: PERRL/EOMI, Normal ENT Inspection, Pharynx Normal Neck: Full Range of Motion, Non Tender, Supple Respiratory: Chest Non Tender, Decreased Breath Sounds, Respiratory Distress Cardiovascular: Regular Rate, Rhythm Capillary Refill: Less Than 3 Seconds Gastrointestinal: normal bowel sounds, non tender, soft Neurologic/Psychiatric: Alert, Oriented x3 Skin: Normal Color, Warm/Dry Lymphatic: No Adenopathy Results Lab Laboratory Tests 06/28/19 20:40 06/29/19 02:50 Assessment/Plan Assessment/Plan Acute respiratory failure -BIPAP PRN -Oxygen -Albuterol Sepsis -Continue Cefepime -Asif cultures pending -Check UA -Influenza is negative -COVID pending Hx of tooth abscess HENRY PEÑA DO June 29, 2019 05:05
[2019-06-29] MEDS: methylPREDNISolone 40 MG/ML (Solu-MEDROL) VIAL IV SCH ×3 (05:35→21:15)
[2019-06-29] MEDS ORDERED: RT-ALBUTEROL HFA (PROAIR HFA) 8.5 GM IH SCH (09:00)
[2019-06-29] MEDS ORDERED: IPRATROPIUM INHALER (ATROVENT) 12.9 GM INH SCH (09:00)
[2019-06-29] MEDS: PANTOPRAZOLE 40 MG (PROTONIX) VIAL IV SCH (09:12)
[2019-06-29] MEDS: CEFEPIME 2,000 MG/SWFI 20 ML IV PUSH IV SCH ×4 (09:13→21:15)
--- NOTE | 2019-06-29 09:32 | History & Physical-Hospitalist ---
History of Present Illness HPI/Chief Complaint CC: SOB with fever HPI: This is a 69yoWM PSYCHIATRIC patient of Dr. Barrett who was just seen by Dr. Barrett in a tele-medicine visit yesterday with complaints of cough and SOB, found to have fever of 104, thus he was admitted to the ICU bed two, for sepsis and cardiology and molder helper consulted due to white count elevation which is 24,000 today. COVID-19 swab pending, will be back this afternoon. He is in usually good health, he praises his perfect health and does not use oxygen at home and overall has no significant chronic issues. Source: patient Exam Limitations: no limitations Date Seen 06/29/19 Time Seen by a Provider: 09:30 Attending Physician Juanita Shelby DO PCP No,Local Physician Referring Physician Date of Admission June 28, 2019 at 21:18 Home Medications & Allergies Home Medications Reviewed patient Home Medication Reconciliation performed by pharmacy medication reconciliations electro mechanical technician and/or nursing. Patients Allergies have been reviewed. Allergies Allergies Coded Allergies No Known Drug Allergies (Unverified06/28/19) Past Wyxltpn-Jmwjov-Dklybo Hx Past Med/Social Hx: Reviewed Nursing Past Med/Soc Hx, Reviewed and Corrections made Patient Social History Marrital Status: Employed/Student: retired Alcohol Use: Denies Use Recreational Drug Use: No Smoking Status: Former Smoker 2nd Hand Smoke Exposure: No Recent Foreign Travel: No Contact w/other who traveled: No Recent Hopitalizations: No Recent Infectious Disease Expo: No Immunizations Up To Date Tetanus Booster (TDap): Unknown Seasonal Allergies Seasonal Allergies: No Past Medical History Cardiac: High Cholesterol, Hypertension Genitourinary: Prostate Problems Gastrointestinal: Gastroesophageal Reflux Musculoskeletal: Arthritis, Chronic Back Pain Psychosocial: Anxiety Review of Systems Constitutional: see HPI, fever Respiratory: cough, dyspnea on exertion Physical Exam Physical Exam Vital Signs Vital Signs - First Documented 06/28/19 06/28/19 20:30 23:00 Temp 38.0 Pulse 113 Resp 26 B/P (MAP) 112/63 (79) Pulse Ox 97 O2 Delivery NIV Bilevel O2 Flow Rate 40.00 FiO2 32 Capillary Refill : Less Than 3 Seconds Height, Weight, BMI Height: '" Weight: lbs. oz. kg; 36.00 BMI Method: General Appearance: Anxious, Chronically ill, Mild Distress Eyes: Right Eye Normal Inspection, Right Eye PERRL HEENT: PERRL/EOMI, Normal ENT Inspection, Pharynx Normal, Moist Mucous Membranes Neck: Full Range of Motion, Normal Inspection, Non Tender Respiratory: Chest Non Tender, Lungs Clear, No Accessory Muscle Use, No Respiratory Distress, Decreased Breath Sounds Cardiovascular: Regular Rate, Rhythm, No Edema, No Gallop, No JVD, No Murmur, Normal Peripheral Pulses Gastrointestinal: Normal Bowel Sounds, No Organomegaly, No Pulsatile Mass, Non Tender, Soft Back: Normal Inspection, No CVA Tenderness, No Vertebral Tenderness Extremity: Normal Capillary Refill, Normal Inspection, Normal Range of Motion, Non Tender, No Calf Tenderness, No Pedal Edema Neurologic/Psychiatric: Alert, Oriented x3, No Motor/Sensory Deficits, Normal Mood/Affect Skin: Normal Color, Warm/Dry Lymphatic: No Adenopathy Results Results/Procedures Labs Laboratory Tests 06/28/19 20:40 06/29/19 02:50 06/30/19 03:01 Patient resulted labs reviewed. Assessment/Plan Admission Diagnosis Assessment: Resp distress Fever DYspnea Cough HTN HLP Narcotic dependence Obesity Plan: COVID-19 swab IV abx Nebs O2 Fever management Cardiology Pulmonology Admission Status: Inpatient Order (span 2 midnights) Reason for Inpatient Admission: fever with dyspnea Diagnosis/Problems Diagnosis/Problems (1) Respiratory distress, acute Status: Acute (2) Fever (3) Cough (4) Hypertension (5) Hyperlipemia (6) Narcotic dependence Clinical Quality Measures DVT/VTE Risk/Contraindication: Risk Factor Score Per Nursin RFS Level Per Nursing on Admit: 4+=Very High JUANITA SHELBY DO June 29, 2019 09:32
[2019-06-29 10:36] LABS: BILIRUBIN,URINE NEGATIVE (NEGATIVE); CLARITY,URINE CLEAR; COLOR,URINE YELLOW; GLUCOSE, URINE (UA) NEGATIVE (NEGATIVE); KETONES,URINE NEGATIVE (NEGATIVE); LEUKOCYTE ESTERASE ,URINE NEGATIVE (NEGATIVE); NITRITE,URINE NEGATIVE (NEGATIVE); PROTEIN,URINE NEGATIVE (NEGATIVE)
[2019-06-29 10:46] LABS: BACTERIA,URINE TRACE /HPF; WBC,URINE RARE /HPF
[2019-06-29] MEDS: LACTATED RINGERS 1,000 ML IV SCH (11:51)
[2019-06-29] MEDS ORDERED: RT-ALBUINH IH (12:03)
[2019-06-29] MEDS ORDERED: CETI10TA17 PO (12:03)
[2019-06-29] MEDS ORDERED: OXYC10TA7 PO (12:03)
--- NOTE | 2019-06-29 12:05 | NUR ---
SPOKE WITH THE PT (I CALLED HIS ROOM PHONE), WENT THRU THE EXT MED HISTORY AND CALLED [facility] TO COMPLETE THE MED REC THE FOLLOWING MEDICATIONS ARE NOT LISTED ON THE EXT MED HISTORY: 06-16-2019 ALBUTEROL HFA #1 06-20-2019 OXYCODONE 10MG #100/28DS ALL OTHER MEDICATIONS ARE LISTED ON THE EXT MED HISTORY OTC MEDS: ZYRTEC
[2019-06-29] MEDS: RT-ALBUTEROL HFA (PROAIR HFA) 8.5 GM IH SCH ×3 (15:31→22:06)
[2019-06-29] MEDS: IPRATROPIUM INHALER (ATROVENT) 12.9 GM INH SCH ×3 (15:32→22:11)
--- NOTE | 2019-06-29 16:00 | Consultation-Cardiology ---
HPI-Cardiology Cardiology Consultation: Date of Consultation 06/29/19 Date of Admission Attending Physician Juanita Shelby DO Admitting Physician No,Local Physician Consulting Physician Benny Gudino MD HPI: Chief Complaint: Tachycardia Mr. Del Real is a 69 year old male admitted to ICU 2 from the ED [id number] Hx Patient Social History Alcohol Use: Denies Use Recreational Drug Use: No Smoking Status: Former Smoker 2nd Hand Smoke Exposure: No Recent Foreign Travel: No Recent Infectious Disease Expo: No Hospitalization with Isolation: Denies Immunizations Up To Date Tetanus Booster (TDap): Unknown Past Medical History PMH As described under Assessment. Allergies and Home Medications Allergies Coded Allergies: No Known Drug Allergies (Unverified , 06/28/19) Home Medications Albuterol Sulfate 1 Puff Puff, 2 PUFF IH Q4H PRN for SHORTNESS OF BREATH, (Reported) Amlodipine Besylate 5 Mg Tablet, 5 MG PO DAILY, (Reported) Cetirizine HCl 10 Mg Tablet, 10 MG PO DAILY, (Reported) Esomeprazole Magnesium 40 Mg Capsule.dr, 40 MG PO DAILY, (Reported) Famotidine 40 Mg Tablet, 40 MG PO DAILY PRN for HEARTBURN, (Reported) Finasteride 5 Mg Tablet, 5 MG PO DAILY, (Reported) Fluoxetine HCl 40 Mg Capsule, 40 MG PO BID, (Reported) Gabapentin 400 Mg Capsule, 400 MG PO TID, (Reported) Oxycodone HCl 10 Mg Tablet, 10 MG PO Q6H PRN for PAIN-SEVERE (8-10), (Reported) Rosuvastatin Calcium 20 Mg Tablet, 20 MG PO DAILY, (Reported) Tamsulosin HCl 0.4 Mg Cap, 0.4 MG PO DAILY, (Reported) Umeclidinium Brm/Vilanterol Tr 1 Each Blst.w.dev, 1 PUFF INH DAILY, (Reported) Physical Exam-Cardiology Physical Exam Vital Signs/I&O 06/30/19 06/30/19 06/30/19 06/30/19 03:00 03:07 03:07 04:00 Temp 36.3 Pulse 98 87 Resp 23 B/P (MAP) 118/81 (93) 129/75 (93) Pulse Ox 98 96 O2 Delivery Nasal Cannula Nasal Cannula Nasal Cannula O2 Flow Rate 3.00 2.00 3.00 06/30/19 06/30/19 06/30/19 5/8/20 05:00 06:00 07:00 07:00 Pulse 78 68 70 67 Resp 21 22 15 B/P (MAP) 128/74 (92) 137/100 (112) Pulse Ox 96 96 95 O2 Delivery Nasal Cannula Nasal Cannula Nasal Cannula O2 Flow Rate 3.00 3.00 3.00 06/30/19 06/30/19 06/30/19 06/30/19 07:48 07:57 07:57 08:00 Pulse Ox 97 97 97 O2 Delivery Room Air Room Air Room Air Room Air O2 Flow Rate 2.00 2.00 2.00 06/30/19 06/30/19 06/30/19 06/30/19 08:00 08:49 09:00 10:00 Temp 36.7 Pulse 96 84 78 B/P (MAP) 133/72 (92) 122/78 (93) Pulse Ox 98 94 92 O2 Delivery Nasal Cannula Room Air Room Air O2 Flow Rate 3.00 06/30/19 06/30/19 06/30/19 06/30/19 10:34 10:40 11:00 11:52 Pulse 85 Resp 18 B/P (MAP) 141/84 (103) Pulse Ox 94 94 95 O2 Delivery Room Air Room Air Room Air Room Air 06/30/19 12:37 Pulse 85 06/30/19 00:00 Intake Total 840 ml Output Total 670 ml Balance 170 ml Capillary Refill : Less Than 3 Seconds Data Review Labs Laboratory Tests 06/30/19 03:01: White Blood Count 20.6H, Red Blood Count 4.57, Hemoglobin 12.9L, Hematocrit 40, Mean Corpuscular Volume 88, Mean Corpuscular Hemoglobin 28, Mean Corpuscular Hemoglobin Concent 32, Red Cell Distribution Width 13.2, Platelet Count 257, Annemarie n Platelet Volume 10.1, Neutrophils (%) (Auto) 90H, Lymphocytes (%) (Auto) 8L, Monocytes (%) (Auto) 2, Eosinophils (%) (Auto) 0, Basophils (%) (Auto) 0, Neutrophils # (Auto) 18.5H, Lymphocytes # (Auto) 1.6, Monocytes # (Auto) 0.5, Eosinophils # (Auto) 0.0, Basophils # (Auto) 0.0, Sodium Level 140, Potassium Level 4.6, Chloride Level 104, Carbon Dioxide Level 27, Anion Gap 9, Blood Urea Nitrogen 16, Creatinine 0.86, Estimat Glomerular Filtration Rate > 60, BUN/Creatinine Ratio 19, Glucose Level 144H, Calcium Level 9.2, Phosphorus Level 3.2, Magnesium Level 2.2 Microbiology 06/28/19 MRSA Screen - Final, Complete MRSA not isolated 06/28/19 Blood Culture - Preliminary, Resulted No growth Radiology NAME: JO ANN DEL REAL MED REC#: [id number] PT STATUS: REG ER : 1950 PHYSICIAN: ALINA ZAYAS APRN ADMIT DATE: 06/28/19/ER Signed Date of Exam:06/28/19 CHEST 1 VIEW, AP/PA ONLY HISTORY: Shortness of air. COMPARISON: 05/04/2019. TECHNIQUE: Frontal view of the chest. FINDINGS: Lung volumes are mildly large. No focal consolidation is seen. There is no pleural effusion or pneumothorax. The cardiac silhouette is mildly large but stable since the prior study. There is retrocardiac density which likely represents a large hiatal hernia. IMPRESSION: 1. No acute pulmonary abnormality is seen. 2. Hiatal hernia. Dictated by: Dictated on workstation # [id number] Dict: 06/28/192108 Trans: 06/28/192200 PJE [id number] Interpreted by: SHAYLEE MONTERO MD Electronically signed by: SHAYLEE MONTERO MD 06/28/192200 A/P-Cardiology Assessment/Admission Diagnosis Acute respiratory failure, secondary to pneumonia with sepsis - management per Dr. Proctor Sinus tachycardia - resolved after fever resolved Acute on chronic exacerbation of COPD - oxygen dependant Dental abcess Discussion and Recomendations Acute respiratory failure secondary to pneumonia with sepsis - management per pulmonary services Acute on chronic exacerbation of COPD - management per pulmonary services Echocardiogram to eval structure and function Monitor lab closely Further recs based on hospital course We would like to thank medical services for this consult Clinical Quality Measures DVT/VTE Risk/Contraindication: Risk Factor Score Per Nursin RFS Level Per Nursing on Admit: 4+=Very High MOHIT MCARTHUR June 29, 2019 16:00
[2019-06-29] MEDS: ENOXAPARIN 40 MG/0.4 ML (LOVENOX) SYR SC SCH (22:15)
[2019-06-30] VITALS (13 sets, daily range): BP systolic 116–156; BP diastolic 57–100
[2019-06-30] MEDS: LACTATED RINGERS 1,000 ML IV SCH (01:49)
[2019-06-30] MEDS: IPRATROPIUM INHALER (ATROVENT) 12.9 GM INH SCH ×6 (02:12→22:33)
[2019-06-30] MEDS: RT-ALBUTEROL HFA (PROAIR HFA) 8.5 GM IH SCH ×6 (02:14→22:38)
[2019-06-30 03:41] LABS: BASOPHILS % (AUTO) 0 % (0-10); EOSINOPHILS % (AUTO) 0 % (0-10); HEMATOCRIT 40 % (40-54); HEMOGLOBIN 12.9 G/DL (13.3-17.7); LYMPHOCYTES # (AUTO) 1.6 X 10^3 (1.0-4.0); LYMPHOCYTES % (AUTO) 8 % (12-44); MEAN CORPUSCULAR HEMOGLOBIN 28 PG (25-34); MEAN CORPUSCULAR HGB CONC 32 G/DL (32-36); MEAN CORPUSCULAR VOLUME 88 FL (80-99); MEAN PLATELET VOLUME 10.1 FL (7.4-10.4); MONOCYTES # (AUTO) 0.5 X 10^3 (0.0-1.0); MONOCYTES % (AUTO) 2 % (0-12); NEUTROPHILS # (AUTO) 18.5 X 10^3 (1.8-7.8); NEUTROPHILS % (AUTO) 90 % (42-75); PLATELET COUNT 257 10^3/uL (130-400); RED CELL DISTRIBUTION WIDTH 13.2 % (10.0-14.5); WHITE BLOOD COUNT 20.6 10^3/uL (4.3-11.0)
[2019-06-30 03:54] LABS: CHLORIDE 104 MMOL/L (98-107); POTASSIUM 4.6 MMOL/L (3.6-5.0); SODIUM 140 MMOL/L (135-145)
[2019-06-30 03:55] LABS: CALCIUM 9.2 MG/DL (8.5-10.1); GLUCOSE 144 MG/DL (70-105)
[2019-06-30 03:57] LABS: CARBON DIOXIDE 27 MMOL/L (21-32)
[2019-06-30 03:59] LABS: CREATININE SERUM 0.86 MG/DL (0.60-1.30); GFR ESTIMATED > 60; PHOSPHORUS 3.2 MG/DL (2.3-4.7)
[2019-06-30 04:00] LABS: BUN/CREATININE RATIO 19
[2019-06-30 04:02] LABS: MAGNESIUM 2.2 MG/DL (1.6-2.4)
[2019-06-30] MEDS: POTASSIUM CL 10MEQ/50ML IVPB 50 ML IV SCH (04:03)
[2019-06-30] MEDS: MAGNESIUM 1 GM/100 ML IVPB 100 ML IV SCH (04:04)
[2019-06-30] MEDS: KCL 20 MEQ TAB (K-DUR) PO SCH (04:04)
[2019-06-30] MEDS: methylPREDNISolone 40 MG/ML (Solu-MEDROL) VIAL IV SCH (04:57)
--- NOTE | 2019-06-30 05:37 | Pulmonary Progress Note ---
Subjective Time Seen by a Provider: 05:30 Subjective/Events-last exam Pt appears improved. Sepsis Event Evaluation Height, Weight, BMI Height: '" Weight: lbs. oz. kg; 36.00 BMI Method: Focused Exam Lactate Level 06/28/19 20:40: Lactic Acid Level 3.52*H 06/29/19 02:50: Lactic Acid Level 1.90 Exam Exam Vital Signs Date Time Temp Pulse Resp B/P (MAP) Pulse Ox O2 Delivery O2 Flow Rate FiO2 06/30/19 05:00 78 21 96 Nasal Cannula 3.00 06/30/19 04:00 87 23 129/75 (93) 96 Nasal Cannula 3.00 06/30/19 03:07 Nasal Cannula 2.00 06/30/19 03:07 36.3 06/30/19 03:00 98 118/81 (93) 98 Nasal Cannula 3.00 06/30/19 02:14 95 Nasal Cannula 2.00 06/30/19 02:00 80 125/60 (81) 96 Nasal Cannula 3.00 06/30/19 01:00 78 156/69 (98) 96 Nasal Cannula 3.00 06/30/19 01:00 80 06/30/19 00:27 36.5 06/30/19 00:00 78 26 116/74 (88) 96 Nasal Cannula 3.00 06/29/19 23:33 Nasal Cannula 2.00 06/29/19 23:00 79 22 123/74 (90) Nasal Cannula 3.00 06/29/19 22:08 95 Nasal Cannula 2.00 06/29/19 22:00 80 17 119/76 (90) 94 Nasal Cannula 3.00 06/29/19 21:00 88 26 155/92 (113) Nasal Cannula 3.00 06/29/19 20:00 80 21 102/82 (89) Nasal Cannula 3.00 06/29/19 20:00 Nasal Cannula 2.00 06/29/19 20:00 36.3 06/29/19 19:11 98 Nasal Cannula 2.00 06/29/19 19:00 91 18 133/77 (95) 98 Nasal Cannula 3.00 06/29/19 19:00 90 06/29/19 18:00 80 29 126/97 (107) Nasal Cannula 3.00 06/29/19 17:00 76 19 87 Nasal Cannula 3.00 06/29/19 16:10 Nasal Cannula 2.00 06/29/19 16:00 82 29 87 Nasal Cannula 3.00 06/29/19 15:33 98 Nasal Cannula 2.00 06/29/19 15:32 98 Nasal Cannula 2.00 06/29/19 15:00 83 18 91 Nasal Cannula 3.00 06/29/19 14:00 83 16 141/69 (93) 95 Nasal Cannula 3.00 06/29/19 13:00 79 16 137/127 (130) 95 Nasal Cannula 3.00 06/29/19 12:36 78 06/29/19 12:35 Nasal Cannula 2.00 06/29/19 12:00 84 24 95 Nasal Cannula 3.00 06/29/19 11:00 76 23 93 Nasal Cannula 3.00 06/29/19 10:43 2.00 06/29/19 10:00 87 22 130/93 (105) 82 Nasal Cannula 3.00 06/29/19 09:30 36.8 06/29/19 09:30 Nasal Cannula 2.00 06/29/19 09:06 36.8 76 98 28 06/29/19 09:04 98 Nasal Cannula 2.00 06/29/19 09:04 98 Nasal Cannula 2.00 06/29/19 09:00 76 23 117/85 (96) 97 Nasal Cannula 3.00 06/29/19 08:00 72 20 125/87 (100) 96 Nasal Cannula 3.00 06/29/19 07:00 70 23 134/88 (103) 88 Nasal Cannula 3.00 06/29/19 06:46 71 06/29/19 06:00 72 13 157/89 (111) 95 Nasal Cannula 3.00 I & O 06/30/19 07:00 Intake Total 2040 ml Output Total 1420 ml Balance 620 ml Height & Weight Height: '" Weight: lbs. oz. kg; 36.00 BMI Method: General Appearance: Anxious, Mild Distress HEENT: PERRL/EOMI, Normal ENT Inspection, Pharynx Normal Neck: Full Range of Motion, Non Tender, Supple Respiratory: Chest Non Tender, Decreased Breath Sounds, Respiratory Distress Cardiovascular: Regular Rate, Rhythm Capillary Refill: Less Than 3 Seconds Gastrointestinal: normal bowel sounds, non tender, soft Neurologic/Psychiatric: Alert, Oriented x3 Skin: Normal Color, Warm/Dry Lymphatic: No Adenopathy Results Lab Laboratory Tests 06/28/19 20:40 06/29/19 02:50 06/30/19 03:01 Assessment/Plan Assessment/Plan Acute respiratory failure -- Improved -BIPAP PRN -Oxygen COPDAE -Albuterol -Change Solumedrol to prednisone taper. -Add advair -CUrrently on 3 liters -Home oxygen is 2-3 liter/min Sepsis - Cefepime -- change to Omnicef upon discharge for total Abx of 7days. -Asif cultures pending -Check UA -Influenza is negative -COVID pending Hx of tooth abscess Transfer to 4th floor or discharge home when ok with Dr. Shelby. HENRY PEÑA DO June 30, 2019 05:37
--- NOTE | 2019-06-30 06:51 | Diagnostic Imaging Report ---
Indication: Respiratory distress Portable chest 3:28 AM Heart size and pulmonary vascularity are normal. Lungs are clear. There are no effusions or pneumothoraces. There is a hiatal hernia. IMPRESSION: Hiatal hernia. No acute abnormality seen in the chest. Dictated by: Dictated on workstation # [id number]
[2019-06-30] MEDS: ADVAIR HFA 115/21 MCG INHALER 8 GM IH SCH ×2 (07:46→18:33)
[2019-06-30] MEDS: predniSONE 10 MG TAB PO SCH (08:03)
[2019-06-30] MEDS: CEFEPIME 2,000 MG/SWFI 20 ML IV PUSH IV SCH ×4 (08:03→21:21)
[2019-06-30] MEDS: PANTOPRAZOLE 40 MG (PROTONIX) VIAL IV SCH (08:03)
--- NOTE | 2019-06-30 08:28 | Consultation-Cardiology ---
HPI-Cardiology Cardiology Consultation: Date of Consultation 06/30/19 Time Seen by a Provider: 07:55 Date of Admission 06/28/19 Attending Physician Juanita Shelby DO Admitting Physician Flor,Local Physician Consulting Physician CHRISTINA ERNANDEZ MD, MA, FACP, FACC, [facility], CCDS Physician requesting consult: Dr Shelby HPI: Chief Complaint: Reason for consultation: Tachycardia HPI Mr. Del Real is a 69 year old male admitted on 06/28/[address] Shelby's service. He had sinus tachycardia at time of admission and Dr Shelby has asked us to see for cardiac eval. He reports shortness of breath for several months. He thinks that he had aspirated on the day of admission. Shortness of breath was much worse. He had gen malaise. He does not report chest pain. He does not report n/v/d. He had a feverish feeling on day of admission. Denies palp or syncope or significant leg swelling. Review of Systems-Cardiology Review of Systems Constitutional: As described under HPI Eyes: No vision change Ears/Nose/Throat: No ear discharge, No nasal drainage, No recent hearing loss Respiratory: As described under HPI Cardiovascular: As described under HPI Gastrointestinal: As described under HPI Genitourinary: No dysuria, No hematuria, No urine frequency changes Skin: No rash, No ulcerations Psychiatric/Neurological: No seizure, No focal weakness, No syncope Hematologic: No bleeding abnormalities QKV-Kqplxr-Loynpy Hx Patient Social History Marrital Status: Employed/Student: retired Alcohol Use: Denies Use Recreational Drug Use: No Smoking Status: Former Smoker 2nd Hand Smoke Exposure: No Recent Foreign Travel: No Recent Infectious Disease Expo: No Hospitalization with Isolation: Denies Immunizations Up To Date Tetanus Booster (TDap): Unknown Past Medical History PMH As described under Assessment. Family Medical History Family Medical History: Reports h/o emphysema in father Does not report fam h/o early CAD or SCD Allergies and Home Medications Allergies Coded Allergies: No Known Drug Allergies (Unverified , 06/28/19) Home Medications Albuterol Sulfate 1 Puff Puff, 2 PUFF IH Q4H PRN for SHORTNESS OF BREATH, (Reported) Amlodipine Besylate 5 Mg Tablet, 5 MG PO DAILY, (Reported) Cetirizine HCl 10 Mg Tablet, 10 MG PO DAILY, (Reported) Esomeprazole Magnesium 40 Mg Capsule.dr, 40 MG PO DAILY, (Reported) Famotidine 40 Mg Tablet, 40 MG PO DAILY PRN for HEARTBURN, (Reported) Finasteride 5 Mg Tablet, 5 MG PO DAILY, (Reported) Fluoxetine HCl 40 Mg Capsule, 40 MG PO BID, (Reported) Gabapentin 400 Mg Capsule, 400 MG PO TID, (Reported) Oxycodone HCl 10 Mg Tablet, 10 MG PO Q6H PRN for PAIN-SEVERE (8-10), (Reported) Rosuvastatin Calcium 20 Mg Tablet, 20 MG PO DAILY, (Reported) Tamsulosin HCl 0.4 Mg Cap, 0.4 MG PO DAILY, (Reported) Umeclidinium Brm/Vilanterol Tr 1 Each Blst.w.dev, 1 PUFF INH DAILY, (Reported) Patient Home Medication List Home Medication List Reviewed: Yes Physical Exam-Cardiology Physical Exam Vital Signs/I&O 06/29/19 06/29/19 06/29/19 06/29/19 21:00 22:00 22:08 23:00 Pulse 88 80 79 Resp 26 17 22 B/P (MAP) 155/92 (113) 119/76 (90) 123/74 (90) Pulse Ox 94 95 O2 Delivery Nasal Cannula Nasal Cannula Nasal Cannula Nasal Cannula O2 Flow Rate 3.00 3.00 2.00 3.00 06/29/19 06/30/19 06/30/19 06/30/19 23:33 00:00 00:27 01:00 Temp 36.5 Pulse 78 80 Resp 26 B/P (MAP) 116/74 (88) Pulse Ox 96 O2 Delivery Nasal Cannula Nasal Cannula O2 Flow Rate 2.00 3.00 06/30/19 06/30/19 06/30/19 06/30/19 01:00 02:00 02:14 03:00 Pulse 78 80 98 B/P (MAP) 156/69 (98) 125/60 (81) 118/81 (93) Pulse Ox 96 96 95 98 O2 Delivery Nasal Cannula Nasal Cannula Nasal Cannula Nasal Cannula O2 Flow Rate 3.00 3.00 2.00 3.00 06/30/19 06/30/19 06/30/19 06/30/19 03:07 03:07 04:00 05:00 Temp 36.3 Pulse 87 78 Resp 23 21 B/P (MAP) 129/75 (93) Pulse Ox 96 96 O2 Delivery Nasal Cannula Nasal Cannula Nasal Cannula O2 Flow Rate 2.00 3.00 3.00 06/30/19 06/30/19 06/30/19 06/30/19 06:00 07:00 07:00 07:48 Pulse 68 70 67 Resp 22 15 B/P (MAP) 128/74 (92) 137/100 (112) Pulse Ox 96 95 97 O2 Delivery Nasal Cannula Nasal Cannula Room Air O2 Flow Rate 3.00 3.00 2.00 06/30/19 06/30/19 06/30/19 07:57 07:57 08:00 Pulse 96 Pulse Ox 97 97 98 O2 Delivery Room Air Room Air Nasal Cannula O2 Flow Rate 2.00 2.00 3.00 06/30/19 00:00 Intake Total 840 ml Output Total 670 ml Balance 170 ml Capillary Refill : Less Than 3 Seconds Constitutional: AAO x 3, well-developed, well-nourished, other (obese) HEENT: EOMI, hearing is well preserved; No xanthelasmas are seen Neck: carotid pulses are 2 + bilaterally, with good upstrokes Respiratory: No accessory muscle use; other (good bilat air entry) Cardiovascular: regular rate-rhythm, S1 and S2, systolic murmur (soft TIBURCIO at card base) Gastrointestinal: No tender; soft; No guarding, No rebound; audible bowel sounds Extremities: No clubbing, No cyanosis, No significant edema Neurologic/Psychiatric: oriented x 3, other (moves all limbs equally) Skin: No rash on exposed areas, No ulcerations on exposed areas Data Review Labs Laboratory Tests 06/29/19 09:35: Urine Color YELLOW, Urine Clarity CLEAR, Urine pH 7.0, Urine Specific [place] 1.015L, Urine Protein NEGATIVE, Urine Glucose (UA) NEGATIVE, Urine Ketones NEGATIVE, Urine Nitrite NEGATIVE, Urine Bilirubin NEGATIVE, Urine Urobilinogen 1.0, Urine Leukocyte Esterase NEGATIVE, Urine RBC (Auto) NEGATIVE, Urine RBC NONE, Urine WBC RARE, Urine Squamous Epithelial Cells 2-5, Urine Crystals NONE, Urine Bacteria TRACE, Urine Casts NONE, Urine Mucus NEGATIVE, Urine Culture Indicated NO 06/30/19 03:01: White Blood Count 20.6H, Red Blood Count 4.57, Hemoglobin 12.9L, Hematocrit 40, Mean Corpuscular Volume 88, Mean Corpuscular Hemoglobin 28, Mean Corpuscular Hemoglobin Concent 32, Red Cell Distribution Width 13.2, Platelet Count 257, Mean Platelet Volume 10.1, Neutrophils (%) (Auto) 90H, Lymphocytes (%) (Auto) 8L , Monocytes (%) (Auto) 2, Eosinophils (%) (Auto) 0, Basophils (%) (Auto) 0, Neutrophils # (Auto) 18.5H, Lymphocytes # (Auto) 1.6, Monocytes # (Auto) 0.5, Eosinophils # (Auto) 0.0, Basophils # (Auto) 0.0, Sodium Level 140, Potassium Level 4.6, Chloride Level 104, Carbon Dioxide Level 27, Anion Gap 9, Blood Urea Nitrogen 16, Creatinine 0.86, Estimat Glomerular Filtration Rate > 60, BUN/Creatinine Ratio 19, Glucose Level 144H, Calcium Level 9.2, Phosphorus Level 3.2, Magnesium Level 2.2 Microbiology 06/28/19 MRSA Screen - Final, Complete MRSA not isolated 06/28/19 Blood Culture - Preliminary, Resulted No growth Laboratory Tests 06/28/19 20:40 06/29/19 02:50 06/30/19 03:01 A/P-Cardiology Assessment/Admission Diagnosis Multifactorial shortness of breath, see below Acute respiratory failure, secondary to pneumonia with sepsis - management per Dr. Proctor Sinus tachycardia - resolved after fever resolved Obesity with obesity-hypoventilation syndrome. Non-compliant with CPAP Acute on chronic exacerbation of COPD - oxygen dependent H/o dental abscess in the L upper jaw that the patient states has resolved Discussion and Recomendations * Echo * Monitor labs * Treat pneumonia and COPD and obesity-hypoventilation * Further recs based on hosp course Clinical Quality Measures DVT/VTE Risk/Contraindication: Risk Factor Score Per Nursin RFS Level Per Nursing on Admit: 4+=Very High CHRISTINA ERNANDEZ MD FACP FAC CCDS June 30, 2019 08:28
[2019-06-30] MEDS ORDERED: RT-ALBUTEROL HFA (PROAIR HFA) 8.5 GM IH PRN (11:00)
--- NOTE | 2019-06-30 11:54 | Progress Note - Hospitalist ---
Subjective HPI/CC On Admission Date Seen by Provider: June 30, 2019 Time Seen by Provider: 10:30 CC: SOB with fever HPI: This is a 69yoWM [facility] patient of Dr. Barrett who was just seen by Dr. 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 COVID-19 swab pending, will be back this afternoon. He is in usually good health, he praises his perfect health and does not use oxygen at home and overall has no significant chronic issues. Subjective/Events-last exam Patient doing better Steroids helping wheezing No fever Home O2 evaluation PT OT will be ordered DC likely tomorrow Review of Systems General: Fatigue Pulmonary: Dyspnea Focused Exam Lactate Level 06/28/19 20:40: Lactic Acid Level 3.52*H 06/29/19 02:50: Lactic Acid Level 1.90 Objective Exam Vital Signs Vital Signs Date Time Temp Pulse Resp B/P (MAP) Pulse Ox O2 Delivery O2 Flow Rate FiO2 06/30/19 19:51 36.2 90 20 123/57 (79) 93 Room Air 06/30/19 08:00 3.00 06/29/19 09:06 28 Capillary Refill : Less Than 3 Seconds General Appearance: No Apparent Distress, WD/WN Respiratory: Chest Non Tender, No Accessory Muscle Use, No Respiratory Distress, Decreased Breath Sounds, Wheezing Cardiovascular: Regular Rate, Rhythm, No Edema, No Gallop, No JVD, No Murmur, Normal Peripheral Pulses Neurologic/Psychiatric: Alert, Oriented x3, No Motor/Sensory Deficits, Normal Mood/Affect Results/Procedures Lab Laboratory Tests 06/30/19 03:01 Patient resulted labs reviewed. Assessment/Plan Assessment and Plan Assess & Plan/Chief Complaint Assessment: Resp distress now resolved Fever now resolved Dyspnea with wheezing Cough HTN HLP Narcotic dependence Obesity Plan: COVID-19 swab negative IV abx Nebs O2 PT OT Home O2 Cardiology Pulmonology Diagnosis/Problems Diagnosis/Problems (1) Respiratory distress, acute Status: Acute (2) Fever (3) Cough (4) Hypertension (5) Hyperlipemia (6) Narcotic dependence Clinical Quality Measures DVT/VTE Risk/Contraindication: Risk Factor Score Per Nursin RFS Level Per Nursing on Admit: 4+=Very High LAINE MULLEN DO June 30, 2019 11:54
--- NOTE | 2019-06-30 12:40 | NUR ---
PT TRANSFERRED TO ROOM 407 VIA WC W/ STAFF AND PERSONAL BELONGINGS. BEDSIDE REPORT GIVEN TO MANUELA DACOSTA, NO QUESTIONS/CONCERNS VOICED.
--- NOTE | 2019-06-30 14:15 | Occupational Therapy Eval ---
OT Evaluation-General/PLF Medical Diagnosis Admission Date June 28, 2019 at 21:18 Medical Diagnosis: ARF; fever/ cough Onset Date: June 28, 2019 Therapy Diagnosis Therapy Diagnosis: Decreased ADL status Precautions Precautions/Isolations: Fall Prevention, Standard Precautions Referral Physician: Juanita Shelby DO Referral Reason: Activity Tolerance, Self Care, Evaluation/Treatment, Strengthening/ROM Medical History Pertinent Medical History: HTN Additional Medical History high cholesterol, HTN, arthritis, CBP (scoliosis per pt), anxiety. Current History Pt states cough/ SOB/ fever to 104. COVID 19 swab negative per ICU nursing, pt seen on 4th floor. Reviewed History: Yes Social History Home: Single Level Current Living Status: Spouse Entry Into Home: Ramp ADL-Prior Level of Function SCALE: Activities may be completed with or without assistive devices. 2-Ldhzgtabnd-ytabqwq completes the activity by him/herself with no assistance from a helper. 5-Set-up or Clean-up Assistance-helper sets up or cleans up; patient completes activity. [place] assists only prior to or following the activity. 4-Supervision or Touching Assistance-helper provides verbal cues and/or touching/steadying and/or contact guard assistance as patient completes activity. Assistance may be provided throughout the activity or intermittently. 3-Partial/Moderate Assistance-helper does LESS THAN HALF the effort. [place] lifts, holds or supports trunk or limbs, but provides less than half the effort. 2-Substantial/Maximal Assistance-helper does MORE THAN HALF the effort. [place] lifts or holds trunk or limbs and provides more than half the effort. 3-Xwdiwzbwa-rinpyv does ALL the effort. Patient does none of the effort to complete the activity. Or, the assistance of 2 or more helpers is required for the patient to complete the activity. If activity was not attempted, code reason: 7-Patient Refused. 9-Not Applicable-not attempted and the patient did not perform the activity before the current illness, exacerbation or injury. 10-Not Attempted due to Environmental Limitations-(lack of equipment, weather restraints, etc.). 88-Not Attempted due to Medical Conditions or Safety Concerns. ADL PLOF Comments Pt states he is IND with I/ADLs though requires assist donning socks by . Pt states and he "help each other out." Self Care: Needed Some Help Functional Cognition: Independent DME/Equipment: Bath Chair, Grab Bars, Shower, Toilet/Riser DME/Equipment Comments handicap accessible home/ lift in van for pt's Drive Self: Yes OT Current Status Subjective Pt seen supine in bed, alert/ oriented. Pt talkative. Pt denies pain, provides detailed hx. Agrees to OT eval/ treat. Mental Status/Objective Patient Orientation: Person, Place, Situation, Normal For Age Current Glasses/Contacts: Yes Dentures/Partials: No Hand Dominance: Right Upper Extremity ROM WFL BUE Upper Extremity Coordination WFL BUE Upper Extremity Sensation WFL BUE Upper Extremity Strength WFL BUE (4/5) ADL-Treatment Eating (QC): 6 Oral Hygiene (QC): 6 Shower/Bathe Self (QC): 5 (per pt, states he plans to shower IND this afternoon.) On/Off Footwear (QC): 3 (mod A: pt able to doff, requires assist to don. Pt states assists at home. ) Other Treatments Pt seen in bed, pt introduced to OT and role. Pt agrees. Pt educated on benefits of seated rather than supine. Pt agrees, bed mob IND, walks with 2WW to recliner chair with SBA (good balance and mobility, fair safety awareness through quick/ jerky movements), sits and SOB noticeable. Pt recovers within 30 sec. Pt completes MMT/ ROM, denies ADLs stating he is IND. pt completes sock doffing/ requires assist with donning. Pt states he is at PLOF, though walking completes SOB. 02 not donned. Pt states he utilizes 2L of 02 at home, though bumps up to 3L when SOB. Pt states has been fighting respiratory issue for "awhile," though attempted to stay home during quarantine. Pt is at PLOF for ADL tasks, no OT indicated at this time. Education OT Patient Education: Correct positioning, Progress toward Goal/Update tx plan, Safety issues Teaching Recipient: Patient Teaching Methods: Demonstration, Discussion Response to Teaching: Verbalize Understanding, Return Demonstration OT Pattern Checker Goals Pattern Checker Goals 1=Demonstrate adherence to instructed precautions during ADL tasks. 2=Patient will verbalize/demonstrate understanding of assistive devices/modifications for ADL. 3=Patient will improve strength/tolerance for activity to enable patient to perform ADL's. OT Education/Plan Problem List/Assessment Assessment: No Skilled OT Needs ID'd Discharge Recommendations Plan/Recommendations: Discharge/Goals Met Therapy Discharge Recommendati: Intermittent Supervision, Home & Family Equpiment Recommendations-D/C: Rails on Toilet Treatment Plan/Plan of Care Treatment,Training & Education: Yes Plan of Care: OTHER (eval only) Treatment Duration: June 30, 2019 Frequency: 1 time per week (eval only ) Time/GCodes Start Time: 13:55 Stop Time: 14:08 Total Time Billed (hr/min): 12 Billed Treatment Time 1, EVL (12) d/c as pt states at [facility] for ADL tasks NIRALI CARR OTR June 30, 2019 14:15
--- NOTE | 2019-06-30 14:43 | Physical Therapy Evaluation ---
PT Evaluation-General Medical Diagnosis Admission Date June 28, 2019 at 21:18 Medical Diagnosis: ARF; fever/ cough Onset Date: June 28, 2019 Therapy Diagnosis Therapy Diagnosis: debility/weakness/decreased pulmonary function Precautions Precautions/Isolations: Fall Prevention, Standard Precautions Referral Physician: Juanita Shelby DO Reason for Referral: Evaluation/Treatment Medical History Pertinent Medical History: COPD, HTN Additional Medical History obesity Current History EMS secondary to SOA, fever and 30# weight gain Reviewed History: Yes Social History Home: Single Level Current Living Status: Spouse Entry Into Home: Ramp Prior Prior Level of Function SCALE: Activities may be completed with or without assistive devices. 2-Igpztfwtxg-rhxytnq completes the activity by him/herself with no assistance from a helper. 5-Set-up or Clean-up Assistance-helper sets up or cleans up; patient completes activity. [place] assists only prior to or following the activity. 4-Supervision or Touching Assistance-helper provides verbal cues and/or touching/steadying and/or contact guard assistance as patient completes activity. Assistance may be provided throughout the activity or intermittently. 3-Partial/Moderate Assistance-helper does LESS THAN HALF the effort. [place] lifts, holds or supports trunk or limbs, but provides less than half the effort. 2-Substantial/Maximal Assistance-helper does MORE THAN HALF the effort. [place] lifts or holds trunk or limbs and provides more than half the effort. 1-Vusccwktm-btsogz does ALL the effort. Patient does none of the effort to complete the activity. Or, the assistance of 2 or more helpers is required for the patient to complete the activity. If activity was not attempted, code reason: 7-Patient Refused. 9-Not Applicable-not attempted and the patient did not perform the activity before the current illness, exacerbation or injury. 10-Not Attempted due to Environmental Limitations-(lack of equipment, weather restraints, etc.). 88-Not Attempted due to Medical Conditions or Safety Concerns. Bed Mobility: 6 Transfers (B,C,W/C): 6 Gait: 6 Stairs: 9 Indoor Mobility (Ambulation): Independent Stairs: Not Applicalbe Prior Devices Use: None PT Evaluation-Current Subjective Patient agrees to PT. Patient reports to this PT that he wonders if his breath ing issues are due to the mouse infestation in his home. He then reports his home has had multiple mice and are still there. Patient also report that they had a cat for a while as well. PT instructed patient to discuss this with his physician to determine cause. Pain Numeric Pain Scale: 0-No Pain Location: No Pain Reported Objective Patient Orientation: Normal For Age ROM/Strength ROM Lower Extremities bilateral LE WFL Strength Lower Extremities 4/5 grossly bilateral LE Integumentary/Posture Integumentary refer to nursing notes Bowel Incontinence: No Bladder Incontinence: No Posture WFL Neuromuscular (Tone, Coordination, Reflexes) grossly intact Sensory Vision: Functional Hearing: Functional Hand Dominance: Right Sensation Right Lower Extremit: Intact Sensation Left Lower Extremity: Intact Transfers Roll Left to Right (QC): 6 Sit to Lying (QC): 6 Lying to Sitting/Side of Bed(Q: 6 Sit to Stand (QC): 6 Chair/Jvk-fq-Poxzf Xfer(QC): 6 Toilet Transfer (QC): 6 Gait Does the Patient Walk?: Yes Mode of Locomotion: Walk Anticipated Mode of Locomotion: Walk Walk 10 feet (QC): 6 Walk 50 ft with 2 Turns(QC): 6 Walk 150 ft (QC): 6 Distance: 200' x 3 Gait Assistive Device: FWW Comments/Gait Description FWW utilized for energy conservation due to SOA Balance Sitting Static: Normal Sitting Dynamic: Normal Standing Static: Normal Standing Dynamic: Normal Assessment/Needs 69 y.o. male, will benefit from skilled PT to address pulmonary function with functional mobility to ensure safe return to home with spouse at maximum LOF. Patient has severe SOA, however, SAO2 maintains >95% on RA. Rehab Potential: Fair PT Registered Respiratory Therapist Goals Group Home Goals PT Registered Respiratory Therapist Goals Time Frame: July 08, 2019 Roll Left & Right (QC): 6 Sit to Lying (QC): 6 Lying-Sitting on Side/Bed(QC): 6 Sit to Stand (QC): 6 Chair/Fki-zf-Xkunn Xfer(QC): 6 Toilet Transfer (QC): 6 Does the Patient Walk: Yes Walk 10 feet (QC): 6 Walk 50ft with 2 Turns (QC): 6 Walk 150 ft (QC): 6 PT Plan Problem List Problem List: Activity Tolerance Treatment/Plan Treatment Plan: Continue Plan of Care Treatment Plan: Education, Functional Activity Muriel, Gait, Safety, Therapeutic Exercise Treatment Duration: July 08, 2019 Frequency: 6 times per week Estimated Hrs Per Day: .25 hour per day Patient and/or Family Agrees t: Yes Time/GCodes Time In: 1300 Time Out: 1331 Total Billed Treatment Time: 31 Total Billed Treatment 1 visit EVMod 14 min FA 17 min COLLETTE MCKOY PT June 30, 2019 14:43
--- NOTE | 2019-06-30 15:00 | NUR ---
CM/SS visited with the patient for discharge planning. Plan: The patient will discharge with a front wheeled walker. DME: The patient is set up with [facility] Maria Del Carmen for his oxygen delivery. CM/SS contacted [facility] and spoke with Caron and informed her of the walker need. She verbalized understanding and asked for face sheet, H&P, script, and insurance card. Caron contacted this ss and stated that the [place] office will deliver the FWW to the hospital today. No further needs at this time.
--- NOTE | 2019-06-30 15:45 | NUR ---
PATIENT WALKED 614 FEET ON ROOM AIR AND DID NOT REQUIRE OXYGEN AT THIS TIME
[2019-06-30] MEDS ORDERED: CEFEPIME 2 GM (MAXIPIME) VIAL ONE (20:49)
[2019-06-30] MEDS ORDERED: WATER (STERILE) FOR INJECTION 20 ML ONE (20:49)
[2019-06-30] MEDS: ENOXAPARIN 40 MG/0.4 ML (LOVENOX) SYR SC SCH (21:21)
[2019-07-01] MEDS: IPRATROPIUM INHALER (ATROVENT) 12.9 GM INH SCH ×6 (02:30→21:57)
[2019-07-01] MEDS: RT-ALBUTEROL HFA (PROAIR HFA) 8.5 GM IH SCH ×6 (02:30→21:57)
[2019-07-01 04:00] VITALS: BP 128/66
[2019-07-01 05:28] LABS: BASOPHILS % (AUTO) 0 % (0-10); EOSINOPHILS % (AUTO) 0 % (0-10); HEMATOCRIT 40 % (40-54); HEMOGLOBIN 12.7 G/DL (13.3-17.7); LYMPHOCYTES # (AUTO) 2.6 X 10^3 (1.0-4.0); LYMPHOCYTES % (AUTO) 12 % (12-44); MEAN CORPUSCULAR HEMOGLOBIN 28 PG (25-34); MEAN CORPUSCULAR HGB CONC 32 G/DL (32-36); MEAN CORPUSCULAR VOLUME 88 FL (80-99); MEAN PLATELET VOLUME 10.4 FL (7.4-10.4); MONOCYTES # (AUTO) 1.6 X 10^3 (0.0-1.0); MONOCYTES % (AUTO) 8 % (0-12); NEUTROPHILS # (AUTO) 16.6 X 10^3 (1.8-7.8); NEUTROPHILS % (AUTO) 80 % (42-75); PLATELET COUNT 278 10^3/uL (130-400); RED CELL DISTRIBUTION WIDTH 13.3 % (10.0-14.5); WHITE BLOOD COUNT 20.8 10^3/uL (4.3-11.0)
[2019-07-01 05:51] LABS: BUN/CREATININE RATIO 22; CALCIUM 8.8 MG/DL (8.5-10.1); CARBON DIOXIDE 25 MMOL/L (21-32); CHLORIDE 104 MMOL/L (98-107); CREATININE SERUM 0.83 MG/DL (0.60-1.30); GFR ESTIMATED > 60; GLUCOSE 112 MG/DL (70-105); MAGNESIUM 2.3 MG/DL (1.6-2.4); PHOSPHORUS 3.8 MG/DL (2.3-4.7); POTASSIUM 4.1 MMOL/L (3.6-5.0); SODIUM 140 MMOL/L (135-145)
[2019-07-01] MEDS: ADVAIR HFA 115/21 MCG INHALER 8 GM IH SCH ×2 (07:11→18:21)
[2019-07-01 08:00] VITALS: BP 151/75
[2019-07-01] MEDS: predniSONE 10 MG TAB PO SCH (08:02)
[2019-07-01] MEDS: PANTOPRAZOLE 40 MG (PROTONIX) VIAL IV SCH (08:03)
[2019-07-01] MEDS: CEFEPIME 2,000 MG/SWFI 20 ML IV PUSH IV SCH ×4 (09:32→21:18)
[2019-07-01 12:00] VITALS: BP 124/76
--- NOTE | 2019-07-01 12:55 | Physical Therapy Daily Note ---
PT Daily Note-Current Subjective Pt is eager to get up and walk. Pain Numeric Pain Scale: 0-No Pain Mental Status Patient Orientation: Person, Place, Time, Situation Transfers SCALE: Activities may be completed with or without assistive devices. 0-Euyapecrbf-xdauqlu completes the activity by him/herself with no assistance from a helper. 5-Set-up or Clean-up Assistance-helper sets up or cleans up; patient completes activity. [place] assists only prior to or following the activity. 4-Supervision or Touching Assistance-helper provides verbal cues and/or touching/steadying and/or contact guard assistance as patient completes activity. Assistance may be provided throughout the activity or intermittently. 3-Partial/Moderate Assistance-helper does LESS THAN HALF the effort. [place] lifts, holds or supports trunk or limbs, but provides less than half the effort. 2-Substantial/Maximal Assistance-helper does MORE THAN HALF the effort. [place] lifts or holds trunk or limbs and provides more than half the effort. 2-Cljwfdsde-gvryzu does ALL the effort. Patient does none of the effort to complete the activity. Or, the assistance of 2 or more helpers is required for the patient to complete the activity. If activity was not attempted, code reason: 7-Patient Refused. 9-Not Applicable-not attempted and the patient did not perform the activity before the current illness, exacerbation or injury. 10-Not Attempted due to Environmental Limitations-(lack of equipment, weather restraints, etc.). 88-Not Attempted due to Medical Conditions or Safety Concerns. Sit to Lying (QC): 6 Lying to Sitting/Side of Bed(Q: 6 Sit to Stand (QC): 6 Chair/Jlh-xd-Jbika Xfer(QC): 6 Gait Training Does the Patient Walk?: Yes Distance: 600ft Walk 10 feet (QC): 6 Walk 50 ft with 2 Turns(QC): 6 Walk 150 ft (QC): 6 Gait Persons Needed: 1 Gait Assistive Device: FWW Oxygen at 96% on arrival and 95% during walk. Assessment Current Status: Good Progress Pt denied dyspnea or fatigue with ambulation. He did not sit to rest during gait. PT [facility] Goals Skilled Nursing Goals PT Skilled Nursing Goals Time Frame: July 08, 2019 Roll Left & Right (QC): 6 Sit to Lying (QC): 6 Lying-Sitting on Side/Bed(QC): 6 Sit to Stand (QC): 6 Chair/Oqd-fw-Xmrfp Xfer(QC): 6 Toilet Transfer (QC): 6 Does the Patient Walk: Yes Walk 10 feet (QC): 6 Walk 50ft with 2 Turns (QC): 6 Walk 150 ft (QC): 6 PT Plan Treatment/Plan Treatment Plan: Continue Plan of Care Treatment Plan: Education, Functional Activity Muriel, Gait, Safety, Therapeutic Exercise Treatment Duration: July 08, 2019 Frequency: 6 times per week Estimated Hrs Per Day: .25 hour per day Patient and/or Family Agrees t: Yes Time/GCodes Time In: 1005 Time Out: 1030 Total Billed Treatment Time: 25 Total Billed Treatment 1, gt x2 (25) GEORGE WHITFIELD PT July 01, 2019 12:55
--- NOTE | 2019-07-01 13:13 | Progress Note - Hospitalist ---
Subjective HPI/CC On Admission Date Seen by Provider: July 01, 2019 Time Seen by Provider: 12:00 CC: SOB with fever HPI: This is a 69yoWM [facility] patient of Dr. Barrett who was just seen by Dr. Barrett in a tele-medicine visit yesterday with complaints of cough and SOB, found to have fever of 104, thus he was admitted to the ICU bed two, for sepsis and cardiology and sap plant maintenance consultant consulted due to white count elevation which is 24,000 today. COVID-19 swab pending, will be back this afternoon. He is in usually good health, he praises his perfect health and does not use oxygen at home and overall has no significant chronic issues. Subjective/Events-last exam Patient is chilling when I walk in the room today. He complains of the room being cold not being febrile. He is feeling better on his prednisone taper and breathing more easily. He complains of swollen legs. He walked today in the craig. Review of Systems General: Chills Pulmonary: Dyspnea Focused Exam Lactate Level 06/28/19 20:40: Lactic Acid Level 3.52*H 06/29/19 02:50: Lactic Acid Level 1.90 Objective Exam Vital Signs Vital Signs Date Time Temp Pulse Resp B/P (MAP) Pulse Ox O2 Delivery O2 Flow Rate FiO2 07/01/19 15:48 36.4 82 15 140/63 (88) 93 Room Air 06/30/19 08:00 3.00 06/29/19 09:06 28 Capillary Refill : Less Than 3 SecondsLess Than 3 Seconds General Appearance: No Apparent Distress, WD/WN HEENT: Normal ENT Inspection Neck: Supple Respiratory: No Accessory Muscle Use, Decreased Breath Sounds, Wheezing Cardiovascular: Regular Rate, Rhythm, No Gallop Gastrointestinal: Non Tender, Soft Extremity: Pedal Edema Results/Procedures Lab Laboratory Tests 07/01/19 04:49 Patient resulted labs reviewed. Assessment/Plan Assessment and Plan Assess & Plan/Chief Complaint Exacerbation of COPD-chest x-ray is clear-is on a steroid taper Fever-resolved on cefepime Cough-possibly from cough variant asthma HTN HLP Narcotic dependence Obesity Leukocytosis History cerebral palsy with chronic pain issues hyperglycemia secondary to steroids and family hx DM plan to continue current regimen Clinical Quality Measures DVT/VTE Risk/Contraindication: Risk Factor Score Per Nursin RFS Level Per Nursing on Admit: 4+=Very High ANTELMO HAGAN MD July 01, 2019 13:13
--- NOTE | 2019-07-01 15:43 | Progress Note - Cardiology ---
Cardiology SOAP Progress Note Objective: I&O/Vital Signs 07/01/19 07/01/19 07/01/19 07/01/19 04:00 07:12 07:16 07:17 Temp 36.6 Pulse 76 Resp 19 B/P (MAP) 128/66 (86) Pulse Ox 95 92 92 92 O2 Delivery Room Air Room Air Room Air Room Air 07/01/19 07/01/19 07/01/19 07/01/19 08:00 09:00 10:40 10:42 Temp 36.6 Pulse 81 Resp 20 B/P (MAP) 151/75 (100) Pulse Ox 96 95 95 O2 Delivery Room Air Room Air Room Air Room Air 07/01/19 07/01/19 07/01/19 12:00 14:18 14:20 Temp 36.2 Pulse 83 Resp 18 B/P (MAP) 124/76 (92) Pulse Ox 93 92 92 O2 Delivery Room Air Room Air Room Air 07/01/19 00:00 Intake Total 840 ml Output Total 820 ml Balance 20 ml Constitutional: AAO x 3, well-developed, well-nourished, other (obese) Respiratory: No accessory muscle use; other (good bilat air entry) Cardiovascular: regular rate-rhythm, S1 and S2, systolic murmur (soft TIBURCIO at card base) Gastrointestional: No tender; soft; No guarding, No rebound; audible bowel sounds Extremities: No clubbing, No cyanosis, No significant edema Neurologic/Psychiatric: oriented x 3, other (moves all limbs equally) Skin: No rash on exposed areas, No ulcerations on exposed areas Results/Procedures: Labs Laboratory Tests 07/01/19 04:49: White Blood Count 20.8H, Red Blood Count 4.54, Hemoglobin 12.7L, Hematocrit 40, Mean Corpuscular Volume 88, Mean Corpuscular Hemoglobin 28, Mean Corpuscular Hemoglobin Concent 32, Red Cell Distribution Width 13.3, Platelet Count 278, Mean Platelet Volume 10.4, Neutrophils (%) (Auto) 80H, Lymphocytes (%) (Auto) 12, Monocytes (%) (Auto) 8, Eosinophils (%) (Auto) 0, Basophils (%) (Auto) 0, Neutrophils # (Auto) 16.6H, Lymphocytes # (Auto) 2.6, Monocytes # (Auto) 1.6H, Eosinophils # (Auto) 0.0, Basophils # (Auto) 0.0, Sodium Level 140, Potassium Level 4.1, Chloride Level 104, Carbon Dioxide Level 25, Anion Gap 11, Blood Urea Nitrogen 18, Creatinine 0.83, Estimat Glomerular Filtration Rate > 60, BUN/ Creatinine Ratio 22, Glucose Level 112H, Calcium Level 8.8, Phosphorus Level 3.8, Magnesium Level 2.3, Thyroid Stimulating Hormone (TSH) 1.16 Microbiology 06/28/19 MRSA Screen - Final, Complete MRSA not isolated 06/28/19 Blood Culture - Preliminary, Resulted No growth A/P: Assessment: Multifactorial shortness of breath, see below Acute respiratory failure, secondary to pneumonia with sepsis - management per Dr. Proctor Mild chronic diastolic CHF. Echo of 06/30/19: LVEF 60-65%, grade 2 meyer dysfunction of LV, RVSP 40 mmHg, mild to mod enlargement of LA, mild to mod TR Sinus tachycardia - resolved after fever resolved Obesity with obesity-hypoventilation syndrome. Non-compliant with CPAP Acute on chronic exacerbation of COPD - oxygen dependent H/o dental abscess in the L upper jaw that the patient states has resolved Plan: * Add diuretics for chronic diastolic CHF * Monitor labs * Treat pneumonia and COPD and obesity-hypoventilation * I reviewed his CV issues with him and answered questions CHRISTINA ERNANDEZ MD FACP FAC CCDS July 01, 2019 15:43
[2019-07-01] MEDS ORDERED: FUROSEMIDE 20 MG (LASIX) TAB PO NR (15:45)
[2019-07-01 15:48] VITALS: BP 140/63
[2019-07-01] MEDS ORDERED: DOCUSATE SODIUM 100 MG (COLACE) CAP PO PRN (17:15)
[2019-07-01 19:33] VITALS: BP 127/61
[2019-07-01] MEDS: ENOXAPARIN 40 MG/0.4 ML (LOVENOX) SYR SC SCH (21:19)
[2019-07-02 00:06] VITALS: BP 124/56
[2019-07-02] MEDS: RT-ALBUTEROL HFA (PROAIR HFA) 8.5 GM IH SCH ×3 (02:50→10:22)
[2019-07-02] MEDS: IPRATROPIUM INHALER (ATROVENT) 12.9 GM INH SCH ×3 (02:50→10:23)
[2019-07-02 04:27] VITALS: BP 133/71
[2019-07-02 04:37] LABS: BASOPHILS % (AUTO) 0 % (0-10); EOSINOPHILS % (AUTO) 0 % (0-10); HEMATOCRIT 40 % (40-54); LYMPHOCYTES # (AUTO) 3.7 X 10^3 (1.0-4.0); LYMPHOCYTES % (AUTO) 22 % (12-44); MEAN CORPUSCULAR HEMOGLOBIN 28 PG (25-34); MEAN CORPUSCULAR HGB CONC 32 G/DL (32-36); MEAN CORPUSCULAR VOLUME 87 FL (80-99); MEAN PLATELET VOLUME 9.7 FL (7.4-10.4); MONOCYTES # (AUTO) 1.4 X 10^3 (0.0-1.0); MONOCYTES % (AUTO) 8 % (0-12); NEUTROPHILS # (AUTO) 11.4 X 10^3 (1.8-7.8); NEUTROPHILS % (AUTO) 69 % (42-75); PLATELET COUNT 288 10^3/uL (130-400); RED CELL DISTRIBUTION WIDTH 13.6 % (10.0-14.5); WHITE BLOOD COUNT 16.5 10^3/uL (4.3-11.0)
[2019-07-02 04:52] LABS: CHLORIDE 104 MMOL/L (98-107); POTASSIUM 3.7 MMOL/L (3.6-5.0); SODIUM 141 MMOL/L (135-145)
[2019-07-02 04:53] LABS: CALCIUM 8.8 MG/DL (8.5-10.1)
[2019-07-02 04:54] LABS: GLUCOSE 86 MG/DL (70-105)
[2019-07-02 04:55] LABS: CARBON DIOXIDE 28 MMOL/L (21-32)
[2019-07-02 04:57] LABS: PHOSPHORUS 3.7 MG/DL (2.3-4.7)
[2019-07-02 04:58] LABS: CREATININE SERUM 0.85 MG/DL (0.60-1.30); GFR ESTIMATED > 60
[2019-07-02 04:59] LABS: BUN/CREATININE RATIO 18
[2019-07-02 05:00] LABS: MAGNESIUM 2.3 MG/DL (1.6-2.4)
[2019-07-02] MEDS: ADVAIR HFA 115/21 MCG INHALER 8 GM IH SCH (06:41)
[2019-07-02 08:00] VITALS: BP 150/72
[2019-07-02] MEDS: predniSONE 10 MG TAB PO SCH (08:19)
[2019-07-02] MEDS: CEFEPIME 2,000 MG/SWFI 20 ML IV PUSH IV SCH ×2 (08:19)
[2019-07-02] MEDS: PANTOPRAZOLE 40 MG (PROTONIX) VIAL IV SCH (08:19)
[2019-07-02] MEDS ORDERED: FUROSEMIDE 20 MG (LASIX) TAB PO SCH (09:00)
[2019-07-02 12:00] VITALS: BP 142/79
[2019-07-02] MEDS ORDERED: PRED10TA22 PO (12:10)
--- NOTE | 2019-07-02 12:17 | Discharge Summary ---
Discharge Summary Hospital Course Was the Problem List Reviewed?: Yes Problems/Dx: (1) Respiratory distress, acute Status: Acute (2) Fever (3) Cough (4) Hypertension Status: Chronic Qualifiers: Qualified Codes: I10 - Essential (primary) hypertension (5) Hyperlipemia Status: Chronic (6) Narcotic dependence Status: Chronic Hospital Course Date of Admission: June 28, 2019 at 21:18 Admission Diagnosis : Family Physician/Provider: Rogelio Barrett MD Date of Discharge: 07/02/19 Discharge Diagnosis: [ ] Hospital Course: Patient was admitted in respiratory failure and with a fever of 104. The patient was Covid negative, cultures were negative. patient was placed empirically on cefepime and steroids. He was seen in consultation by Dr. Dolan. The patient improved slowly and the time of discharge is feeling much better ambulating with a walker with oxygen saturations staying above 92 percent on room air. Patient is anxious to go home and is instructed to stay on a steroid taper. Chest x-ray is clear [ ] Labs and Pending Lab Test: Laboratory Tests 07/02/19 04:27: Sodium Level 141, Potassium Level 3.7, Chloride Level 104, Carbon Dioxide Level 28, Anion Gap 9, Blood Urea Nitrogen 15, Creatinine 0.85, Estimat Glomerular Filtration Rate > 60, BUN/Creatinine Ratio 18, Glucose Level 86, Calcium Level 8.8, Phosphorus Level 3.7, Magnesium Level 2.3 07/02/19 04:29: White Blood Count 16.5H, Red Blood Count 4.62, Hemoglobin 13.0L, Hematocrit 40, Mean Corpuscular Volume 87, Mean Corpuscular Hemoglobin 28, Mean Corpuscular Hem oglobin Concent 32, Red Cell Distribution Width 13.6, Platelet Count 288, Mean Platelet Volume 9.7, Neutrophils (%) (Auto) 69, Lymphocytes (%) (Auto) 22, Monocytes (%) (Auto) 8, Eosinophils (%) (Auto) 0, Basophils (%) (Auto) 0, Neutrophils # (Auto) 11.4H, Lymphocytes # (Auto) 3.7, Monocytes # (Auto) 1.4H, Eosinophils # (Auto) 0.0, Basophils # (Auto) 0.0 Microbiology 06/28/19 MRSA Screen - Final, Complete MRSA not isolated 06/28/19 Blood Culture - Preliminary, Resulted No growth Home Meds Active Prednisone 10 Mg Tab.ds.pk 10 Mg PO DAILY Take 6 tabs(60mg)daily,decrease by 1 tab(10mg)every other day. Reported Oxycodone HCl 10 Mg Tablet 10 Mg PO Q6H PRN Proair Hfa (Albuterol Sulfate) 1 Puff Puff 2 Puff IH Q4H PRN Cetirizine HCl 10 Mg Tablet 10 Mg PO DAILY Finasteride 5 Mg Tablet 5 Mg PO DAILY Gabapentin 400 Mg Capsule 400 Mg PO TID Famotidine 40 Mg Tablet 40 Mg PO DAILY PRN Anoro Ellipta 62.5-25 Mcg INH (Umeclidinium Brm/Vilanterol Tr) 1 Each Blst.w.dev 1 Puff INH DAILY Fluoxetine HCl 40 Mg Capsule 40 Mg PO BID Amlodipine Besylate 5 Mg Tablet 5 Mg PO DAILY Flomax (Tamsulosin HCl) 0.4 Mg Cap 0.4 Mg PO DAILY Rosuvastatin Calcium 20 Mg Tablet 20 Mg PO DAILY Esomeprazole Magnesium 40 Mg Capsule. 40 Mg PO DAILY Assessment/Pt Instructions Patient is instructed to follow-up with Dr. Barrett Discharge Planning: <30 minutes discharge planning Discharge Instructions Discharge Diet: Low Sodium Diet Activity as Tolerated: Yes Pneumonia Vaccine Order Indica: Yes Consultations Dr. Proctor Discharge Physical Examination Vital Signs Vital Signs Date Time Temp Pulse Resp B/P (MAP) Pulse Ox O2 Delivery O2 Flow Rate FiO2 07/02/19 12:00 36.2 85 20 142/79 (100) 96 Room Air 06/30/19 08:00 3.00 06/29/19 09:06 28 General Appearance: No Apparent Distress, WD/WN HEENT: Normal ENT Inspection, Pharynx Normal Respiratory: Chest Non Tender, Lungs Clear, Normal Breath Sounds, No Accessory Muscle Use, No Respiratory Distress Cardiovascular: Regular Rate, Rhythm, No Edema, No Gallop, No Murmur Gastrointestinal: Normal Bowel Sounds, No Organomegaly, Non Tender, Soft Extremity: Normal Capillary Refill, Normal Inspection, Non Tender, No Calf Tenderness Skin: Normal Color, Warm/Dry Neurologic/Psychiatric: Alert, Oriented x3, No Motor/Sensory Deficits, Normal Mood/Affect, 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 II-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 Norm as Tested Allergies: Coded Allergies: No Known Drug Allergies (Unverified , 06/28/19) Discharge Summary Date of Admission June 28, 2019 at 21:18 Date of Discharge Discharge Date: July 02, 2019 Discharge Time: 1500 Admission Diagnosis Assessment: Resp distress Fever DYspnea Cough HTN HLP Narcotic dependence Obesity Plan: COVID-19 swab IV abx Nebs O2 Fever management Cardiology Pulmonology Discharge Diagnosis Exacerbation of COPD-chest x-ray is clear-is on a steroid taper Fever-resolved on cefepime Cough-possibly from cough variant asthma HTN HLP Narcotic dependence Obesity Leukocytosis History cerebral palsy with chronic pain issues hyperglycemia secondary to steroids and family hx DM plan to continue current regimen (1) Respiratory distress, acute Status: Acute (2) Fever (3) Cough (4) Hypertension Status: Chronic Qualifiers: Qualified Codes: I10 - Essential (primary) hypertension (5) Hyperlipemia Status: Chronic (6) Narcotic dependence Status: Chronic Clinical Quality Measures DVT/VTE Risk/Contraindication: Risk Factor Score Per Nursin RFS Level Per Nursing on Admit: 4+=Very High ANTELMO HAGAN MD July 02, 2019 12:17
--- NOTE | 2019-07-02 13:08 | Progress Note - Cardiology ---
Cardiology SOAP Progress Note Subjective: Shortness of breath and leg swelling improving, but not fully resolved No cp or palp or syncope No n/v/d Gen malaise No focal weakness Objective: I&O/Vital Signs 07/02/19 07/02/19 07/02/19 07/02/19 02:47 02:51 04:27 06:41 Temp 36.7 Pulse 69 Resp 22 B/P (MAP) 133/71 (91) Pulse Ox 95 95 95 93 O2 Delivery Room Air Room Air Room Air Room Air 07/02/19 07/02/19 07/02/19 07/02/19 06:42 06:45 08:00 09:00 Temp 37.1 Pulse 89 Resp 20 B/P (MAP) 150/72 (98) Pulse Ox 93 93 94 O2 Delivery Room Air Room Air Room Air Room Air 07/02/19 07/02/19 07/02/19 10:23 10:24 12:00 Temp 36.2 Pulse 85 Resp 20 B/P (MAP) 142/79 (100) Pulse Ox 95 95 96 O2 Delivery Room Air Room Air Room Air 07/02/19 00:00 Intake Total 1920 ml Output Total 1000 ml Balance 920 ml Constitutional: AAO x 3, well-developed, well-nourished, other (obese) Respiratory: No accessory muscle use; other (good bilat air entry) Cardiovascular: regular rate-rhythm, S1 and S2, systolic murmur (soft TIBURCIO at card base) Gastrointestional: No tender; soft; No guarding, No rebound; audible bowel sounds Extremities: No clubbing, No cyanosis, No significant edema Neurologic/Psychiatric: oriented x 3, other (moves all limbs equally) Skin: No rash on exposed areas, No ulcerations on exposed areas Results/Procedures: Labs Laboratory Tests 07/02/19 04:27: Sodium Level 141, Potassium Level 3.7, Chloride Level 104, Carbon Dioxide Level 28, Anion Gap 9, Blood Urea Nitrogen 15, Creatinine 0.85, Estimat Glomerular Filtration Rate > 60, BUN/Creatinine Ratio 18, Glucose Level 86, Calcium Level 8.8, Phosphorus Level 3.7, Magnesium Level 2.3 07/02/19 04:29: White Blood Count 16.5H, Red Blood Count 4.62, Hemoglobin 13.0L, Hematocrit 40, Mean Corpuscular Volume 87, Mean Corpuscular Hemoglobin 28, Mean Corpuscular Hemoglobin Concent 32, Red Cell Distribution Width 13.6, Platelet Count 288, Mean Platelet Volume 9.7, Neutrophils (%) (Auto) 69, Lymphocytes (%) (Auto) 22, Monocytes (%) (Auto) 8, Eosinophils (%) (Auto) 0, Basophils (%) (Auto) 0, Neutrophils # (Auto) 11.4H, Lymphocytes # (Auto) 3.7, Monocytes # (Auto) 1.4H, Eosinophils # (Auto) 0.0, Basophils # (Auto) 0.0 Microbiology 06/28/19 MRSA Screen - Final, Complete MRSA not isolated 06/28/19 Blood Culture - Preliminary, Resulted No growth Laboratory Tests 07/01/19 04:49 07/02/19 04:27 07/02/19 04:29 A/P: Assessment: Multifactorial shortness of breath, see below Acute respiratory failure, secondary to pneumonia with sepsis - management per Dr. Proctor Mild chronic diastolic CHF. Echo of 06/30/19: LVEF 60-65%, grade 2 meyer dysfunction of LV, RVSP 40 mmHg, mild to mod enlargement of LA, mild to mod TR Sinus tachycardia - resolved after fever resolved Obesity with obesity-hypoventilation syndrome. Non-compliant with CPAP Acute on chronic exacerbation of COPD - oxygen dependent H/o dental abscess in the L upper jaw that the patient states has resolved Plan: * Continue diuretics for chronic diastolic CHF * Monitor labs * Treat pneumonia and COPD and obesity-hypoventilation * I reviewed his CV issues with him and answered questions * Outpt cardiac f/u advised CHRISTINA ERNANDEZ MD FACP [facility] CCDS July 02, 2019 13:08
--- NOTE | 2019-07-02 14:08 | NUR ---
PIV removed, dc instructions including F/U and prescription given to pt. pt verbalized understanding of all teaching, questions answered. pt currently waiting on ride home.
[2019-07-02 14:16] VITALS: BP 142/79
--- NOTE | 2019-07-02 14:16 | NUR ---
JO ANN METCALF demonstrates understanding of discharge instructions and accurately returns instructions upon questioning. Copy of Post-Discharge Instructions and Medication Discharge Instructions given to PT. JO ANN METCALF is able to manage continuing needs after discharge. Patients belongings returned to PT. Skin dry and intact; no breakdown noted. Patient discharged from 407-1 on at . JO ANN METCALF left floor via WC, accompanied by staff.
== END 2019-07-02 14:16 | disposition home or self-care (01) | DRG 871 ==
LOC: EDUNIT# 20:28 → ER 20:29 → ICU 21:18 → 4TH 06-30 12:46
PROVIDERS: ADMIT Internal Medicine; ATTEND Internal Medicine
DX: A41.9 Sepsis, unspecified organism (principal); R65.20 Severe sepsis without septic shock; J18.9 Pneumonia, unspecified organism; J96.00 Acute respiratory failure, unspecified whether with hypoxia or hypercapnia; J44.1 Chronic obstructive 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 with (acute) exacerbation; J44.0 Chronic obstructive 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 with (acute) lower respiratory infection; E66.2 Morbid (severe) obesity with alveolar hypoventilation; F11.20 Opioid dependence, uncomplicated; I50.32 Chronic diastolic (congestive) heart failure; I11.0 Hypertensive heart disease with heart failure; R07.89 Other chest pain; I07.1 Rheumatic tricuspid insufficiency; R73.9 Hyperglycemia, unspecified; E78.5 Hyperlipidemia, unspecified; K21.9 Gastro-esophageal reflux disease without esophagitis; M19.91 Primary osteoarthritis, unspecified site; F41.9 Anxiety disorder, unspecified; M54.9 Dorsalgia, unspecified; Z99.81 Dependence on supplemental oxygen; Z87.891 Personal history of nicotine dependence; Z68.36 Body mass index [BMI] 36.0-36.9, adult; Z91.19 Patient's noncompliance with other medical treatment and regimen; Z87.19 Personal history of other diseases of the digestive system; Z20.828 Contact with and (suspected) exposure to other viral communicable diseases; T38.0X5A Adverse effect of glucocorticoids and synthetic analogues, initial encounter
CPT/HCPCS: 36415; 36600; 71045; 80048; 80053; 81000; 82805; 83605; 83735; 83880; 84100; 84145; 84443; 84484; 85007; 85025; 85027; 85379; 85610; 86141; 87040; 87081; 87635; 87804; 93005; 93306; 94640; 94660; 94760; 94761; 96374

== ENCOUNTER → 2019-07-10 | Outpatient (CLI) | payer MEDICARE, OTHER ==
[~2019-07-10] MED LIST: AMLO10TA7; AMLO5TAB9 PO; CETI10TA17 PO; ESOM40CA52 PO; FAMO40TA6 PO; FINA5TAB6 PO; FLUO40CA PO; GABA-490 PO; OXYC10TA7 PO; PRED10TA22 PO; ROSU20TA32 PO; RT-ALBUINH IH; RT-ALBUTEROL SULF 2.5 MG/3 ML PRE-MIX VIAL INH ONE; RT-ALBUTEROL SULF 2.5 MG/3 ML PRE-MIX VIAL ONE; TMSL.4C PO; UMEC1BLS INH
== END ==
LOC: RT 14:58
PROVIDERS: ATTEND Internal Medicine
DX: J44.9 Chronic obstructive pulmonary disease, unspecified (principal)
CPT/HCPCS: 94060; 94726; 94729

== ENCOUNTER → 2019-12-01 | Outpatient (CLI) | payer MEDICARE, OTHER ==
[~2019-12-01] MED LIST changes: -RT-ALBUTEROL SULF 2.5 MG/3 ML PRE-MIX VIAL INH ONE; -RT-ALBUTEROL SULF 2.5 MG/3 ML PRE-MIX VIAL ONE
== END ==
LOC: LABNPT 05:34
PROVIDERS: ATTEND Internal Medicine Cardiovascular Disease
DX: Z01.812 Encounter for preprocedural laboratory examination (principal); Z20.828 Contact with and (suspected) exposure to other viral communicable diseases
CPT/HCPCS: 87635

== ENCOUNTER 2019-12-11 05:39 | Outpatient (RCR) | payer MEDICARE, OTHER ==
[~2019-12-11 05:39] MED LIST changes: +AMLO-250 PO; +AMLO-251; -AMLO10TA7; -AMLO5TAB9 PO
[2019-12-26] MEDS ORDERED: TIOT18CA2 IH (09:52)
[2019-12-26] MEDS ORDERED: FLUT1DIS26 IH (09:52)
== END 2020-03-10 | disposition home or self-care (01) ==
LOC: PREOP 05:39 → EDSTATUS 10:30
PROVIDERS: ATTEND Surgery
DX: Z01.818 Encounter for other preprocedural examination (principal)

== ENCOUNTER 2019-12-26 08:49 | Day surgery (SDC) | payer MEDICARE, OTHER ==
[2019-12-26] VITALS (9 sets, daily range): BP systolic 114–154; BP diastolic 61–86
[~2019-12-26] VITALS: Ht 175 cm; Wt 110.0 kg
[2019-12-26] MEDS ORDERED: HEParin (CATH LAB) 2,000 ML IV ONE (08:59)
[2019-12-26] MEDS ORDERED: NS IV 1000 ML 1,000 ML ONE (08:59)
[2019-12-26] MEDS ORDERED: LIDOCAINE 1% INJ 20 ML 20 ML VIAL ONE (08:59)
[2019-12-26] MEDS ORDERED: NS IV 1000 ML 1,000 ML IV SCH ×2 (09:15→11:16)
[2019-12-26 09:41] LABS: HEMOGLOBIN 14.9 g/dL (13.3-17.7); MEAN PLATELET VOLUME 9.7 fL (9.0-12.2); WHITE BLOOD COUNT 13.9 10^3/uL (4.3-11.0)
[2019-12-26] MEDS ORDERED: FLUT1DIS26 IH (09:52)
[2019-12-26] MEDS ORDERED: TIOT18CA2 IH (09:52)
[2019-12-26 09:53] LABS: PROTHROMBIN TIME PATIENT 13.3 SEC (12.2-14.7)
[2019-12-26] MEDS ORDERED: MIDAZOLAM 5 MG/5 ML (VERSED) VIAL ONE (09:59)
[2019-12-26] MEDS ORDERED: fentaNYL INJECTION 100 MCG/2 ML AMP ONE (09:59)
[2019-12-26 10:00] LABS: ALANINE AMINOTRANSFERASE 32 U/L (0-55); ALBUMIN 4.2 GM/DL (3.2-4.5); ALKALINE PHOSPHATASE 139 U/L (40-136); BILIRUBIN,TOTAL 0.3 MG/DL (0.1-1.0); BUN/CREATININE RATIO 11; CALCIUM 9.4 MG/DL (8.5-10.1); CARBON DIOXIDE 26 MMOL/L (21-32); CHLORIDE 104 MMOL/L (98-107); CHOLESTEROL 162 MG/DL (< 200); CREATININE SERUM 0.95 MG/DL (0.60-1.30); GFR ESTIMATED > 60; GLUCOSE 108 MG/DL (70-105); HDL CHOLESTEROL 53 MG/DL (40-60); POTASSIUM 4.2 MMOL/L (3.6-5.0); SODIUM 142 MMOL/L (135-145); TOTAL PROTEIN 7.5 GM/DL (6.4-8.2); TRIGLYCERIDES 119 MG/DL (<150); VLDL CHOLESTEROL 24 MG/DL (5-40)
--- NOTE | 2019-12-26 11:16 | Cardiac Procedure Note-CS/ASA ---
Pre-Procedure Note Pre-Op Procedure Note H&P Reviewed The H&P was reviewed, patient examined and no changes noted. Date H&P Reviewed: Dec 26, 2019 Time H&P Reviewed: 10:30 Conscious Sedation Pre-Proced Time 10:30 ASA Score 3 For ASA 3 and 4: Consider anesthesia and medical clearance. Also, for patients with a history of failed moderate sedation consider anesthesia. Airway Lungs Heart ASA score ASA 1: a normal healthy patient ASA 2: a patient with a mild systemic disease (mid diabetes, controlled hypertension, obesity ASA 3: a patient with a severe systemic disease that limits activity (angina, COPD, prior Myocardial infarction) ASA 4: a patient with an incapacitating disease that is a constant threat to life (CHF, renal failure) ASA 5: a moribund patient not expected to survive 24 hrs. (ruptured aneurysm) ASA 6: a declared brain- patient whose organs are being harvested. For emergent operations, add the letter E after the classification Mallampati Classification Grade 2 Sedation Plan Analgesia, Amnesia, Plan communicated to team members, Discussed options with patient/fam, Discussed risks with patient/fam The patient is an appropriate candidate to undergo the planned procedure, sedation, and anesthesia. The patient immediately re-assessed prior to indication. CHRISTINA ERNANDEZ MD FACP FAC CCDS Dec 26, 2019 11:16
--- NOTE | 2019-12-26 11:20 | Discharge Inst-Cardiology ---
Discharge Inst-Cardiac Discharge Medications Continued Medications: Albuterol Sulfate (Proair Hfa) 1 Puff Puff 2 PUFF IH Q4H PRN for SHORTNESS OF BREATH, PUFF Amlodipine Besylate (Amlodipine Besylate) 5 Mg Tablet 5 MG PO DAILY, TAB Cetirizine HCl (Cetirizine HCl) 10 Mg Tablet 10 MG PO DAILY, TAB Esomeprazole Magnesium (Esomeprazole Magnesium) 40 Mg Capsule.dr 40 MG PO DAILY, CAP Finasteride (Finasteride) 5 Mg Tablet 5 MG PO DAILY, TAB Fluoxetine HCl (Fluoxetine HCl) 40 Mg Capsule 40 MG PO BID, CAP Fluticasone/Salmeterol (Advair 250-50 Diskus) 1 Each Blst.w.dev 1 EACH IH BID Gabapentin (Gabapentin) 400 Mg Capsule 400 MG PO TID, CAP Oxycodone HCl (Oxycodone HCl) 10 Mg Tablet 10 MG PO Q6H PRN for PAIN-SEVERE (8-10), TAB Rosuvastatin Calcium (Rosuvastatin Calcium) 20 Mg Tablet 20 MG PO DAILY, TAB Tamsulosin HCl (Flomax) 0.4 Mg Cap 0.4 MG PO DAILY, CAP Tiotropium Sophia (Spiriva) 1 Inh Aerp 2 INH IH DAILY, INHALER CHRISTINA ERNANDEZ MD FACP FAC CCDS Dec 26, 2019 11:20
--- NOTE | 2019-12-26 11:21 | Discharge Inst-Post CATH ---
Discharge Inst-CATH/EP Post Cardiac Cath/EP D/C Inst Follow Up/Plan F/u with Dr Gudino in 1-2 weeks ACTIVITY * Go Home directly and rest. * Limit activity of the leg (or wrist if it was used) for 7 days including aerobics, swimming, jogging, bicycling, etc. * Restrict stair-climbing for 7 days if possible, if not, climb up with your non-cath leg, then bring together on the same step. * Avoid lifting, pushing, pulling or excessive movement of the affected extremity for 7 days. * Customary sexual activity may be resumed after 2 days-use caution not to use a position that strains or causes pain to the affected extremity. * No driving for 24 hours. * NO SMOKING. * Avoid straining for bowel movements for 7 days. * Gentle walking on level ground is allowed. * Returning to work will depend on the type of procedure and the results. Your doctor will discuss this with you. CALL YOUR DOCTOR FOR ANY OF THE FOLLOWING: *If bleeding from the puncture site occurs- Apply gentle pressure to site with clean cloth and call your doctor or EMS. * If a knot or lump forms under the skin, increases in size, or causes pain. * If bruising appears to be worsening or moving further down your leg instead of disappearing. * Temperature above 101 F. CARE OF YOUR GROIN INCISION; * Bruising or purple discoloration of the skin near the puncture site is common. * You may shower only, no bathtub bathing for 5 days. Be careful to avoid slipping as your leg may feel stiff. * If a closure device was used on your femoral artery, please see the attached guide regarding care of the device and your leg. * Leave dressing on FOR 24 hours. CARE OF YOUR WRIST INCISION; * Bruising or purple discoloration of the skin near the puncture site is common. * You may shower. * DO NOT submerge wrist. * Leave dressing on FOR 24 hours. [facility]UDINO [facility] Dec 26, 2019 11:21
[2019-12-26] MEDS ORDERED: PATIENT MAY USE OWN MEDS, ALL PO SCH (11:30)
--- NOTE | 2019-12-26 12:28 | CARDIAC CATHETERIZATION ---
DATE OF SERVICE: 12/26/2019 CARDIAC CATHETERIZATION REPORT The patient is a 69-year-old man who was hospitalized earlier this year with acute respiratory failure and was diagnosed with pneumonia and an acute diastolic congestive heart failure. Given the new diagnosis of acute diastolic congestive heart failure, cardiac catheterization was recommended, and informed consent was obtained. DESCRIPTION OF PROCEDURE: He was brought to the cardiac catheterization laboratory in a fasting state. Right groin was prepared and draped in the usual sterile fashion. Lidocaine 1% was used for local anesthesia. Modified Seldinger technique was used to advance a 7-Finnish sheath into the right femoral vein and a 5-Finnish sheath in the right femoral artery. We used a 7-Finnish [place]-Mendez catheter to carry out right heart catheterization and to measure oxygen saturation in the various right heart chambers. The [place]-Mendez catheter was then removed. We used a 5-Finnish pigtail catheter to carry out left heart catheterization and left ventricular angiography and to measure oxygen saturation in the left ventricle. The pigtail catheter was pulled back and removed. We used 5-Finnish JL4 catheter for left coronary angiography, 5-Finnish JR4 catheter for right coronary angiography. We carried out angiography of the right femoral artery through the sheath. Mynx was used to achieve hemostasis following sheath removal. He tolerated the procedure well. HEMODYNAMICS: Pulmonary artery pressure was 23/17 with a mean of 15 mmHg. Mean pulmonary wedge pressure was 16 mmHg. Right ventricular pressure was 34/7 mmHg. Right atrial mean pressure was 9 mmHg. Cardiac output by thermodilution was 6.85. Cardiac index by thermodilution was 3.08. Pulmonary vascular resistance was calculated to be 1.07 Wood units. Oxygen saturation in the various right heart chambers was around 50%. Oxygen saturation in the left ventricle without supplemental oxygen, was in the mid 70s. Left ventricular end-diastolic pressure was 15 mmHg. There was no significant pressure gradient on pullback across the aortic valve. Ascending aortic pressure was 121/70 with a mean of 94 mmHg. LEFT VENTRICULAR ANGIOGRAPHY: Left ventricular angiography was carried out in the right anterior oblique projection. Global left ventricular systolic function is hyperdynamic. Left ventricular ejection fraction is estimated to be approximately 75%. CORONARY ANGIOGRAPHY: Left main coronary artery, left anterior descending artery, left circumflex artery, right coronary artery do not exhibit any angiographically significant disease. Left circumflex artery is dominant. CONCLUSIONS: 1. No angiographically significant coronary artery disease. 2. Hyperdynamic left ventricular systolic function with ejection fraction of 75%. 3. Mildly elevated left ventricular end-diastolic pressure. 4. Normal right heart pressures, except for mildly elevated pulmonary wedge and pulmonary artery diastolic pressures. 6. Low oxygen saturation without supplemental oxygen. 7. Sleep apnea suspected during the study. 8. No significant obstructive coronary artery disease. DISCUSSION AND RECOMMENDATIONS: Based on the results of the study, it appears appropriate to continue treatment for her diastolic dysfunction of the left ventricle, which appears to be mild. He appears to have considerable hypoxemia when sleeping. We spoke with him. He states that he is known to have sleep hypoxemia and sleep apnea. He has only been intermittently compliant with therapy, he says. We have advised compliance. We have advised to follow up with his pulmonary and sleep apnea specialist. Risk factor modification has been reviewed. Outpatient followup is advised. Job ID: [id number] DocumentID: [id number] Dictated Date: 12/26/2019 11:29:28 Waste Water Worker Date: 12/26/2019 12:27:52 Dictated By: CHRISTINA ERNANDEZ MD, MA, FACP, FACC, MTDD
== END 2019-12-26 15:00 | disposition home or self-care (01) ==
LOC: CATH 08:49 → SDC 11:17 → CATH 15:00
PROVIDERS: ATTEND Internal Medicine Cardiovascular Disease
DX: J96.00 Acute respiratory failure, unspecified whether with hypoxia or hypercapnia (principal); J18.9 Pneumonia, unspecified organism; I50.31 Acute diastolic (congestive) heart failure; I27.20 Pulmonary hypertension, unspecified; G47.33 Obstructive sleep apnea (adult) (pediatric); I36.1 Nonrheumatic tricuspid (valve) insufficiency; J44.9 Chronic obstructive pulmonary disease, unspecified; E66.9 Obesity, unspecified; Z68.35 Body mass index [BMI] 35.0-35.9, adult; Z79.899 Other long term (current) drug therapy; Z88.5 Allergy status to narcotic agent; Z88.8 Allergy status to other drugs, medicaments and biological substances
CPT/HCPCS: 80053; 80061; 85027; 85610; 85730; 87081; 93460; C1760; C1769; C1894 ×2; 36415

== ENCOUNTER 2020-06-20 05:32 | Outpatient (RCR) | payer MEDICARE, OTHER ==
[~2020-06-20] VITALS: Ht 167.7 cm; Wt 110.0 kg
[~2020-06-20 05:32] MED LIST changes: +FLUT1DIS26 IH; +TIOT18CA2 IH
== END 2020-06-20 09:05 | disposition home or self-care (01) ==
LOC: PREOP 05:32
PROVIDERS: ATTEND Surgery
DX: Z01.812 Encounter for preprocedural laboratory examination (principal); R19.4 Change in bowel habit; R13.10 Dysphagia, unspecified; Z20.822 Contact with and (suspected) exposure to COVID-19
CPT/HCPCS: 87635

== ENCOUNTER 2020-06-24 07:02 | Day surgery (SDC) | payer MEDICARE, OTHER ==
[~2020-06-24] VITALS: Ht 172.7 cm; Wt 107.1 kg
[2020-06-24] MEDS ORDERED: LACTATED RINGERS 1,000 ML IV ONE (07:25)
[2020-06-24] MEDS ORDERED: LACTATED RINGERS 1,000 ML IV STA (07:36)
[2020-06-24] MEDS ORDERED: HURRICAINE EXT TUBE (BENZOCAINE) XX PRN (07:45)
[2020-06-24 08:16] VITALS: BP 154/78
--- NOTE | 2020-06-24 08:30 | Progress Note-Pre Operative ---
Pre-Operative Progress Note H&P Reviewed The H&P was reviewed, patient examined and no changes noted. Time Seen by Provider: 08:18 Date H&P Reviewed: June 24, 2020 Time H&P Reviewed: 08:18 Pre-Operative Diagnosis: Dysphagia SOL HINES DO June 24, 2020 08:30
[2020-06-24] MEDS ORDERED: proPOfol 200 MG/20 ML (DIPRIVAN) VIAL IV ONE (08:49)
[2020-06-24] MEDS ORDERED: MIDAZOLAM 2 MG/2 ML (VERSED) VIAL ONE (08:50)
[2020-06-24 09:15] VITALS: BP 142/78
[2020-06-24 09:20] VITALS: BP_SYST 122; BP_SYST 128; BP_DIAS 63; BP_DIAS 74
[2020-06-24 09:50] VITALS: BP 130/73
--- NOTE | 2020-06-24 10:01 | Diagnostic Imaging Report ---
EXAMINATION: PA and lateral chest at 9:47 AM. INDICATION: Congestion. FINDINGS: The heart size is within normal limits and stable when compared to 06/30/2019. The lungs remain clear. There is still no sign of failure, pneumonia, or pleural effusion to indicate an acute abnormality. The hiatal hernia seen on the previous study is again evident and no different. The mediastinum is not widened. The osseous structures are intact. The lateral view again shows long-standing wedge compression deformities of four mid/lower thoracic vertebrae. IMPRESSION: There is no evidence for active disease. Dictated by: Dictated on workstation # [id number]
--- NOTE | 2020-06-24 10:06 | Progress Note-Post Operative ---
Post-Operative Progess Note Surgeon (s)/Aircraft Cleaner (s) Surgeon SOL HINES DO Aircraft Cleaner: none Pre-Operative Diagnosis Dysphagia Post-Operative Diagnosis Gastritis Hiatal Hernia - large Gastric ulcer Procedure & Operative Findings Date of Procedure 06/24/20 Procedure Performed/Findings EGD with bx Anesthesia Type IV sedation by CRANKSHAFT STRAIGHTENER Estimated Blood Loss Estimated blood loss (mL): scant Specimens/Packing Specimens Removed antral bx body of stomach bx GE jxn bx SOL HINES DO June 24, 2020 10:06
--- NOTE | 2020-06-24 10:07 | Endoscopy Discharge Instruct ---
Endo Procedure/Findings Findings 1.: Gastric Ulcer 2.: Gastritis 3.: Hiatal Hernia Discharge Instructions - Activity: You might feel a little sleepy until tomorrow. This is due to the medicine you received to relax you. Until tomorrow, you should: NOT drive a car, operate machinery or power tools. NOT drink any alcoholic beverages. NOT make any important decisions or sign importortant papers. Do not return to work until tomorrow, unless otherwise instructed. Resume previous activities tomorrow. Diet: Start by taking liquids. If you tolerate liquids, advance to solid food. 1.: EGD in 1 year Notify Physician - If you experience excessive bleeding, unusual abdominal pain, fever, or chest pain, contact your doctor immediately. SOL HINES DO June 24, 2020 10:07
[2020-06-24 10:50] VITALS: BP 130/73
--- NOTE | 2020-06-24 11:16 | Anesthesia-General Post-Op ---
MAC Patient Condition Mental Status/LOC: Same as Preop Cardiovascular: Satisfactory Nausea/Vomiting: Absent Respiratory: Satisfactory Pain: Controlled Complications: Absent Post Op Complications Complications None Follow Up Care/Instructions Patient Instructions None needed. Anesthesiology Discharge Order Discharge Order Patient is doing well, no complaints, stable vital signs, no apparent adverse anesthesia problems. No complications reported per nursing. JOSE MYLES CRNA June 24, 2020 11:16
--- NOTE | 2020-06-24 21:45 | OPERATIVE REPORT ---
DATE OF SERVICE: 06/24/2020 PREOPERATIVE DIAGNOSIS: Dysphagia. POSTOPERATIVE DIAGNOSES: Gastritis, hiatal hernia, which was very large and a gastric ulcer. PROCEDURE: EGD with biopsy. SURGEON: Gui Musa DO SOFTWARE CONSULTANT: None. ANESTHESIA: IV sedation by the CIRCUIT BOARD DRAFTER. SPECIMEN: Biopsy of the antrum, biopsy of body of stomach, biopsy from what looked like an ulcer in the hiatal hernia and then biopsy of the GE junction. BLOOD LOSS: Scant. FLUIDS: Per anesthesia. POSTOPERATIVE CONDITION: Stable. INDICATION FOR PROCEDURE: The patient is a 70-year-old male who has a complaint of trouble swallowing, getting progressively worse. He has a history of dilatation of the esophagus and needed a workup. FINDINGS: The patient had some gastritis. He had a very large hiatal hernia with what looked like an ulcer in it and some mild changes of the GE junction. PROCEDURE NOTE: After informed consent was obtained, the patient was brought to the endoscopy suite, placed in bed in left lateral decubitus position. He was administered IV sedation by the CIRCUIT BOARD DRAFTER who then monitored his vitals the entire time, heart rate, blood pressure and pulse ox and the scope was placed down the mouth through the esophagus into the stomach. Upon entering the stomach, noted some pretty severe inflammation, took a picture of this and then pushed past the pylorus into the duodenum. Duodenum looked fine. Pulled back and did a biopsy of the antrum. Retroflexed the scope, saw a large hiatal hernia and then pulled the scope into this hiatal hernia, saw what looked like an ulcer, did a biopsy of this ulcer. We then pulled the scope into the GE junction, did a biopsy here, then pushed the scope back into the stomach, suctioned all the air out of the stomach and then pulled the scope up the esophagus and out the mouth. The patient tolerated the procedure, recovered in the endoscopy suite. Job ID: [id number] DocumentID: [id number] Dictated Date: 06/24/2020 14:46:26 Director Of Sales Support Date: 06/24/2020 21:44:02 Dictated By: GUI MUSA DO
== END 2020-06-24 10:50 | disposition home or self-care (01) ==
LOC: ENDO 07:02
PROVIDERS: ATTEND Surgery
DX: K29.70 Gastritis, unspecified, without bleeding (principal); K44.9 Diaphragmatic hernia without obstruction or gangrene; K25.9 Gastric ulcer, unspecified as acute or chronic, without hemorrhage or perforation; K22.70 Barrett's esophagus without dysplasia; K21.9 Gastro-esophageal reflux disease without esophagitis; I10 Essential (primary) hypertension; J44.9 Chronic obstructive pulmonary disease, unspecified; F41.9 Anxiety disorder, unspecified; G89.29 Other chronic pain; M54.9 Dorsalgia, unspecified; G80.9 Cerebral palsy, unspecified; G47.33 Obstructive sleep apnea (adult) (pediatric); E66.9 Obesity, unspecified; Z68.35 Body mass index [BMI] 35.0-35.9, adult; Z79.51 Long term (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 of inhaled steroids; Z79.899 Other long term (current) drug therapy; Z80.0 Family history of malignant neoplasm of digestive organs; Z80.42 Family history of malignant neoplasm of prostate
CPT/HCPCS: 71046; 88305

== ENCOUNTER 2020-10-11 05:35 | Outpatient (RCR) | payer MEDICARE, OTHER ==
[~2020-10-11] VITALS: Ht 172.2 cm; Wt 107.1 kg
== END 2020-10-11 13:10 | disposition home or self-care (01) ==
LOC: PREOP 05:35
PROVIDERS: ATTEND Surgery
DX: Z01.818 Encounter for other preprocedural examination (principal); K22.70 Barrett's esophagus without dysplasia; Z20.822 Contact with and (suspected) exposure to COVID-19
CPT/HCPCS: 87635

== ENCOUNTER 2020-10-14 09:25 | Day surgery (SDC) | payer MEDICARE, OTHER ==
[~2020-10-14] VITALS: Ht 172.2 cm; Wt 107.1 kg
[2020-10-14] MEDS ORDERED: LACTATED RINGERS 1,000 ML IV STA (09:31)
[2020-10-14 09:40] VITALS: BP 148/79
[2020-10-14] MEDS ORDERED: HURRICAINE EXT TUBE (BENZOCAINE) XX PRN (09:45)
[2020-10-14] MEDS ORDERED: FAMO20TA3 PO (10:10)
[2020-10-14] MEDS ORDERED: BUDE10.22 IH (10:10)
[2020-10-14] MEDS ORDERED: DOCU-163 PO (10:10)
[2020-10-14] MEDS ORDERED: LEVO5TAB28 PO (10:10)
--- NOTE | 2020-10-14 11:10 | Progress Note-Pre Operative ---
Pre-Operative Progress Note H&P Reviewed The H&P was reviewed, patient examined and no changes noted. Time Seen by Provider: 11:03 Date H&P Reviewed: Oct 14, 2020 Time H&P Reviewed: 11:03 Pre-Operative Diagnosis: Esophageal ulcer, Schneider's esophagus, hiatal hernia SOL HINES DO Oct 14, 2020 11:10
[2020-10-14] MEDS ORDERED: LACTATED RINGERS 1,000 ML IV ONE (11:13)
[2020-10-14] MEDS ORDERED: MIDAZOLAM 2 MG/2 ML (VERSED) VIAL ONE (11:32)
[2020-10-14] MEDS ORDERED: proPOfol 200 MG/20 ML (DIPRIVAN) VIAL IV ONE (11:32)
[2020-10-14 11:50] VITALS: BP 127/67
--- NOTE | 2020-10-14 11:50 | Progress Note-Post Operative ---
Post-Operative Progess Note Surgeon (s)/Nicu Rn (s) Surgeon SOL HINES DO Nicu Rn: none Pre-Operative Diagnosis Esophageal ulcer, Schneider's esophagus, hiatal hernia Post-Operative Diagnosis Esophagitis Hiatal Hernia - Large Gastritis Procedure & Operative Findings Date of Procedure 10/14/20 Procedure Performed/Findings EGD with bx PROCEDURE NOTE: After informed consent was obtained, the patient was brought to the endoscopy suite, placed in bed in left lateral decubitus position. He was administered IV sedation by the X RAY NURSE who then monitored vitals the entire time, heart rate, blood pressure and pulse ox and the scope was inserted down the mouth through the esophagus into the stomach. On the way down, noted some mild esophagitis and no ulcers seen; took a picture. Then pushed into the stomach and pushed past the antrum into the duodenum. Duodenum looked good. Pylorus looked a little bit strictured and there was some mild Gastritis. Pulled back and did a biopsy of antrum, then retroflexed the scope. Saw a large sliding hiatal hernia and took a picture of this. Next pulled the scope into the GE junction, took another picture of the hiatal hernia and then did a biopsy of the GE junction. Pushed the scope back into the stomach, suctioned all the air out of the stomach. At this point pulled the scope up the esophagus and out the mouth. The patient tolerated the procedure, and he recovered in endoscopy suite. Anesthesia Type IV sedation by X RAY NURSE Estimated Blood Loss Estimated blood loss (mL): scant Specimens/Packing Specimens Removed antral bx GE jxn bx SOL HINES DO Oct 14, 2020 11:50
--- NOTE | 2020-10-14 11:51 | Endoscopy Discharge Instruct ---
Endo Procedure/Findings Findings 1.: Schneider's Esophagus 2.: Hiatal Hernia 3.: Gastritis Discharge Instructions - Activity: You might feel a little sleepy until tomorrow. This is due to the medicine you received to relax you. Until tomorrow, you should: NOT drive a car, operate machinery or power tools. NOT drink any alcoholic beverages. NOT make any important decisions or sign importortant papers. Do not return to work until tomorrow, unless otherwise instructed. Resume previous activities tomorrow. Diet: Start by taking liquids. If you tolerate liquids, advance to solid food. 1.: EGD in 1 year Notify Physician - If you experience excessive bleeding, unusual abdominal pain, fever, or chest pain, contact your doctor immediately. SOL HINES DO Oct 14, 2020 11:51
[2020-10-14 11:55] VITALS: BP 143/75
--- NOTE | 2020-10-14 11:57 | Anesthesia-General Post-Op ---
MAC Patient Condition Mental Status/LOC: Same as Preop Cardiovascular: Satisfactory Nausea/Vomiting: Absent Respiratory: Satisfactory Pain: Controlled Complications: Absent Post Op Complications Complications None Follow Up Care/Instructions Patient Instructions None needed. Anesthesiology Discharge Order Discharge Order Patient is doing well, no complaints, stable vital signs, no apparent adverse anesthesia problems. No complications reported per nursing. EREN SHABAZZ CRNA Oct 14, 2020 11:57
[2020-10-14 12:20] VITALS: BP 146/77
[2020-10-14 12:40] VITALS: BP 146/77
== END 2020-10-14 12:40 | disposition home or self-care (01) ==
LOC: ENDO 09:25
PROVIDERS: ATTEND Surgery
DX: K20.90 Esophagitis, unspecified without bleeding (principal); K22.70 Barrett's esophagus without dysplasia; K44.9 Diaphragmatic hernia without obstruction or gangrene; K29.70 Gastritis, unspecified, without bleeding; K31.9 Disease of stomach and duodenum, unspecified; J40 Bronchitis, not specified as acute or chronic; G47.33 Obstructive sleep apnea (adult) (pediatric); K27.9 Peptic ulcer, site unspecified, unspecified as acute or chronic, without hemorrhage or perforation; Z79.899 Other long term (current) drug therapy; Z79.891 Long term (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 of opiate analgesic
CPT/HCPCS: 88305